=== PATIENT | male | born 1945 | race Caucasian/White ===

== ENCOUNTER → 2020-07-17 10:01 | Outpatient (BNVA) | payer SELFPAY | PROVIDERS: PCP Internal Medicine; Referring Provider Internal Medicine; Visit Provider Family Medicine Adult Medicine | DX: M47.816 Spondylosis without myelopathy or radiculopathy, lumbar region (principal); Z98.1 Arthrodesis status | CPT/HCPCS: 99212 ==

== ENCOUNTER → 2020-10-16 09:59 | Outpatient (BNVA) | payer OTHER, SELFPAY | PROVIDERS: PCP Internal Medicine; Visit Provider Family Medicine Adult Medicine | DX: M47.816 Spondylosis without myelopathy or radiculopathy, lumbar region (principal); Z98.1 Arthrodesis status; Z79.899 Other long term (current) drug therapy | CPT/HCPCS: 99212 ==

== ENCOUNTER → 2020-12-11 09:59 | Outpatient (BNVA) | payer OTHER, SELFPAY | PROVIDERS: PCP Internal Medicine; Visit Provider Family Medicine Adult Medicine | DX: M47.816 Spondylosis without myelopathy or radiculopathy, lumbar region (principal); Z98.1 Arthrodesis status | CPT/HCPCS: 99212 ==

== ENCOUNTER → 2021-02-05 08:55 | Outpatient (BNVA) | payer OTHER, SELFPAY | PROVIDERS: PCP Internal Medicine; Visit Provider Family Medicine Adult Medicine | DX: M47.816 Spondylosis without myelopathy or radiculopathy, lumbar region (principal); Z98.1 Arthrodesis status | CPT/HCPCS: 99212 ==

== ENCOUNTER → 2021-04-02 09:55 | Outpatient (BNVA) | payer OTHER, SELFPAY | PROVIDERS: PCP Internal Medicine; Visit Provider Family Medicine Adult Medicine | DX: M47.816 Spondylosis without myelopathy or radiculopathy, lumbar region (principal); Z98.1 Arthrodesis status | CPT/HCPCS: 99212 ==

== ENCOUNTER → 2021-05-28 09:54 | Outpatient (BNVA) | payer OTHER, SELFPAY | PROVIDERS: PCP Internal Medicine; Visit Provider Family Medicine Adult Medicine | DX: Z98.1 Arthrodesis status (principal); M47.816 Spondylosis without myelopathy or radiculopathy, lumbar region; Z79.899 Other long term (current) drug therapy | CPT/HCPCS: 99212 ==

== ENCOUNTER → 2021-07-16 09:54 | Outpatient (BNVA) | payer OTHER, SELFPAY | PROVIDERS: PCP Internal Medicine; Visit Provider Nurse Practitioner Family | DX: Z51.81 Encounter for therapeutic drug level monitoring (principal); F11.20 Opioid dependence, uncomplicated | CPT/HCPCS: 99211 ==

== ENCOUNTER → 2021-09-17 09:56 | Outpatient (BNVA) | payer OTHER, SELFPAY | PROVIDERS: PCP Internal Medicine; Visit Provider Nurse Practitioner Family | DX: Z51.81 Encounter for therapeutic drug level monitoring (principal); F11.20 Opioid dependence, uncomplicated; M96.1 Postlaminectomy syndrome, not elsewhere classified; M54.16 Radiculopathy, lumbar region | CPT/HCPCS: 99212 ==

== ENCOUNTER → 2021-11-12 09:54 | Outpatient (BNVA) | payer OTHER, SELFPAY | PROVIDERS: PCP Internal Medicine; Visit Provider Nurse Practitioner Family | DX: G89.29 Other chronic pain (principal); M96.1 Postlaminectomy syndrome, not elsewhere classified; M54.16 Radiculopathy, lumbar region; Z79.891 Long term (current) use of opiate analgesic; Z96.89 Presence of other specified functional implants; Z98.1 Arthrodesis status | CPT/HCPCS: 99212 ==

== ENCOUNTER → 2022-01-07 09:54 | Outpatient (BNVA) | payer OTHER, SELFPAY | PROVIDERS: PCP Internal Medicine; Visit Provider Nurse Practitioner Family | DX: Z51.81 Encounter for therapeutic drug level monitoring (principal); F11.20 Opioid dependence, uncomplicated; M96.1 Postlaminectomy syndrome, not elsewhere classified; M54.16 Radiculopathy, lumbar region; G89.29 Other chronic pain; Z98.1 Arthrodesis status; Z96.89 Presence of other specified functional implants | CPT/HCPCS: 99212 ==

== ENCOUNTER → 2022-03-11 08:25 | Outpatient (BNVA) | payer OTHER, SELFPAY | PROVIDERS: PCP Internal Medicine; Visit Provider Nurse Practitioner Family | DX: M96.1 Postlaminectomy syndrome, not elsewhere classified (principal); M54.16 Radiculopathy, lumbar region; M47.816 Spondylosis without myelopathy or radiculopathy, lumbar region; G89.29 Other chronic pain; F11.90 Opioid use, unspecified, uncomplicated; Z98.1 Arthrodesis status; Z96.89 Presence of other specified functional implants | CPT/HCPCS: 99212 ==

== ENCOUNTER → 2022-05-06 09:59 | Outpatient (BNVA) | payer OTHER, SELFPAY | PROVIDERS: PCP Internal Medicine; Visit Provider Nurse Practitioner Family | DX: Z51.81 Encounter for therapeutic drug level monitoring (principal); F11.20 Opioid dependence, uncomplicated; M79.2 Neuralgia and neuritis, unspecified; M96.1 Postlaminectomy syndrome, not elsewhere classified; M54.16 Radiculopathy, lumbar region; G89.29 Other chronic pain; M47.816 Spondylosis without myelopathy or radiculopathy, lumbar region; Z96.89 Presence of other specified functional implants; Z98.1 Arthrodesis status | CPT/HCPCS: 99212 ==

== ENCOUNTER 2022-07-07 10:35 | Outpatient (REF) | payer OTHER, SELFPAY ==
--- NOTE | ~2022-07-07 | XR_ITS ---
EXAMINATION: XR LUMBOSACRAL SPINE WITH OBLIQUES CLINICAL INFORMATION: Postlaminectomy syndrome. COMPARISON: None TECHNIQUE: AP, both oblique, and lateral views of the lumbar spine. Lateral view of the lumbosacral junction. FINDINGS: AP, lateral, oblique, and flexion-extension views performed of the lumbosacral spine. Hardware in place and appears intact with pedicle screw and vitaliy fixation L4 through S1. Disc spaces intravertebral cages are seen at the L4-L5 and L5-S1 disc space levels. At the L3-L4 disc space level, there is suggestion of approximately 3 mm of motion between flexion and extension views. Due to overlying hardware, is difficult to tell if there is any instability at the L4-L5 and L5-S1 disc space levels. There is severe disc space narrowing noted at the L2-L3 and L3-L4 disc space levels. There is a mild grade 1 spondylolisthesis L3-L4. Spine stimulator wires seen traversing to the thoracic spine. There is some mild sclerosis and spurring seen about both sacroiliac joints. No acute fracture is appreciated. There is facet arthropathy seen L2 through L4. XR/XR lumbar spine 6V w bending IMPRESSION: No evidence of acute lumbar spine fracture. Status post pedicle screw and posterior vitaliy fixation L4 through S1 with hardware appearing intact. Severe degenerative disc disease with some facet arthropathy L2 through L4. Suggestion of mild change of spondylolisthesis at the L3-L4 level. Some of this may be related to rotation of the lateral image.
== END 2022-07-07 10:36 | disposition home or self-care (01) ==
LOC: HO.XRAY 10:35
PROVIDERS: PCP Internal Medicine; Visit Provider Nurse Practitioner Family
DX: M51.36 Other intervertebral disc degeneration, lumbar region (principal); M96.1 Postlaminectomy syndrome, not elsewhere classified; M47.26 Other spondylosis with radiculopathy, lumbar region; F11.90 Opioid use, unspecified, uncomplicated; Z98.1 Arthrodesis status
CPT/HCPCS: 72114; 99212

== ENCOUNTER → 2022-09-01 09:53 | Outpatient (BNVA) | payer OTHER, SELFPAY | PROVIDERS: PCP Internal Medicine; Visit Provider Nurse Practitioner Family | DX: Z79.899 Other long term (current) drug therapy (principal) ==

== ENCOUNTER → 2022-10-28 10:01 | Outpatient (BNVA) | payer OTHER, SELFPAY | PROVIDERS: PCP Internal Medicine; Visit Provider Nurse Practitioner Family | DX: Z51.81 Encounter for therapeutic drug level monitoring (principal); F11.20 Opioid dependence, uncomplicated; M96.1 Postlaminectomy syndrome, not elsewhere classified; M51.36 Other intervertebral disc degeneration, lumbar region; M54.16 Radiculopathy, lumbar region; M47.816 Spondylosis without myelopathy or radiculopathy, lumbar region; R63.4 Abnormal weight loss; Z98.890 Other specified postprocedural states; Z87.19 Personal history of other diseases of the digestive system | CPT/HCPCS: 99212 ==

== ENCOUNTER → 2022-12-23 10:57 | Outpatient (BNVA) | payer OTHER, SELFPAY | PROVIDERS: PCP Internal Medicine; Visit Provider Nurse Practitioner Family | DX: M47.816 Spondylosis without myelopathy or radiculopathy, lumbar region (principal); M51.36 Other intervertebral disc degeneration, lumbar region; M54.16 Radiculopathy, lumbar region; M96.1 Postlaminectomy syndrome, not elsewhere classified; Z79.891 Long term (current) use of opiate analgesic | CPT/HCPCS: 99212 ==

== ENCOUNTER 2023-02-10 10:52 | Outpatient (AMB) | payer OTHER, SELFPAY ==
--- NOTE | 2023-02-10 10:51 | A.OFFVIS_ITS ---
Intake Vital Signs 02/10/23 10:59 Height 5 ft 9 in Weight 151 lb 6 oz BMI 22.4 BP 123/73 Blood Pressure Location Rt brachial Position Sitting Pulse 66 Pulse Source Pulse Oximeter Pulse Oximetry (%) 97 Oxygen Delivery Method Room Air Intake Visit Reasons: PILL COUNT Intake Note: Jay comes in today for a film count to [facility], [place], patient should have 38 films and presents with 40 films which he last took today 02/10/23 at 9:30am. Pain today 01/10. Patient also resigned opioid contract in office. Physician Assistant Surgery Required: No Accompanied by: Self / Same As Patient Allergies No Known Allergies Allergy (Verified 02/10/23 11:00) HPI HPI Comments History of Present Illness Details Patient is a pleasant 77 year old male who presents today for a film count. Patient is supposed to have #38 Belbuca films and presents with #40 films. This demonstrates a responsible attitude towards his medication regimen. Patient reports adequate analgesia for his overall pain with this regimen which allows him to be more functional and less symptomatic. He reports increase in lower back pain. Patient has spinal cord stimulator with battery replacement over 2 years ago and has been using it daily as this has been providing him significant pain relief. Denies any recent cough, cold, infection, constipation, difficulty urinating, nausea fever or other significant changes in medical history since last office visit. Patient reports small weight gaining with Ensure protein shakes which are easier for him to swallow. Reports upcoming neck surgery to straighten out his neck in [place]. 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 [facility] Medical History Lumbar spondylosis Surgical History History of lumbar spinal fusion Review of Systems Const All systems reviewed & are unremarkable except as noted in HPI and below Physical Exam Vital Signs: Last Vital Signs Pulse 66 02/10/23 10:59 BP 123/73 02/10/23 10:59 Pulse Ox 97 02/10/23 10:59 Oxygen Delivery Method Room Air 02/10/23 10:59 BMI result Body Mass Index 22.4 General: Appears afebrile. Alert and oriented. Mood and affect appropriate. Follows and participates in conversation appropriately. Respiratory effort is unlabored. No cough. Able to transition from sit to stand unassisted. Ambulates with bilaterally normal heel strike and toe off. Neck Neck: Yes normal visual inspection, Yes no lymphadenopathy, Yes supple and No anterior neck swelling Back/Spine/Pelvis Thoracic/Lumbar Spine: Thoracic/lumbar spine scar(s), pain with thoraco-lumbar ROM, paraspinal muscle tenderness, thoraco-lumbar ROM limited, No thoracic spinal tenderness and No lumbar spinal tenderness Psych Appearance: grossly normal and well kempt Speech and movement: Normal speech and movement present Affect: normal affect Attitude: cooperative Thought process: Normal thought process present Thought content: Normal thought content present, suicidality (none), no hallucinations and No Depressive thoughts present Insight: Good insight present (Psych) Judgement: Good judgement present (Psych) Results Reviewed Results Reviewed: XR LUMBOSACRAL SPINE WITH OBLIQUES 07/07/22 CLINICAL INFORMATION: Postlaminectomy syndrome. FINDINGS: AP, lateral, oblique, and flexion-extension views performed of the lumbosacral spine. Hardware in place and appears intact with pedicle screw and vitaliy fixation L4 through S1. Disc spaces intravertebral cages are seen at the L4-L5 and L5-S1 disc space levels. At the L3-L4 disc space level, there is suggestion of approximately 3 mm of motion between flexion and extension views. Due to overlying hardware, is difficult to tell if there is any instability at the L4-L5 and L5-S1 disc space levels. There is severe disc space narrowing noted at the L2-L3 and L3-L4 disc space levels. There is a mild grade 1 spondylolisthesis L3-L4. Spine stimulator wires seen traversing to the thoracic spine. There is some mild sclerosis and spurring seen about both sacroiliac joints. No acute fracture is appreciated. There is facet arthropathy seen L2 through L4. IMPRESSION: No evidence of acute lumbar spine fracture. Status post pedicle screw and posterior vitaliy fixation L4 through S1 with hardware appearing intact. Severe degenerative disc disease with some facet arthropathy L2 through L4. Suggestion of mild change of spondylolisthesis at the L3-L4 level. Some of this may be related to rotation of the lateral image. Assessment & Plan Assessment & Plan (1) Failed back syndrome: Code(s): M96.1 - Postlaminectomy syndrome, not elsewhere classified (2) Lumbar degenerative disc disease: Code(s): M51.36 - Other intervertebral disc degeneration, lumbar region (3) Chronic, continuous use of opioids: Code(s): F11.90 - Opioid use, unspecified, uncomplicated (4) Lumbar spondylosis: Code(s): M47.816 - Spondylosis without myelopathy or radiculopathy, lumbar region (5) S/P dilatation of esophageal stricture: Code(s): Z98.890 - Other specified postprocedural states; Z87.19 - Personal history of other diseases of the digestive system Plan Jay has shown accountability for his medication regimen and the film count was accurate. The patient reported no noted side effects with adequate analgesia. There is no evidence of misuse, abuse or diversion at this time. [employer] Will send in prescription for Belbuca with an advanced date of 02/28/23 and one refill. Patient advised to have regular dental check ups while taking Belbuca and take extra steps to help lessen the risk of serious dental problems. All questions were answered and patient is in agreement of plan. Follow up in 2 months for film count and sooner if needed. Medications: Refilled buprenorphine HCl (Belbuca) 450 mcg buccal Q12H 60 ea 1RF pain 30 days F11.90 - Opioid use, unspecified, uncomplicated, M47.816 - Spondylosis without myelopathy or radiculopathy, lumbar region, M51.36 - Other intervertebral disc degeneration, lumbar region, Z98.1 - Arthrodesis status Coding Level of Care Code Est Pt Level 4 (65524) Diagnoses Failed back syndrome M96.1 Lumbar degenerative disc disease M51.36 Chronic, continuous use of opioids F1. Lumbar spondylosis M47.816 S/P dilatation of esophageal stricture Z98.890; Z87.19
[2023-02-10 10:59] VITALS: BP 123/73; PULSE 66; O2SAT 97; BMI 22.4
== END 2023-02-10 11:09 | disposition home or self-care (01) ==
PROVIDERS: PCP Internal Medicine; Visit Provider Nurse Practitioner Family
DX: M96.1 Postlaminectomy syndrome, not elsewhere classified (principal); M51.36 Other intervertebral disc degeneration, lumbar region; M47.816 Spondylosis without myelopathy or radiculopathy, lumbar region; Z79.891 Long term (current) use of opiate analgesic; Z98.890 Other specified postprocedural states; Z87.19 Personal history of other diseases of the digestive system
CPT/HCPCS: 99214

== ENCOUNTER → 2023-02-10 10:52 | Outpatient (BNVA) | payer OTHER, SELFPAY | PROVIDERS: Visit Provider Nurse Practitioner Family | DX: M96.1 Postlaminectomy syndrome, not elsewhere classified (principal); M51.36 Other intervertebral disc degeneration, lumbar region; M47.816 Spondylosis without myelopathy or radiculopathy, lumbar region; Z79.891 Long term (current) use of opiate analgesic | CPT/HCPCS: 99212 ==

== ENCOUNTER 2023-04-07 10:33 | Outpatient (AMB) | payer OTHER, SELFPAY ==
--- NOTE | 2023-04-07 10:35 | MHC.OFFVIS ---
Intake Vital Signs 04/07/23 10:42 Height 5 ft 9 in Weight 153 lb 2 oz BMI 22.6 BP 135/82 Blood Pressure Location Rt brachial Position Sitting Pulse 75 Pulse Source Pulse Oximeter Pulse Oximetry (%) 97 Oxygen Delivery Method Room Air Intake Visit Reasons: Med count Intake Note: Jay comes in today for a film count to [facility], patient should have 48 films and presents with 50 films which he last took today 04/07/23 at 8:30am. Pain today 01/10. Parking Analyst Required: No Accompanied by: Self / Same As Patient Allergies No Known Allergies Allergy (Verified 04/07/23 10:42) HPI HPI Comments History of Present Illness Details Patient presents today for a film count. Patient is supposed to have #48 Belca films and presents with #50 films. This demonstrates a responsible attitude towards his medication regimen. Patient reports adequate analgesia for his overall pain with this regimen which allows him to be more functional and less symptomatic. He reports increase in lower back pain after working in his back yard. Patient utilizes spinal cord stimulator daily which provides him partial pain relief. Denies any recent cough, cold, infection, constipation, difficulty urinating, nausea fever or other significant changes in medical history since last office visit. Patient reports he has upcoming endoscopic procedure to repair his diverticulum and straighten out his neck. He has been off blood thinners for preoperative preparations. [facility] Medical History Lumbar spondylosis Surgical History History of lumbar spinal fusion Review of Systems Const All systems reviewed & are unremarkable except as noted in HPI and below Physical Exam Vital Signs: Last Vital Signs Pulse 75 04/07/23 10:42 BP 135/82 04/07/23 10:42 Pulse Ox 97 04/07/23 10:42 Oxygen Delivery Method Room Air 04/07/23 10:42 BMI result Body Mass Index 22.6 General: Appears afebrile. Alert and oriented. Mood and affect appropriate. Follows and participates in conversation appropriately. Respiratory effort is unlabored. No cough. Able to transition from sit to stand unassisted. Ambulates with bilaterally normal heel strike and toe off. Neck Neck: Yes normal visual inspection, Yes no lymphadenopathy, Yes supple and No anterior neck swelling Back/Spine/Pelvis Cervical Spine: cervical muscular tenderness and No Cervical spine tenderness Thoracic/Lumbar Spine: pain with thoraco-lumbar ROM, paraspinal muscle tenderness, thoraco-lumbar ROM limited, No thoracic spinal tenderness and No lumbar spinal tenderness Psych Appearance: grossly normal and well kempt Speech and movement: Normal speech and movement present Affect: normal affect Attitude: cooperative Thought process: Normal thought process present Thought content: Normal thought content present, suicidality (none), no hallucinations and No Depressive thoughts present Insight: Good insight present (Psych) Judgement: Good judgement present (Psych) Assessment & Plan Assessment & Plan (1) Failed back syndrome: Code(s): M96.1 - Postlaminectomy syndrome, not elsewhere classified (2) Lumbar degenerative disc disease: Code(s): M51.36 - Other intervertebral disc degeneration, lumbar region (3) Chronic, continuous use of opioids: Code(s): F11.90 - Opioid use, unspecified, uncomplicated (4) Lumbar spondylosis: Code(s): M47.816 - Spondylosis without myelopathy or radiculopathy, lumbar region (5) S/P dilatation of esophageal stricture: Code(s): Z98.890 - Other specified postprocedural states; Z87.19 - Personal history of other diseases of the digestive system Plan Patient has shown accountability for his medication regimen and the film count was accurate. The patient reported no noted side effects with adequate analgesia. There is no evidence of misuse, abuse or diversion at this time. [employer] reviewed. Will send in prescription for Belbuca with an advanced date of 05/01/23 and one refill. Continue Tylenol prn for breakthrough pain. Patient advised to have regular dental check ups while taking Belbuca and take extra steps to help lessen the risk of serious dental problems. Patient has upcoming endoscopic procedure with diverticulum repair, post op pain management per surgeon. All questions were answered and patient is in agreement of plan. Follow up in 2 months for film count and sooner if needed. Medications: Refilled buprenorphine HCl (Belbuca) 450 mcg buccal Q12H 60 ea 1RF pain 30 days F11.90 - Opioid use, unspecified, uncomplicated, M47.816 - Spondylosis without myelopathy or radiculopathy, lumbar region, M51.36 - Other intervertebral disc degeneration, lumbar region, Z98.1 - Arthrodesis status Coding Level of Care Code Est Pt Level 4 (11769) Diagnoses Failed back syndrome M96.1 Lumbar degenerative disc disease M51.36 Chronic, continuous use of opioids F11.90 Lumbar spondylosis M47.816 S/P dilatation of esophageal stricture Z98.890; Z87.19
[2023-04-07 10:42] VITALS: BP 135/82; PULSE 75; O2SAT 97; BMI 22.6
== END 2023-04-07 10:49 | disposition home or self-care (01) ==
PROVIDERS: PCP Internal Medicine; Visit Provider Nurse Practitioner Family
DX: M96.1 Postlaminectomy syndrome, not elsewhere classified (principal); M51.36 Other intervertebral disc degeneration, lumbar region; M47.816 Spondylosis without myelopathy or radiculopathy, lumbar region; Z79.891 Long term (current) use of opiate analgesic
CPT/HCPCS: 99214

== ENCOUNTER → 2023-04-07 10:33 | Outpatient (BNVA) | payer OTHER, SELFPAY | PROVIDERS: PCP Internal Medicine; Visit Provider Nurse Practitioner Family | DX: M96.1 Postlaminectomy syndrome, not elsewhere classified (principal); M51.36 Other intervertebral disc degeneration, lumbar region; M47.816 Spondylosis without myelopathy or radiculopathy, lumbar region; Z79.891 Long term (current) use of opiate analgesic; Z87.19 Personal history of other diseases of the digestive system | CPT/HCPCS: 99212 ==

== ENCOUNTER 2023-06-09 10:31 | Outpatient (AMB) | payer OTHER, SELFPAY ==
--- NOTE | 2023-06-09 10:31 | MHC.OFFVIS ---
Intake Vital Signs 06/09/23 10:41 Height 5 ft 9 in Weight 149 lb 6 oz BMI 22.1 BP 150/67 H Blood Pressure Location Rt brachial Position Sitting Pulse 75 Pulse Source Pulse Oximeter Pulse Oximetry (%) 98 Oxygen Delivery Method Room Air Intake Visit Reasons: Medication Count/Random UDS Intake Note: Jay comes in today for a film count to [facility], patient should have 40 films and presents with 44 films which he last took today 06/09/23 at 8:30am. Pain today 01/10. Patient will also go for a random UDS, aware that he needs to go to the lab on the first floor of this building today 06/09/23 before 12pm. Refrigeration Manager Required: No Accompanied by: Self / Same As Patient Allergies No Known Allergies Allergy (Verified 06/09/23 10:43) HPI HPI Comments History of Present Illness Details Patient presents today for a film count. Patient is supposed to have #40 Belbuca films and presents with #44 films. This demonstrates a responsible attitude towards his medication regimen. Patient reports adequate analgesia without any side effects. Current regimen allows him to be more functional and less symptomatic. Patient also utilizes spinal cord stimulator daily which provides him partial pain relief. Denies any recent cough, cold, infection, constipation, difficulty urinating, nausea fever or other significant changes in medical history since last office visit. Patient reports he recently underwent endoscopic procedure to repair his diverticulum and straighten out his neck. Patient reports he is finally returning to his normal way of eating and actually enjoying food. Prior to repair, it would take him up to one hour to eat and swallow. He continues to be careful while eating. [facility] Medical History (Updated 06/09/23 @ 10:52 by ERWIN Fairbanks) Lumbar degenerative disc disease Neuralgia Chronic, continuous use of opioids Bilateral lumbar radiculopathy Failed back syndrome Lumbar spondylosis Surgical History (Updated 06/09/23 @ 10:52 by ERWIN Fairbanks) S/P dilatation of esophageal stricture S/P insertion of spinal cord stimulator History of lumbar spinal fusion Review of Systems Const All systems reviewed & are unremarkable except as noted in HPI and below ENT Denies dental pain, Denies dysphagia, Denies dizziness, Denies dry mouth, Denies mouth lesions, Denies neck pain and Denies sore throat GI Denies dysphagia Musc Denies neck pain Neuro Denies dizziness Physical Exam General: Appears afebrile. Alert and oriented. Mood and affect appropriate. Follows and participates in conversation appropriately. Respiratory effort is unlabored. No cough. Able to transition from sit to stand unassisted. Ambulates with bilaterally normal heel strike and toe off. Neck Neck: Yes normal visual inspection, Yes no lymphadenopathy, Yes supple, No anterior neck swelling and Yes no JVD Back/Spine/Pelvis Cervical Spine: cervical muscular tenderness and No Cervical spine tenderness Thoracic/Lumbar Spine: pain with thoraco-lumbar ROM, paraspinal muscle tenderness, thoraco-lumbar ROM limited, No thoracic spinal tenderness and No lumbar spinal tenderness Psych Appearance: grossly normal and well kempt Speech and movement: Normal speech and movement present Affect: normal affect Attitude: cooperative Thought process: Normal thought process present Thought content: Normal thought content present, suicidality (none), no hallucinations and No Depressive thoughts present Insight: Good insight present (Psych) Judgement: Good judgement present (Psych) Assessment & Plan Assessment & Plan (1) Failed back syndrome: Code(s): M96.1 - Postlaminectomy syndrome, not elsewhere classified (2) Lumbar degenerative disc disease: Code(s): M51.36 - Other intervertebral disc degeneration, lumbar region (3) Chronic, continuous use of opioids: Code(s): F11.90 - Opioid use, unspecified, uncomplicated (4) Lumbar spondylosis: Code(s): M47.816 - Spondylosis without myelopathy or radiculopathy, lumbar region (5) Chronic pain: Code(s): G89.29 - Other chronic pain Plan Patient has shown accountability for his medication regimen and the film count was accurate. The patient reported no noted side effects with adequate analgesia. There is no evidence of misuse, abuse or diversion at this time. [employer] reviewed. Will send in prescription for Belbuca with an advanced date of 06/29/23 and one refill. Patient advised to have regular dental check ups while taking Belbuca and take extra steps to help lessen the risk of serious dental problems. All questions were answered and patient is in agreement of plan. Follow up in 2 months for film count/UDS review and sooner if needed. Medications: Refilled buprenorphine HCl (Belbuca) 450 mcg buccal Q12H 30 days 60 ea 1RF pain F11.90 - Opioid use, unspecified, uncomplicated, M47.816 - Spondylosis without myelopathy or radiculopathy, lumbar region, M51.36 - Other intervertebral disc degeneration, lumbar region, Z98.1 - Arthrodesis status Coding Level of Care Code Est Pt Level 4 (38784) Diagnoses Failed back syndrome M96.1 Lumbar degenerative disc disease M51.36 Chronic, continuous use of opioids F11. Lumbar spondylosis M47.816 Chronic pain G89.29
[2023-06-09 10:41] VITALS: BP 150/67; PULSE 75; O2SAT 98; BMI 22.1
== END 2023-06-09 10:48 | disposition home or self-care (01) ==
PROVIDERS: PCP Internal Medicine; Visit Provider Nurse Practitioner Family
DX: M96.1 Postlaminectomy syndrome, not elsewhere classified (principal); M51.36 Other intervertebral disc degeneration, lumbar region; M47.816 Spondylosis without myelopathy or radiculopathy, lumbar region; Z79.891 Long term (current) use of opiate analgesic
CPT/HCPCS: 99214

== ENCOUNTER → 2023-06-09 10:31 | Outpatient (BNVA) | payer OTHER, SELFPAY | PROVIDERS: PCP Internal Medicine; Visit Provider Nurse Practitioner Family | DX: M47.26 Other spondylosis with radiculopathy, lumbar region (principal); M51.36 Other intervertebral disc degeneration, lumbar region; M79.2 Neuralgia and neuritis, unspecified; M96.1 Postlaminectomy syndrome, not elsewhere classified; Z96.82 Presence of neurostimulator; Z79.891 Long term (current) use of opiate analgesic | CPT/HCPCS: 99212 ==

== ENCOUNTER 2023-08-10 10:30 | Outpatient (AMB) | payer OTHER, SELFPAY ==
--- NOTE | 2023-08-10 10:39 | MHC.OFFVIS ---
Intake Vital Signs 08/10/23 10:46 Height 5 ft 9 in Weight 148 lb 2 oz BMI 21.9 BP 125/67 Blood Pressure Location Lt brachial Position Sitting Pulse 78 Pulse Source Pulse Oximeter Pulse Oximetry (%) 99 Oxygen Delivery Method Room Air Intake Visit Reasons: Medication Count/lvm Intake Note: Jay comes in today for a film count to [place] [facility], patient should have 38 films and presents with 42 films which she states he last took today 08/10/23 a few hours ago . Pain today 03/12. Patient also signed updated opioid contract in office, copy of signed contract was provided. 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 Patient is supposed to have #38 Belbuca films and presents with #42 films. This demonstrates a responsible attitude towards his medication regimen. Patient reports mild to moderate analgesia without any side effects. Current regimen allows him to be more functional and less symptomatic. Patient also utilizes spinal cord stimulator daily which provides him partial pain relief. Denies any recent cough, cold, infection, constipation, difficulty urinating, nausea fever or other significant changes in medical history since last office visit. Patient reports worsening low back pain due to post laminectomy syndrome. Denies recent SCS program adjustments but notes that this was attempted previously and was told that his leads might need to be replacement for more recent SCS optimal reprogramming which he is not interested to do. Patient reports most recent CT scan of lumbar spine in [address] Kent. He avoids MRIs due to extensive hardware in his spine. Patient is considering caudal CORAL with catheter for low back pain with intermittent radiation into his lower extremities, worse on right side in L4-L5 distribution. Pain is worse with prolonged sitting, standing, or walking and range of motions. He reports increased pain in his hips with walking with cold weather and changing positions. He takes Tylenol for breakthrough pain with partial relief. Denies any fever, abdominal or groin pain, weakness, bladder or bowel dysfunction or saddle anesthesia. [facility] Medical History Lumbar degenerative disc disease Neuralgia Chronic, continuous use of opioids Bilateral lumbar radiculopathy Failed back syndrome Lumbar spondylosis Surgical History (Reviewed 08/10/23 @ 10:49 by CLAUDY Fairbanks S/P dilatation of esophageal stricture S/P insertion of spinal cord stimulator History of lumbar spinal fusion Review of Systems Const All systems reviewed & are unremarkable except as noted in HPI and below Physical Exam Vital Signs: Last Vital Signs Pulse 78 08/10/23 10:46 BP 125/67 08/10/23 10:46 Pulse Ox 99 08/10/23 10:46 Oxygen Delivery Method Room Air 08/10/23 10:46 BMI result Body Mass Index 21.9 General: Appears afebrile. Alert and oriented. Mood and affect appropriate. Follows and participates in conversation appropriately. Respiratory effort is unlabored. No cough. Able to transition from sit to stand unassisted. Ambulates with bilaterally normal heel strike and toe off, reports unsteadiness on right side. Neck Neck: Yes normal visual inspection, Yes no lymphadenopathy, Yes supple, No anterior neck swelling and Yes no JVD Back/Spine/Pelvis Other: Limited lumbar ROM due to pain. Painful facet loading bilaterally. Increased pain with lumbar flexion and extension. No groin pain with I/E hip rotation bilaterally. Cervical Spine: cervical muscular tenderness and No Cervical spine tenderness Thoracic/Lumbar Spine: thoracic and lumbar spine normal to inspection, Thoracic/lumbar spine scar(s), Lasegue's sign positive (localized on right, diffuse on the left), pain with thoraco-lumbar ROM, paraspinal muscle tenderness, thoraco-lumbar ROM limited, No thoracic spinal tenderness, No lumbar spinal tenderness and straight leg raise positive right at 40 degrees Pelvis: no buttock tenderness Sacroiliac joints: bilaterally tender to palpation Extrem General: Yes capillary refill normal, Yes no clubbing, cyanosis or edema and Yes no calf tenderness Psych Appearance: grossly normal and well kempt Speech and movement: Normal speech and movement present Affect: normal affect Attitude: cooperative Thought process: Normal thought process present Thought content: Normal thought content present, suicidality (none), no hallucinations and No Depressive thoughts present Insight: Good insight present (Psych) Judgement: Good judgement present (Psych) Results Reviewed Results Reviewed: XR LUMBOSACRAL SPINE WITH OBLIQUES 07/07/22 CLINICAL INFORMATION: Postlaminectomy syndrome. FINDINGS: AP, lateral, oblique, and flexion-extension views performed of the lumbosacral spine. Hardware in place and appears intact with pedicle screw and vitaliy fixation L4 through S1. Disc spaces intravertebral cages are seen at the L4-L5 and L5-S1 disc space levels. At the L3-L4 disc space level, there is suggestion of approximately 3 mm of motion between flexion and extension views. Due to overlying hardware, is difficult to tell if there is any instability at the L4-L5 and L5-S1 disc space levels. There is severe disc space narrowing noted at the L2-L3 and L3-L4 disc space levels. There is a mild grade 1 spondylolisthesis L3-L4. Spine stimulator wires seen traversing to the thoracic spine. There is some mild sclerosis and spurring seen about both sacroiliac joints. No acute fracture is appreciated. There is facet arthropathy seen L2 through L4. IMPRESSION: No evidence of acute lumbar spine fracture. Status post pedicle screw and posterior vitaliy fixation L4 through S1 with hardware appearing intact. Severe degenerative disc disease with some facet arthropathy L2 through L4. Suggestion of mild change of spondylolisthesis at the L3-L4 level. Some of this may be related to rotation of the lateral image. Assessment & Plan Assessment & Plan (1) Failed back syndrome: Code(s): M96.1 - Postlaminectomy syndrome, not elsewhere classified (2) Lumbar degenerative disc disease: Code(s): M51.36 - Other intervertebral disc degeneration, lumbar region (3) Chronic, continuous use of opioids: Code(s): F11.90 - Opioid use, unspecified, uncomplicated (4) Lumbar spondylosis: Code(s): M47.816 - Spondylosis without myelopathy or radiculopathy, lumbar region (5) Chronic pain: Code(s): G89.29 - Other chronic pain Plan Patient has shown accountability for his medication regimen and the film count was accurate. Recent random UDS came back concordant. The patient reported no noted side effects with mild-moderate analgesia. There is no evidence of misuse, abuse or diversion at this time. [place] reviewed. Will send in prescription for Belbuca with an advanced date of 08/28/23 and one refill. Patient advised to have regular dental check ups while taking Belbuca and take extra steps to help lessen the risk of serious dental problems. For post laminectomy pain syndrome, discussed reaching out to [email or web address] ([employer]) [facility] for potential SCS program adjustment in our clinic. Medical release request sent to [facility] for most recent lumbar spine imaging and Dr. Kent's evaluation. Will consider Caudal CORAL wtih catheter with sedation and fluoroscopy. All questions were answered and patient is in agreement of plan. Follow up in 2 months for film count and sooner if needed. Medications: Refilled buprenorphine HCl (Belbuca) 450 mcg buccal Q12H 60 ea 1RF pain 30 days F1.90 - Opioid use, unspecified, uncomplicated, M47.816 - Spondylosis without myelopathy or radiculopathy, lumbar region, M51.36 - Other intervertebral disc degeneration, lumbar region, Z98.1 - Arthrodesis status Coding Level of Care Code Est Pt Level 4 (13530) Diagnoses Failed back syndrome M96.1 Lumbar degenerative disc disease M51.36 Chronic, continuous use of opioids Lumbar spondylosis M47.816 Chronic pain G89.29
[2023-08-10 10:46] VITALS: BP 125/67; PULSE 78; O2SAT 99; BMI 21.9
== END 2023-08-10 11:04 | disposition home or self-care (01) ==
PROVIDERS: PCP Internal Medicine; Visit Provider Nurse Practitioner Family
DX: G89.29 Other chronic pain (principal); M96.1 Postlaminectomy syndrome, not elsewhere classified; M51.36 Other intervertebral disc degeneration, lumbar region; Z79.891 Long term (current) use of opiate analgesic; M47.816 Spondylosis without myelopathy or radiculopathy, lumbar region
CPT/HCPCS: 99214

== ENCOUNTER → 2023-08-10 10:30 | Outpatient (BNVA) | payer OTHER, SELFPAY | PROVIDERS: PCP Internal Medicine; Visit Provider Nurse Practitioner Family | DX: M96.1 Postlaminectomy syndrome, not elsewhere classified (principal); M51.36 Other intervertebral disc degeneration, lumbar region; M47.816 Spondylosis without myelopathy or radiculopathy, lumbar region; G89.29 Other chronic pain; F11.20 Opioid dependence, uncomplicated | CPT/HCPCS: 99212 ==

== ENCOUNTER 2023-08-14 13:28 | Outpatient (REF) | payer OTHER, SELFPAY ==
--- NOTE | ~2023-08-14 | XR_ITS ---
EXAMINATION: XR THORACIC SPINE CLINICAL INFORMATION: Presence of other specified functional implants. COMPARISON: None available. TECHNIQUE: Frontal, lateral and swimmer's views of the thoracic spine were obtained. FINDINGS: There is bony demineralization. There are mild T8 and T9 anterior wedge compression fractures. Vertebral body heights are otherwise normal. There is moderately severe disc space narrowing at T6-T7 through T9-T10 and at T11-T12. The remaining disc spaces are relatively well-maintained. No acute fracture or spondylolisthesis is seen. There is multi-level thoracic spondylosis. The posterior elements are intact. There is a spinal stimulator device, with tip situated at the T7-T8 level. The paravertebral soft tissues are unremarkable. XR/XR lumbar spine 4V min IMPRESSION: 1. There is multi-level thoracic degenerative disc disease, spondylosis and facet arthropathy. 2. There are age-indeterminate mild T8 and T9 anterior wedge compression fractures. 3. A spinal stimulator device is seen, with tip situated at the T7-T8 level. EXAMINATION: XR LUMBOSACRAL SPINE CLINICAL INFORMATION: Lumbar degenerative disc disease. COMPARISON: Radiographs dated 07/07/2022. TECHNIQUE: AP and lateral views of the lumbar spine and lateral view of the lumbosacral junction. FINDINGS: There is bony demineralization. There is a mild lumbar levoscoliosis. At L1-L2 and L2-L3, there is moderate disc space narrowing. At L3-L4, there is marked disc space narrowing, with vacuum disc phenomenon and accompanying marked anterior spondylosis. There has been a prior posterior fusion at L4-S1, with intact posterior fixator rods, pedicular screws and intervertebral cages. No hardware failure or loosening is seen. There is no acute fracture or spondylolisthesis. There is multi-level lumbar spondylosis. Spinal stimulator leads and an impulse generator are noted. There are aortoiliac atherosclerotic calcifications. IMPRESSION: 1. There is well-maintained alignment status-post L4-S1 posterior fusions and discectomies. No hardware failure or loosening is seen. 2. There is moderate degenerative disc disease at L1-L2 and L2-L3, and marked degenerative disc disease is seen at L3-L4.
== END 2023-08-14 13:29 | disposition home or self-care (01) ==
LOC: HO.XRAY 13:28
PROVIDERS: PCP Internal Medicine; Visit Provider Nurse Practitioner Family
DX: M51.36 Other intervertebral disc degeneration, lumbar region (principal); M96.1 Postlaminectomy syndrome, not elsewhere classified; Z98.1 Arthrodesis status; Z96.89 Presence of other specified functional implants
CPT/HCPCS: 72072; 72110

== ENCOUNTER 2023-08-27 12:57 | Outpatient (AMB) | payer OTHER, SELFPAY ==
--- NOTE | 2023-08-27 13:03 | MHC.OFFVIS ---
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 Denies any recent cough, cold, infection, fever, any significant changes in her medical history, medications or recent hospitalizations. PRIOR: Patient presents today for a film count. Patient is supposed to have #38 Belbuca films and presents with #42 films. This demonstrates a responsible attitude towards his medication regimen. Patient reports mild to moderate analgesia without any side effects. Current regimen allows him to be more functional and less symptomatic. Patient also utilizes spinal cord stimulator daily which provides him partial pain relief. Denies any recent cough, cold, infection, constipation, difficulty urinating, nausea fever or other significant changes in medical history since last office visit. Patient reports worsening low back pain due to post laminectomy syndrome. Denies recent SCS program adjustments but notes that this was attempted previously and was told that his leads might need to be replacement for more recent SCS optimal reprogramming which he is not interested to do. Patient reports most recent CT scan of lumbar spine in [address] Kent. He avoids MRIs due to extensive hardware in his spine. Patient is considering caudal CORAL with catheter for low back pain with intermittent radiation into his lower extremities, worse on right side in L4-L5 distribution. Pain is worse with prolonged sitting, standing, or walking and range of motions. He reports increased pain in his hips with walking with cold weather and changing positions. He takes Tylenol for breakthrough pain with partial relief. Denies any fever, abdominal or groin pain, weakness, bladder or bowel dysfunction or saddle anesthesia. [facility] Medical History Lumbar degenerative disc disease Neuralgia Chronic, continuous use of opioids Bilateral lumbar radiculopathy Failed back syndrome Lumbar spondylosis Surgical History S/P dilatation of esophageal stricture S/P insertion of spinal cord stimulator History of lumbar spinal fusion Review of Systems Const All systems reviewed & are unremarkable except as noted in HPI and below Physical Exam Vital Signs: Last Vital Signs Pulse 76 08/27/23 13:07 BP 135/89 08/27/23 13:07 Pulse Ox 99 08/27/23 13:07 Oxygen Delivery Method Room Air 08/27/23 13:07 BMI result Body Mass Index 21.9 General: Appears afebrile. Alert and oriented. Mood and affect appropriate. Follows and participates in conversation appropriately. Respiratory effort is unlabored. No cough. Able to transition from sit to stand unassisted. Ambulates with bilaterally normal heel strike and toe off, reports unsteadiness on right side. Neck Neck: Yes normal visual inspection, Yes no lymphadenopathy, Yes supple, No anterior neck swelling and Yes no JVD Back/Spine/Pelvis Other: Limited lumbar ROM due to pain. Painful facet loading bilaterally. Increased pain with lumbar flexion and extension. No groin pain with I/E hip rotation bilaterally. Cervical Spine: cervical muscular tenderness and No Cervical spine tenderness Thoracic/Lumbar Spine: thoracic and lumbar spine normal to inspection, Thoracic/lumbar spine scar(s), Lasegue's sign positive (localized on right, diffuse on the left), pain with thoraco-lumbar ROM, paraspinal muscle tenderness, thoraco-lumbar ROM limited, No thoracic spinal tenderness, No lumbar spinal tenderness and straight leg raise positive right at 40 degrees Pelvis: no buttock tenderness Sacroiliac joints: bilaterally tender to palpation Extrem General: Yes capillary refill normal, Yes no clubbing, cyanosis or edema and Yes no calf tenderness Psych Insight: Good insight present (Psych) Judgement: Good judgement present (Psych) Results Reviewed Results Reviewed: XR THORACIC SPINE 08/14/23 CLINICAL INFORMATION: Presence of other specified functional implants. FINDINGS: There is bony demineralization. There are mild T8 and T9 anterior wedge compression fractures. Vertebral body heights are otherwise normal. There is moderately severe disc space narrowing at T6-T7 through T9-T10 and at T11-T12. The remaining disc spaces are relatively well-maintained. No acute fracture or spondylolisthesis is seen. There is multi-level thoracic spondylosis. The posterior elements are intact. There is a spinal stimulator device, with tip situated at the T7-T8 level. The paravertebral soft tissues are unremarkable. IMPRESSION: 1. There is multi-level thoracic degenerative disc disease, spondylosis and facet arthropathy. 2. There are age-indeterminate mild T8 and T9 anterior wedge compression fractures. 3. A spinal stimulator device is seen, with tip situated at the T7-T8 level. XR LUMBOSACRAL SPINE 08/14/23 CLINICAL INFORMATION: Lumbar degenerative disc disease. COMPARISON: Radiographs dated 07/07/2022. TECHNIQUE: AP and lateral views of the lumbar spine and lateral view of the lumbosacral junction. FINDINGS: There is bony demineralization. There is a mild lumbar levoscoliosis. At L1-L2 and L2-L3, there is moderate disc space narrowing. At L3-L4, there is marked disc space narrowing, with vacuum disc phenomenon and accompanying marked anterior spondylosis. There has been a prior posterior fusion at L4-S1, with intact posterior fixator rods, pedicular screws and intervertebral cages. No hardware failure or loosening is seen. There is no acute fracture or spondylolisthesis. There is multi-level lumbar spondylosis. Spinal stimulator leads and an impulse generator are noted. There are aortoiliac atherosclerotic calcifications. IMPRESSION: 1. There is well-maintained alignment status-post L4-S1 posterior fusions and discectomies. No hardware failure or loosening is seen. 2. There is moderate degenerative disc disease at L1-L2 and L2-L3, and marked degenerative disc disease is seen at L3-L4. Assessment & Plan Assessment & Plan (1) Failed back syndrome: Code(s): M96.1 - Postlaminectomy syndrome, not elsewhere classified (2) Bilateral lumbar radiculopathy: Code(s): M54.16 - Radiculopathy, lumbar region (3) Lumbar degenerative disc disease: Code(s): M51.36 - Other intervertebral disc degeneration, lumbar region (4) Spinal cord stimulator status: Code(s): Z96.89 - Presence of other specified functional implants (5) Lumbar spondylosis: Code(s): M47.816 - Spondylosis without myelopathy or radiculopathy, lumbar region Plan SCS program adjusted today by Rg Pederson. Patient reports he is content with some improvement in his symptoms which he thought prior to this visit was impossible to do. Patient will have another SCS program re-adjustment in October. For bilateral lumbar radicular pain with bending and walking, we will proceed with CT scan to assess for neural integrity and compression. Will plan for Caudal CORAL with catheter with sedation and fluoroscopy. Expectations, risks and benefits were reviewed. All questions were answered and patient is in agreement of plan. Follow up for CT scan results and sooner if needed. Orders: Orders CT lumbar spine wo IV con Today M51.36 - Other intervertebral disc degeneration, lumbar region, M54.16 - Radiculopathy, lumbar region, M96.1 - Postlaminectomy syndrome, not elsewhere classified, Z96.89 - Presence of other specified functional implants Coding Level of Care Code Est Pt Level 4 (74801) Diagnoses Failed back syndrome M96.1 Bilateral lumbar radiculopathy M54.16 Lumbar degenerative disc disease M51.36 Spinal cord stimulator status Z96.89 Lumbar spondylosis M47.816
[2023-08-27 13:07] VITALS: BP 135/89; PULSE 76; O2SAT 99; BMI 21.9
== END 2023-08-27 13:45 | disposition home or self-care (01) ==
PROVIDERS: PCP Internal Medicine; Visit Provider Nurse Practitioner Family
DX: M96.1 Postlaminectomy syndrome, not elsewhere classified (principal); M54.16 Radiculopathy, lumbar region; M51.36 Other intervertebral disc degeneration, lumbar region; Z96.89 Presence of other specified functional implants; M47.816 Spondylosis without myelopathy or radiculopathy, lumbar region
CPT/HCPCS: 99214

== ENCOUNTER → 2023-08-27 12:57 | Outpatient (BNVA) | payer OTHER, SELFPAY | PROVIDERS: PCP Internal Medicine; Visit Provider Nurse Practitioner Family | DX: M96.1 Postlaminectomy syndrome, not elsewhere classified (principal); M47.26 Other spondylosis with radiculopathy, lumbar region; M51.36 Other intervertebral disc degeneration, lumbar region; Z96.89 Presence of other specified functional implants | CPT/HCPCS: 99212 ==

== ENCOUNTER 2023-10-01 07:42 | Outpatient (REF) | payer OTHER, SELFPAY ==
--- NOTE | ~2023-10-01 | CT_ITS ---
EXAMINATION: CT LUMBAR SPINE WITHOUT CONTRAST CLINICAL INFORMATION: Post laminectomy syndrome. COMPARISON: Lumbar spine radiographs 08/14/2023. TECHNIQUE: Management Trainee Marketing images were obtained. CT imaging of the lumbar spine was performed without contrast. Data was reformatted into multiplanar images at the acquisition workstation. This CT examination was performed using dose optimization techniques as appropriate, variously including the following: *Automated exposure control *Adjustment of mA and/or kV according to patient size (this includes techniques or standardized protocols for targeted exams where dose is matched to indication/reason for exam; i.e. extremities or head) *Use of iterative reconstruction technique DLP; 643 mGy-cm FINDINGS: There are chronic postoperative changes of a posterior spinal fusion with transpedicular hardware extending from L4 to S1. Bridging bone completely fuses the L4-S1 vertebra. There is grade 1 anterolisthesis of L3 on L4 that appears to be related to advanced facet degenerative changes at this level. Slight grade 1 retrolisthesis of L1 on L2 and L2 on L3. There is loss of intervertebral disc height with associated sclerotic degenerative endplate changes, hypertrophic disc osteophyte spurring, and intervertebral vacuum disc phenomenon at L1-L2, L2-L3, and L3-L4. There is also abutment with associated sclerotic changes of the adjoining spinous processes at L1-L2, L2-L3, and L3-L4 indicating likelihood of underlying [place] disease. Canal patency is not well assessed on this examination due to inherent limitations of CT without intrathecal contrast and due to the extent of streak artifact related to the fusion hardware. There is at least moderate canal stenosis at the level of L2-L3 and L3-L4. Limited visualization of the retroperitoneal anatomy reveals layering calculi within the gallbladder neck and scattered atheromatous calcification involving the abdominal aorta and iliac vessels. CT/CT lumbar spine wo IV con IMPRESSION: There are chronic postoperative changes of a posterior spinal fusion with transpedicular hardware extending from L4 to S1. No evidence of hardware loosening or failure. Bridging bone completely fuses the L4-S1 vertebra. There is junctional spondylosis above and below the fusion with grade 1 anterolisthesis of L3 on L4. Canal patency is not well assessed on this examination due to inherent limitations of CT without intrathecal contrast and due to the extent of streak artifact related to the fusion hardware. There is at least moderate canal stenosis at the level of L2-L3 and L3-L4. If there are clinical symptoms of compressive myelopathy then a dedicated lumbar spine MRI can be obtained for better anatomic characterization of canal patency.
== END 2023-10-01 07:43 | disposition home or self-care (01) ==
LOC: HO.CT 07:42
PROVIDERS: PCP Internal Medicine; Visit Provider Nurse Practitioner Family
DX: M96.1 Postlaminectomy syndrome, not elsewhere classified (principal); M54.16 Radiculopathy, lumbar region; M51.36 Other intervertebral disc degeneration, lumbar region; Z96.89 Presence of other specified functional implants
CPT/HCPCS: 72132

== ENCOUNTER 2023-10-08 10:56 | Outpatient (AMB) | payer OTHER, SELFPAY ==
--- NOTE | 2023-10-08 11:04 | A.OFFVIS_ITS ---
Intake Vital Signs 10/08/23 11:18 Height 5 ft 9 in Weight 157 lb 8 oz BMI 23.3 Pulse 80 Pulse Source Pulse Oximeter Pulse Oximetry (%) 97 Oxygen Delivery Method Room Air Intake Visit Reasons: PILL COUNT/SCS Device check per Kalli Intake Note: Jay comes in today for film count to belbuca, patient should have 42 films and presents with 44 films which he last took today 10/08/23 at 8am. Pain today 01/10. Commercial Assistant Required: No Accompanied by: Self / Same As Patient Allergies No Known Allergies Allergy (Verified 06/09/23 10:43) HPI HPI Comments History of Present Illness Details Patient presents today for a film count and lumbar CT scan results review. Patient is supposed to have #42 Belbuca films and presents with #44 films. This demonstrates a responsible attitude towards his medication regimen. Patient reports mild to moderate analgesia without any side effects. Current regimen allows him to be more functional and less symptomatic. Per [facility] Review, it was noted patient picked up 3 tabs of Vicodin. He reports recent right trigger finger release surgery on 09/14/23 and reports he notified our office before filling short script for post-operative pain. Denies any recent cough, cold, infection, constipation, difficulty urinating, nausea fever or other significant changes in medical history since last office visit. Patient also utilizes spinal cord stimulator daily which provides him partial pain relief. Dacia paz is present today to review patient's SCS programming. Patient reports he turns off his device during the night and per Dacia, will try to continue SCS therapy during night as well. In meantime, we will proceed with Interlaminar L3-L4 CORAL injection under sedation given recent CT scan findings. Patient avoids MRI due to extensive hardware in his lower back with prior L4-S1 fusion. He takes Tylenol for breakthrough pain with partial relief. Denies any fever, abdominal or groin pain, weakness, bladder or bowel dysfunction or saddle anesthesia. Pain is worse with prolonged sitting, standing, or walking and range of motions. He reports increased pain in his hips with walking with cold weather and changing positions. [facility] Medical History Lumbar degenerative disc disease Neuralgia Chronic, continuous use of opioids Bilateral lumbar radiculopathy Failed back syndrome Lumbar spondylosis Surgical History S/P dilatation of esophageal stricture S/P insertion of spinal cord stimulator History of lumbar spinal fusion Review of Systems Const All systems reviewed & are unremarkable except as noted in HPI and below Physical Exam Vital Signs: Last Vital Signs Pulse 80 10/08/23 11:18 Pulse Ox 97 10/08/23 11:18 Oxygen Delivery Method Room Air 10/08/23 11:18 BMI result Body Mass Index 23.3 General: Appears afebrile. Alert and oriented. Mood and affect appropriate. Follows and participates in conversation appropriately. Respiratory effort is unlabored. No cough. Able to transition from sit to stand unassisted. Ambulates with bilaterally normal heel strike and toe off, reports unsteadiness on right side. Neck Neck: Yes normal visual inspection, Yes no lymphadenopathy, Yes supple, No anterior neck swelling and Yes no JVD Back/Spine/Pelvis Other: Limited lumbar ROM due to pain. Painful facet loading bilaterally. Increased pain with lumbar flexion and extension. No groin pain with I/E hip rotation bilaterally. Valsalva maneuver is negative. Cervical Spine: cervical muscular tenderness and No Cervical spine tenderness Thoracic/Lumbar Spine: thoracic and lumbar spine normal to inspection, Thoracic/lumbar spine scar(s), Lasegue's sign positive (localized on right, diffuse on the left), pain with thoraco-lumbar ROM, paraspinal muscle tenderness, thoraco-lumbar ROM limited, No thoracic spinal tenderness, No lumbar spinal tenderness and straight leg raise positive right at 40 degrees Pelvis: no buttock tenderness Sacroiliac joints: bilaterally tender to palpation Extrem General: Yes capillary refill normal, Yes no clubbing, cyanosis or edema and Yes no calf tenderness Psych Insight: Good insight present (Psych) Judgement: Good judgement present (Psych) Results Reviewed Results Reviewed: XR THORACIC SPINE 08/14/23 CLINICAL INFORMATION: Presence of other specified functional implants. FINDINGS: There is bony demineralization. There are mild T8 and T9 anterior wedge compression fractures. Vertebral body heights are otherwise normal. There is moderately severe disc space narrowing at T6-T7 through T9-T10 and at T11-T12. The remaining disc spaces are relatively well-maintained. No acute fracture or spondylolisthesis is seen. There is multi-level thoracic spondylosis. The posterior elements are intact. There is a spinal stimulator device, with tip situated at the T7-T8 level. The paravertebral soft tissues are unremarkable. IMPRESSION: 1. There is multi-level thoracic degenerative disc disease, spondylosis and facet arthropathy. 2. There are age-indeterminate mild T8 and T9 anterior wedge compression fractures. 3. A spinal stimulator device is seen, with tip situated at the T7-T8 level. XR LUMBOSACRAL SPINE 08/14/23 CLINICAL INFORMATION: Lumbar degenerative disc disease. COMPARISON: Radiographs dated 07/07/2022. TECHNIQUE: AP and lateral views of the lumbar spine and lateral view of the lumbosacral junction. FINDINGS: There is bony demineralization. There is a mild lumbar levoscoliosis. At L1-L2 and L2-L3, there is moderate disc space narrowing. At L3-L4, there is marked disc space narrowing, with vacuum disc phenomenon and accompanying marked anterior spondylosis. There has been a prior posterior fusion at L4-S1, with intact posterior fixator rods, pedicular screws and intervertebral cages. No hardware failure or loosening is seen. There is no acute fracture or spondylolisthesis. There is multi-level lumbar spondylosis. Spinal stimulator leads and an impulse generator are noted. There are aortoiliac atherosclerotic calcifications. IMPRESSION: 1. There is well-maintained alignment status-post L4-S1 posterior fusions and discectomies. No hardware failure or loosening is seen. 2. There is moderate degenerative disc disease at L1-L2 and L2-L3, and marked degenerative disc disease is seen at L3-L4. CT LUMBAR SPINE WITHOUT CONTRAST 10/01/23 CLINICAL INFORMATION: Post laminectomy syndrome. COMPARISON: Lumbar spine radiographs 08/14/2023. FINDINGS: There are chronic postoperative changes of a posterior spinal fusion with transpedicular hardware extending from L4 to S1. Bridging bone completely fuses the L4-S1 vertebra. There is grade 1 anterolisthesis of L3 on L4 that appears to be related to advanced facet degenerative changes at this level. Slight grade 1 retrolisthesis of L1 on L2 and L2 on L3. There is loss of intervertebral disc height with associated sclerotic degenerative endplate changes, hypertrophic disc osteophyte spurring, and intervertebral vacuum disc phenomenon at L1-L2, L2-L3, and L3-L4. There is also abutment with associated sclerotic changes of the adjoining spinous processes at L1-L2, L2-L3, and L3-L4 indicating likelihood of underlying [place] disease. Canal patency is not well assessed on this examination due to inherent limitations of CT without intrathecal contrast and due to the extent of streak artifact related to the fusion hardware. There is at least moderate canal stenosis at the level of L2-L3 and L3-L4. Limited visualization of the retroperitoneal anatomy reveals layering calculi within the gallbladder neck and scattered atheromatous calcification involving the abdominal aorta and iliac vessels. IMPRESSION: There are chronic postoperative changes of a posterior spinal fusion with transpedicular hardware extending from L4 to S1. No evidence of hardware loosening or failure. Bridging bone completely fuses the L4-S1 vertebra. There is junctional spondylosis above and below the fusion with grade 1 anterolisthesis of L3 on L4. Canal patency is not well assessed on this examination due to inherent limitations of CT without intrathecal contrast and due to the extent of streak artifact related to the fusion hardware. There is at least moderate canal stenosis at the level of L2-L3 and L3-L4. If there are clinical symptoms of compressive myelopathy then a dedicated lumbar spine MRI can be obtained for better anatomic characterization of canal patency. Assessment & Plan Assessment & Plan (1) Failed back syndrome: Code(s): M96.1 - Postlaminectomy syndrome, not elsewhere classified (2) Bilateral lumbar radiculopathy: Code(s): M54.16 - Radiculopathy, lumbar region (3) Lumbar degenerative disc disease: Code(s): M51.36 - Other intervertebral disc degeneration, lumbar region (4) Spinal cord stimulator status: Code(s): Z96.89 - Presence of other specified functional implants (5) Lumbar spondylosis: Code(s): M47.816 - Spondylosis without myelopathy or radiculopathy, lumbar region Plan SCS program reviewed today by Rg Pederson. Patient will continue SCS therapy during the night as well and monitor his symptoms. In meantime, we will proceed with Interlaminar L3-L4 CORAL (half dose) injection under sedation and fluoroscopy given recent CT scan findings. Expectations, risks and benefits were reviewed. Patient has shown accountability for his medication regimen and the film count was accurate. The patient reported no noted side effects with mild-moderate analgesia. There is no evidence of misuse, abuse or diversion at this time. [employer]. Will send in prescription for Rapleaf with an advanced date of 10/26/23 and one refill. Patient advised to have regular dental check ups while taking Belbuca and take extra steps to help lessen the risk of serious dental problems. All questions were answered and patient is in agreement of plan. Follow up for CT scan results and sooner if needed. Medications: Refilled buprenorphine HCl (Belbuca) 450 mcg buccal Q12H 30 days 60 ea 1RF pain F11.90 - Opioid use, unspecified, uncomplicated, M47.816 - Spondylosis without myelopathy or radiculopathy, lumbar region, M51.36 - Other intervertebral disc degeneration, lumbar region, Z98.1 - Arthrodesis status Coding Level of Care Code Est Pt Level 4 (43198) Diagnoses Failed back syndrome M96.1 Bilateral lumbar radiculopathy M54.16 Lumbar degenerative disc disease M51.36 Spinal cord stimulator status Z96.89 Lumbar spondylosis M47.816
[2023-10-08 11:18] VITALS: PULSE 80; O2SAT 97; BMI 23.3
== END 2023-10-08 11:47 | disposition home or self-care (01) ==
PROVIDERS: PCP Internal Medicine; Visit Provider Nurse Practitioner Family
DX: M96.1 Postlaminectomy syndrome, not elsewhere classified (principal); M54.16 Radiculopathy, lumbar region; M51.36 Other intervertebral disc degeneration, lumbar region; Z96.89 Presence of other specified functional implants; M47.816 Spondylosis without myelopathy or radiculopathy, lumbar region; M48.062 Spinal stenosis, lumbar region with neurogenic claudication
CPT/HCPCS: 99214

== ENCOUNTER → 2023-10-08 11:02 | Outpatient (BNVA) | payer OTHER, SELFPAY | PROVIDERS: PCP Internal Medicine; Visit Provider Nurse Practitioner Family | DX: M96.1 Postlaminectomy syndrome, not elsewhere classified (principal); M51.36 Other intervertebral disc degeneration, lumbar region; M47.26 Other spondylosis with radiculopathy, lumbar region; M48.061 Spinal stenosis, lumbar region without neurogenic claudication | CPT/HCPCS: 99212 ==

== ENCOUNTER → 2023-10-12 10:44 | Outpatient (BNVA) | payer OTHER, SELFPAY | PROVIDERS: PCP Internal Medicine; Visit Provider Nurse Practitioner Family ==

== ENCOUNTER 2023-11-20 08:36 | Day surgery (SDC) | payer OTHER, SELFPAY ==
[2023-11-19 06:29] VITALS: BMI 23.2
--- NOTE | ~2023-11-20 | FL_ITS ---
EXAMINATION: XR FLUOROSCOPY WITH IMAGES CLINICAL INFORMATION: Interlaminar L3-L4 epidural steroid injection COMPARISON: CT lumbar spine 10/01/2023 TECHNIQUE: Fluoroscopy Supervised By: Dr. Esteves. Fluoroscopy Time: 19.5 seconds. Cumulative Dose: 5.2256 mGy. DAP: 2.2731 Gycm2. Images: 2. FINDINGS: With the patient in a prone position, fusion hardware is seen in the lower lumbar spine. The exam was unable to be completed, per performing surgeon. For details, see Dr. Esteves's report. FL/FL guidance in OR IMPRESSION: Fluoroscopic guidance was provided for Dr. Esteves for L3-L4 steroid injection.
--- OUTSIDE RECORDS SUMMARY | 2023-11-20 08:39 | XMS_ITS | Continuity of Care Document ---
Author Organization [facility] Address [address] [place] [address] [address], [address] [place] [address]- Care Team Providers Care Table Worker Name Role Phone Lilia WILLIAM, Jennifer Maynard Primary Care Physician Encounter [facility] Date(s): 04/10/22 - 05/10/22 [facility] [address] [place] [address], [address] [place], [place] [address] Allergies, Adverse Reactions, Alerts Substance Reaction Severity Status oxycodone nausea Active Motrin nausea Active Percocet nausea Active OxyContin nausea Active Immunizations Given and Recorded Vaccine Date Status Refusal Reason SARS-CoV-2 (COVID-19) mRNA-1273 vaccine 07/18/21 R ecorded SARS-CoV-2 (COVID-19) mRNA-1273 vaccine 09/28/20 R ecorded SARS-CoV-2 (COVID-19) mRNA-1273 vaccine 08/31/20 R ecorded pneumococcal 23-valent vaccine 08/03/12 Given tetanus/diphtheria/pertussis, acel(Tdap) 08/02/12 Given Pneumococcal Vaccine (oldterm) 1 10/17/06 Given 1Result Comment: lot [email or web address] exp: sep 17 2008 Medications apixaban 5 mg oral tablet 1 tablet = 5 mg, By Mouth, 2 times a day, # 60 tablet, 0 Refills, Maintenance, 04/04/22 10:49:00 EDT, Tablet, [facility], Partial fill upon patient request if the prescription is for a schedule II opioid drug., 175, cm, 03/27/22 15:03:00... Start Date: 04/04/22 Status: Ordered atorvastatin 80 mg oral tablet 1 tablet = 80 mg, By Mouth, Daily, # 30 tablet, 11 Refills, Maintenance, 08/05/20 21:30:00 EST, Tablet, [facility]/pharmacy #[id number] Start Date: 08/05/20 Stop Date: 07/31/21 Status: Ordered Belbuca 450 mcg buccal film 1 each = 450 mcg, Sublingual, Every 12 hours, 0 Refills, Maintenance, 09/03/21 8:33:00 EST, Partialfill upon patient request if the prescription is for a schedule II opioid drug. Start Date: 09/03/21 Status: Ordered Eliquis Starter Pack 5 mg oral tablet 2 tablet = 10 mg, By Mouth, 2 times a day, 2 tablets twice daily for 7 days, then 1 tabletr twice daily thereafter, # 74 tablet, 0 Refills, Maintenance, 04/04/22 14:10:00 EDT, [facility], Partial fill upon patient request if the prescrip... Start Date: 04/04/22 Stop Date: 04/11/22 Status: Ordered Famotidine = 40 mg, By Mouth, Daily at bedtime, 0 Refills, Maintenance, 07/02/20 15:13:00 EST, Partial fill upon patient request Start Date: 07/02/20 Status: Ordered ferrous sulfate 324 mg (65 mg elemental iron) oral delayed release tablet 1 tablet = 324 mg, By Mouth, Daily, 0 Refills, Maintenance, 09/03/21 8:39:00 EST, Partial fill uponpatient request if the prescription is for a schedule II opioid drug. Start Date: 09/03/21 Status: Ordered gabapentin 250 mg/5 mL oral solution 2.5 mL = 125 mg, By Mouth, 3 times a day, # 157.5 mL, 0 Refills, Maintenance, 04/04/22 11:32:00 EDT, Solution, [facility], Partial fill upon patient request if the prescription is for aschedule II opioid drug., 175, cm, 03/27/22 15:03:0... Start Date: 04/04/22 Stop Date: 04/25/22 Status: Ordered Glucosamine & Chondroitin with MSM 1 tablet, By Mouth, 2 times a day, 0 Refills, Maintenance, 01/30/15 14:05:26 EDT Start Date: 01/30/15 Status: Ordered lisinopril 5 mg oral tablet 1 tablet = 5 mg, By Mouth, Daily, this is a dose reduction, # 90 tablet, 3 Refills, Maintenance, 07/30/15 11:24:27, Tablet, 1 tablet By Mouth Daily,x90 days,Instr:this is a dose reduction Start Date: 07/30/15 Stop Date: 07/24/16 Status: Ordered metroNIDAZOLE 0.75% topical gel Topically, 2 times a day, 0 Refills, Maintenance, 11/21/19 14:14:00 EDT Start Date: 11/21/19 Status: Ordered Protonix 20 mg oral delayed release tablet 1 tablet = 20 mg, By Mouth, 2 times a day, # 60 tablet, 0 Refills, Maintenance, 09/09/21 16:10:00 EST, 175, cm, 09/06/21 2:43:00 EST, Height, 70.5, kg, 09/03/21 8:45:00 EST, Dry Weight Start Date: 09/09/21 Status: Ordered Soolantra 1% topical cream Topically, Daily at bedtime, 0 Refills, Maintenance, 11/21/19 14:14:00 EDT Start Date: 11/21/19 Status: Ordered sucralfate 1 gm oral tablet 1 Gm, 1, tablet, By Mouth, 4 times a day, # 120 tablet, Refills 0, Maintenance, 09/11/20 10:30:00 EST, Partial fill upon patient request if the prescription is for a schedule II opioid drug. Start Date: 09/11/20 Status: Ordered ticagrelor 90 mg oral tablet 1 tablet = 90 mg, By Mouth, 2 times a day, # 180 tablet, 1 Refills, Maintenance, 09/06/21 9:04:00 EST, Tablet, [facility], Partial fill upon patient request if the prescription is for aschedule II opioid drug., 175, cm, 09/06/21 2:43:00... Start Date: 09/06/21 Status: Ordered Toprol XL 100 mg oral tablet, extended release 50 mg, 0.5, tablet, By Mouth, 2 times a day, Refills 0, Maintenance, 09/03/21 8:35:00 EST, Partial fill upon patient request if the prescription is for a schedule II opioid drug. Start Date: 09/03/21 Status: Ordered Viagra 100 mg oral tablet 0.5 tablet = 50 mg, By Mouth, Daily, PRN As Needed, 1 hour before sexual activity, 0 Refills, Maintenance, 09/03/21 8:41:00 EST, Partial fill upon patient request if the prescription is for a schedule II opioid drug. Start Date: 09/03/21 Status: Ordered Vitamin C 500 mg oral tablet, chewable 2 tablet = 1,000 mg, Chew, Daily at supper, # 30 tablet, 0 Refills, Maintenance, 09/11/20 10:36:00 EST, Chew Tablet, Partial fill upon patient request if the prescription is for a schedule II opioid drug. Start Date: 09/11/20 Status: Ordered vitamin E 180 mg oral capsule 1 capsule = 180 mg, By Mouth, Daily before dinner, # 100 capsule, 0 Refills, Maintenance, 09/11/20 10:37:00 EST, Capsule, Partial fill upon patient request if the prescription is for a schedule II opioid drug. Start Date: 09/11/20 Status: Ordered Problem List Condition Confirmation Course Effective Dates Status Health St atus Informant Chest pain Confirmed Active CAD (coronary artery disease) Confirmed Active GERD (gastroesophageal reflux disease) Confirmed Active Right shoulder pain Confirmed Active Social History Social History Type Response Smoking Status Never (less than 100 in lifetime) entered on: 09/09/21 Sex Patient Care team information Personnel Name: Lilia WILLIAM, Jennifer Maynard Address: Address: [address] [place] [address]
--- OUTSIDE RECORDS SUMMARY | 2023-11-20 08:39 | XMS_ITS | Continuity of Care Document ---
Author Organization [facility] Address [address] [place] [address]- Care Team Providers Care Water Quality Specialist Name Role Phone Lilia WILLIAM, Jennifer Maynard Primary Care Physician Encounter [facility] Date(s): 03/18/22 - 04/17/22 [facility] [address] [place] [address]- [place] Allergies, Adverse Reactions, Alerts Substance Reaction Severity [...] lot [email or web address] exp: sep 17 2008 Medications amoxicillin-clavulanate 600 mg-42.9 mg/5 ml oral powder for reconstitution 7.3, By Mouth, Every 12 hours, for 28 days, # 500 mL, 0 Refills, Acute 05/02/22 12:16:00 EDT, 04/04/22 12:16:00 EDT, REC Powder, [facility], Partial fill upon patient request if the prescription is for a schedule II opioid drug., 175, cm... Start Date: 04/04/22 Stop Date: 05/02/22 Status: Ordered apixaban 5 mg oral tablet 1 tablet = 5 mg, By Mouth, 2 times a day, # 60 tablet, 0 Refills, Maintenance, 04/04/22 10:49:00 EDT, Tablet, [facility], Partial fill upon patient request if the prescription is for a schedule II opioid drug., 175, cm, 03/27/22 15:03:00... Start Date: 04/04/22 Status: Ordered atorvastatin 80 mg oral tablet 1 tablet = 80 mg, By Mouth, Daily, # 30 tablet, 11 Refills, Maintenance, 08/05/20 21:30:00 EST, Tablet, [facility]/pharmacy #[id number] Start Date: 08/05/20 Stop Date: 07/31/21 [...] tablet, 0 Refills, Maintenance, 04/04/22 14:10:00 EDT, [facility], Partial fill upon patient [...] opioid drug. Start Date: 09/03/21 Status: Ordered fluconazole 40 mg/mL oral liquid 10 mL = 400 mg, By Mouth, Daily, for 28 days, # 280 mL, 0 Refills, Acute 05/02/22 14:04:00 EDT, 04/04/22 14:04:00 EDT, [facility], Partial fill upon patient request if the prescription is for a schedule II opioid drug., 175, cm, 03/27/22... Start Date: 04/04/22 Stop Date: 05/02/22 Status: Ordered gabapentin 250 mg/5 mL oral solution 2.5 mL = 125 mg, By Mouth, 3 times a day, # 157.5 mL, 0 Refills, Maintenance, 04/04/22 11:32:00 EDT, Solution, [facility], Partial fill upon patient [...] 14:14:00 EDT Start Date: 11/21/19 Status: Ordered nystatin 258723 u/ml oral suspension 4 mL = 400,000 units, Swish and Swallow, Daily, for 30 days, # 120 mL, 0 Refills, Acute 05/04/22 11:19:00 EDT, 04/04/22 11:19:00 EDT, Suspension, [facility], Partial fill upon patient request if the prescription is for a schedule II opio... Start Date: 04/04/22 Stop Date: 05/04/22 Status: Ordered Protonix 20 mg oral delayed release tablet 1 tablet = 20 mg, By Mouth, 2 times a day, # 60 tablet, 0 Refills, Maintenance, 09/09/21 16:10:00 EST, 175, cm, 09/06/21 2:43:00 EST, Height, 70.5, kg, 02/01/22 8:45:00 EST, Dry Weight Start Date: 09/09/21 [...] 1 Refills, Maintenance, 09/06/21 9:04:00 EST, Tablet, [facility], Partial fill upon patient request [...] Date: 09/11/20 Status: Ordered Problem List Condition Effective Dates Status Health Status Inform ant Chest pain(Confirmed) Active CAD (coronary artery disease)(Confirmed) Active GERD (gastroesophageal reflu x disease)(Confirmed) Active Right shoulder pain(Confirmed) Active Social History Social History Type Response Smoking Status Never (less than 100 in lifetime) entered on: 09/09/21 Sex Care Team Personnel Name: Lilia WILLIAM, Jennifer Maynard Address: [address] [place] [address]
--- OUTSIDE RECORDS SUMMARY | 2023-11-20 08:39 | XMS_ITS | Continuity of Care Document ---
Author Organization [facility] Address [address] [place] [address]- Care Team Providers Care Grain Packer Name Role Phone Lilia WILLIAM, Jennifer Maynard Primary Care Physician [phone] Encounter [facility] [place] Date(s): 06/18/23 - 07/18/23 [facility] [address] [place] [address]- Attending Physician: AdmMohit corado Admitting Physician: Admtr, Mohit Referring Physician: Admtr, Ar8 Allergies, Adverse Reactions, Alerts Substance Reaction Severity [...] lot [email or web address] exp: sep 17 2008 Medications aspirin 81 mg oral delayed release tablet 81 mg, 1, tablet, By Mouth, Daily, # 30 tablet, Refills 0, Maintenance, 10/09/22 9:04:00 EST, Partial fill upon patient request if the prescription is for a schedule II opioid drug. Start Date: 10/09/22 Status: Ordered atorvastatin 80 mg oral tablet See Instructions, TAKE 1 TABLET BY MOUTH DAILY, # 30 tablet, 11 Refills, Maintenance, 12/11/22 7:08:00 EDT, [id number], 175.3, cm, 12/05/22 15:02:00 EDT, Height, 63.5, kg, 10/22/22 11:00:00 EDT,Dry Weight Start Date: 12/11/22 Status: Ordered Belbuca 450 mcg buccal film 1 each = 450 mcg, Sublingual, Every 12 hours, 0 Refills, Maintenance, 09/03/21 8:33:00 EST, Partialfill upon patient request if the prescription is for a schedule II opioid drug. Start Date: 09/03/21 Status: Ordered ferrous sulfate 324 mg (65 mg elemental iron) oral delayed release tablet 1 tablet = 324 mg, By Mouth, Daily, 0 Refills, Maintenance, 09/03/21 8:39:00 EST, Partial fill uponpatient request if the prescription is for a schedule II opioid drug. Start Date: 09/03/21 Status: Ordered lisinopril 5 mg oral tablet 1 tablet = 5 mg, By Mouth, Daily, this is a dose reduction, # 90 tablet, 3 Refills, Maintenance, 07/30/15 11:24:27, Tablet, 1 tablet By Mouth Daily,x90 days,Instr:this is a dose reduction Start Date: 07/30/15 Stop Date: 07/24/16 Status: Ordered Protonix 20 mg oral delayed [...] opioid drug. Start Date: 09/11/20 Status: Ordered Toprol XL 100 mg oral [...] Active GERD (gastroesophageal reflux disease) Confirmed Active History of DVT of lower extremity Confirmed Active HLD (hyperlipidemia) Confirmed Active HTN (hypertension) Confirmed Active Right shoulder pain Confirmed Active Social History Social History Type Response Smoking Status Former smoker; Tobac co user in household: No; Other: pt states he quit smoking 45 yearsago; entered on: 01/30/15 Sex Patient Care team information Care Team Personnel Name: Fanta Downey RN Position: [facility] AMB Nurse Member Role: Primary Care Nurse Name: Lilia WILLIAM, Jennifer Maynard Position: Reference Physician Member Role: PCP Address: Address: [address] [place] [address], [address] [place], [place], [address] Name: Lisa Cummings RN Position: [facility] RN Member Role: Primary Care Nurse Name: Marie Murillo RN Position: [facility] RN Member Role: Primary Care Nurse Name: Nicky Jauregui RN Position: [facility] AMB Nurse Member Role: Primary Care Nurse Name: Chelo Santacruz RN Position: [facility] RN Member Role: Primary Care Nurse Name: Pavel Rogers RN Position: [facility] RN Member Role: Primary Care Nurse Name: Coreen Gordon Position: [facility] RN Member Role: Primary Care Nurse Name: Miki Sheppard RN Position: [facility] RN Member Role: Primary Care Nurse Name: Teetee Marrufo RN Position: [facility] RN Member Role: Primary Care Nurse Name: Lexie Desouza RN Position: [facility] Hospital Milled Rice Broker Member Role: Primary Care Nurse Name: Ada Hansen MD Position: [facility] Cardiology MD Member Role: Lifetime Consulting Physician Address: Address: [address] [place] [id number] Name: Kristie Omer RN Position: [facility] RN Member Role: Primary Care Nurse Care Team Related Persons Name: BONNY VALADEZ Name: MADELEINE FREED Address: [address] [place] [address]
--- OUTSIDE RECORDS SUMMARY | 2023-11-20 08:39 | XMS_ITS | Continuity of Care Document ---
Author Organization [facility] Address [address] [place] [address]- Care Team Providers Care Leather Worker Name Role Phone Lilia WILLIAM, Jennifer Maynard Primary Care Physician [phone] [place] [facility] [place](s): 10/09/21 - 11/08/21 [facility] [address] [place] [address]- Attending Physician: Mohit Turk Admitting Physician: Mohit Turk Referring Physician: AdmtrMohit Allergies, Adverse Reactions, Alerts Substance Reaction Severity Status oxycodone nausea Active Motrin nausea Active Percocet nausea Active OxyContin nausea Active Immunizations Given and Recorded Vaccine Date Status Refusal Reason pneumococcal 23-valent vaccine 08/03/12 Given tetanus/diphtheria/pertussis, acel(Tdap) 08/02/12 Given Pneumococcal Vaccine (oldterm) 1 10/17/06 Given 1Result Comment: lot [email or web address] exp: sep 17 2008 Medications aspirin 81 mg oral tablet 1 tablet = 81 mg, By Mouth, Daily, 0 Refills, Maintenance Start Date: 02/02/13 Status: Ordered atorvastatin 80 mg oral tablet 1 tablet = 80 mg, By Mouth, Daily, # 30 tablet, 11 Refills, Maintenance, 08/05/20 21:30:00 EST, Tablet, [id number] Start Date: 08/05/20 Stop Date: 07/31/21 Status: Ordered Belbuca 450 mcg buccal film 1 each = 450 mcg, Sublingual, Every 12 hours, 0 Refills, Maintenance, 09/03/21 8:33:00 EST, Partialfill upon patient request if the prescription is for a schedule II opioid drug. Start Date: 09/03/21 Status: Ordered Famotidine = 40 mg, By [...] opioid drug. Start Date: 09/03/21 Status: Ordered Glucosamine & Chondroitin with MSM [...] 14:14:00 EDT Start Date: 11/21/19 Status: Ordered Minocycline = 100 mg, By Mouth, 2 times a day, 0 Refills, Maintenance, 11/21/19 14:18:00 EDT Start Date: 11/21/19 Status: Ordered Protonix [...] 1 Refills, Maintenance, 09/06/21 9:04:00 EST, Tablet, [facility], Partial fill upon patient request [...] drug. Start Date: 09/03/21 Status: Ordered Vitamin B Complex oral tablet, extended release 1 tablet, By Mouth, Daily before dinner, 0 Refills, Maintenance, 09/11/20 10:35:00 EST, Partial fill upon patient request if the prescription is for a schedule II opioid drug. Start Date: 09/11/20 Status: Ordered Vitamin C 500 mg oral [...]
--- OUTSIDE RECORDS SUMMARY | 2023-11-20 08:39 | XMS_ITS | Continuity of Care Document ---
Author Organization [facility] ter Address [address] [place] [address]- Care Team Providers Care Staff Nurse Icu Resource Team Name Role Phone Lilia WILLIAM, Jennifer D Primary Care Physician Encounter [facility] [place] Date(s): 03/21/22 - 03/21/[address] [address] Discharge Disposition: A-D/C Home Attending Physician: Paul Warren MD Admitting Physician: Paul Warren MD Referring Physician: Paul Warren MD Allergies, Adverse Reactions, Alerts Substance Reaction Severity [...] Refills, Maintenance, 08/05/20 21:30:00 EST, Tablet, [id number] Start Date: 08/05/20 Stop Date: 07/31/21 Status: [...] 1 Refills, Maintenance, 09/06/21 9:04:00 EST, Tablet, [facility], Partial fill upon patient request if [...] x disease)(Confirmed) Active Right shoulder pain(Confirmed) Active Procedures Procedure Date Related Diagnosis Body Site Status Esophagoscopy, rigid, transo ral with diverticulectomy of hypopharynx or cervical esophagus (eg, Zenker's diverticulum), with cricopharyngeal myotomy, includes use of telescope or operating microscope and repair, when performed Completed Vital Signs Most recent to oldest [Reference Range]: 1 2 3 Height 176 cm (03/21/22 7:13 AM) Oxygen Saturation [94-100 %] 96 % (03/21/22 9:35 AM) 100 % (03/21/22:22 AM) 100 % (03/21/22:13 AM) Pulse Rate [55-90 bpm] 62 bpm (03/21/22 7:13 AM) Blood Pressure [90-138/55-84 mm Hg] 132/74mm Hg (03/21/22:35 AM) 122/71mm Hg (03/21/22:22 AM) 128/80mm Hg (03/21/22 7:13 AM) Respiratory Rate [16-30 br/min] 15 br/min *L* (03/21/22 9:35 AM) 8 br/min *L* (03/21/22:22 AM) 24 br/min (03/21/22 7:13 AM) Temperature [96.8-100.4 DegF] 97.9 DegF (03/21/22:13 AM) Liters per Minute 6 L/min (03/21/22:22 AM) Mode of Delivery (Oxygen) Room air (03/21/22 9:35 AM) Shovel mask (03/21/22:22 AM) Room air (03/21/22 7:13 AM) Blood pressure sites Arm, left (03/21/22 9:35 AM) Arm, left (03/21/22:22 AM) Arm, left (03/21/22 7:13 AM) Temperature Route Temporal (03/21/22 7:13 AM) Dry Weight 68.1 kg (03/21/22 7:13 AM) Dry Weight Obtained Via Patient/family s tated (03/21/22 7:13 AM) Social History Social History Type Response Smoking Status Never (less than 100 in lifetime) entered on: 09/09/21 Sex
--- OUTSIDE RECORDS SUMMARY | 2023-11-20 08:39 | XMS_ITS | Continuity of Care Document ---
Author Organization [facility] Address [address] [place] [address]- Care Team Providers Care Syrup Mixer Name Role Phone Lilia WILLIAM, Jennifer Maynard Primary Care Physician [phone] Encounter [facility] [place] Date(s): 09/05/21 - 09/06/[address] [address]- Encounter Diagnosis Chest pain(Final) - 09/03/21 Discharge Disposition: A-D/C Home Attending Physician: Reese Scott MD Admitting Physician: Lashonda WILLIAM, Maurisio P Referring Physician: Not on Staff, Referring MD Allergies, Adverse Reactions, Alerts Substance Reaction Severity Status oxycodone nausea Active Motrin nausea Active Percocet nausea Active OxyContin nausea Active Immunizations Given and Recorded Vaccine Date Status Refusal Reason pneumococcal 23-valent vaccine 08/03/12 Given tetanus/diphtheria/pertussis, acel(Tdap) 08/02/12 Given Pneumococcal Vaccine (oldterm) 1 10/17/06 Given 1Result Comment: lot oo7ou exp: sep 17 2008 Medications acetaminophen-HYDROcodone 325 mg-5 mg oral tablet 1 tablet, Tablet, By Mouth, Every 6 hours, PRN for Pain , Moderate, Routine, 09/04/21 9:01:00 EST Start Date: 09/04/21 Stop Date: 09/06/21 Status: Discontinued aspirin 81 mg oral tablet 1 tablet [...] Date: 07/30/15 Stop Date: 07/24/16 Status: Ordered lisinopril 5 mg oral tablet 5 mg, Tablet, By Mouth, 09/06/21 9:00:00 EST Start Date: 09/06/21 Stop Date: 09/06/21 Status: Completed metoprolol 50 mg oral tablet 50 mg, Tablet, By Mouth, 09/06/21 9:00:00 EST Start Date: 09/06/21 Stop Date: 09/06/21 Status: Completed metoprolol 50 mg oral tablet 50 mg, Tablet, By Mouth, 09/05/21 21:00:00 EST Start Date: 09/05/21 Stop Date: 09/05/21 Status: Completed metroNIDAZOLE 0.75% topical gel Topically, 2 times a day, 0 Refills, Maintenance, 11/21/19 14:14:00 EDT Start Date: 11/21/19 Status: Ordered Minocycline = 100 mg, By Mouth, 2 times a day, 0 Refills, Maintenance, 11/21/19 14:18:00 EDT Start Date: 11/21/19 Status: Ordered Omeprazole = 40 mg, By Mouth, Daily in AM, 0 Refills, Maintenance, 11/21/19 14:13:00 EDT Start Date: 11/21/19 Status: Ordered Soolantra 1% topical cream Topically, [...] 1 Refills, Maintenance, 09/06/21 9:04:00 EST, Tablet, [facility] 3, Partial fill upon patient request [...] Effective Dates Status Health Status Inform ant Right shoulder pain(Confirmed) Active Vital Signs Most recent to oldest [Reference Range]: 1 2 3 Height 175 cm (09/06/21 2:43 AM) 175 cm (09/05/21 8:15 PM) 175 cm (09/05/21 3:54 PM) Weight 70.0 kg (09/06/21 2:43 AM) 70.5 kg (09/03/21 8:45 AM) 69 kg (09/03/21 6:04 AM) Oxygen Saturation [94-100 %] 95 % (09/06/21 2:43 AM) 94 % (09/05/21 8:15 PM) 99 % (09/05/21 3:54 PM) Pulse Rate [55-90 bpm] 71 bpm (09/06/21 9:10 AM) 58 bpm (09/06/21 2:43 AM) 66 bpm (09/05/21 10:31 PM) Body Mass Index [18.5-24.99] 22.86 (09/06/21 2:43 AM) 23.02 (09/03/21 8:45 AM) 22.53 (09/03/21 6:04 AM) Blood Pressure [90-138/55-84 mm Hg] 109/74mm Hg (09/06/21 9:10 AM) 109/74mm Hg (09/06/21 9:10 AM) 98/63mm Hg (09/06/21 2:43 AM) Respiratory Rate [16-30 br/min] 18 br/min (09/06/21 7:50 AM) 18 br/min (09/06/21 7:00 AM) 18 br/min (09/06/21 2:43 AM) Temperature [96.8-100.4 DegF] 98.2 DegF (09/06/21 2:43 AM) 97.8 DegF (09/05/21 8:15 PM) 98.2 DegF (09/05/21 3:54 PM) Mode of Delivery (Oxygen) Room air (09/06/21 2:43 AM) Room air (09/05/21 8:15 PM) Room air (09/05/21 3:54 PM) Blood pressure sites Arm, right (09/06/21 2:43 AM) Arm, left (09/05/21 8:15 PM) Arm, left (09/05/21 3:54 PM) Temperature Route Oral (09/06/21 2:43 AM) Oral (09/05/21 8:15 PM) Oral (09/05/21 3:54 PM) Dry Weight 70.5 kg (09/03/21 8:45 AM) 69 kg (09/03/21 6:04 AM) 69 kg (09/03/21 3:20 AM) Weight Obtained Via Bed scale (09/06/21 2:43 AM) Social History Social History Type Response Smoking Status Former smoker; Tobac co user in household: No entered on: 01/10/16 Sex
--- OUTSIDE RECORDS SUMMARY | 2023-11-20 08:39 | XMS_ITS | Continuity of Care Document ---
Author Organization [facility] Address [address] [place] [address], [address] [place] [address]- Care Team Providers Care Screen Printing Loader Unloader Name Role Phone Lilia WILLIAM, Jennifer Maynard Primary Care Physician [phone] [place] [facility] [place](s): 11/06/22 - 11/13/22 [facility] [address] [place] [address], [address] [place], [place] [address] Attending Physician: Mor Nelson DO Allergies, Adverse Reactions, Alerts Substance Reaction Severity [...] Refills, Maintenance, 08/05/20 21:30:00 EST, Tablet, [id number] Start Date: 08/05/20 Stop Date: 07/31/21 Status: [...] on: 09/09/21 Sex Patient Care team information Care Team Personnel Name: Fanta Downey RN Position: [facility] Nurse Member Role: Primary Care Nurse Name: Jennifer Rodrigues MD Position: [facility] Physician (General Medicine) Member Role: PCP Address: Address: [address] [place] [address] [place], [place] [address] Name: Lisa Cummings RN Position: [facility] RN Member Role: Primary Care Nurse Name: Marie Murillo RN Position: [facility] RN Member Role: Primary Care Nurse Name: Nicky Jauregui RN Position: [facility] RN Member Role: Primary Care Nurse Name: Chelo Santacruz RN Position: [facility] RN Member Role: Primary Care Nurse Name: Pavel Rogers RN Position: [facility] RN Member Role: Primary Care Nurse Name: Coreen Gordon Position: [facility] RN Member Role: Primary Care Nurse Name: Miki Sheppard RN Position: [facility] RN Member Role: Primary Care Nurse Name: Teetee Marrufo RN Position: [facility] RN Member Role: Primary Care Nurse Name: Lexie Desouza RN Position: [facility] Hospital Microfiche Camera Operator Member Role: Primary Care Nurse Name: Ada Hansen MD Position: [facility] Cardiology MD Member Role: Lifetime Consulting Physician Address: Address: [address] [place] [address] Name: Negra FINN, Kristie Position: [facility] RN Member Role: Primary Care Nurse Care Team Related Persons Name: BONNY VALADEZ Name: MADELEINE FREED Address: [address] [place] [address]
--- OUTSIDE RECORDS SUMMARY | 2023-11-20 08:39 | XMS_ITS | Continuity of Care Document ---
Author Organization [facility] Address [address] [place] [address], [address] [place] [address]- Care Team Providers Care Electrician Locomotive Name Role Phone Lilia WILLIAM, Jennifer Maynard Primary Care Physician Encounter [facility] Date(s): 10/28/22 - 11/27/22 [facility] [address] [place] [address], [address] [place], [place] [address] Allergies, Adverse Reactions, Alerts Substance Reaction Severity [...] Date: 08/05/20 Stop Date: 07/31/21 Status: Ordered atorvastatin 80 mg oral tablet 1 tablet = 80 mg, By Mouth, Daily, # 30 tablet, 0 Refills, Maintenance, 11/19/22 9:13:00 EDT, [facility], Partial fill upon patient request if the prescription is for a schedule II opioid drug., 175.3, cm, 10/22/22 11:00:00 EDT, Height,... Start Date: 11/19/22 Status: Ordered Belbuca 450 mcg buccal film [...] Team Personnel Name: Fanta Downey RN Position: [facility] AMB Nurse Member Role: Primary Care Nurse Name: Lilia WILLIAM, Jennifer Maynard Position: [facility] Physician (General Medicine) Member Role: PCP Address: Address: [address] [place] [address] Name: Lisa Cummings RN Position: [facility] SN RN Member Role: Primary Care Nurse Name: Marie Murillo RN Position: [facility] RN Member Role: Primary Care Nurse Name: Nicky Jauregui RN Position: [facility] RN Member Role: Primary Care Nurse Name: Chelo Santacruz RN Position: [facility] RN Member Role: Primary Care Nurse Name: Pavel Rogers RN Position: [facility] RN Member Role: Primary Care Nurse Name: Coreen Gordon Position: [facility] RN Member Role: Primary Care Nurse Name: Miki Sheppard RN Position: [facility] RN Member Role: Primary Care Nurse Name: Teetee Marrufo RN Position: [facility] RN Member Role: Primary Care Nurse Name: Lexie Desouza RN Position: [facility] Air Pollution Engineer Member Role: Primary Care Nurse Name: Ada Hnasen MD Position: [facility] Cardiology MD Member Role: Lifetime Consulting Physician Address: Address: [address] [place] [id number] Name: Kristie Omer RN Position: [facility] RN Member Role: Primary Care Nurse Care Team Related Persons Name: BONNY VALADEZ Name: MADELEINE FREED Address: [address] [place] [address]
--- OUTSIDE RECORDS SUMMARY | 2023-11-20 08:39 | XMS_ITS | Continuity of Care Document ---
Author Organization [facility] Address [address] [place] [address]- Care Team Providers Care Garment Alteration Examiner Name Role Phone Lilia WILLIAM, Jennifer Maynard Primary Care Physician [phone] Encounter [facility] [place] Date(s): 12/11/22 - 01/10/23 [facility] [address] [place] [address]- [place] Allergies, Adverse Reactions, Alerts Substance Reaction [...] tablet, 11 Refills, Maintenance, 12/11/22 7:08:00 EDT, [id number], 175.3, cm, 12/05/22 15:02:00 EDT, Height, 63.5, [...] Team Personnel Name: Fanta Downey RN Position: [facility] AMB Nurse Member Role: Primary Care Nurse Name: Jennifer Rodrigues MD Position: [facility] Physician - Primary Care Member Role: PCP Address: Address: [address] [place] [address] [address] Name: Lisa Cummings RN Position: [facility] RN Member Role: Primary Care Nurse Name: Marie Murillo RN Position: [facility] RN Member Role: Primary Care Nurse Name: Nicky Jauregui RN Position: [facility] AMB Nurse Member Role: Primary Care Nurse Name: Chelo Santacruz RN Position: [facility] RN Member Role: Primary Care Nurse Name: Pavel Rogers RN Position: [facility] RN Member Role: Primary Care Nurse Name: Coreen Gordon Position: [facility] RN Member Role: Primary Care Nurse Name: Miki Sheppard RN Position: [facility] RN Member Role: Primary Care Nurse Name: Teetee Marrufo RN Position: [facility] RN Member Role: Primary Care Nurse Name: Lexie Desouza RN Position: [facility] Hospital Manager Lean Member Role: Primary Care Nurse Name: Ada Hansen MD Position: [facility] Cardiology MD Member Role: Lifetime Consulting Physician Address: Address: [address] [place] [id number] Name: Kristie Omer RN Position: [facility] RN Member Role: Primary Care Nurse Care Team Related Persons Name: BONNY VALADEZ Name: MADELEINE FREED Address: [address] [place] [address]
--- OUTSIDE RECORDS SUMMARY | 2023-11-20 08:40 | XMS_ITS | Continuity of Care Document ---
Author Organization [facility] Address [address] [place] [id number]- Care Team Providers Care Staff Nurse Name Role Phone Lilia WILLIAM, Jennifer Maynard Primary Care Physician [place] [facility] [place]20 [facility] [address] [place] [id number] Attending Physician: Mohit Turk Admitting Physician: AdmMohit corado Referring Physician: AdmtrMohit Allergies, Adverse Reactions, Alerts [...] mg, By Mouth, Daily, # 30 tablet, 1 Refills, Maintenance, 06/06/20 16:54:00 EST, Tablet, [id number] Start Date: 06/06/20 Stop Date: 08/05/20 Status: Ordered belbula belbula, 300 mcg, By Mouth, 2 times a day, Refills 0, Maintenance, 11/21/19 14:15:00 EDT, Supply Start Date: 11/21/19 Status: Ordered Famotidine 0 Refills, Maintenance, 07/02/20 15:13:00 EST, Partial fill upon patient request Start Date: 07/02/20 Status: Ordered Glucosamine & Chondroitin with MSM 1 tablet, By Mouth, 3 times a day, 0 Refills, Maintenance, 01/30/15 14:05:26 Start Date: 01/30/15 Status: Ordered Hydrocodone = 750 mg, By Mouth, Every 6 hours, PRN Pain, 0 Refills, Maintenance Start Date: 01/08/11 Status: Ordered iron iron, 65 mg, By Mouth, Daily, Refills 0, Maintenance, 11/21/19 14:16:00 EDT, Supply Start Date: 11/21/19 Status: Ordered lisinopril 5 mg oral tablet 1 tablet = 5 mg, By Mouth, Daily, this is a dose reduction, # 90 tablet, 3 Refills, Maintenance, 07/30/15 11:24:27, Tablet, 1 tablet By Mouth Daily,x90 days,Instr:this is a dose reduction Start Date: 07/30/15 Stop Date: 07/24/16 Status: Ordered metoprolol 50 mg oral tablet 1 tablet = 50 mg, By Mouth, 2 times a day, # 60 tablet, 0 Refills, Maintenance, 01/08/11 15:32:24, Tablet Start Date: 01/08/11 Status: Ordered metroNIDAZOLE 0.75% topical gel Topically, Daily, 0 Refills, Maintenance, 11/21/19 14:14:00 EDT Start Date: 11/21/19 Status: Ordered Minocycline = 100 mg, By Mouth, 2 times a day, 0 Refills, Maintenance, 11/21/19 14:18:00 EDT Start Date: 11/21/19 Status: Ordered Omeprazole = 40 mg, By Mouth, Daily, 0 Refills, Maintenance, 11/21/19 14:13:00 EDT Start Date: 11/21/19 Status: Ordered Protonix 40 mg oral enteric coated tablet 1, tablet, By Mouth, 2 times a day, 0 Refills, Maintenance Start Date: 12/06/08 Stop Date: 01/05/09 Status: Ordered ranitidine 300 mg oral tablet 1 tablet = 300 mg, By Mouth, Daily at bedtime, 0 Refills, Maintenance, 01/20/17 15:05:54 Start Date: 01/20/17 Status: Ordered Soolantra 1% topical cream Topically, Daily, 0 Refills, Maintenance, 11/21/19 14:14:00 EDT Start Date: 11/21/19 Status: Ordered Viagra By Mouth, Daily, 0 Refills, Maintenance, 01/30/15 14:05:33 Start Date: 01/30/15 Status: Ordered vitamin b 12 vitamin b 12, 500 mcg, By Mouth, Daily, Refills 0, Maintenance, 11/21/19 14:17:00 EDT, Supply Start Date: 11/21/19 Status: Ordered Vitamin C 1000 mg oral tablet 1 tablet = 1,000 mg, By Mouth, Daily, # 30 tablet, 0 Refills, Maintenance, Tablet Start Date: 03/16/12 Status: Ordered Vitamin D3 1000 intl units oral tablet 1 tablet = 1,000 International_Units, By Mouth, Daily, 0 Refills, Maintenance Start Date: 02/02/13 Status: Ordered vitamin E vitamin E, 180 mg, Daily, Refills 0, Maintenance, 11/21/19 14:16:00 EDT, Supply Start Date: 11/21/19 Status: Ordered Social History Social History Type Response Smoking Status Former smoker; Tobac co user in household: No entered on: 01/10/16 Sex
--- OUTSIDE RECORDS SUMMARY | 2023-11-20 08:40 | XMS_ITS | Continuity of Care Document ---
Author Organization [facility] ter Address [address] [place] [id number]- Care Team Providers Care Prime Minister Name Role Phone Lilia WILLIAM, Jennifer Maynard Primary Care Physician [place] [facility] [place] 09/19/[place] - 09/20/[address] [phone]- Discharge Disposition: A-D/C Home Attending Physician: Sachin Rodriguez MD Admitting Physician: Sachin Rodriguez MD Referring Physician: Sachin Rodriguez MD Allergies, Adverse Reactions, Alerts Substance Reaction Severity Status oxycodone nausea Active Motrin nausea Active Percocet nausea Active OxyContin nausea Active Immunizations Given and Recorded Vaccine Date Status Refusal Reason pneumococcal 23-valent vaccine 08/03/12 Given tetanus/diphtheria/pertussis, acel(Tdap) 08/02/12 Given Pneumococcal Vaccine (oldterm) 1 10/17/06 Given 1Result Comment: lot [id number] exp: sep 17 2008 Medications acetaminophen-HYDROcodone 325 mg-5 mg oral tablet 2 tablet, Tablet, By Mouth, Every 4 hours, PRN for Pain , Severe, Routine, 09/19/20 23:08:00 EST Start Date: 09/19/20 Stop Date: 09/20/20 Status: Discontinued acetaminophen-HYDROcodone 325 mg-5 mg oral tablet 1 tablet, By Mouth, Every 4 hours, PRN Pain , Moderate, 0 Refills, Maintenance, 09/20/20 8:53:00 EST, Tablet, Partial fill upon patient request if the prescription is for a schedule II opioid drug. Start Date: 09/20/20 Status: Ordered acetaminophen-HYDROcodone 325 mg-5 mg oral tablet 2 tablet, By Mouth, Every 4 hours, PRN Pain , Severe, 0 Refills, Maintenance, 09/20/20 8:53:00 EST,Tablet, Partial fill upon patient request if the prescription is for a schedule II opioid drug. Start Date: 09/20/20 Status: Ordered aspirin 81 mg oral tablet 1 tablet = 81 mg, By Mouth, Daily, 0 Refills, Maintenance Start Date: 02/02/13 Status: Ordered atorvastatin 80 mg oral tablet 1 tablet = 80 mg, By Mouth, Daily, # 30 tablet, 11 Refills, Maintenance, 08/05/20 21:30:00 EST, Tablet, [facility] #[id number] Start Date: 08/05/20 Stop Date: 07/31/21 Status: Ordered Belbuca 300 mcg buccal film 1 each = 300 mcg, Sublingual, Every 12 hours, 0 Refills, Maintenance, 09/11/20 10:31:00 EST, Partial fill upon patient request if the prescription is for a schedule II opioid drug. Start Date: 09/11/20 Status: Ordered Famotidine = 40 mg, By Mouth, Daily at bedtime, 0 Refills, Maintenance, 07/02/20 15:13:00 EST, Partial fill upon patient request Start Date: 07/02/20 Status: Ordered Glucosamine & Chondroitin with MSM 1 tablet, By Mouth, 2 times a day, 0 Refills, Maintenance, 01/30/15 14:05:26 EDT Start Date: 01/30/15 Status: Ordered iron iron, 65 mg, By Mouth, Daily at supper, Refills 0, Maintenance, 11/21/19 14:16:00 EDT, Supply [...] oral tablet 5 mg, Tablet, By Mouth, 09/20/20 9:00:00 EST Start Date: 09/20/20 Stop Date: 09/20/20 Status: Completed Magnesium Gluconate = 250 mg, By Mouth, Daily at bedtime, takes chewables, 0 Refills, Maintenance, 09/11/20 10:41:00 EST, Partial fill upon patient request if the prescription is for a schedule II opioid drug. Start Date: 09/11/20 Status: Ordered metoprolol 50 mg oral tablet 50 mg, Tablet, By Mouth, 09/20/20 9:00:00 EST Start Date: 09/20/20 Stop Date: 09/20/20 Status: Completed metoprolol 50 mg oral tablet 1 tablet [...] 14:13:00 EDT Start Date: 11/21/19 Status: Ordered Probichew oral tablet, chewable 1 tablet, Chew, Daily at bedtime, # 30 tablet, 0 Refills, Maintenance, 09/11/20 10:43:00 EST, Chew Tablet, Partial fill upon patient request if the prescription is for a schedule II opioid drug. Start Date: 09/11/20 Status: Ordered Soolantra 1% topical cream Topically, [...] opioid drug. Start Date: 09/11/20 Status: Ordered Viagra See Instructions, 100 mg By Mouth as needed, 0 Refills, Maintenance, 01/30/15 14:05:33 EDT Start Date: 01/30/15 Status: Ordered Vitamin A Capsule See Instructions, 2400 mcg daily in PM, Refills 0, Maintenance, 09/11/20 10:38:00 EST, InstructionsReplace Required Details, Partial fill upon patient request if the prescription is for a schedule II opioid drug. Start Date: 09/11/20 Status: Ordered Vitamin B Complex oral tablet, extended release 1 tablet, By Mouth, Daily before dinner, 0 Refills, Maintenance, 09/11/20 10:35:00 EST, Partial fill upon patient request if the prescription is for a schedule II opioid drug. Start Date: 09/11/20 Status: Ordered Vitamin C 500 mg oral tablet, chewable 2 tablet = 1,000 mg, Chew, 3 times a day, # 30 tablet, 0 Refills, Maintenance, 09/11/20 [...] Range]: 1 2 3 Height 175 cm (09/20/20 7:59 AM) 175 cm (09/19/20 10:57 PM) 175 cm (09/19/20 8:05 PM) Weight 72.5 kg (09/19/20 6:28 AM) 72.7 kg (09/11/20 11:29 AM) Oxygen Saturation [94-100 %] 95 % (09/20/20 7:59 AM) 91 % *L* (09/20/20 4:00 AM) 95 % (09/19/20 10:57 PM) Pulse Rate [55-90 bpm] 65 bpm (09/20/20 8:49 AM) 65 bpm (09/20/20 7:59 AM) 75 bpm (09/20/20 4:00 AM) Body Mass Index [18.5-24.99] 23.67 (09/19/20 6:28 AM) 23.74 (09/11/20 11:29 AM) Blood Pressure [90-138/55-84 mm Hg] 111/64mm Hg (09/20/20 8:49 AM) 111/64mm Hg (09/20/20 8:49 AM) 111/64mm Hg (09/20/20 7:59 AM) Respiratory Rate [16-30 br/min] 18 br/min (09/20/20 9:49 AM) 18 br/min (09/20/20 8:49 AM) 18 br/min (09/20/20 7:59 AM) Temperature [96.8-100.4 DegF] 98.9 DegF (09/20/20 7:59 AM) 98.2 DegF (09/20/20 4:00 AM) 98.6 DegF (09/19/20 10:57 PM) Liters per Minute 2 L/min (09/19/20 11:15 AM) 5 L/min (09/19/20 11:00 AM) 5 L/min (09/19/20 10:45 AM) Mode of Delivery (Oxygen) Room air (09/20/20 7:59 AM) Room air (09/20/20 4:00 AM) Room air (09/19/20 10:57 PM) Blood pressure sites Arm, left (09/20/20 7:59 AM) Arm, left (09/20/20 4:00 AM) Arm, left (09/19/20 10:57 PM) Temperature Route Oral (09/20/20 7:59 AM) Oral (09/20/20 4:00 AM) Oral (09/19/20 10:57 PM) Dry Weight 72.5 kg (09/19/20 6:28 AM) 72.7 kg (09/11/20 11:29 AM) Weight Obtained Via Standing scale (09/19/20 6:28 AM) Patient/family stated (09/11/20 11:29 AM) Dry Weight Obtained Via Pediatric scale (09/19/20 6:28 AM) Patient/family stated (09/11/20 11:29 AM) Social History Social History Type Response Smoking Status Former smoker; Tobac co user in household: No entered on: 01/10/16 Sex
--- OUTSIDE RECORDS SUMMARY | 2023-11-20 08:40 | XMS_ITS | Continuity of Care Document ---
Author Organization [facility] Address [address] [place], [place] [id number]- Care Team Providers Care Admin Assistant Name Role Phone Lilia WILLIAM, Jennifer Maynard Primary Care Physician Encounter [facility] [place] Date(s): 02/26/22 - 03/28/22 [facility] [address] [place] [address]- [place] Allergies, Adverse Reactions, Alerts Substance Reaction [...] 1 Refills, Maintenance, 09/06/21 9:04:00 EST, Tablet, [facility], Partial fill upon patient [...] Personnel Name: Lilia WILLIAM, Jennifer Maynard Address: [address] [place] [id number]
--- OUTSIDE RECORDS SUMMARY | 2023-11-20 08:40 | XMS_ITS | Continuity of Care Document ---
Author Organization [facility] ter Address [address] [place] [id number]- Care Team Providers Care Store Sales Consultant Name Role Phone Lilia WILLIAM, Jennifer Maynard Primary Care Physician [phone] Encounter [facility] Date(s): 05/16/22 - 05/17/[address] [address] Discharge Disposition: A-D/C Home Attending Physician: Jey Espinoza MD Admitting Physician: David Aldana MD Referring Physician: Not on Staff, Referring MD [...] By Mouth, 2 times a day, # 120 tablet, 0 Refills, Maintenance, 05/17/22 13:15:00 EDT, Tablet, [facility], Partial fill upon patient request if the prescription is for aschedule II opioid drug., 175, cm, 05/17/22 11:49:0... Start Date: 05/17/22 Stop Date: 07/16/22 Status: Ordered atorvastatin 80 mg oral tablet 1 tablet = 80 mg, By Mouth, Daily, # 30 tablet, 11 Refills, Maintenance, 08/05/20 21:30:00 EST, Tablet, [facility]/pharm[facility] #[id number] Start Date: 08/05/20 Stop Date: 07/31/21 [...] oral tablet 5 mg, Tablet, By Mouth, Hold for: SBP less than 100, 05/17/22 9:00:00 EDT Start Date: 05/17/22 Stop Date: 05/17/22 Status: Completed Protonix 20 mg oral delayed release tablet [...] 1 Refills, Maintenance, 09/06/21 9:04:00 EST, Tablet, [facility], Partial fill upon patient request if [...] opioid drug. Start Date: 09/03/21 Status: Ordered Toprol XL 50 mg oral tablet, extended release 50 mg, XL Tablet, By Mouth, Hold for: SBP LESS THAN 90, HR LESS THAN 60, 05/17/22 9:00:00 EDT Start Date: 05/17/22 Stop Date: 05/17/22 Status: Completed Viagra 100 mg oral tablet 0.5 tablet [...] Confirmed Active Right shoulder pain Confirmed Active Results Radiology Reports * Exam Date Time Procedure Performing Provider Status 05/16/22 5:54 PM Chest 2 [facility] Fr[facility] Lat [facility]; Auth (Verified) Notes: (Chest 2 Views Frontal and Lat) Reason For Exam: Chest Pain;Other: RESULT: Chest 2 Views Frontal and Lat Chest 2 Views Frontal and Lat Hx of Present Illness: Pt reports intermittent lower sternal chest discomfort over the last 2 weeks; getting progressively more fatigued, pain described as sometimes achey, sometimes sharp, sometimes burning , presently NO pain, +diaphoesisi w pain; no n v; Reason: Other:; Chest Pain; Clinical Question(s): Other: COMPARISON: 04/04/2022 FINDINGS: LINES AND TUBES: None. LUNGS AND PLEURA: Clear lungs. Normal pulmonary vascularity. No pleural effusion. No pneumothorax. HEART, MEDIASTINUM AND YARED: Heart is normal in size. Normal mediastinal and hilar contour. BONES AND SOFT TISSUES: Right shoulder arthroplasty. No evidence of complication. IMPRESSION: No acute abnormality. WSN: [id number] Ordering Physician: Celina Escobar Dictated By: Jeronimo Ortega MD Dictated Date/Time: 05/16/22 5:57 pm Reviewed By: Jeronimo Ortega MD Signed By: Jeronimo Ortega MD Signed Date/Time: 05/16/22 5:57 pm Transcribed By: MARU Transcribed Date/Time: 05/16/22 5:56 pm Vital Signs Most recent to oldest [Reference Range]: 1 2 3 Height 175 cm (05/17/22 11:30 AM) 175 cm (05/17/22 7:15 AM) 175 cm (05/17/22 5:01 AM) Weight 66 kg (05/17/22 12:11 AM) 66.5 kg (05/16/22 11:07 PM) 66.5 kg (05/16/22 5:03 PM) Oxygen Saturation [94-100 %] 96 % (05/17/22 11:30 AM) 100 % (05/17/22 7:15 AM) 100 % (05/17/22 5:01 AM) Pulse Rate [55-90 bpm] 62 bpm (05/17/22 11:30 AM) 80 bpm (05/17/22 8:41 AM) 80 bpm (05/17/22 7:15 AM) Body Mass Index [18.5-24.99 kg/m2] 21.55 kg/m2 (05/17/22 12:11 AM) Blood Pressure [90-138/55-84 mm Hg] 133/76mm Hg (05/17/22 11:30 AM) 117/68mm Hg (05/17/22 8:41 AM) 117/68mm Hg (05/17/22 8:41 AM) Respiratory Rate [16-30 br/min] 16 br/min (05/17/22 11:30 AM) 18 br/min (05/17/22 11:27 AM) 14 br/min *L* (05/17/22 7:15 AM) Temperature [96.8-100.4 DegF] 97.5 DegF (05/17/22 11:30 AM) 97.4 DegF (05/17/22 7:15 AM) 97.2 DegF (05/17/22 5:01 AM) Mode of Delivery (Oxygen) Room air (05/17/22 11:30 AM) Room air (05/17/22 7:15 AM) Room air (05/17/22 5:01 AM) Blood pressure sites Arm, right (05/17/22 11:30 AM) Arm, right (05/17/22 7:15 AM) Arm, right (05/17/22 5:01 AM) Temperature Route Oral (05/17/22 11:30 AM) Oral (05/17/22 7:15 AM) Oral (05/17/22 5:01 AM) Dry Weight 66 kg (05/17/22 12:11 AM) Social History Social History Type Response Smoking Status Never (less than 100 in lifetime) entered on: 09/09/21 Sex Note * [facility] , CIS S: TRANSCRIBE Jeronimo Ortega MD S: VERIFY Event Display: Result: Authored Date: [id number] Chest 2 Views Frontal and Lat Hx of Present Illness: Pt reports intermittent lower sternal chest discomfort over the last 2 weeks; getting progressively more fatigued, pain described as sometimes achey, sometimes sharp, sometimes burning , presently NO pain, +diaphoesisi w pain; no n v; Reason: Other:; Chest Pain; Clinical Question(s): Other: COMPARISON: 04/04/2022 FINDINGS: LINES AND TUBES: None. LUNGS AND PLEURA: Clear lungs. Normal pulmonary vascularity. No pleural effusion. No pneumothorax. HEART, MEDIASTINUM AND YARED: Heart is normal in size. Normal mediastinal and hilar contour. BONES AND SOFT TISSUES: Right shoulder arthroplasty. No evidence of complication. IMPRESSION: No acute abnormality. WSN: [id number] Ordering Physician: Celina Escobra Dictated By: Jeronimo Ortega MD Dictated Date/Time: 05/16/22 5:57 pm Reviewed By: Jeronimo Ortega MD Signed By: Jeronimo Ortega MD Signed Date/Time: 05/16/22 5:57 pm Transcribed By: MARU Transcribed Date/Time: 05/16/22 5:56 pm Patient Care team information Personnel Name: Lilia WILLIAM, Jennifer D Address: Address: [address] [place] [address]
--- OUTSIDE RECORDS SUMMARY | 2023-11-20 08:40 | XMS_ITS | Continuity of Care Document ---
Author Organization [facility] Address [address] [place] [id number]- Care Team Providers Care Linen Grader Name Role Phone Lilia WILLIAM, Jennifer Maynard Primary Care Physician Encounter [facility] Date(s): 04/15/22 - 05/15/22 [facility] [address] [place] [id number] Attending Physician: Admtr, Mohit Admitting Physician: Admtr, [id number] Referring Physician: Admtr, [id number] Allergies, Adverse Reactions, [...] 0 Refills, Maintenance, 04/04/22 10:49:00 EDT, Tablet, [facility], Partial fill upon patient request if the prescription is for a schedule II opioid drug., 175, cm, 03/27/22 15:03:00... Start Date: 04/04/22 Status: Ordered atorvastatin 80 mg oral tablet 1 tablet = 80 mg, By Mouth, Daily, # 30 tablet, 11 Refills, Maintenance, 08/05/20 21:30:00 EST, Tablet, [facility]/pharmacy #[id number] Start Date: 08/05/20 Stop Date: [...] tablet, 0 Refills, Maintenance, 04/04/22 14:10:00 EDT, [facility], Partial fill upon patient [...] 0 Refills, Maintenance, 04/04/22 11:32:00 EDT, Solution, [facility], Partial fill upon patient [...] 1 Refills, Maintenance, 09/06/21 9:04:00 EST, Tablet, [facility] 3, Partial fill upon patient request if [...] Name: Lilia WILLIAM, Jennifer Maynard Address: Address: [address] [place] [address]
--- OUTSIDE RECORDS SUMMARY | 2023-11-20 08:40 | XMS_ITS | Continuity of Care Document ---
Author Organization [facility] ter Address [address] [place] [id number]- Care Team Providers Care Acidizer Water Well Name Role Phone Lilia WILLIAM, Jennifer Maynard Primary Care Physician [place] [facility] [place]): [place]/21/22 - 04/04/[address] [id number] Encounter Diagnosis Chest pain(Final) - 03/21/22 Discharge Disposition: A-D/C Home Attending Physician: Mor Nelson DO Admitting Physician: Mor Nelson DO Referring Physician: Not on Staff, Referring MD [...] lot [id number] exp: sep 17 2008 Medications acetaminophen 650 mg/20.3 mL oral liquid 20.3 mL = 650 mg, By Mouth, Every 8 hours, PRN as needed for pain, for 7 days, # 430 mL, 0 Refills,Acute 04/11/22 11:29:00 EDT, 04/04/22 11:29:00 EDT, Liquid, [facility], Partial fill upon patient request if the prescription is for a sc... Start Date: 04/04/22 Stop Date: 04/11/22 Status: Ordered amoxicillin-clavulanate 600 mg-42.9 mg/5 ml oral powder for reconstitution 7.3, By Mouth, Every 12 hours, for 28 days, # 500 mL, 0 Refills, Acute 05/02/22 12:16:00 EDT, 04/04/22 12:16:00 EDT, REC Powder, [facility], Partial fill upon patient request if the prescription is for a schedule II opioid drug., 175, cm... Start Date: 04/04/22 Stop Date: 05/02/22 Status: Ordered apixaban 5 mg oral tablet 1 tablet = 5 mg, By Mouth, 2 times a day, # 60 tablet, 0 Refills, Maintenance, 04/04/22 10:49:00 EDT, Tablet, [facility], Partial fill upon patient request if the prescription is for a schedule II opioid drug., 175, cm, 03/27/22 15:03:00... Start Date: 04/04/22 Status: Ordered atorvastatin 80 mg oral tablet 1 tablet = 80 mg, By Mouth, Daily, # 30 tablet, 11 Refills, Maintenance, 08/05/20 21:30:00 EST, Tablet, [id number] Start Date: 08/05/20 Stop Date: 07/31/21 Status: Ordered Belbuca 450 mcg buccal film 1 each = 450 mcg, Sublingual, Every 12 hours, 0 Refills, Maintenance, 09/03/21 8:33:00 EST, Partialfill upon patient request if the prescription is for a schedule II opioid drug. Start Date: 09/03/21 Status: Ordered Dilaudid Inj 0.2 mg, Injection, IV Push Slowly, Every 4 hours, PRN for Pain , Severe, Routine, 03/28/22 9:05:00 EDT Start Date: 03/28/22 Stop Date: 04/05/22 Status: Discontinued Eliquis Starter Pack 5 mg oral tablet 2 tablet = 10 mg, By Mouth, 2 times a day, 2 tablets twice daily for 7 days, then 1 tabletr twice daily thereafter, # 74 tablet, 0 Refills, Maintenance, 04/04/22 14:10:00 EDT, [facility], Partial fill upon patient [...] Acute 05/02/22 14:04:00 EDT, 04/04/22 14:04:00 EDT, [facility], Partial fill upon patient request if the prescription is for a schedule II opioid drug., 175, cm, 03/27/22... Start Date: 04/04/22 Stop Date: 05/02/22 Status: Ordered gabapentin 250 mg/5 mL oral solution 2.5 mL = 125 mg, By Mouth, 3 times a day, # 157.5 mL, 0 Refills, Maintenance, 04/04/22 11:32:00 EDT, Solution, [facility], Partial fill upon patient request [...] Date: 07/30/15 Stop Date: 07/24/16 Status: Ordered Metoprolol Inj 15 mg, Injection, IV Push Slowly, Hold for: SBP < 110, HR < 60, 04/04/22 12:01:00 EDT Start Date: 04/04/22 Stop Date: 04/04/22 Status: Completed metroNIDAZOLE 0.75% topical gel Topically, 2 times a day, 0 Refills, Maintenance, 11/21/19 14:14:00 EDT Start Date: 11/21/19 Status: Ordered nystatin 881305 u/ml oral suspension 4 mL = 400,000 units, Swish and Swallow, Daily, for 30 days, # 120 mL, 0 Refills, Acute 05/04/22 11:19:00 EDT, 04/04/22 11:19:00 EDT, Suspension, [facility], Partial fill upon patient [...] 1 Refills, Maintenance, 09/06/21 9:04:00 EST, Tablet, [facility], Partial fill upon patient [...] x disease)(Confirmed) Active Right shoulder pain(Confirmed) Active Results Orders for Microbiology Reports Name Date Anaerobic Culture (ANAEROBIC CULTURE) Sterile Body Fluid Culture W/ Gram Smear (STERILE FLUID CULT.) 03/21/22 Microbiology Reports TEST:Anaerobic Culture STATUS:Auth (Verified) BODY SITE: SOURCE:FLUID COLLECTED DATE/TIME:03/21/22 9:57 PM Anaerobic Culture SPECIMEN DESCRIPTION : FLUID MEDIALSTINAL SPECIAL REQUESTS : NONE CULTURE : NO ANAEROBES ISOLATED REPORT STATUS : FINAL 03/23/2022 TEST:Sterile Fluid Culture STATUS:Auth (Verified) BODY SITE: SOURCE:FLUID COLLECTED DATE/TIME:03/21/22 9:57 PM Sterile Fluid Culture SPECIMEN DESCRIPTION : FLUID MEDIALSTINAL SPECIAL REQUESTS : CRITICAL VALUE CALLED AND VERIFIED BY READBACK FOR: GRAM STAIN TO [id number], [id number], 03/22/22 AT 0508 BY TECH [id number] GRAM STAIN : 4+ WHITE BLOOD CELLS 2+ GRAM POSITIVE COCCI CULTURE : 3+ STAPHYLOCOCCUS AUREUS. This isolate was identified using Maldi-TOF system 3+ STREPTOCOCUS MITIS/STREPTOCOCCUS ORALIS Formerly reported as part of the Viridans Streptococcus group. This isolate was identified using Maldi-TOF system SUSCEPTIBILITY TESTING NOT ROUTINELY PERFORMED ON THIS ISOLATE. Please consult the laboratory [phone]) within 7 days if more definitive studies are clinically indicated. REPORT STATUS : FINAL 03/24/2022 ORGANISM 3+ STAPHYLOCOCCUS AUREUS. This isolate was identified using Maldi-TOF system METHOD MIN. INHIB. CONC. (MCG/ML) CIPROFLOXACIN SUSCEPTIBLE CLINDAMYCIN SUSCEPTIBLE ERYTHROMYCIN SUSCEPTIBLE LEVOFLOXACIN SUSCEPTIBLE OXACILLIN SUSCEPTIBLE PENICILLIN SUSCEPTIBLE RIFAMPIN SUSCEPTIBLE RIFAMPIN RIFAMPIN SHOULD NOT BE USED ALONE FOR ANTIMICROBIAL RIFAMPIN THERAPY. TETRACYCLINE SUSCEPTIBLE TRIMETH/SULFAMETHOX SUSCEPTIBLE VANCOMYCIN SUSCEPTIBLE Radiology Reports (Most Recent Ten) * Exam Date Time Procedure Performing Provider Status 04/04/22 5:48 AM Chest 2 Views Frontal and Lat Rosa Koo; Auth (Verified) Notes: (Chest 2 Views Frontal and Lat) Reason For Exam: Tube Placement RESULT: Chest 2 Views Frontal and Lat Chest 2 Views Frontal and Lat Reason: Tube Placement; COMPARISON: 04/03/2022. FINDINGS: LINES AND TUBES: Left upper extremity PICC line unchanged with its tip overlying the lower SVC. LUNGS AND PLEURA: Minor right basilar atelectasis and/or scarring slightly greater. No pleural effusion. No pneumothorax. HEART, MEDIASTINUM AND SLY: Heart is normal in size. Normal upper mediastinal and hilar contour. BONES AND SOFT TISSUES: No acute abnormality. Reverse right shoulder arthroplasty. IMPRESSION: Largely unchanged. WSN: [id number] Ordering Physician: Ria Mares Dictated By: Christian Zendejas MD Dictated Date/Time: 04/04/22 10:05 a Reviewed By: Christian Zendejas MD Signed By: Christian Zendejas MD Signed Date/Time: 04/04/22 10:05 am Transcribed By: MARU Transcribed Date/Time: 04/04/22 10:04 am * Exam Date Time Procedure Performing Provider Status 04/03/22 10:40 AM Chest 2 Views Frontal and Lat Lashanda Solorio; Auth (Verified) Notes: (Chest 2 Views Frontal and Lat) Reason For Exam: Tube removal;Postop RESULT: Chest 2 Views Frontal and Lat Chest 2 Views Frontal and Lat REASON: Postop; Tube removal; Clinical Question(s): Pneumothorax / Pneumothorax COMPARISON: Earlier today. FINDINGS: LINES AND TUBES: Status post removal of the mediastinal drains. Unchanged position of the left upper extremity PICC and the spinal stimulator. LUNGS AND PLEURA: Mild hazy opacity at the lung bases, likely atelectasis, unchanged. Unchanged mild blunting of the costophrenic angles. No pneumothorax. HEART, MEDIASTINUM AND SLY: Unchanged. BONES AND SOFT TISSUES: No acute abnormality. Status post right shoulder reverse arthroplasty. IMPRESSION: No evidence of pneumothorax status post tube pull. WSN: [id number] Ordering Physician: Ria Mares Dictated By: Mike Ruiz MD Dictated Date/Time: 04/03/22 10:44 a Reviewed By: Mike Ruiz MD Signed By: Mike Ruiz MD Signed Date/Time: 04/03/22 10:44 am Transcribed By: MARU Transcribed Date/Time: 04/03/22 10:43 am * Exam Date Time Procedure Performing Provider Status 04/03/22 5:56 AM Chest 2 Views Frontal and Lat Fanta Rodriguez; Auth (Verified) Notes: (Chest 2 Views Frontal and Lat) Reason For Exam: Tube Placement RESULT: Chest 2 Views Frontal and Lat Chest 2 Views Frontal and Lat REASON: Tube Placement; Clinical Question(s): Tube Placement / Tube Placement COMPARISON: 04/02/2022 FINDINGS: LINES AND TUBES: The right posterior chest tube has been removed. Mediastinal drains and left upper extremity PICC remain in place. Partially visualized posterior Appearance LUNGS AND PLEURA: Unchanged mild bibasilar airspace opacity. Unchanged mild blunting of the costophrenic sulci. No pneumothorax. HEART, MEDIASTINUM AND SLY: Unchanged. BONES AND SOFT TISSUES: No acute abnormality. Status post reverse right shoulder arthroplasty. IMPRESSION: Status post removal of right chest tube, otherwise no significant change. WSN: [id number] Ordering Physician: Ria Mares Dictated By: Mike Ruiz MD Dictated Date/Time: 04/03/22 9:09 am Reviewed By: Mike Ruiz MD Signed By: Mike Ruiz MD Signed Date/Time: 04/03/22 9:09 am Transcribed By: MRAU Transcribed Date/Time: 04/03/22 9:06 am * Exam Date Time Procedure Performing Provider Status 04/02/22 6:21 AM Chest 2 Views Frontal and Lat Hayes , Rosa; Auth (Verified) Notes: (Chest 2 Views Frontal and Lat) Reason For Exam: Tube Placement RESULT: Chest 2 Views Frontal and Lat Chest 2 Views Frontal and Lat Reason: Tube Placement; Clinical Question(s): Tube Placement COMPARISON: Multiple prior examinations the most recent dated 04/01/2022 at 5:42 AM. FINDINGS: LINES AND TUBES: Right apical chest tube, endoscopic/surgical clips projecting over the upper thoracic esophagus, posterior mediastinal drain, spinal stimulator overlying the mid thoracic spine and left-sided PICC line remain in place unchanged. LUNGS AND PLEURA: Ill-defined density projecting over the left lower chest on the frontal view probably external to the patient appearing. Minimal pleural-parenchymal disease in the right lung base unchanged. Probable small bilateral pleural effusions right larger than left. No pneumothorax. HEART, MEDIASTINUM AND SLY: Heart is normal in size. Normal upper mediastinal and hilar contour. BONES AND SOFT TISSUES: No acute abnormality. Reverse right total shoulder arthroplasty. Few dilated bowel loops in the left upper quadrant of the abdomen. IMPRESSION: No significant interval change. WSN: [id number] Ordering Physician: Sixto Whalen Dictated By: Moose Rangel MD, V Dictated Date/Time: 04/02/22 12:12 p Reviewed By: Moose Rangel MD, V Signed By: Moose Rangel MD, V Signed Date/Time: 04/02/22 12:12 pm Transcribed By: MARU Transcribed Date/Time: 04/02/22 12:08 pm * Exam Date Time Procedure Performing Provider Status 04/01/22 5:36 AM Chest 2 Views Frontal and Lat Hayes , Rosa; Auth (Verified) Notes: (Chest 2 Views Frontal and Lat) Reason For Exam: Tube Placement RESULT: Chest 2 Views Frontal and Lat Chest 2 Views Frontal and Lat Reason: Tube Placement; Clinical Question(s): Pleural Effusion COMPARISON: 03/31/2022 CT neck and chest from 03/26/2022 FINDINGS: LINES AND TUBES: Right apical chest tube. Endoscopic/surgical clips projecting over the upper thoracic esophagus. Posterior mediastinal drain. Spinal stimulator lead. Left PICC in the lower SVC. LUNGS AND PLEURA: Curvilinear atelectasis in lung bases. Unchanged blunting the costophrenic angles. No pneumothorax. HEART, MEDIASTINUM AND SLY: Heart is normal in size. Normal upper mediastinal and hilar contour. BONES AND SOFT TISSUES: No acute abnormality. Reverse right total shoulder arthroplasty. Some enteric contrast is appreciated in the abdominal bowel loops. IMPRESSION: No significant change from prior exam with postsurgical changes of the esophagus. WSN: [id number] Ordering Physician: Ria Mares Dictated By: Mike Ryan MD Dictated Date/Time: 04/01/22 8:55 am Reviewed By: Mike Ryan MD Signed By: Mike Ryan MD Signed Date/Time: 04/01/22 8:55 am Transcribed By: MARU Transcribed Date/Time: 04/01/22 8:51 am * Exam Date Time Procedure Performing Provider Status 03/31/22 11:31 AM Esophagus Barium Swallow Keisha Kirkpatrick; Abdirahman (Verified) Notes: (Esophagus Barium Swallow) Reason For Exam: esophageal leak s/p diverticulectomy;Other: RESULT: Esophagus Barium Swallow PROCEDURE: Esophagus Barium Swallow CLINICAL INDICATION: esophageal leak s p diverticulectomy; Clinical Question(s): ?leak; Special Instructions: Use H2O soluble first followed by thin Barium. COMPARISONS: Similar study from 03/26/2022. CT chest from 03/26/2022. FLUOROSCOPY TIME: 2 minutes 10 seconds EXPOSURE: 941.3 uGym2 TECHNIQUE: Single contrast esophagram, performed first with 200 mL Omnipaque 350 water-soluble contrast, followed by sips of thin barium. Exam was performed with the patient in the semirecumbent position, with both frontal and oblique views obtained. FINDINGS: [employer]: 2 drains and multiple surgical clips are present in the upper mediastinum. Medial right apically directed chest tube and left upper extremity PICC are partially seen. Patient was able to sip water-soluble contrast through a straw. No extravasation of contrast was seen from the upper esophagus at the site of previous extravasation, therefore patient was given sips of thin barium through a straw, and still no extravasation of contrast was seen. Moderate to severe esophageal dysmotility with multiple tertiary contractions but contrast does empty into the stomach. IMPRESSION: No residual esophageal leak is identified. WSN: [id number] Ordering Physician: Vanesa Aparicio Dictated By: Mike Ruiz MD Dictated Date/Time: 03/31/22 11:38 a Reviewed By: Mike Ruiz MD Signed By: Mike Ruiz MD Signed Date/Time: 03/31/22 11:38 am Transcribed By: MARU Transcribed Date/Time: 03/31/22 11:32 am * Exam Date Time Procedure Performing Provider Status 03/31/22 5:48 AM Chest 2 Views Frontal and Lat HayesRosa argueta; Auth (Verified) Notes: (Chest 2 Views Frontal and Lat) Reason For Exam: Tube Placement RESULT: Chest 2 Views Frontal and Lat Chest 2 Views Frontal and Lat REASON: Tube Placement; Clinical Question(s): Pleural Effusion / Pleural Effusion COMPARISON: 03/30/2022 FINDINGS: LINES AND TUBES: Right chest tubes, left upper extremity PICC, mediastinal drain, and spinal stimulator remain in place. LUNGS AND PLEURA: Unchanged blunting of the bilateral costophrenic angles. No large pleural effusion. No pneumothorax. HEART, MEDIASTINUM AND SLY: Unchanged. BONES AND SOFT TISSUES: Skin katherine project over the upper chest. Status post right reverse shoulder arthroplasty. IMPRESSION: No significant change. WSN: [id number] Ordering Physician: Koffi Lew Dictated By: Mike Ruiz MD Dictated Date/Time: 03/31/22 8:32 am Reviewed By: Mike Ruiz MD Signed By: Mike Ruiz MD Signed Date/Time: 03/31/22 8:32 am Transcribed By: MARU Transcribed Date/Time: 03/31/22 8:30 am * Exam Date Time Procedure Performing Provider Status 03/30/22 7:30 AM Chest 2 Views Frontal and Lat Vanesa Dunlap; Auth (Verified) Notes: (Chest 2 Views Frontal and Lat) Reason For Exam: Follow-Up Pleural Effusion RESULT: Chest 2 Views Frontal and Lat Chest 2 Views Frontal and Lat Reason: Follow-Up Pleural Effusion; Clinical Question(s): Pleural Effusion / Pleural Effusion COMPARISON: 03/29/2022 FINDINGS: LINES AND TUBES: 2 right chest tubes, left upper extremity PICC, mediastinal drain, and spinal stimulator remain in place. LUNGS AND PLEURA: Unchanged blunting of bilateral costophrenic angles. No large pleural effusion. No pneumothorax. HEART, MEDIASTINUM AND SLY: Unchanged. BONES AND SOFT TISSUES: Skin katherine project over the left upper chest. Status post reverse right shoulder arthroplasty. IMPRESSION: No significant change. WSN: [id number] Ordering Physician: Yanely Vang Dictated By: Mike Ruiz MD Dictated Date/Time: 03/30/22 9:42 am Reviewed By: Mike Ruiz MD Signed By: Mike Ruiz MD Signed Date/Time: 03/30/22 9:42 am Transcribed By: MARU Transcribed Date/Time: 03/30/22 9:40 am * Exam Date Time Procedure Performing Provider Status 03/29/22 6:39 AM Chest 2 Views Frontal and Lat Mariella Dulnap (Verified) Notes: (Chest 2 Views Frontal and Lat) Reason For Exam: Follow-Up Pleural Effusion RESULT: Chest 2 Views Frontal and Lat Chest 2 Views Frontal and Lat Reason: Follow-Up Pleural Effusion; Clinical Question(s): Pleural Effusion / Pleural Effusion COMPARISON: 03/28/2022 FINDINGS: LINES AND TUBES: 2 right chest tubes in place. Left upper extremity PICC, spinal stimulator, and mediastinal drain in place. Multiple wires project over the patient. LUNGS AND PLEURA: Mild blunting of both costophrenic angles, similar to prior. No large pleural effusion. No pneumothorax. HEART, MEDIASTINUM AND SLY: Unchanged. BONES AND SOFT TISSUES: Skin katherine project over the left upper chest. Status post reverse right shoulder arthroplasty. IMPRESSION: No significant change. WSN: [id number] Ordering Physician: Tara Mckeon Dictated By: Mike Ruiz MD Dictated Date/Time: 03/29/22 9:23 am Reviewed By: Mike Ruiz MD Signed By: Mike Ruiz MD Signed Date/Time: 03/29/22 9:23 am Transcribed By: MARU Transcribed Date/Time: 03/29/22 9:22 am * Exam Date Time Procedure Performing Provider Status 03/28/22 6:07 AM Chest 2 Views Frontal and Lat Eli Calixto; Auth (Verified) Notes: (Chest 2 Views Frontal and Lat) Reason For Exam: Follow-Up Pleural Effusion RESULT: Chest 2 Views Frontal and Lat Chest 2 Views Frontal and Lat REASON: Follow-Up Pleural Effusion; Clinical Question(s): Pleural Effusion / Pleural Effusion COMPARISON: 03/27/2022 FINDINGS: LINES AND TUBES: Right chest tubes, mediastinal drain, left upper extremity PICC, and spinal stimulator remain in place. Multiple wires project over the patient. LUNGS AND PLEURA: Mild blunting of both costophrenic angles, similar to prior. No large pleural effusion. No pneumothorax. HEART, MEDIASTINUM AND SLY: Unchanged. BONES AND SOFT TISSUES: Skin katherine project over the left upper chest. Partially visualized right shoulder arthroplasty. IMPRESSION: No significant change. WSN: [id number] Ordering Physician: Tara Mckeon Dictated By: Mike Ruiz MD Dictated Date/Time: 03/28/22 9:08 am Reviewed By: Mike Ruiz MD Signed By: Mike Ruiz MD Signed Date/Time: 03/28/22 9:08 am Transcribed By: MARU Transcribed Date/Time: 03/28/22 9:07 am Vital Signs Most recent to oldest [Reference Range]: 1 2 3 Height 175 cm (03/27/22 3:03 PM) 175 cm (03/22/22 3:54 AM) 175 cm (03/21/22 7:42 PM) Weight 68.3 kg (04/03/22 1:08 PM) 67 kg (03/22/22 3:54 AM) 68 kg (03/21/22 7:42 PM) Oxygen Saturation [94-100 %] 97 % (04/04/22 10:00 AM) 99 % (04/04/22 6:00 AM) 23 % *L* (04/04/22 2:00 AM) Pulse Rate [55-90 bpm] 94 bpm *H* (04/04/22 11:34 AM) 80 bpm (04/04/22 10:00 AM) 74 bpm (04/04/22 6:00 AM) Body Mass Index [18.5-24.99] 21.88 (03/22/22 3:54 AM) 22.2 (03/21/22 7:42 PM) Blood Pressure [90-138/55-84 mm Hg] 142/76mm Hg *H* (04/04/22 11:34 AM) 142/76mm Hg *H* (04/04/22 10:00 AM) 153/84mm Hg *H* (04/04/22 6:00 AM) Respiratory Rate [16-30 br/min] 18 br/min (04/04/22 10:46 AM) 18 br/min (04/04/22 10:16 AM) 28 br/min (04/04/22 6:00 AM) Temperature [96.8-100.4 DegF] 98.4 DegF (04/04/22 10:00 AM) 98.1 DegF (04/04/22 6:00 AM) 98.1 DegF (04/04/22 2:00 AM) Liters per Minute 3 L/min (03/23/22 10:00 PM) 3 L/min (03/23/22 6:00 PM) 3 L/min (03/23/22 2:00 PM) Mode of Delivery (Oxygen) Room air (04/04/22 10:00 AM) Room air (04/04/22 6:00 AM) Room air (04/04/22 2:00 AM) Blood pressure sites Arm, right (04/04/22 10:00 AM) Arm, right (04/04/22 6:00 AM) Arm, right (04/04/22 2:00 AM) Temperature Route Oral (04/04/22 10:00 AM) Oral (04/04/22 6:00 AM) Oral (04/04/22 2:00 AM) Dry Weight 68.3 kg (04/03/22 1:09 PM) 67 kg (03/22/22 3:54 AM) 68 kg (03/21/22 3:46 PM) Weight Obtained Via Patient/family stated (03/22/22 3:54 AM) Patient/family stated (03/21/22 3:46 PM) Dry Weight Obtained Via Patient/family stated (03/22/22 3:54 AM) Patient/family stated (03/21/22 3:46 PM) Social History Social History Type Response Smoking Status Never (less than 100 in lifetime) entered on: 09/09/21 Sex Note * [facility] , CIS S: TRANSCRIBE Christian Zendejas MD: VERIFY Event Display: Result: Authored Date: [id number] Chest 2 Views Frontal and Lat Reason: Tube Placement; COMPARISON: 04/03/2022. FINDINGS: LINES AND TUBES: Left upper extremity PICC line unchanged with its tip overlying the lower SVC. LUNGS AND PLEURA: Minor right basilar atelectasis and/or scarring slightly greater. No pleural effusion. No pneumothorax. HEART, MEDIASTINUM AND SLY: Heart is normal in size. Normal upper mediastinal and hilar contour. BONES AND SOFT TISSUES: No acute abnormality. Reverse right shoulder arthroplasty. IMPRESSION: Largely unchanged. WSN: [id number] Ordering Physician: Ria Mares Dictated By: Christian Zendejas MD Dictated Date/Time: 04/04/22 10:05 a Reviewed By: Christian Zendejas MD Signed By: Christian Zendejas MD Signed Date/Time: 04/04/22 10:05 am Transcribed By: MARU Transcribed Date/Time: 04/04/22 10:04 am * [facility] , CIS S: TRANSCRIBE Mike Ruiz MD S: VERIFY Event Display: Result: Authored Date: [id number] Chest 2 Views Frontal and Lat REASON: Tube Placement; Clinical Question(s): Tube Placement / Tube Placement COMPARISON: 04/02/2022 FINDINGS: LINES AND TUBES: The right posterior chest tube has been removed. Mediastinal drains and left upper extremity PICC remain in place. Partially visualized posterior Appearance LUNGS AND PLEURA: Unchanged mild bibasilar airspace opacity. Unchanged mild blunting of the costophrenic sulci. No pneumothorax. HEART, MEDIASTINUM AND SLY: Unchanged. BONES AND SOFT TISSUES: No acute abnormality. Status post reverse right shoulder arthroplasty. IMPRESSION: Status post removal of right chest tube, otherwise no significant change. WSN: [id number] Ordering Physician: Ria Mares Dictated By: Mike Ruiz MD Dictated Date/Time: 04/03/22 9:09 am Reviewed By: Mike Ruiz MD Signed By: Mike Ruiz MD Signed Date/Time: 04/03/22 9:09 am Transcribed By: MARU Transcribed Date/Time: 04/03/22 9:06 am * DENISE Mendoza S: TRANSCRIBE Mike Ruiz MD: VERIFY Event Display: Result: Authored Date: [id number] Chest 2 Views Frontal and Lat REASON: Postop; Tube removal; Clinical Question(s): Pneumothorax / Pneumothorax COMPARISON: Earlier today. FINDINGS: LINES AND TUBES: Status post removal of the mediastinal drains. Unchanged position of the left upper extremity PICC and the spinal stimulator. LUNGS AND PLEURA: Mild hazy opacity at the lung bases, likely atelectasis, unchanged. Unchanged mild blunting of the costophrenic angles. No pneumothorax. HEART, MEDIASTINUM AND LSY: Unchanged. BONES AND SOFT TISSUES: No acute abnormality. Status post right shoulder reverse arthroplasty. IMPRESSION: No evidence of pneumothorax status post tube pull. WSN: [id number] Ordering Physician: Ria Mares Dictated By: Mike Ruiz MD Dictated Date/Time: 04/03/22 10:44 a Reviewed By: Mike Ruiz MD Signed By: Mike Ruiz MD Signed Date/Time: 04/03/22 10:44 am Transcribed By: MARU Transcribed Date/Time: 04/03/22 10:43 am * DENISE Mendoza S: TRANSCRIBE Moose Rangel MD, V: VERIFY Event Display: Result: Authored Date: [id number] Chest 2 Views Frontal and Lat Reason: Tube Placement; Clinical Question(s): Tube Placement COMPARISON: Multiple prior examinations the most recent dated 04/01/2022 at 5:42 AM. FINDINGS: LINES AND TUBES: Right apical chest tube, endoscopic/surgical clips projecting over the upper thoracic esophagus, posterior mediastinal drain, spinal stimulator overlying the mid thoracic spine and left-sided PICC line remain in place unchanged. LUNGS AND PLEURA: Ill-defined density projecting over the left lower chest on the frontal view probably external to the patient appearing. Minimal pleural-parenchymal disease in the right lung base unchanged. Probable small bilateral pleural effusions right larger than left. No pneumothorax. HEART, MEDIASTINUM AND SLY: Heart is normal in size. Normal upper mediastinal and hilar contour. BONES AND SOFT TISSUES: No acute abnormality. Reverse right total shoulder arthroplasty. Few dilated bowel loops in the left upper quadrant of the abdomen. IMPRESSION: No significant interval change. WSN: [id number] Ordering Physician: Sixto Whalen Dictated By: Moose Ranegl MD, V Dictated Date/Time: 04/02/22 12:12 p Reviewed By: Moose Rangel MD, V Signed By: Moose Rangel MD, V Signed Date/Time: 04/02/22 12:12 pm Transcribed By: MARU Transcribed Date/Time: 04/02/22 12:08 pm * [facility] , CIS S: TRANSCRIBE Mike Ryan MD: VERIFY Event Display: Result: Authored Date: [id number] Chest 2 Views Frontal and Lat Reason: Tube Placement; Clinical Question(s): Pleural Effusion COMPARISON: 03/31/2022 CT neck and chest from 03/26/2022 FINDINGS: LINES AND TUBES: Right apical chest tube. Endoscopic/surgical clips projecting over the upper thoracic esophagus. Posterior mediastinal drain. Spinal stimulator lead. Left PICC in the lower SVC. LUNGS AND PLEURA: Curvilinear atelectasis in lung bases. Unchanged blunting the costophrenic angles. No pneumothorax. HEART, MEDIASTINUM AND SLY: Heart is normal in size. Normal upper mediastinal and hilar contour. BONES AND SOFT TISSUES: No acute abnormality. Reverse right total shoulder arthroplasty. Some enteric contrast is appreciated in the abdominal bowel loops. IMPRESSION: No significant change from prior exam with postsurgical changes of the esophagus. WSN: [id number] Ordering Physician: Ria Mares Dictated By: Mike Ryan MD Dictated Date/Time: 04/01/22 8:55 am Reviewed By: Miek Ryan MD Signed By: Mike Ryan MD Signed Date/Time: 04/01/22 8:55 am Transcribed By: MARU Transcribed Date/Time: 04/01/22 8:51 am * [facility] , CIS S: TRANSCRIBE Mike Ruiz MD: VERIFY Event Display: Result: Authored Date: [id number] Chest 2 Views Frontal and Lat REASON: Tube Placement; Clinical Question(s): Pleural Effusion / Pleural Effusion COMPARISON: 03/30/2022 FINDINGS: LINES AND TUBES: Right chest tubes, left upper extremity PICC, mediastinal drain, and spinal stimulator remain in place. LUNGS AND PLEURA: Unchanged blunting of the bilateral costophrenic angles. No large pleural effusion. No pneumothorax. HEART, MEDIASTINUM AND SLY: Unchanged. BONES AND SOFT TISSUES: Skin katherine project over the upper chest. Status post right reverse shoulder arthroplasty. IMPRESSION: No significant change. WSN: [id number] Ordering Physician: Koffi Lew Dictated By: Mike Ruiz MD Dictated Date/Time: 03/31/22 8:32 am Reviewed By: Mike Ruiz MD Signed By: Mike Ruiz MD Signed Date/Time: 03/31/22 8:32 am Transcribed By: MARU Transcribed Date/Time: 03/31/22 8:30 am * Reji , CIS S: TRANSCRIBE Mike Ruiz MD: VERIFY Event Display: Result: Authored Date: [id number] Chest 2 Views Frontal and Lat Reason: Follow-Up Pleural Effusion; Clinical Question(s): Pleural Effusion / Pleural Effusion COMPARISON: 03/29/2022 FINDINGS: LINES AND TUBES: 2 right chest tubes, left upper extremity PICC, mediastinal drain, and spinal stimulator remain in place. LUNGS AND PLEURA: Unchanged blunting of bilateral costophrenic angles. No large pleural effusion. No pneumothorax. HEART, MEDIASTINUM AND SLY: Unchanged. BONES AND SOFT TISSUES: Skin katherine project over the left upper chest. Status post reverse right shoulder arthroplasty. IMPRESSION: No significant change. WSN: [id number] Ordering Physician: Yanely Vang Dictated By: Mike Ruiz MD Dictated Date/Time: 03/30/22 9:42 am Reviewed By: Mike Ruiz MD Signed By: Mike Ruiz MD Signed Date/Time: 03/30/22 9:42 am Transcribed By: MARU Transcribed Date/Time: 03/30/22 9:40 am * DENISE Mendoza S: TRANSCRIBE Mike Ruiz MD: VERIFY Event Display: Result: Authored Date: [id number] Chest 2 Views Frontal and Lat Reason: Follow-Up Pleural Effusion; Clinical Question(s): Pleural Effusion / Pleural Effusion COMPARISON: 03/28/2022 FINDINGS: LINES AND TUBES: 2 right chest tubes in place. Left upper extremity PICC, spinal stimulator, and mediastinal drain in place. Multiple wires project over the patient. LUNGS AND PLEURA: Mild blunting of both costophrenic angles, similar to prior. No large pleural effusion. No pneumothorax. HEART, MEDIASTINUM AND SLY: Unchanged. BONES AND SOFT TISSUES: Skin katherine project over the left upper chest. Status post reverse right shoulder arthroplasty. IMPRESSION: No significant change. WSN: [id number] Ordering Physician: Tara Mckeon Dictated By: Mike Ruiz MD Dictated Date/Time: 03/29/22 9:23 am Reviewed By: Mike Ruiz MD Signed By: Mike Ruiz MD Signed Date/Time: 03/29/22 9:23 am Transcribed By: MARU Transcribed Date/Time: 03/29/22 9:22 am * DENISE Mendoza S: TRANSCRIMike Domingo MD: VERIFY Event Display: Result: Authored Date: [id number] Chest 2 Views Frontal and Lat REASON: Follow-Up Pleural Effusion; Clinical Question(s): Pleural Effusion / Pleural Effusion COMPARISON: 03/27/2022 FINDINGS: LINES AND TUBES: Right chest tubes, mediastinal drain, left upper extremity PICC, and spinal stimulator remain in place. Multiple wires project over the patient. LUNGS AND PLEURA: Mild blunting of both costophrenic angles, similar to prior. No large pleural effusion. No pneumothorax. HEART, MEDIASTINUM AND SLY: Unchanged. BONES AND SOFT TISSUES: Skin katherine project over the left upper chest. Partially visualized right shoulder arthroplasty. IMPRESSION: No significant change. WSN: [id number] Ordering Physician: Tara Mckeon Dictated By: Mike Ruiz MD Dictated Date/Time: 03/28/22 9:08 am Reviewed By: Mike Ruiz MD Signed By: Mike Ruiz MD Signed Date/Time: 03/28/22 9:08 am Transcribed By: MARU Transcribed Date/Time: 03/28/22 9:07 am * DENISE Mendoza S: Mike Hamilton MD: VERIFY Event Display: Result: Authored Date: [id number] Chest 2 Views Frontal and Lat REASON: Follow-Up Pleural Effusion; Clinical Question(s): Pleural Effusion / Pleural Effusion COMPARISON: 03/26/2022 FINDINGS: LINES AND TUBES: Right-sided chest tubes. Enteric tube courses below the diaphragm, tip not included in the [id number]. Left upper extremity PICC with the catheter tip at the superior cavoatrial junction. Spinal stimulator. Left superior mediastinal drain. LUNGS AND PLEURA: Mild blunting of both costophrenic angles, similar to prior. No large pleural effusion. No pneumothorax. HEART, MEDIASTINUM AND SLY: Unchanged. BONES AND SOFT TISSUES: Skin katherine in the left upper chest. Partially visualized right shoulder arthroplasty. IMPRESSION: No significant change. Mild blunting of the costophrenic angles may be due to trace pleural effusions and/or mild atelectasis. WSN: [id number] Ordering Physician: Sixto Whalen Dictated By: Mike Ruiz MD Dictated Date/Time: 03/27/22 10:28 a Reviewed By: Mike Ruiz MD Signed By: Mike Ruiz MD Signed Date/Time: 03/27/22 10:28 am Transcribed By: MARU Transcribed Date/Time: 03/27/22 10:25 am * DENISE Mendoza S: Ria Webster MD: VERIFY Event Display: Result: Authored Date: [id number] Chest 2 Views Frontal and Lat Reason: Follow-Up Pleural Effusion; Clinical Question(s): Pleural Effusion COMPARISON: Multiple prior chest x-rays, the most recent of which is dated . FINDINGS: LINES AND TUBES: Mediastinal drains are seen is a drainage tube overlying the upper mediastinum. Spinal stimulator leads thoracic level. There is an apically directed right chest tube. There is a left subclavian central venous catheter with tip in the SVC right atrial junction. LUNGS AND PLEURA: Mild left basilar atelectasis, improved from prior examination. Slight blunting of both costophrenic angles suggest trace effusions. No pneumothorax. HEART, MEDIASTINUM AND SLY: Heart is normal in size. Normal upper mediastinal and hilar contour. BONES AND SOFT TISSUES: Surgical skin katherine are seen over the left anterolateral aspect of the neck/upper chest. IMPRESSION: 1. Tubes and lines as above. 2. Trace bilateral pleural effusions. Improving aeration of the left lung base. WSN: [id number] Ordering Physician: Sixto Whalen Dictated By: Ria Ramirez MD Dictated Date/Time: 03/26/22 10:27 a Reviewed By: Ria Ramirez MD Signed By: Ria Ramirez MD Signed Date/Time: 03/26/22 10:27 am Transcribed By: MARU Transcribed Date/Time: 03/26/22 10:25 am * [facility] , CIS S: TRANSCRIBE Jason Navarro MD H: VERIFY Event Display: Result: Authored Date: [id number] Chest 2 Views Frontal and Lat Reason: Follow-Up Pleural Effusion; Clinical Question(s): Pleural Effusion COMPARISON: Multiple priors most recently 03/24/2022 FINDINGS: LINES AND TUBES: No interval change in position of the 2 right-sided pleural drainage catheters or in the enteric tube. Spinal stimulator projects over the midthoracic spine. LUNGS AND PLEURA: Continued increased density at the left base obscuring the hemidiaphragm, there also being some faint air bronchogram here, likely representing a combination of lower lobe atelectasis/infiltrate along with small pleural effusion. Stable small amount of pleural reaction is present at the right lung base along with minor foci of platelike atelectasis. No pneumothorax. HEART, MEDIASTINUM AND SLY: Heart is normal in size. Normal upper mediastinal and hilar contour. BONES AND SOFT TISSUES: No acute abnormality. Status post reverse right shoulder arthroplasty. Stable line overlies the left upper paramediastinal region with adjacent drain. IMPRESSION: No interval change with continued pleural/parenchymal disease at the left base and stable mild right pleural reaction with 2 chest tubes in stable position. WSN: [id number] Ordering Physician: Sixto Whalen Dictated By: Jason Navarro MD Dictated Date/Time: 03/25/22 8:44 am Reviewed By: Jason Navarro MD Signed By: Jason Navarro MD Signed Date/Time: 03/25/22 8:44 am Transcribed By: MARU Transcribed Date/Time: 03/25/22 8:38 am * DENISE Mendoza S: Rubina Martinez MD: VERIFY Diogenes Kim DO: SIGN Event Display: Result: Authored Date: [id number] Chest 2 Views Frontal and Lat REASON: Follow-Up Pleural Effusion; Clinical Question(s): Pleural Effusion COMPARISON: Multiple priors, most recent 03/23/2022. FINDINGS: LINES AND TUBES: 2 right-sided apically directed chest tubes are unchanged. Enteric tube is unchanged. Spinal stimulator is unchanged. LUNGS AND PLEURA: Small left pleural effusion and adjacent airspace disease is unchanged. Mild right basilar atelectasis. No right pleural effusion. No pneumothorax. HEART, MEDIASTINUM AND SLY: Heart is normal in size. Normal upper mediastinal and hilar contour. BONES AND SOFT TISSUES: No acute abnormality. Reverse total shoulder arthroplasty. Surgical clips in the upper chest. IMPRESSION: No significant interval change. Unchanged small left pleural effusion and adjacent atelectasis/infiltrate I have personally reviewed the images and I agree with this report. WSN: [id number] Ordering Physician: Prasanna Valladares Dictated By: Diogenes Kim DO Dictated Date/Time: 03/24/22 11:09 a Reviewed By: Rubina Uribe MD Signed By: Rubina Uribe MD Signed Date/Time: 03/24/22 11:14 am Transcribed By: MARU Transcribed Date/Time: 03/24/22 9:28 am * Reji , CIS S: Juan Antonio Estrada MD: VERIFY Event Display: Result: Authored Date: [id number] Chest 2 Views Frontal and Lat Reason: Follow-Up Pleural Effusion; Clinical Question(s): Pleural Effusion COMPARISON: 03/22/2022 FINDINGS: Lines and tubes: Unchanged spinal stimulator electrodes from an inferior approach, tip projecting over the midthoracic spine at the inferior endplate of T7. Two unchanged right-sided chest tubes one laterally and ending at the apex of the other a Ernesto tube medially also ending at the apex. Enterictube again seen which side port is in the proximal gastric body, tip in the mid gastric body not seen. Lungs and pleura: Low lung volumes. Obscured LEFT hemidiaphragm consistent with a small to moderateleft pleural effusion are likely atelectasis at the LEFT lung base unchanged. Unchanged mild to moderate linear atelectasis at the RIGHT lung base. No evidence of pneumothorax. Heart, mediastinum and sly: Unchanged. Bones and soft tissues: Several surgical clips project over the upper thorax in midline at the level of T1-T2 probably related to a Zenker's diverticulum repair. Incisional katherine again noted projecting over the anterior superior left chest wall. [place] drain faintly visualized over the superior mediastinum. Total right shoulder replacement prosthesis partially visualized. Moderate degenerativechanges in the thoracic spine and mild dextroscoliosis again seen. IMPRESSION: No significant interval change. WSN: [id number] Ordering Physician: Prasanna Valladares Dictated By: Juan Antonio Waters MD Dictated Date/Time: 03/23/22 5:02 pm Reviewed By: Juan Antonio Waters MD Signed By: Juan Antonio Waters MD Signed Date/Time: 03/23/22 5:02 pm Transcribed By: MARU Transcribed Date/Time: 03/23/22 4:59 pm * [facility] , CIS S: TRANSCRIBE Giles Torres MD: VERIFY Event Display: Result: Authored Date: PROCEDURE: Chest Portable CLINICAL INDICATION: 76 years old Male with esophageal perforation after Zenker's diverticulum repair. COMPARISON: Chest radiographs 2012 through yesterday, CT soft tissues neck and CTA chest of yesterday. FINDINGS: Portable AP erect view of the chest performed at 2:13 AM. Lines and tubes: Several EKG leads project over the chest. Unchanged spinal stimulator electrodes projecting over the midthoracic spine. Two new right-sided chest tubes one laterally and ending at the apex of the other a Ernesto tube medially also ending at the apex. New enteric tube which can be followed to the proximal gastric body, tip not seen. Lungs and pleura: Poor lung inflation. Haziness at the LEFT lung base with obscuration of the LEFT hemidiaphragm consistent with a small to moderate LEFT pleural effusion are likely atelectasis at the LEFT lung base. Unchanged mild to moderate atelectasis at the RIGHT lung base. No definite evidence of pneumothorax. Heart, mediastinum and sly: Mild unchanged tortuosity and calcification of the thoracic aorta noted. No cardiomegaly and no definite pulmonary venous hypertension. Bones and soft tissues: Several surgical clips project over the upper thorax in midline at the level of T1-T2 probably related to a Zenker's diverticulum repair. New incisional katherine noted projecting over the LEFT lung apex. [place] drain faintly visualized over the superior mediastinum. Total RIGHT shoulder replacement prosthesis partially visualized. IMPRESSION: 1. New small to moderate LEFT pleural effusion with mild to moderate atelectasis of the LEFT lung base. Unchanged mild to moderate linear atelectasis at the RIGHT lung base. 2. Two new right-sided chest tubes, enteric tube and presumed mediastinal [place] drain, positionedas detailed above. Thank you for allowing me to participate in the care of this patient. WSN: [id number] Ordering Physician: Chris Lira Dictated By: Giles Torres MD Dictated Date/Time: 03/22/22 3:21 pm Reviewed By: Giles Torres MD Signed By: Giles Torres MD Signed Date/Time: 03/22/22 3:21 pm Transcribed By: MARU Transcribed Date/Time: 03/22/22 3:16 pm * [facility] , CIS S: TRANSCRIBE Giles Torres MD: VERIFY Event Display: Result: Authored Date: PROCEDURE: Chest 2 Views Frontal and Lat INDICATION: 76 years old Male with Reason: Tube Placement; Clinical Question(s): Tube Placement. COMPARISON: Chest radiographs 2012 through earlier today. FINDINGS: AP and lateral upright views of the chest obtained. Lines and tubes: Several EKG leads project over the chest. Unchanged spinal stimulator electrodes from an inferior approach, tip projecting over the midthoracic spine at the inferior endplate of T7. Two unchanged right-sided chest tubes one laterally and ending at the apex of the other a Ernesto tube medially also ending at the apex. Enteric tube again seen which side port is in the proximal gastric body, tip in the mid gastric body not seen. Lungs and pleura: Poor lung inflation again noted. Obscured LEFT hemidiaphragm consistent with a small to moderate LEFT pleural effusion are likely atelectasis at the LEFT lung base unchanged. Unchanged mild to moderate linear atelectasis at the RIGHT lung base. No evidence of pneumothorax. Heart, mediastinum and sly: Mild unchanged tortuosity and calcification of the thoracic aorta noted. No cardiomegaly and no definite pulmonary venous hypertension. Bones and soft tissues: Several surgical clips project over the upper thorax in midline at the level of T1-T2 probably related to a Zenker's diverticulum repair. Incisional katherine again noted projecting over the anterior superior LEFT chest wall. [place] drain faintly visualized over the superior mediastinum. Total RIGHT shoulder replacement prosthesis partially visualized. Moderate degenerativechanges in the thoracic spine and mild dextroscoliosis again seen. IMPRESSION: 1. Unchanged small to moderate LEFT pleural effusion with mild to moderate atelectasis of the LEFT lung base. Unchanged mild to moderate linear atelectasis at the RIGHT lung base. 2. Two unchanged right-sided chest tubes. No evidence of pneumothorax. 3. Enteric tube ending in the mid gastric body. 4. Mediastinal [place] drain. Thank you for allowing me to participate in the care of this patient. WSN: [id number] Ordering Physician: Chris Lira Dictated By: Giles Torres MD Dictated Date/Time: 03/22/22 3:26 pm Reviewed By: Giles Torres MD Signed By: Giles Torres MD Signed Date/Time: 03/22/22 3:26 pm Transcribed By: MARU Transcribed Date/Time: 03/22/22 3:22 pm * [facility] , CIS S: Mike Aquino MD: VERIFY Event Display: Result: Authored Date: [id number] Chest Portable, AP upright Reason: Angina; post endoscopy sever pain, ?perforation; Clinical Question(s): Other: COMPARISON: 09/08/2021 FINDINGS: LINES AND TUBES: None. LUNGS AND PLEURA: The lungs are hypoinflated and there is mild bibasilar atelectasis. No pleural effusion. No pneumothorax. HEART, MEDIASTINUM AND SLY: Heart is normal in size. Mild aortic tortuosity. Normal upper mediastinal and hilar contour. No evidence of pneumoperitoneum. BONES AND SOFT TISSUES: An irregular metallic density/foreign body projects over the thoracic inlet at midline measuring 1.2 x 1.4 cm, and appears to be made out of four linear/tubular components each 2.3 mm in diameter, roughly forming the configuration of the letter R. Spinal stimulator, tip at level of T7. Reverse right shoulder arthroplasty again noted. IMPRESSION: Unusual metallic foreign body projects over the thoracic inlet at midline, potentially on the patient but cannot exclude internal location such as in the trachea or esophagus, and this must be correlated clinically. No evidence of pneumoperitoneum. A critical result message ([place]) has been communicated via the [employer] system on 03/21/2022 4:38 PM, Message ID [id number]. WSN: [id number] Ordering Physician: Sonja Friend Dictated By: Mike Yancey MD Dictated Date/Time: 03/21/22 4:38 pm Reviewed By: Mike Yancey MD Signed By: Mike Yancey MD Signed Date/Time: 03/21/22 4:38 pm Transcribed By: MARU Transcribed Date/Time: 03/21/22 4:38 pm RF Esophagus Views W barium contrast PO * [facility] , CIS S: TRANSCRIBE Mike Ruiz MD S: VERIFY Event Display: Result: Authored Date: [id number] PROCEDURE: Esophagus Barium Swallow CLINICAL INDICATION: esophageal leak s p diverticulectomy; Clinical Question(s): ?leak; Special Instructions: Use H2O soluble first followed by thin Barium. COMPARISONS: Similar study from 03/26/2022. CT chest from 03/26/2022. FLUOROSCOPY TIME: 2 minutes 10 seconds EXPOSURE: 941.3 uGym2 TECHNIQUE: Single contrast esophagram, performed first with 200 mL Omnipaque 350 water-soluble contrast, followed by sips of thin barium. Exam was performed with the patient in the semirecumbent position, with both frontal and oblique views obtained. FINDINGS: [employer]: 2 drains and multiple surgical clips are present in the upper mediastinum. Medial right apically directed chest tube and left upper extremity PICC are partially seen. Patient was able to sip water-soluble contrast through a straw. No extravasation of contrast was seen from the upper esophagus at the site of previous extravasation, therefore patient was given sips of thin barium through a straw, and still no extravasation of contrast was seen. Moderate to severe esophageal dysmotility with multiple tertiary contractions but contrast does empty into the stomach. IMPRESSION: No residual esophageal leak is identified. WSN: [id number] Ordering Physician: Vanesa Aparicio Dictated By: Mike Ruiz MD Dictated Date/Time: 03/31/22 11:38 a Reviewed By: Mike Ruiz MD Signed By: Mike Ruiz MD Signed Date/Time: 03/31/22 11:38 am Transcribed By: MARU Transcribed Date/Time: 03/31/22 11:32 am * Reji , DENISE S: TRANSCRIBE Ria Ramirez MD M: Balaji Barnett: SIGN Event Display: Result: Authored Date: [id number] PROCEDURE: Esophagus Barium Swallow CLINICAL INDICATION: esophageal leak s p diverticulectomy; Clinical Question(s): Other:; leak; Special Instructions: Use H2O soluble first followed by thin Barium; Ok for patient to drink around the NGT COMPARISONS: Barium swallow 03/21/2022 FLUOROSCOPY TIME: 1.1 minutes EXPOSURE: 1363.5 uGy*m^2 TECHNIQUE: Water-soluble contrast esophagram was performed by Jorje Benitez. The patient drank approximately 80 cc of Omnipaque 350. FINDINGS: [employer]: Right-sided thoracostomy and mediastinal drainage tubes are visualized. Spinal stimulator isagain seen. Surgical clips are noted projecting over the mid cervical soft tissues. 2 left-sided JPdrains are appreciated projecting over the upper mediastinum with left-sided staple closure also seen. Swallow: Normal oral and pharyngeal phases with no laryngeal penetration or subglottic aspiration. Esophagus: Beginning with image 11 extraluminal contrast is appreciated which seemingly originates from the right aspect of the most inferior surgical clip to opacify retroesophageal soft tissues. The area of extraluminal collection appears decreased in size as compared to the previous examination,with contrast noted to be entering the more superior of the 2 left-sided drains beginning with image 51. Remainder of the esophagus is grossly normal in contour and mucosal appearance with tertiary contractions and proximal escape of barium bolus noted. IMPRESSION: 1. Persistent leak at the site of diverticulectomy probably originating from the area of the most inferior surgical clip with decreased size of the retroesophageal soft tissue collection and contrastnoted entering the upper left-sided drain. 2. Moderate esophageal dysmotility. By undersigning and finalizing the report, the attending radiologist confirms he/she has personallyreviewed and interpreted the images and agrees with the description of the findings. I have personally reviewed the images and I agree with this report. WSN: [id number] Ordering Physician: Sixto Whalen Dictated By: Balaji Skinner Dictated Date/Time: 03/26/22 10:10 a Reviewed By: Ria Ramirez MD Signed By: Ria Ramirez MD Signed Date/Time: 03/26/22 10:15 am Transcribed By: MARU Transcribed Date/Time: 03/26/22 9:35 am * [facility] , CIS S: TRANSCRIBE Jeronimo Ortega MD S: VERIFY Terrell Flynn MD: SIGN Event Display: Result: Authored Date: PROCEDURE: Esophagus Barium Swallow CLINICAL INDICATION: Hx of Present Illness: Squeezing chest pain 9 10 after endoscopy to remove diverticuli. Pain is raditing to back and stomach.; Reason: Other:; back and neck pain s p Zenker's diverticulectomy; Clinical Question(s): Perforation; Special Instructions: water soluble contrast. COMPARISONS: Correlated with CTA chest and abdomen from earlier today FLUOROSCOPY TIME: 54 seconds EXPOSURE: 1349.2 uGym2 TECHNIQUE: Water-soluble contrast esophagram FINDINGS: Esophagus: Oral contrast is seen posterior to the esophagus at the site of recent Zenker's diverticulum resection, with site of perforation most likely along the inferior margin of the visualized clips compatible with perforation. Stomach and duodenum: Grossly normal. IMPRESSION: Esophageal perforation likely slightly inferior to the surgical clips with contrast posterior to the esophagus with inferior tracking into the chest. I have personally reviewed the images and I agree with this report. WSN: [id number] Ordering Physician: Yvonne Perkins Dictated By: Terrell Flynn MD Dictated Date/Time: 03/21/22 7:49 pm Reviewed By: Jeronimo Ortega MD Signed By: Jeronimo Ortega MD Signed Date/Time: 03/21/22 7:54 pm Transcribed By: MARU Transcribed Date/Time: 03/21/22 6:53 pm Care Team Personnel Name: Lilia WILLIAM, Jennifer Maynard Address: [address] [place] [id number]
--- OUTSIDE RECORDS SUMMARY | 2023-11-20 08:40 | XMS_ITS | Continuity of Care Document ---
Author Organization [facility] Address [address] [place] [address]- Care Team Providers Care School Program Director Name Role Phone Lilia WILLIAM, Jennifer Maynard Primary Care Physician Encounter [facility] Date(s): 07/03/20 - 07/10/20 [facility] [address] [place] [id number] Attending Physician: Pino Allison MD Referring Physician: Jennifer Rodrigues MD Allergies, Adverse Reactions, Alerts Substance Reaction [...]
--- OUTSIDE RECORDS SUMMARY | 2023-11-20 08:40 | XMS_ITS | Continuity of Care Document ---
Author Organization [facility] Address [address] [place] [address]- Care Team Providers Care Airbrush Painter Name Role Phone Lilia WILLIAM, Jennifer Maynard Primary Care Physician Encounter [facility] [place] Date(s): 01/01/23 - 01/31/23 [facility] [address] [place] [address]- [place] Allergies, Adverse Reactions, Alerts Substance Reaction [...] tablet, 11 Refills, Maintenance, 12/11/22 7:08:00 EDT, [facility] STORE 95276, 175.3, cm, 12/05/22 15:02:00 EDT, Height, 63.5, [...] Team Personnel Name: Fanta Downey RN Position: [facility] AMB Nurse Member Role: Primary Care Nurse Name: Jennifer Rodrigues MD Position: [facility] Physician - Primary Care Member Role: PCP Address: Address: [address] [place] [id number] Name: Lisa Cummings RN Position: [facility] RN Member Role: Primary Care Nurse Name: Marie Murillo RN Position: [facility] RN Member Role: Primary Care Nurse Name: Nicky Jauregui RN Position: [facility] AMB Nurse Member Role: Primary Care Nurse Name: Chelo Santacruz RN Position: [facility] RN Member Role: Primary Care Nurse Name: Pavel Rogers RN Position: [facility] RN Member Role: Primary Care Nurse Name: Coreen Gordon Position: [facility] RN Member Role: Primary Care Nurse Name: Miki Sheppard RN Position: [facility] RN Member Role: Primary Care Nurse Name: Teetee Marrufo RN Position: [facility] RN Member Role: Primary Care Nurse Name: Lexie Desouza RN Position: [facility] Hospital Account Services Associate Member Role: Primary Care Nurse Name: Ada Hansen MD Position: [facility] Cardiology MD Member Role: Lifetime Consulting Physician Address: Address: [address] [place] [id number] Name: Kristie Omer RN Position: [facility] RN Member Role: Primary Care Nurse Care Team Related Persons Name: BONNY VALADEZ Name: MADELEINE FREED Address: [address] [place] [address]
--- OUTSIDE RECORDS SUMMARY | 2023-11-20 08:40 | XMS_ITS | Continuity of Care Document ---
Author Organization [facility] ter Address [address] [place] [address]- Care Team Providers Care Dispatch Associate Name Role Phone Lilia WILLIAM, Jennifer Maynard Primary Care Physician [phone] Encounter [facility] Date(s): 10/08/21 - 11/14/[address] [address]- Encounter Diagnosis Atherosclerotic heart disease of [place] coronary artery without angina pectoris (Final) - Discharge Disposition: A-D/C Home Attending Physician: Jacky Barrett MD Admitting Physician: Jacky Barrett MD Referring Physician: Jacky Barrett MD Allergies, Adverse Reactions, Alerts Substance Reaction [...] 1 Refills, Maintenance, 09/06/21 9:04:00 EST, Tablet, [facility] 3, Partial fill upon patient request if [...]
--- OUTSIDE RECORDS SUMMARY | 2023-11-20 08:40 | XMS_ITS | Continuity of Care Document ---
Author Organization [facility] Address [address] [place] [address], [address] [place] [address]- Care Team Providers Care Microbiology Soil Scientist Name Role Phone Lilia WILLIAM, Jennifer Maynard Primary Care Physician [place] [facility] [place]s): 09/30/22 - 11/26/22 [facility] Thoracic Surgery [address] [place] [address], [address] [place], [place] [address] Attending Physician: Mor Nelson DO Allergies, Adverse [...] Refills, Maintenance, 08/05/20 21:30:00 EST, Tablet, [id number] Start Date: 08/05/20 Stop Date: 07/31/21 Status: Ordered atorvastatin 80 mg oral tablet 1 tablet = 80 mg, By Mouth, Daily, # 30 tablet, 0 Refills, Maintenance, 11/19/22 9:13:00 EDT, [facility], Partial fill upon patient request [...] Team Personnel Name: Fanta Downey RN Position: [facility] AMB Nurse Member Role: Primary Care Nurse Name: Jennifer Rodrigues MD Position: [facility] Physician (General Medicine) Member Role: PCP Address: Address: [address] [place] [address] [place] [address]- Name: Lisa Cummings RN Position: [facility] SN RN Member Role: Primary Care Nurse Name: Marie Murillo RN Position: [facility] RN Member Role: Primary Care Nurse Name: Nicky Jauregui RN Position: [facility] RN Member Role: Primary Care Nurse Name: Chelo Santacruz RN Position: [facility] RN Member Role: Primary Care Nurse Name: Pavel Rogers RN Position: [facility] RN Member Role: Primary Care Nurse Name: Coreen Gordon Position: [facility] RN Member Role: Primary Care Nurse Name: Miki Sheppard RN Position: [facility] RN Member Role: Primary Care Nurse Name: Teetee Marrufo RN Position: [facility] RN Member Role: Primary Care Nurse Name: Lexie Desouza RN Position: [facility] Hospital Cardiac Technologist Member Role: Primary Care Nurse Name: Ada Hansen MD Position: [facility] Cardiology MD Member Role: Lifetime Consulting Physician Address: Address: [address] [place] [address]- Name: Kristie Omer RN Position: [facility] RN Member Role: Primary Care Nurse Care Team Related Persons Name: BONNY VALADEZ Name: MADELEINE FREED Address: [address] [place] [address]
--- OUTSIDE RECORDS SUMMARY | 2023-11-20 08:40 | XMS_ITS | Continuity of Care Document ---
Author Organization [facility] Address [address] [place] [address]- Care Team Providers Care Human Service Specialist Name Role Phone Lilia WILLIAM, Jennifer Maynard Primary Care Physician [phone] En[place] [facility] Date(s): 03/23/23 - 04/22/23 [facility] [address] [place] [address]- [place] Allergies, Adverse Reactions, Alerts Substance Reaction [...] tablet, 11 Refills, Maintenance, 12/11/22 7:08:00 EDT, [facility] STORE 21684, 175.3, cm, 12/05/22 15:02:00 EDT, Height, 63.5, [...] Team Personnel Name: Fanta Downey RN Position: [facility] AMB Nurse Member Role: Primary Care Nurse Name: Jennifer Rodrigues MD Position: [facility] Physician - Primary Care Member Role: PCP Address: Address: [address] [place] [address], [address] [place], [place], [address] Name: Lisa Cummings RN Position: [facility] RN Member Role: Primary Care Nurse Name: Marie Murillo RN Position: [facility] RN Member Role: Primary Care Nurse Name: Nicky Jauregui RN Position: [facility] AMB Nurse Member Role: Primary Care Nurse Name: Chelo Santacruz RN Position: [facility] RN Member Role: Primary Care Nurse Name: Pavel Rogers RN Position: [facility] RN Member Role: Primary Care Nurse Name: Coreen Gordon Position: [facility] RN Member Role: Primary Care Nurse Name: Miki Sheppard RN Position: [facility] RN Member Role: Primary Care Nurse Name: Teetee Marrufo RN Position: [facility] RN Member Role: Primary Care Nurse Name: Lexie Desouza RN Position: [facility] Hospital Vp Site Member Role: Primary Care Nurse Name: Ada Hansen MD Position: [facility] Cardiology MD Member Role: Lifetime Consulting Physician Address: Address: [address] [place] [address]- Name: Kristie Omer RN Position: [facility] ED RN W/OE and Tasks Member Role: Primary Care Nurse Care Team Related Persons Name: BONNY VALADEZ Name: MADELEINE FREED Address: [address] [place] [address]
--- OUTSIDE RECORDS SUMMARY | 2023-11-20 08:40 | XMS_ITS | Continuity of Care Document ---
Author Organization [facility] ter Address [address] [place] [address]- Care Team Providers Care Industrial Security Analyst Name Role Phone Lilia WILLIAM, Jennifer Maynard Primary Care Physician Encounter [facility] Date(s): 09/08/21 - 09/09/[address] [address]- Encounter Diagnosis Chest pain in adult(Final) - 09/09/21 Discharge Disposition: A-D/C Home Attending Physician: Reese Scott MD Admitting Physician: Panchito Yoder MD Referring Physician: Not on Staff, Referring MD Allergies, Adverse Reactions, Alerts Substance Reaction Severity Status oxycodone nausea Active Motrin nausea Active OxyContin nausea Active Percocet nausea Active Immunizations Given and Recorded Vaccine [...] oral tablet 5 mg, Tablet, By Mouth, 09/09/21 9:00:00 EST Start Date: 09/09/21 Stop Date: 09/09/21 Status: Completed metroNIDAZOLE 0.75% topical gel Topically, [...] 1 Refills, Maintenance, 09/06/21 9:04:00 EST, Tablet, [facility], Partial fill upon patient request if [...] release 50 mg, XL Tablet, By Mouth, 09/09/21 9:00:00 EST Start Date: 09/09/21 Stop Date: 09/09/21 Status: Completed Viagra 100 mg oral tablet [...] disease)(Confirmed) Active Right shoulder pain(Confirmed) Active Results Radiology Reports * Exam Date Time Procedure Performing Provider Status 09/08/21 10:28 PM Chest 2 Views Frontal and Lat Nasrin Clark; Auth (Verified) Notes: (Chest 2 Views Frontal and Lat) Reason For Exam: Chest Pain;Other: RESULT: Chest 2 Views Frontal and Lat Chest 2 Views Frontal and Lat Hx of Present Illness: chest tightness; Reason: Other:; Chest Pain; Clinical Question(s): Other: COMPARISON: 12/09/2013 FINDINGS: LINES AND TUBES: None. LUNGS AND PLEURA: Clear lungs. Normal pulmonary vascularity. No pleural effusion. No pneumothorax. HEART, MEDIASTINUM AND YARED: Heart is normal in size. Normal upper mediastinal and hilar contour. BONES AND SOFT TISSUES: No acute abnormality. Limited thoracic spinal stimulator leads unchanged. Patient has undergone a reverse right shoulder arthroplasty since the prior study. IMPRESSION: No acute abnormality. WSN: [id number] Ordering Physician: Lui Nye Dictated By: Mike Christie MD Dictated Date/Time: 09/08/21 10:34 p Reviewed By: Mike Christie MD Signed By: Mike Christie MD Signed Date/Time: 09/08/21 10:34 pm Transcribed By: MARU Transcribed Date/Time: 09/08/21 10:33 pm Vital Signs Most recent to oldest [Reference Range]: 1 2 3 Oxygen Saturation [94-100 %] 97 % (09/09/21 3:39 PM) 98 % (09/09/21 11:49 AM) 100 % (09/09/21 8:25 AM) Pulse Rate [55-90 bpm] 85 bpm (09/09/21 3:39 PM) 60 bpm (09/09/21 11:49 AM) 62 bpm (09/09/21 9:41 AM) Blood Pressure [90-138/55-84 mm Hg] 109/77mm Hg (09/09/21 3:39 PM) 110/65mm Hg (09/09/21 11:49 AM) 107/65mm Hg (09/09/21 9:43 AM) Respiratory Rate [16-30 br/min] 20 br/min (09/09/21 3:39 PM) 20 br/min (09/09/21 11:49 AM) 18 br/min (09/09/21 9:00 AM) Temperature [96.8-100.4 DegF] 98.3 DegF (09/09/21 3:39 PM) 97.7 DegF (09/09/21 11:49 AM) 97.8 DegF (09/09/21 8:25 AM) Mode of Delivery (Oxygen) Room air (09/09/21 3:39 PM) Room air (09/09/21 11:49 AM) Room air (09/09/21 8:25 AM) Blood pressure sites Arm, left (09/09/21 3:39 PM) Arm, left (09/09/21 11:49 AM) Arm, left (09/09/21 8:25 AM) Temperature Route Oral (09/09/21 3:39 PM) Oral (09/09/21 11:49 AM) Oral (09/09/21 8:25 AM) Social History Social History Type Response Smoking Status Never (less than 100 in lifetime) entered on: 09/09/21 Sex
--- OUTSIDE RECORDS SUMMARY | 2023-11-20 08:40 | XMS_ITS | Continuity of Care Document ---
Author Organization [facility] Address [address] [place] [address], [address] [place] [address]- Care Team Providers Care Vp Legal Affairs Name Role Phone Lilia WILLIAM, Jennifer Maynard Primary Care Physician [phone] Encounter [facility] Date(s): 10/20/22 - 11/19/22 [facility] Thor[facility] Surgery [address] [place] [address], [address] [place], [place] [address] Allergies, Adverse Reactions, Alerts [...] tablet, 0 Refills, Maintenance, 11/19/22 9:13:00 EDT, [facility] 3, Partial fill upon patient request if [...] Team Personnel Name: Fanta Downey RN Position: [facility] AMB Nurse Member Role: Primary Care Nurse Name: Lilia WILLIAM, Jennifer Maynard Position: [facility] Physician (General Medicine) Member Role: PCP Address: Address: [address] [place] [address] Name: Lisa Cummings RN Position: [facility] SN RN Member Role: Primary Care Nurse Name: Marie Murillo RN Position: [facility] RN Member Role: Primary Care Nurse Name: Nicky Jauregui RN Position: [facility] RN Member Role: Primary Care Nurse Name: Chelo Santacruz RN Position: [facility] RN Member Role: Primary Care Nurse Name: Pavel Rogers RN Position: [facility] RN Member Role: Primary Care Nurse Name: Coreen Gordon Position: [facility] RN Member Role: Primary Care Nurse Name: Miki Sheppard RN Position: [facility] RN Member Role: Primary Care Nurse Name: Teetee Marrufo RN Position: [facility] RN Member Role: Primary Care Nurse Name: Lexie Desouza RN Position: [facility] Student Support Counselor Member Role: Primary Care Nurse Name: Ada Hansen MD Position: [facility] Cardiology MD Member Role: Lifetime Consulting Physician Address: Address: [address] [place] [address] Name: Kristie Omer RN Position: [facility] RN Member Role: Primary Care Nurse Care Team Related Persons Name: BONNY VALADEZ Name: MADELEINE FREED Address: [address] [place] [address]
--- OUTSIDE RECORDS SUMMARY | 2023-11-20 08:40 | XMS_ITS | Continuity of Care Document ---
Author Organization [facility] Address [address] [place] [address], [address] [place] [address]- Care Team Providers Care Winery Cellar Hand Name Role Phone Lilia WILLIAM, Jennifer Maynard Primary Care Physician Encounter [facility] Date(s): 09/29/22 - 10/06/22 [facility] Thoracic Surgery [address] [place] [address], [address] [place], [place] [address] Attending Physician: Mor Nelson DO Allergies, Adverse [...] 0 Refills, Maintenance, 05/17/22 13:15:00 EDT, Tablet, [facility], Partial fill upon patient request if the prescription is for aschedule II opioid drug., 175, cm, 05/17/22 11:49:0... Start Date: 05/17/22 Stop Date: 07/16/22 Status: Ordered atorvastatin 80 mg oral tablet 1 tablet = 80 mg, By Mouth, Daily, # 30 tablet, 11 Refills, Maintenance, 08/05/20 21:30:00 EST, Tablet, [facility] #0769 Start Date: 08/05/20 Stop Date: 07/31/21 [...] 1 Refills, Maintenance, 09/06/21 9:04:00 EST, Tablet, [facility] 3, Partial fill upon patient request if [...] Team Personnel Name: Fanta Downey RN Position: [facility] AMB Nurse Member Role: Primary Care Nurse Name: Jennifer Rodrigues MD Position: [facility] Physician (General Medicine) Member Role: PCP Address: Address: [address] [facility] [place] [address]- Name: Lisa Cummings RN Position: [facility] RN Member Role: Primary Care Nurse Name: Marie Murillo RN Position: [facility] RN Member Role: Primary Care Nurse Name: Nicky Jauregui RN Position: [facility] RN Member Role: Primary Care Nurse Name: Chelo Santacruz RN Position: [facility] RN Member Role: Primary Care Nurse Name: Pavel Rogers RN Position: [facility] RN Member Role: Primary Care Nurse Name: Coreen Gordon Position: [facility] RN Member Role: Primary Care Nurse Name: Miki Sheppard RN Position: [facility] RN Member Role: Primary Care Nurse Name: Teetee Marrufo RN Position: [facility] RN Member Role: Primary Care Nurse Name: Lexie Desouza RN Position: [facility] Parts Driver Member Role: Primary Care Nurse Name: Ada Hansen MD Position: [facility] Cardiology MD Member Role: Lifetime Consulting Physician Address: Address: [address] [facility] [address] [place] [address]- [place] Name: Kristie Omer RN Position: [facility] RN Member Role: Primary Care Nurse Care Team Related Persons Name: MADELEINE FREED Address: home [address] [place] [address]
--- OUTSIDE RECORDS SUMMARY | 2023-11-20 08:40 | XMS_ITS | Continuity of Care Document ---
Author Organization [facility] Address [address] [place] [address], [address] [place] [address]- Care Team Providers Care Claims Adjuster Supervisor Name Role Phone Lilia WILLIAM, Jennifer Maynard Primary Care Physician [place] [facility] [place]): [place] - 12/06/22 [facility] Thoracic Surgery [address] [place] [address], [address] [place], [place] [address] Attending Physician: Admtr, Mohit Admitting Physician: Admtr, Ar8 Referring Physician: Admtr, Ar8 Allergies, Adverse Reactions, [...] 11 Refills, Maintenance, 08/05/20 21:30:00 EST, Tablet, [facility]/pharmacy #[id number] Start Date: 08/05/20 Stop Date: 07/31/21 Status: Ordered atorvastatin 80 mg oral tablet 1 tablet = 80 mg, By Mouth, Daily, # 30 tablet, 0 Refills, Maintenance, 11/19/22 9:13:00 EDT, [facility] 3, Partial fill upon patient request [...] Team Personnel Name: Fanta Downey RN Position: [facility] AMB Nurse Member Role: Primary Care Nurse Name: Lilia WILLIAM, Jennifer Maynard Position: [facility] Physician (General Medicine) Member Role: PCP Address: Address: [address] [facility] [address] [facility] [place] [address]- Name: Lisa Cummings RN Position: [facility] SN RN Member Role: Primary Care Nurse Name: Marie Murillo RN Position: [facility] RN Member Role: Primary Care Nurse Name: Nicky Jauregui RN Position: [facility] RN Member Role: Primary Care Nurse Name: Chelo Santacruz RN Position: [facility] RN Member Role: Primary Care Nurse Name: Pavel Rogers RN Position: [facility] RN Member Role: Primary Care Nurse Name: Coreen Gordon Position: [facility] RN Member Role: Primary Care Nurse Name: Miki Sheppard RN Position: [facility] RN Member Role: Primary Care Nurse Name: Teetee Marrufo RN Position: [facility] RN Member Role: Primary Care Nurse Name: Lexie Desouza RN Position: [facility] Hospital Graphic Design Intern Member Role: Primary Care Nurse Name: Ada Hansen MD Position: [facility] Cardiology MD Member Role: Lifetime Consulting Physician Address: Address: [address] [facility] [address] [place] [address]- Name: Kristie Omer RN Position: [facility] RN Member Role: Primary Care Nurse Care Team Related Persons Name: BONNY VALADEZ Name: MADELEINE FREED Address: home [address] [place] [address]
--- OUTSIDE RECORDS SUMMARY | 2023-11-20 08:40 | XMS_ITS | Continuity of Care Document ---
Author Organization [facility]iology Address [address] [place] [address]- Care Team Providers Care Coatings Inspector Name Role Phone Lilia WILLIAM, Jennifer Maynard Primary Care Physician [phone] [place] [facility](s): 11/18/22 - 12/18/22 [facility] [address] [place] [address]- [place] Allergies, Adverse Reactions, Alerts Substance Reaction [...] tablet, 11 Refills, Maintenance, 12/11/22 7:08:00 EDT, [facility] STORE 13984, 175.3, cm, 12/05/22 15:02:00 EDT, Height, 63.5, [...] Team Personnel Name: Fanta Downey RN Position: [facility] Nurse Member Role: Primary Care Nurse Name: Jennifer Rodrigues MD Position: [facility] Physician (General Medicine) Member Role: PCP Address: Address: [address] [place] [id number] Name: Lisa Cummings RN Position: [facility] RN Member Role: Primary Care Nurse Name: Marie Murillo RN Position: [facility] RN Member Role: Primary Care Nurse Name: Nicky Jauregui RN Position: [facility] AMB Nurse Member Role: Primary Care Nurse Name: Chelo Santacruz RN Position: [facility] RN Member Role: Primary Care Nurse Name: Pavel Rogers RN Position: [facility] RN Member Role: Primary Care Nurse Name: Coreen Gordon Position: [facility] RN Member Role: Primary Care Nurse Name: Miki Sheppard RN Position: [facility] RN Member Role: Primary Care Nurse Name: Teetee Marrufo RN Position: [facility] RN Member Role: Primary Care Nurse Name: Lexie Desouza RN Position: [facility] Hospital Major Gifts Manager Member Role: Primary Care Nurse Name: Ada Hansen MD Position: [facility] Cardiology MD Member Role: Lifetime Consulting Physician Address: Address: [address] [place] [id number] Name: Kristie Omer RN Position: [facility] RN Member Role: Primary Care Nurse Care Team Related Persons Name: BONNY VALADEZ Name: MADELEINE FREED Address: [place] [address] [place] [address]
--- OUTSIDE RECORDS SUMMARY | 2023-11-20 08:40 | XMS_ITS | Continuity of Care Document ---
Author Organization [facility] Address [address] [place] [address] bret, [address] [place] [address]- Care Team Providers Care Field Crop Harvest Worker Name Role Phone Lilia WILLIAM, Jennifer Maynard Primary Care Physician Encounter [facility] [place] Date(s): 11/21/22 - 12/21/22 [facility] [address] [place] [address], [address] [place], [place] [address] Allergies, Adverse Reactions, Alerts Substance Reaction [...] tablet, 11 Refills, Maintenance, 12/11/22 7:08:00 EDT, [id number], 175.3, cm, 12/05/22 15:02:00 EDT, Height, 63.5, [...] Team Personnel Name: Fanta Downey RN Position: [facility] [place] Nurse Member Role: Primary Care Nurse Name: Jennifer Rodrigues MD Position: [facility] Physician (General Medicine) Member Role: PCP Address: Address: [address] [place] [address] Name: Lisa Cummings RN Position: [facility] SN RN Member Role: Primary Care Nurse Name: Marie Murillo RN Position: [facility] RN Member Role: Primary Care Nurse Name: Nicky Jauregui RN Position: [facility] AMB Nurse Member Role: Primary Care Nurse Name: Chelo Santacruz RN Position: [facility] RN Member Role: Primary Care Nurse Name: Pavel Rogers RN Position: [facility] RN Member Role: Primary Care Nurse Name: Coreen Gordon Position: [facility] RN Member Role: Primary Care Nurse Name: Miki Sheppard RN Position: [facility] RN Member Role: Primary Care Nurse Name: Teetee Marrufo RN Position: [facility] RN Member Role: Primary Care Nurse Name: Lexie Desouza RN Position: [facility] Residential Counselor Member Role: Primary Care Nurse Name: Ada Hansen MD Position: [facility] Cardiology MD Member Role: Lifetime Consulting Physician Address: Address: [address] [place] [id number] Name: Kristie Omer RN Position: [facility] RN Member Role: Primary Care Nurse Care Team Related Persons Name: BONNY VALADEZ Name: MADELEINE FREED Address: [address] [place] [address]
--- OUTSIDE RECORDS SUMMARY | 2023-11-20 08:40 | XMS_ITS | Continuity of Care Document ---
Author Organization [facility] Address [address] [place] [address]- Care Team Providers Care Top Cager Name Role Phone Lilia WILLIAM, Jennifer Maynard Primary Care Physician [phone] Encounter [facility] [place] Date(s): 11/01/21 - 12/01/21 [facility] [address] [place] [address]- [place] Allergies, Adverse Reactions, Alerts Substance Reaction [...] 1 Refills, Maintenance, 09/06/21 9:04:00 EST, Tablet, [facility], Partial fill upon patient request if [...]
--- OUTSIDE RECORDS SUMMARY | 2023-11-20 08:40 | XMS_ITS | Continuity of Care Document ---
Author Organization [facility] Address [address] [place] [address]- Care Team Providers Care Violin Repairer Name Role Phone Lilia WILLIAM, Jennifer Maynard Primary Care Physician Encounter [facility] [place] Date(s): 10/22/22 - 10/22/[address] [address] Discharge Disposition: A-D/C Home Attending Physician: Mor Nelson DO Admitting Physician: Mor Nelson DO Referring Physician: Mor Nelson DO Allergies, Adverse Reactions, [...] 11 Refills, Maintenance, 08/05/20 21:30:00 EST, Tablet, [facility] #[id number] Start Date: 08/05/20 Stop Date: 07/31/21 [...] Confirmed Active Right shoulder pain Confirmed Active Vital Signs Most recent to oldest [Reference Range]: 1 2 3 Height 175.3 cm (10/22/22 10:56 AM) Oxygen Saturation [94-100 %] 100 % (10/22/22 2:25 PM) 100 % (10/22/22 2:15 PM) 100 % (10/22/22 2:10 PM) Pulse Rate [55-90 bpm] 70 bpm (10/22/22 10:56 AM) Blood Pressure [90-138/55-84 mm Hg] 133/92mm Hg (10/22/22 2:25 PM) 137/80mm Hg (10/22/22 2:15 PM) 128/80mm Hg (10/22/22 2:10 PM) Respiratory Rate [16-30 br/min] 21 br/min (10/22/22 2:25 PM) 15 br/min *L* (10/22/22 2:15 PM) 18 br/min (10/22/22 2:10 PM) Temperature [96.8-100.4 DegF] 97.6 DegF (10/22/22 2:00 PM) 98.3 DegF (10/22/22 10:56 AM) Liters per Minute 4 L/min (10/22/22 2:00 PM) Mode of Delivery (Oxygen) Room air (10/22/22 2:25 PM) Room air (10/22/22 2:15 PM) Room air (10/22/22 2:10 PM) Blood pressure sites Arm, left (10/22/22 2:25 PM) Arm, left (10/22/22 2:15 PM) Arm, left (10/22/22 2:10 PM) Temperature Route Temporal (10/22/22 2:00 PM) Temporal (10/22/22 10:56 AM) Dry Weight 63.5 kg (10/22/22 10:56 AM) Dry Weight Obtained Via Patient/family s tated (10/22/22 10:56 AM) Social History Social History Type Response Smoking Status Never (less than 100 in lifetime) entered on: 09/09/21 Sex Endoscopy study * Event Display: GG EGD Please click on pdf link to open report Note * Coreen Kevin RN: PERFORM Event Display: Discharge/Transfer Note Hospital Authored Date: [id number] Nursing Discharge Note Entered On: 10/22/2022 14:13 EDT Performed On: 10/22/2022 14:13 EDT by Coreen Kevin RN Nursing Discharge Note 2 Discharge Time : 10/22/2022 14:45 EDT Discharge Level of Care at Discharge : Home/[facility]/Foster Care Coreen Kevin RN - 10/22/2022 14:55 EDT Patient Left Unit Via : Wheelchair Patient Accompanied Off Unit with : Significant other DC Instructions Provided & Signed by Pt : Yes Patient Understands D/C Instructions : Yes Patient Instructions Discharge Signed : Yes Did Pt have Specialty Bed or Wound Vac : No Coreen Kevin RN - 10/22/2022 14:13 EDT * Coreen Kevin RN: PERFORM Event Display: Patient Education/Instruction Authored Date: [id number] Inpatient Adult Discharge Instructions [address] [address] Name: LUANNE DUNN : 1945 Visit: 10/22/2022 10:29:00 Current Date: 10/22/2022 14:13 Account: [id number] Inpatient Adult Discharge Instructions We would like to thank you for allowing us to assist you with your healthcare needs. The following includes patient education materials and information regarding your injury/illness. Our entire staffstrives to provide an excellent experience for our patients and their families. PLEASE ENSURE YOU FOLLOW-UP PER THE INSTRUCTIONS BELOW! ?? YOUR OPINION IS IMPORTANT TO US! Please complete the survey you may receive by mail or email. Your feedback will be used to make improvements to the healthcare experiences of our patients and their families. Surveys are administered by [employer] ?? If further treatment with your primary care physician or another doctor is recommended, it is important for you to keep the appointment. Call your primary care physician or return to the Emergency Department immediately if your condition worsens, fails to improve, or new symptoms develop. If you need to find a doctor, you can call [facility] for a referral at [phone] or toll free at [phone]) or log in to [email or web address].. ?? You can view and manage your care through the patient portal or by using a health care kassi of your choosing. [employer] is a website that allows you to securely view your medical information including your hospital discharge summary, office visit summaries, medications and follow-up visits. You can also request appointments, renew medications, and request access to your medical information using a health care kassi of your choosing, or just ask a question. You can enroll at [email or web address] or register during your next office visit. You have been discharged from [facility], Patient Care Unit: ENDO. If you have any questions regarding these instructions after you leave, please call us and we will be happy to assist you. [facility] Your Care Team Attending Physician Mor Nelson DO Discharging Providers Sirisha Jefferson MD Reason for Admission ESOPHAGEAL DYSPHASIA R13.10 [facility] ENDO Tests Performed Below is a partial list of the tests performed during your hospitalization. You may have had other tests and procedures not included in this list. Please discuss all test results with your provider. Primary Care Provider Lilia WILLIAM, Jennifer Maynard Advance Directive Health Care Proxy on File Yes - Health Care Proxy Discharge Vitals Temperature: 97.6 DegF Height: 175.3 cm Pulse Rate: 70 bpm ?? Respiratory Rate: 18 br/min ?? Systolic Blood Pressure: 128 mm Hg ?? Diastolic Blood Pressure: 80 mm Hg ?? Oxygen Saturation: 100 % ?? Studies Pending All tests and labs ordered during this hospital stay have been completed unless listed below. Please discuss all pending results with your provider listed above in these instructions. ?? C-Arm < 1 Hour What to do next Instructions From Your Doctor Discharge Orders Scheduled Follow-Up Appointments Thursday 8:30 AM EDT ?? With: Mor Nelson DO Where: [facility] [address] [place] [address] Drive [address] [place] [address]- Thursday 1:30 PM EDT ?? With: Mor Nelson DO Where: [facility] [address] [place] [address] Drive [address] [place] [address]- Thursday 11:05 AM EDT ?? With: Jacky Barrett MD Where: [facility] [address] [place] [address]- You Need to Schedule the Following Appointments Follow Up with??As Needed When?? Discharge Medications LUANNE DUNN :1945 Visit Date:10/22/2022 Medications: Please continue your medications until treatment is completed or stopped by your provider. Medications not listed below should be discontinued. Discuss any questions related to medications with your provider. What How Much When Instructions Next Dose Unchanged Ascorbic Acid (Vitamin C 500 mg oral tablet, chewable) 2 tab(s) Chew Daily at supper Unchanged Aspirin (aspirin 81 mg oral delayed release tablet) 1 tab(s) Oral Daily Unchanged Atorvastatin (atorvastatin 80 mg oral tablet) 1 tab(s) Oral Daily Duration: 30 Days Unchanged Buprenorphine (Belbuca 450 mcg buccal film) 1 Each Sublingual Every 12 hours Unchanged Ferrous Sulfate (ferrous sulfate 324 mg (65 mg elemental iron) oral delayed release tablet) 1 tab(s) Oral Daily Unchanged ivermectin topical (Soolantra 1% topical cream) Topically Daily at Bedtime Unchanged Lisinopril (lisinopril 5 mg oral tablet) 1 tab(s) Oral Daily Duration: 90 Days this is a dose reduction ?? Unchanged Metoprolol (Toprol XL 100 mg oral tablet, extended release) 0.5 tab(s) Oral Twice a day Unchanged Pantoprazole (Protonix 20 mg oral delayed release tablet) 1 tab(s) Oral Twice a day Unchanged Sildenafil (Viagra 100 mg oral tablet) 0.5 tab(s) Oral Daily as needed for As Needed 1 hour before sexual activity ?? Unchanged Sucralfate (sucralfate 1 gm oral tablet) 1 tab(s) Oral 4 times a day Unchanged Vitamin E (vitamin E 180 mg oral capsule) 1 capsule Oral Daily before dinner Test Results Below is a partial list of the most recent Laboratory test results done prior to this discharge. You may have had other tests and procedures not included in this list. Please discuss all test resultswith your provider. Allergies (NKA means No Known Allergies) Motrin??(nausea) OxyContin??(nausea) Percocet??(nausea) oxycodone??(nausea) Problems Active Problems??(7) CAD (coronary artery disease)?? Chest pain?? GERD (gastroesophageal reflux disease)?? History of DVT of lower extremity?? HLD (hyperlipidemia)?? HTN (hypertension)?? Right shoulder pain?? Education Materials Below is the list of Educational Leaflet Providered with your Discharge Instructions. Esophageal Dilation?? Surgery Medical Daystay Surgical Overnight Discharge Instructions?? Valuables and Belongings I fully understand and agree that [facility] accepts no responsibility for all my personal property including clothing, toilet articles, radios, jewelry, dentures, hearing aids, rings, money, or any other property that is in my possession or is brought to me after admission. I understand certain valuables may be placed in a hospital safe for a short period of time. I understand that the hospital is not liable for loss or damage due to accident, fire, or other natural occurrence while said property is in the safe. I accept full responsibility for any personal property that I keep with me, and will not hold the hospital responsible in case of loss or disappearance. I acknowledge that i have been encouraged to send valuables and belongings home. ?? Date for Pt to Sign Valuables/Belongings: 10/22/22 10:56:00 ?? Other Discharge Information ? Pulmonary Rehab Status?? Pulmonary Rehab Discharge Status?? Respiratory Rate: 18 br/min ? Common Emergency Awareness Tips IS IT A STROKE? Act FAST and Check for these signs: FACE Does the face look uneven? ARM Does one arm drift down? SPEECH Does their speech sound strange? TIME Call at any sign of stroke ?? Heart Attack Signs Chest discomfort: Most heart attacks involve discomfort in the center of the chest and lasts more than a few minutes, or goes away and comes back. It can feel like uncomfortable pressure, squeezing, fullness or pain. Discomfort in upper body: Symptoms can include pain or discomfort in one or both arms, back, neck, jaw or stomach. Shortness of breath: With or without discomfort. Other signs: Breaking out in a cold sweat, nausea, or lightheaded. Remember, MINUTES DO MATTER. If you experience any of these heart attack warning signs, call to get immediate medical attention! ?? Smoking can increase your chances of developing chronic health problems and can cause harmful effects to other family members in your house. If you smoke, you are strongly encouraged to quit. Please call [facility] Link at [phone] or 0-089-265KoolSpan ([phone]) or log in to [email or web address] for referrals to smoking cessation programs. ?? The National Suicide Prevention Hotline is available 23/02 if you or someone you know needs to find a reason to keep living. By calling 2-535-805-Finderly (5928) you'll be connected to a skilled, trained counselor at a crisis center in your area. INPATIENT DISCHARGE INSTRUCTIONS SIGNATURE PAGE LUANNE DUNN Location:[facility] Registration Date and Time:10/22/2022 10:29 EDT Primary Care Physician: Lilia WILLIAM, Jennifer D, I ARIELLEBELLALUANNE, have received the above patient education materials/instructions and have verbalized understanding. If ambulance or transport services are being used I further acknowledge beinggiven a choice of service. ?? If you need to contact me, please call me at this number: . Patient/Deputy Chief Magistrate Name: Patient/Deputy Chief Magistrate Signature: Relationship to Patient: Witness Name/Signature: Date: * Coreen Kevin RN: PERFORM Event Display: Patient Education Leaflets Authored Date: [id number] Esophageal Dilation ?? 678 Esophageal Dilation ?? You must carefully read the Consumer Information Use and Disclaimer below in order to understand and correctly use this information ?? Why is this procedure done? Esophageal dilation is a procedure used to dilate or stretch a narrow place in the esophagus. The esophagus is a tube that food moves through to get from your mouth to your stomach. When the esophagus narrows, this condition is called esophageal stricture. ?? What will the results be? The narrowed portion of the esophagus will be stretched. This will make swallowing food and liquidseasier. ?? What happens before the procedure? Your doctor will take your history and do an exam. Talk to your doctor about: ? All the drugs you are taking. Be sure to include all prescription?? and over the counter (OTC) drugs, and herbal supplements. Tell the doctor about any drug allergy. Bring a list of drugs you take with you. ??? Any bleeding problems. Be sure to tell your doctor if you are?? taking any drugs that may cause bleeding. Some of these are warfarin, rivaroxaban, apixaban, ticagrelor, clopidogrel, ket orolac, ibuprofen, naproxen, or aspirin. Certain vitamins and herbs, such as garlic and fish oil, may also add to the risk for bleeding. You may need to stop these drugs as well. Talk to your doctor about them. ??? If you need to stop eating or drinking before your procedure. ??? You will not be allowed to drive right away after the procedure. Ask a?? family member or a friend to drive you home.? What happens during the procedure? You will lie on the exam table. Your blood pressure and heart rate will?? be closely checked during the procedure. ??? Your doctor may put an IV in your arm to give you fluids and drugs. ??? You may be asleep or awake during the procedure. ??? The doctor will spray a numbing drug into your throat. This will help?? you stay pain free and comfortable during the procedure. ??? A flexible tube with a tiny camera inside may be put in through your?? mouth and down into your esophagus. You may feel some pressure on your throat as it passes. ??? A special balloon or soft dilators are used to stretch the narrowed part?? of your esophagus. ??? X-rays will be done after the stretching to see if the esophagus is wide?? enough. ??? The procedure takes about 30 minutes. ?? What happens after the procedure? You will go to the Recovery Room for 1 to 3 hours. Your doctor will tell?? you when you can go home. ??? Your throat will be sore. Your doctor will give you drugs for this. ?? What care is needed at home? Ask your doctor what you need to do when you go home. Make sure?? you ask questions if you do not understand what the doctor says. This way you will know what you need to do. ??? It will be painful to swallow for a few days. Your throat will also be?? sore. Suck on ice chips to help ease throatpain.? Soft foods like soups and pureed fruits and vegetables will be easier?? to eat at first. Cold or warm liquids may help soothe your sore throat. ??? Do not start eating solid foods untilyour doctor tells you it is safe to. ??? Your doctor may tell you to use a saline mouth rinse. Use this after?? meals or when needed. Mix??1/2??teaspoon (2.5 grams) of salt in 1 cup (240 mL) of water. ??? Rest for the rest of the day. Ask your doctor when you are able to go?? back to your normal activities. ?? What follow-up care is needed? Your doctor may ask you to make visits to the office to check on your?? progress. Be sure to keep these visits. ??? Your doctor may send you to a dietitian to help with your diet. ?? What lifestyle changes are needed? Stay away from foods that may bother your throat, such as spicy or?? sour foods. ??? Prevent heartburn by eating small meals more often. Avoid eating too?? much in one meal. ?? What problems could happen? Scarring of the esophagus ??? Esophagus may have a hole or tear in it ??? Narrowing may return ?? When do I need to call the doctor? Signs of infection. These include a fever of 100.4??F (38??C) or higher, chills. ??? Throat pain not relieved by drugs ??? Throwing up with or without blood ??? Problems keeping any food or liquids down ??? You are not feeling better in 2 to 3 days or you are feeling worse ??? Trouble breathing??? Chest pain ??? Bright red stools or black tarry stools ?? Last Reviewed Date 2020-12-06 Consumer Information Use and Disclaimer: This generalized information is a limited summary of diagnosis, treatment, and/or medication information. It is not meant to be comprehensive and should be used as a tool to help the user understand and/or assess potential diagnostic and treatment options. It does NOT include all information about conditions, treatments, medications, side effects, or risks that may apply to a specific patient. Itis not intended to be medical advice or a substitute for the medical advice, diagnosis, or treatment of a health care provider based on the health care provider's examination and assessment of a patient???s specific and unique circumstances. Patients must speak with a health care provider for complete information about their health, medical questions, and treatment options, including any risks orbenefits regarding use of medications. This information does not endorse any treatments or medications as safe, effective, or approved for treating a specific patient. [employer] and its affiliates disclaim any warranty or liability relating to this information or the use thereof. The use of this information is governed by the Terms of Use, available at?? https://www.[employer]/en/know/muzwzros-oiysfmsnvgacx-zaeet Last Updated 09/25/21 ? * Coreen Kevin RN: PERFORM Event Display: Patient Education Leaflets Authored Date: [id number] Surgery Medical Daystay Surgical Overnight Discharge Instructions ?? 295 Medical Daystay/Surgical Overnight Discharge Instructions ? Since your coordination and judgment may be altered by medication and/or anesthesia, a responsible adult must drive you home from the hospital. ? If you have received medication for pain or sedation while under our care, you should not drive, operate machinery, drink alcohol, or sign any legal documents for 24 hours.?? You should have someone with you at home tonight. ? Remain at home the day of discharge.?? You may be up and about unless otherwise instructed by your physician. ? You may resume your daily prescription medication schedule.?? Any depressant medication should be avoided for 24 hours unless otherwise instructed by your surgeon or anesthesiologist. ? Call your physician for a follow-up appointment.? If you experience unusual or severe pain not relied by your pain medication, excessive bleedingor drainage, persistent nausea and vomiting, excessive swelling or redness, foul odor from incisionsite or fever over 100.6F, you need to call your physician. ? A follow-up phone call by a nurse will be made the day after your procedure.?? If you have stayed with us over night, you will not be receiving a follow-up phone call. ? Nausea and vomiting are a common side effect of prescription pain medication.?? We recommend that pills are not taken on an empty stomach.?? While taking any prescription pain medication you should not drive or drink alcohol. ? Patient Care team information Care Team Personnel Name: Fanta Downey RN Position: [facility] AMB Nurse Member Role: Primary Care Nurse Name: Jennifer Rodrigues MD Position: [facility] Physician (General Medicine) Member Role: PCP Address: Address: [address] [place] [address]- Name: Lisa Cummings RN Position: [facility] RN Member Role: Primary Care Nurse Name: Marie Murillo RN Position: [facility] RN Member Role: Primary Care Nurse Name: Nicky Jauregui RN Position: [facility] RN Member Role: Primary Care Nurse Name: Chelo Santacruz RN Position: [facility] RN Member Role: Primary Care Nurse Name: Pavel Rogers RN Position: [facility] RN Member Role: Primary Care Nurse Name: Coreen Gordon Position: [facility] RN Member Role: Primary Care Nurse Name: Miki Sheppard RN Position: [facility] RN Member Role: Primary Care Nurse Name: Teetee Marrufo RN Position: [facility] RN Member Role: Primary Care Nurse Name: Lexie Desouza RN Position: [facility] Hospital Trainer Member Role: Primary Care Nurse Name: Ada Hansen MD Position: [facility] Cardiology MD Member Role: Lifetime Consulting Physician Address: Address: [address] [place] [address] Name: Kristie Omer RN Position: [facility] RN Member Role: Primary Care Nurse Care Team Related Persons Name: BONNY VALADEZ Name: LOURDES MADELEINE Address: [address] [place] [address]
--- OUTSIDE RECORDS SUMMARY | 2023-11-20 08:40 | XMS_ITS | Continuity of Care Document ---
Author Organization [facility] Address [address] [place] [address]- Care Team Providers Care Trainman Name Role Phone Lilia WILLIAM, Jennifer Maynard Primary Care Physician [place] [facility] [place] 09[place]20/20 [facility] [address] [place] [address] Attending Physician: Mohit Turk Admitting Physician: AdmtrMohit Referring Physician: [id number] Allergies, Adverse Reactions, Alerts Substance Reaction Severity [...] 11 Refills, Maintenance, 08/05/20 21:30:00 EST, Tablet, [facility]/pharmacy #[id number] Start Date: 08/05/20 Stop Date: [...] Date: 07/30/15 Stop Date: 07/24/16 Status: Ordered Magnesium Gluconate = 250 mg, By Mouth, [...] Status Inform ant Right shoulder pain(Confirmed) Active Social History Social History Type Response Smoking Status Former smoker; Tobac co user in household: No entered on: 01/10/16 Sex
--- OUTSIDE RECORDS SUMMARY | 2023-11-20 08:40 | XMS_ITS | Continuity of Care Document ---
Author Organization [facility] Address [address] [place] [address]- Care Team Providers Care Corporate Recycling Manager Name Role Phone Lilia WILLIAM, Jennifer Maynard Primary Care Physician [phone] Encounter [facility] [place] Date(s): 12/05/22 - 01/04/23 [facility] [address] [place] [address]- Attending Physician: Mohit Turk Admitting Physician: Mohit Turk Referring Physician: [id number] Allergies, Adverse Reactions, Alerts [...] 11 Refills, Maintenance, 12/11/22 7:08:00 EDT, [facility] [id number], 175.3, cm, 12/05/22 15:02:00 EDT, Height, 63.5, [...] List Condition Confirmation Course Effective Dates Status [facility] atus Informant Chest pain Confirmed Active CAD (coronary artery disease) Confirmed Active GERD (gastroesophageal reflux disease) Confirmed Active History of DVT of lower extremity Confirmed Active HLD (hyperlipidemia) Confirmed Active HTN (hypertension) Confirmed Active Right shoulder pain Confirmed Active Vital Signs Most recent to oldest [Reference Range]: 1 Height 175.20 cm (12/26/10 1:45 PM) Weight 75.900 kg (12/26/10 1:45 PM) Pulse Rate [55-90 bpm] 84 bpm (12/26/10 1:45 PM) Body Mass Index [18.50-24.99] 24.73 (12/26/10 1:45 PM) Blood Pressure [90-138/55-84 mm Hg] 106/ 66mm Hg (12/26/10 1:45 PM) Blood pressure sites Arm, left (12/26/10 1:45 PM) Social History Social History Type Response Smoking Status Never (less than 100 in lifetime) entered on: 09/09/21 Sex Cardiology * Event Display: EKG Non BH Authored Date: Laboratory * Event Display: Non Lab Results Authored Date: * Pino Allison MD: REVIEW Event Display: Laboratory Result Scanned Authored Date: * Pino Allison MD: REVIEW Event Display: Laboratory Result Scanned Authored Date: Hospital Progress note * Nba Littlejohn MD: PERFORM, SIGN, VERIFY Event Display: Progress Note Hospital Authored Date: Patient: LUANNE DUNN Age: 68 years Sex: Male : 1945 Associated Diagnoses: None Author: Nba Littlejohn MD Patient seen and examined. Atypical CP started last nite and intensity increased this am at 6:30. No ischemic EKG changes, Neg Ifeanyi and pain free now. Will get another Ifeanyi at 1 PM and proceed with stress MIBI images if neagtive, Could have rest MIBI images now. Cardiology Outpatient Note * Charmaine Castillo: PERFORM Event Display: Cardiology Note Office Authored Date: [id number] Radiology * Event Display: CT Scan Spine, Non- BH Authored Date: * Event Display: Ultrasound Lower Extremity, Non- Authored Date: * Event Display: IR Special Procedures, Non- Authored Date: Patient Care team information Care Team Personnel Name: Fanta Downey RN Position: [facility] AMB Nurse Member Role: Primary Care Nurse Name: Jennifer Rodrigues MD Position: [facility] Physician - Primary Care Member Role: PCP Address: Address: [address] [place] [address] Name: Lisa Cummings RN Position: [facility] SN RN Member Role: Primary Care Nurse Name: Marie Murillo RN Position: [facility] RN Member Role: Primary Care Nurse Name: Nicky Jauregui RN Position: [facility] AMB Nurse Member Role: Primary Care Nurse Name: Chelo Santacruz RN Position: [facility] RN Member Role: Primary Care Nurse Name: Pavel Rogers RN Position: [facility] RN Member Role: Primary Care Nurse Name: Coreen Gordon Position: [facility] RN Member Role: Primary Care Nurse Name: Miki Sheppard RN Position: [facility] RN Member Role: Primary Care Nurse Name: Teetee Marrufo RN Position: [facility] RN Member Role: Primary Care Nurse Name: Lexie Desouza RN Position: [facility] Furnace Stock Inspector Member Role: Primary Care Nurse Name: Ada Hansen MD Position: [facility] Cardiology MD Member Role: Lifetime Consulting Physician Address: Address: [address] [place] [address] Name: Kristie Omer RN Position: [facility] RN Member Role: Primary Care Nurse Care Team Related Persons Name: CHIDI VALADEZMY Name: MADELEINE FREED Address: home [address] [place] [address]
--- OUTSIDE RECORDS SUMMARY | 2023-11-20 08:40 | XMS_ITS | Continuity of Care Document ---
Author Organization [facility] ter Address [address] [place] [address]- Care Team Providers Care Route Delivery Service Driver Name Role Phone Lilia WILLIAM, Jennifer Maynard Primary Care Physician Encounter [facility] Date(s): 10/09/22 - 10/09/[address] [address] Discharge Disposition: A-D/C Home Attending Physician: Mor [...] 11 Refills, Maintenance, 08/05/20 21:30:00 EST, Tablet, [facility]/pharmacy #[id number] Start Date: 08/05/20 Stop Date: 07/31/21 [...] Refills, Maintenance, 09/06/21 9:04:00 EST, Tablet, [facility], Partial fill upon patient [...] Range]: 1 2 3 Height 175.3 cm (10/09/22 8:43 AM) Oxygen Saturation [94-100 %] 100 % (10/09/22 11:32 AM) 100 % (10/09/22 11:22 AM) 100 % (10/09/22 11:12 AM) Pulse Rate [55-90 bpm] 59 bpm (10/09/22 8:43 AM) Blood Pressure [90-138/55-84 mm Hg] 130/65mm Hg (10/09/22 11:32 AM) 127/69mm Hg (10/09/22 11:22 AM) 137/81mm Hg (10/09/22 11:12 AM) Respiratory Rate [16-30 br/min] 14 br/min *L* (10/09/22 11:32 AM) 17 br/min (10/09/22 11:22 AM) 15 br/min *L* (10/09/22 11:12 AM) Temperature [96.8-100.4 DegF] 97.4 DegF (10/09/22 10:57 AM) 98.0 DegF (10/09/22 8:43 AM) Liters per Minute 5 L/min (10/09/22 11:07 AM) 5 L/min (10/09/22 11:02 AM) 5 L/min (10/09/22 10:57 AM) Mode of Delivery (Oxygen) Room air (10/09/22 11:32 AM) Room air (10/09/22 11:22 AM) Room air (10/09/22 11:12 AM) Blood pressure sites Arm, left (10/09/22 11:32 AM) Arm, left (10/09/22 11:22 AM) Arm, left (10/09/22 11:12 AM) Temperature Route Temporal (10/09/22 10:57 AM) Temporal (10/09/22 8:43 AM) Dry Weight 65.3 kg (10/09/22 8:43 AM) Dry Weight Obtained Via Patient/family s tated (10/09/22 8:43 AM) Social History Social History Type Response Smoking Status Never (less than 100 in lifetime) entered on: 09/09/21 Sex Endoscopy study * Event Display: GG EGD Please click on pdf link to open report Note * Herberth FINN, Coreen: PERFORM Event Display: Discharge/Transfer Note Hospital Authored Date: [id number] Nursing Discharge Note Entered On: 10/09/2022 11:34 EST Performed On: 10/09/2022 11:33 EST by Coreen Kevin RN Nursing Discharge Note 2 Discharge Time : 10/09/2022 12:15 EST Discharge Level of Care at Discharge : Home/Senior Care/Foster Care Kim Cox RN - 10/09/2022 12:18 EST Patient Left Unit Via : Wheelchair Patient Accompanied Off Unit with : Significant other, Responsible adult DC Instructions Provided & Signed by Pt : Yes Patient Understands D/C Instructions : Yes Patient Instructions Discharge Signed : Yes Did Pt have Specialty Bed or Wound Vac : No Coreen Kevin RN - 10/09/2022 11:33 EST * Coreen Kevin RN: PERFORM Event Display: Patient Education/Instruction Authored Date: [id number] Inpatient Adult Discharge Instructions [address] [address] Name: LUANNE DUNN : 1945 Visit: 10/09/2022 07:57:00 Current Date: 10/09/2022 11:34 Account: [id number] Inpatient Adult Discharge Instructions We would like [...] and their families. Surveys are administered by [employer] ?? If further treatment with your primary care physician or another doctor is recommended, it is important for you to keep the appointment. Call your primary care physician or return to the Emergency Department immediately if your condition worsens, fails to improve, or new symptoms develop. If you need to find a doctor, you can call [facility] [employer] for a referral at [phone] or toll free at [phone]) or log in to [email or web address].. ?? You can view and manage your care through the patient portal or by using a health care kassi of your choosing. [employer] is a website that allows you to securely view your medical information including your hospital discharge summary, office visit summaries, medications and follow-up visits. You can also request appointments, renew medications, and request access to your medical information using a health care kassi of your choosing, or just ask a question. You can enroll at [email or web address] or register during your next office visit. You have been discharged from [facility], Patient Care Unit: ENDO. If you have any questions regarding these instructions after you leave, please call us and we will be happy to assist you. [facility] Your Care Team Attending Physician Mor Nelson DO Consulting Providers Pippa Zaldivar MD Reason for Admission [facility] Tests Performed Below is a partial list of the tests performed during your hospitalization. You may have had other tests and procedures not included in this list. Please discuss all test results with your provider. Primary Care Provider Lilia WILLIAM, Jennifer D Advance Directive Health Care Proxy on File Yes - Health Care Proxy Discharge Vitals Temperature: 97.4 DegF Height: 175.3 cm Pulse Rate: 59 bpm ?? Respiratory Rate: 17 br/min ?? Systolic Blood Pressure: 127 mm Hg ?? Diastolic Blood Pressure: 69 mm Hg ?? Oxygen Saturation: 100 % [...] ?? With: Mor Nelson DO Where: [facility] Thor[facility] Surgery [address] [place] [address]- Thursday 11:05 AM EDT ?? With: Jacky Barrett MD Where: [facility] Cardiology [address] [place] [address]- You Need to Schedule the Following Appointments Follow Up with??As Needed When?? Discharge Medications RADHALUANNE MC :1945 Visit Date:10/09/2022 Medications: Please continue your medications until treatment [...] tab(s) Oral 4 times a day Unchanged Ticagrelor (ticagrelor 90 mg oral tablet) 1 tab(s) Oral Twice a day Unchanged Vitamin E (vitamin E [...] Educational Leaflet Providered with your Discharge Instructions. Surgery Medical Daystay Surgical Overnight Discharge Instructions?? Esophageal Dilation?? Valuables and Belongings I fully understand and agree that [facility] accepts no responsibility for all my personal [...] ?? Date for Pt to Sign Valuables/Belongings: 10/09/22 08:43:00 ?? Valuables & Belongings ?? Clothes Electronic devices Jewelry Monetary Items Personal devices Miscellaneous Medications (Valuables) Valuables at Bedside Jacket, Pants, Shirt, Shoes ? Glasses, Hearing aid, left, Hearing aid, right ? Valuables Sent Home ? Valuables Sent to Security ? Other Discharge Information ? Pulmonary Rehab Status?? Pulmonary Rehab Discharge Status?? Respiratory Rate: 17 br/min ? Common Emergency Awareness Tips IS [...] of these heart attack warning signs, call 9-1-1 to get immediate medical attention! ?? Smoking can increase your chances of developing chronic health problems and can cause harmful effects to other family members in your house. If you smoke, you are strongly encouraged to quit. Please call [facility] [employer] Link at [phone] or [phone] ([phone]) or log in to [email or web address] for referrals to smoking cessation programs. ?? The National Suicide Prevention Hotline is available 23/02 if you or someone you know needs to find a reason to keep living. By calling 0-060-489-[employer] (1987) you'll be connected to a skilled, trained counselor at a crisis center in your area. INPATIENT DISCHARGE INSTRUCTIONS SIGNATURE PAGE LUANNE DUNN Location:[facility] Registration Date and Time:10/09/2022 07:57 EST Primary Care Physician: Lilia WILLIAM, Jennifer Maynard, I MONALUANNE, have received the above patient education materials/instructions and have verbalized understanding. If ambulance or transport services are being used I further acknowledge beinggiven a choice of service. ?? If you need to contact me, please call me at this number: . Patient/Tank Truck Milk Receiver Name: Patient/Tank Truck Milk Receiver Signature: Relationship to Patient: Witness Name/Signature: Date: * Coreen Kevin RN: PERFORM Event Display: Patient Education Leaflets Authored Date: [id number] Surgery Medical Daystay Surgical Overnight Discharge Instructions [...] should not drive or drink alcohol. ? * Coreen Kevin RN: PERFORM Event Display: Patient Education Leaflets Authored Date: [id number] Esophageal Dilation ?? Esophageal Dilation ?? You must carefully read [...] or approved for treating a specific patient. [employer] and its affiliates disclaim any warranty or liability relating to this information or the use thereof. The use of this information is governed by the Terms of Use, available at?? [email or web address] Last Updated 09/25/21 ? Patient Care team information Care Team Personnel Name: Fanta Downey RN Position: [facility] AMB Nurse Member Role: Primary Care Nurse Name: Jennifer Rodrigues MD Position: [facility] Physician (General Medicine) Member Role: PCP Address: Address: [address] [facility] [address] [place] [address]- Name: Lisa Cummings RN [facility] RN Position: [facility] Hospital Seismometer Operator Member Role: Primary Care Nurse Name: Ada Hansen MD Position: [facility] Cardiology MD Member Role: Lifetime Consulting Physician Address: Address: [address] [place] [id number] [place] [address]- Name: Kristie Omer RN Position: [facility] RN Member Role: Primary Care Nurse Care Team Related Persons Name: MADELEINE FREED Address: home [address] [place] [address]
--- OUTSIDE RECORDS SUMMARY | 2023-11-20 08:40 | XMS_ITS | Continuity of Care Document ---
Author Organization [facility] Address [address] [place] [address]- Care Team Providers Care Floating Labor Gang Supervisor Name Role Phone Lilia WILLIAM, Jennifer Maynard Primary Care Physician [phone] [place] [facility] [place] 02/21/22 - 03/23/22 [facility] [address] [place] [address]- [place] Allergies, Adverse Reactions, Alerts Substance Reaction [...] Refills, Maintenance, 09/06/21 9:04:00 EST, Tablet, [facility], Partial fill upon patient [...]
--- OUTSIDE RECORDS SUMMARY | 2023-11-20 08:41 | XMS_ITS | Continuity of Care Document ---
Author Organization [facility] Address [address] [place] [address], [address] [place] [address]- Care Team Providers Care Burglar Alarm Superintendent Name Role Phone Lilia WILLIAM, Jennifer D Primary Care Physician Encounter [facility] [place] Date(s): 04/17/22 - 04/24/22 [facility] [address] [place] [address], [address] [place], [place] [address] Attending Physician: Mor Nelson DO [...] EDT, 04/04/22 12:16:00 EDT, REC Powder, [facility], Partial fill upon patient request if the prescription is for a schedule II opioid drug., 175, cm... Start Date: 04/04/22 Stop Date: 05/02/22 Status: Ordered apixaban 5 mg oral tablet 1 tablet = 5 mg, By Mouth, 2 times a day, # 60 tablet, 0 Refills, Maintenance, 04/04/22 10:49:00 EDT, Tablet, [facility], Partial fill upon patient request if the prescription is for a schedule II opioid drug., 175, cm, 03/27/22 15:03:00... Start Date: 04/04/22 Status: Ordered atorvastatin 80 mg oral tablet 1 tablet = 80 mg, By Mouth, Daily, # 30 tablet, 11 Refills, Maintenance, 08/05/20 21:30:00 EST, Tablet, [facility]/pharmacy #[id number] Start Date: 08/05/20 Stop Date: [...] 0 Refills, Maintenance, 04/04/22 14:10:00 EDT, [facility], Partial fill upon patient request [...] 05/02/22 14:04:00 EDT, 04/04/22 14:04:00 EDT, [facility], Partial fill upon patient request if the prescription is for a schedule II opioid drug., 175, cm, 03/27/22... Start Date: 04/04/22 Stop Date: 05/02/22 Status: Ordered gabapentin 250 mg/5 mL oral solution 2.5 mL = 125 mg, By Mouth, 3 times a day, # 157.5 mL, 0 Refills, Maintenance, 04/04/22 11:32:00 EDT, Solution, [facility], Partial fill upon patient request [...] EDT Start Date: 11/21/19 Status: Ordered nystatin 941330 u/ml oral suspension 4 mL = 400,000 units, Swish and Swallow, Daily, for 30 days, # 120 mL, 0 Refills, Acute 05/04/22 11:19:00 EDT, 04/04/22 11:19:00 EDT, Suspension, [facility], Partial fill upon patient request [...] Maintenance, 09/06/21 9:04:00 EST, Tablet, [facility] 3, Partial fill upon patient [...] x disease)(Confirmed) Active Right shoulder pain(Confirmed) Active Vital Signs Most recent to oldest [Reference Range]: 1 Height 175 cm (04/17/22 11:41 AM) Weight 67.6 kg (04/17/22 11:41 AM) Oxygen Saturation [94-100 %] 98 % (04/17/22 11:41 AM) Pulse Rate [55-90 bpm] 77 bpm (04/17/22 11:41 AM) Body Mass Index [18.5-24.99] 22.07 (04/17/22 11:41 AM) Blood Pressure [90-138/55-84 mm Hg] 122/ 66mm Hg (04/17/22 11:41 AM) Respiratory Rate [16-30 br/min] 16 br/mi n (04/17/22 11:41 AM) Temperature [96.8-100.4 DegF] 98.4 DegF (04/17/22 11:41 AM) Mode of Delivery (Oxygen) Room air (04/17/22 11:41 AM) Blood pressure sites Arm, left (04/17/22 11:41 AM) Temperature Route Temporal (04/17/22 11:41 AM) Weight Obtained Via Standing scale (04/17/22 11:41 AM) Social History Social History Type Response Smoking Status Never (less than 100 in lifetime) entered on: 09/09/21 Sex Care Team Personnel Name: Lilia WILLIAM, Jennifer Maynard Address: [address] [place] [address]
--- OUTSIDE RECORDS SUMMARY | 2023-11-20 08:41 | XMS_ITS | Continuity of Care Document ---
Author Organization [facility] Address [address] [place] [address] [address], [address] [place] [address]- Care Team Providers Care Breaker Up Name Role Phone Lilia WILLIAM, Jennifer Maynard Primary Care Physician [place] [facility] [place] - 10/22/22 [facility] [address] [place] [address], [address] [place], [place] [address] Allergies, Adverse Reactions, Alerts [...] Name: Fanta Downey RN Position: [facility] AMB Nurse Member Role: Primary Care Nurse Name: Jennifer Rodrigues MD Position: [facility] Physician (General Medicine) Member Role: PCP Address: Address: [address] [place] [address] Name: Lisa Cummings RN Position: [facility] RN Member Role: Primary Care Nurse Name: Marie Murillo RN Position: [facility] RN Member Role: Primary Care Nurse Name: Nicky Jauregui RN Position: [facility] RN Member Role: Primary Care Nurse Name: Chelo Santacruz RN Position: [facility] RN Member Role: Primary Care Nurse Name: Pavel Rogers RN Position: [facility] RN Member Role: Primary Care Nurse Name: Coreen Gordon Position: [facility] RN Member Role: Primary Care Nurse Name: Miki Sheppard RN Position: [facility] RN Member Role: Primary Care Nurse Name: Teetee Marrufo RN Position: [facility] RN Member Role: Primary Care Nurse Name: Lexie Desouza RN Position: [facility] Hospital Pharmacognosist Member Role: Primary Care Nurse Name: Ada Hansen MD Position: [facility] Cardiology MD Member Role: Lifetime Consulting Physician Address: Address: [address] [place] [address] Name: Kristie Omer RN Position: [facility] RN Member Role: Primary Care Nurse Care Team Related Persons Name: BONNY VALADEZ Name: MADELEINE FREED Address: [place] [address] [place] [address]
--- OUTSIDE RECORDS SUMMARY | 2023-11-20 08:41 | XMS_ITS | Continuity of Care Document ---
Author Organization [facility] Address [address] [place] [address] [address], [address] [place] [address]- Care Team Providers Care Agriscience Technology Instructor Name Role Phone Lilia WILLIAM, Jennifer Maynard Primary Care Physician Encounter [facility] Date(s): 04/17/22 - 05/17/22 [facility] Thor[facility] Surgery [address] [place] [address], [address] [place] [address]- Allergies, Adverse Reactions, Alerts Substance Reaction Severity [...] 0 Refills, Maintenance, 05/17/22 13:15:00 EDT, Tablet, [facility], Partial fill upon patient request if the prescription is for aschedule II opioid drug., 175, cm, 05/17/22 11:49:0... Start Date: 05/17/22 Stop Date: 07/16/22 Status: Ordered atorvastatin 80 mg oral tablet 1 tablet = 80 mg, By Mouth, Daily, # 30 tablet, 11 Refills, Maintenance, 08/05/20 21:30:00 EST, Tablet, [facility]/pharmacy #[id number] Start Date: 08/05/20 Stop [...] 1 Refills, Maintenance, 09/06/21 9:04:00 EST, Tablet, [facility], Partial fill upon patient [...] Name: Lilia WILLIAM, Jennifer Maynard Address: Address: [address] [place] [address] [place] [address]- [place]
--- OUTSIDE RECORDS SUMMARY | 2023-11-20 08:41 | XMS_ITS | Continuity of Care Document ---
Author Organization [facility] Address [address] [place] [address]- Care Team Providers Care Continuous Drier Operator Name Role Phone Lilia WILLIAM, Jennifer Maynard Primary Care Physician Encounter [facility] [place] Date(s): 10/09/21 - 10/16/21 [facility] [address] [place] [address]- Attending Physician: Victoria WEBB, Brianne Licona Allergies, Adverse Reactions, Alerts Substance Reaction Severity [...] Refills, Maintenance, 09/06/21 9:04:00 EST, Tablet, [facility] 3, Partial fill upon patient [...] oldest [Reference Range]: 1 Height 175 cm (10/09/21 9:19 AM) Weight 67.6 kg (10/09/21 9:19 AM) Oxygen Saturation [94-100 %] 97 % (10/09/21 9:19 AM) Pulse Rate [55-90 bpm] 78 bpm (10/09/21 9:19 AM) Body Mass Index [18.5-24.99] 22.07 (10/09/21 9:19 AM) Blood Pressure [90-138/55-84 mm Hg] 111/ 74mm Hg (10/09/21 9:19 AM) Blood pressure sites Arm, left (10/09/21 9:19 AM) Social History Social History Type Response Smoking Status Never (less than 100 in lifetime) entered on: 09/09/21 Sex
--- OUTSIDE RECORDS SUMMARY | 2023-11-20 08:41 | XMS_ITS | Continuity of Care Document ---
Author Organization [facility] Address [address] [place] [address]- Care Team Providers Care Java Engineer Name Role Phone Lilia WILLIAM, Jennifer D Primary Care Physician [facility] [id number] Date(s): 11/09/23 - 11/16/23 [facility] [address] [place] [id number] Attending Physician: Nancy Cee Referring Physician: Richard Esteves MD Allergies, Adverse Reactions, Alerts Substance Reaction [...] tablet, 11 Refills, Maintenance, 12/11/22 7:08:00 EDT, [facility] [id number], 175.3, cm, 12/05/22 15:02:00 EDT, Height, 63.5, [...] Confirmed Active Right shoulder pain Confirmed Active Procedures Procedure Date Related Diagnosis Body Site Status Multiple spine surgeries, has hardware Completed Vital Signs Most recent to oldest [Reference Range]: 1 Height 175.3 cm (11/09/23 3:16 PM) Weight 68.5 kg (11/09/23 3:16 PM) Oxygen Saturation [94-100 %] 95 % (11/09/23 3:16 PM) Pulse Rate [55-90 bpm] 70 bpm (11/09/23 3:16 PM) Body Mass Index [18.5-24.99 kg/m2] 22.29 kg/m2 (11/09/23 3:16 PM) Blood Pressure [90-138/55-84 mm Hg] 125/ 85mm Hg (11/09/23 3:16 PM) Respiratory Rate [16-30 br/min] 16 br/mi n (11/09/23 3:16 PM) Mode of Delivery (Oxygen) Room air (11/09/23 3:16 PM) Blood pressure sites Arm, left (11/09/23 3:16 PM) Dry Weight 68.5 kg (11/09/23 3:16 PM) Weight Obtained Via Standing scale (11/09/23 3:16 PM) Dry Weight Obtained Via Standing scale (11/09/23 3:16 PM) Social History Social History Type Response Smoking Status Former smoker, quit more than 30 days ago entered on: 11/09/23 Sex Note * Nancy Cee: PERFORM, SIGN, VERIFY Event Display: Patient Education/Instruction Authored Date: [id number] [facility] *[facility]MA Preop Clinical Summary Name LUANNE DUNN Age 78 Years 1945 PCP Lilia WILLIAM, Jennifer Maynard PCP [facility]# [id number] Visit Date 11/09/2023 15:08:00 Patient Instructions Today, you were seen by DENILSON Cox. If you have any questions, you can reach??her at [phone] between 8.00am to 4.00pm. Thank you for??coming to your visit today with the preoperative??medical evaluation clinic.?? We wish you a fast recovery??from your surgery.? Your medication instructions are summarized below.?? If??you??are prescribed any new??medications, develop any any new medical problems, or??are hospitalized for any reason prior to your surgery; please??contact your us or your surgeon's office immediately.? Please stop all vica-xnk-zvhnezp medications including ibuprofen (Advil, Motrin), naproxen (Aleve),??fish oil, multivitamins, turmeric and any herbal drugs 10 days prior to your procedure as these could increase your risk of bleeding complications.? If you require something for pain or a headache, it is safe to use acetaminophen or any opiates prescribed to you. ??Examples of opiates include oxycodone, hydrocodone, and tramadol. Call your pain management team and ask them if you are required to hold your Aspirin prior to procedure. Hold your aspirin 5 days prior to procedure if necessary. The morning of surgery, take the following medications with a sip of water: Buprenorphine Metoprolol Pantoprazole?? Sucralfate Thank you, Nancy Bills, PAC Additional Instructions: Scheduled Appointments?? Future Appointments ?No Future Appointments Scheduled Follow-Up Instructions ?? Allergy Info:?? OxyContin; Percocet; Motrin; oxycodone Medications Given This Visit Vital Signs Height 175.3 cm Weight 68.5 kg BMI 22.29 kg/m2 Blood Pressure 125 mm Hg/85 mm Hg Temperature Pulse Rate 70 bpm Respiratory Rate 16 br/min 02 Sat Mode of Delivery 95 %/Room air You can now view a summary of your hospital visit from the comfort of your home through a free online portal called [employer]. [employer] is a website that allows you to securely view your medical information including discharge summary, medications and follow-up visits. ??You can alsosend a secure electronic message to your doctor???s office to request appointments, renew medications or just ask a question. You can enroll at [email or web address] or register during your next office visit. Disclaimer:?? The information provided is of a general nature and is intended to be used in conjunction with the recommendations and advice of your health care practitioner. ??Every effort has been made to ensure that the information provided is accurate and complete at the time it is provided to you however, as your needs change, or, as new ??information becomes available, different or additional instructions may be required. If you have questions, please consult with your primary care provider or pharmacist, as appropriate. ??This information is not intended to serve as substitution for assessment and evaluation by a qualified health care provider. If you do not have a primary care provider, you may find a [facility] provider by calling [facility] [employer] at [phone]. [facility], in keeping with [facility] guidance, no longer requires face masks for staff, patientsor visitors in most situations. Similar to time spent indoors at other locations, there is the chance that you were exposed to respiratory viruses during your time with us (such as flu or COVID-19).? If you develop symptoms concerning for a viral respiratory infection, please seek testing (and treatment if indicated) from your medical provider or home test kit. For information about the plan of care including goals and instructions for your diagnosis, please see the patient education orders section of this document. Patient Education Materials?? The content of this educational material or handout may have been modified, supplemented, or adapted from its original content and format to support your individualized medical care. Patient Care team information Care Team Personnel Name: Fanta Downey RN Position: [facility] Nurse Member Role: Primary Care Nurse Name: Jennifer Rodrigues MD Position: Reference Physician Member Role: PCP Address: Address: [address] [place] [address], [facility] [address] [place], [place] [address] Name: Lisa Cummings RN Position: [facility] RN Member Role: Primary Care Nurse Name: Marie Murillo RN Position: [facility] RN Member Role: Primary Care Nurse Name: Nicky Jauregui RN Position: [facility] AMB Nurse Member Role: Primary Care Nurse Name: Chelo Santacruz RN Position: [facility] RN Member Role: Primary Care Nurse Name: Pavel Rogers RN Position: [facility] RN Member Role: Primary Care Nurse Name: Coreen Gordon Position: [facility] RN Member Role: Primary Care Nurse Name: Miki Sheppard RN Position: [facility] RN Member Role: Primary Care Nurse Name: Teetee Marrufo RN Position: [facility] RN Member Role: Primary Care Nurse Name: Lexie Desouza RN Position: [facility] Hospital Inclusion Teacher Member Role: Primary Care Nurse Name: Ada Hansen MD Position: [facility] Cardiology MD Member Role: Lifetime Consulting Physician Address: Address: [address] [place] [address]- Name: Kristie Omer RN Position: [facility] RN Member Role: Primary Care Nurse Care Team Related Persons Name: BONNY VALADEZ Name: LOURDES, MADELEINE Address: home [address] [place] [address]
--- OUTSIDE RECORDS SUMMARY | 2023-11-20 08:41 | XMS_ITS | Continuity of Care Document ---
Author Organization [facility] Address [address] [place] [address], [address] [place] [address]- Care Team Providers Care Fiscal Technician Name Role Phone Lilia WILLIAM, Jennifer Maynard Primary Care Physician Encounter [facility] Date(s): 09/21/23 - 10/21/23 [facility] [address] [place] [address], [address] [place], [place] [address] Allergies, Adverse Reactions, Alerts Substance Reaction [...] tablet, 11 Refills, Maintenance, 12/11/22 7:08:00 EDT, [facility] ST[facility] 59770, 175.3, cm, 12/05/22 15:02:00 EDT, Height, 63.5, [...] Team Personnel Name: Fanta Downey RN Position: [facility] AMB Nurse Member Role: Primary Care Nurse Name: Lilia WILLIAM, Jennifer Maynard Position: Reference Physician Member Role: PCP Address: Address: [address] [place] [address], [address] [place], [place], [address] Name: Lisa Cummings RN Position: [facility] RN Member Role: Primary Care Nurse Name: Marie Murillo RN Position: [facility] RN Member Role: Primary Care Nurse Name: Nicky Jauregui RN Position: [facility] AMB Nurse Member Role: Primary Care Nurse Name: Chelo Santacruz RN Position: [facility] RN Member Role: Primary Care Nurse Name: Pavel Rogers RN Position: [facility] RN Member Role: Primary Care Nurse Name: Coreen Gordon Position: [facility] RN Member Role: Primary Care Nurse Name: Miki Sheppard RN Position: [facility] RN Member Role: Primary Care Nurse Name: Teetee Marrufo RN Position: [facility] RN Member Role: Primary Care Nurse Name: Lexie Desouza RN Position: [facility] Hospital Doctor Assistant Member Role: Primary Care Nurse Name: Ada Hansen MD Position: [facility] Cardiology MD Member Role: Lifetime Consulting Physician Address: Address: [address] [place] [id number] Name: Kristie Omer RN Position: [facility] RN Member Role: Primary Care Nurse Care Team Related Persons Name: BONNY VALADEZ Name: MADELEINE FREED Address: [address] [place] [address]
--- OUTSIDE RECORDS SUMMARY | 2023-11-20 08:41 | XMS_ITS | Continuity of Care Document ---
Author Organization [facility] Address [address] [place] [address]- Care Team Providers Care Client Program Manager Name Role Phone Lilia WILLIAM, Jennifer D Primary Care Physician Encounter [facility] Date(s): 05/27/22 - 09/24/22 [facility] [address] [place] [address]- Attending Physician: Keegan WILLIAM, Pino Miller Admitting Physician: Pino Allison MD Allergies, Adverse Reactions, Alerts Substance Reaction [...] 0 Refills, Maintenance, 05/17/22 13:15:00 EDT, Tablet, [facility], Partial fill upon patient request if the prescription is for aschedule II opioid drug., 175, cm, 05/17/22 11:49:0... Start Date: 05/17/22 Stop Date: 07/16/22 Status: Ordered atorvastatin 80 mg oral tablet 1 tablet = 80 mg, By Mouth, Daily, # 30 tablet, 11 Refills, Maintenance, 08/05/20 21:30:00 EST, Tablet, [facility]/pharmacy #[id number] Start Date: 08/05/20 Stop Date: [...] 1 Refills, Maintenance, 09/06/21 9:04:00 EST, Tablet, [facility], Partial fill upon patient request [...] Team Personnel Name: Fanta Downey RN Position: [facility] AMB Nurse Member Role: Primary Care Nurse Name: Lilia WILLIAM, Jennifer D Position: [facility] Physician (General Medicine) Member Role: PCP Address: Address: [address] [facility] [address] [facility] [address]- [place] Name: Lisa Cummings RN Position: [facility] RN Member Role: Primary Care Nurse Name: Marie Murillo RN Position: [facility] RN Member Role: Primary Care Nurse Name: Nicky Jauregui RN Position: [facility] RN Member Role: Primary Care Nurse Name: Chelo Santacruz RN Position: [facility] RN Member Role: Primary Care Nurse Name: Pavel Rogers RN Position: [facility] RN Member Role: Primary Care Nurse Name: Coreen Gordon Position: [facility] RN Member Role: Primary Care Nurse Name: Miki Sheppard RN Position: [facility] RN Member Role: Primary Care Nurse Name: Teetee Marrufo RN Position: [facility] RN Member Role: Primary Care Nurse Name: Lexie Desouza RN Position: [facility] Hospital Attractions Associate Member Role: Primary Care Nurse Name: Ada Hansen MD Position: [facility] Cardiology MD Member Role: Lifetime Consulting Physician Address: Address: [address] [facility] [address] [place] [address]- Name: Kristie Omer RN Position: [facility] RN Member Role: Primary Care Nurse Care Team Related Persons Name: MADELEINE FREED Address: home [address] [place] [address]
--- OUTSIDE RECORDS SUMMARY | 2023-11-20 08:41 | XMS_ITS | Continuity of Care Document ---
Author Organization [facility] Address [address] [place] [address]- Care Team Providers Care Rasper Machine Operator Name Role Phone Lilia WILLIAM, Jennifer Maynard Primary Care Physician En[place] [facility] Date(s): 06/18/23 - 06/25/23 [facility] [address] [place] [address]- Attending Physician: Brianne Kessler NP Referring Physician: Jennifer Rodrigues MD Allergies, Adverse Reactions, Alerts Substance Reaction Severity Status oxycodone nausea Active OxyContin nausea Active Motrin nausea Active Percocet nausea Active Immunizations Given [...] tablet, 11 Refills, Maintenance, 12/11/22 7:08:00 EDT, [id number], 175.3, cm, 12/05/22 15:02:00 EDT, Height, 63.5, [...] oldest [Reference Range]: 1 Height 175.3 cm (06/18/23 9:24 AM) Weight 70.3 kg (06/18/23 9:24 AM) Oxygen Saturation [94-100 %] 99 % (06/18/23 9:24 AM) Pulse Rate [55-90 bpm] 64 bpm (06/18/23 9:24 AM) Body Mass Index [18.5-24.99 kg/m2] 22.88 kg/m2 (06/18/23 9:24 AM) Blood Pressure [90-138/55-84 mm Hg] 139/ 77mm Hg *H* (06/18/23 9:24 AM) Blood pressure sites Arm, right (06/18/23 9:24 AM) Social History Social History Type Response Smoking Status Former smoker; Tobac co user in household: No; Other: pt states he quit smoking 45 yearsago; entered on: 01/30/15 Sex Cardiology Outpatient Note * [place] SCREEN TACKER, Brianne Licona: PERFORM, MODIFY Event Display: Cardiology Note Office Authored Date: [id number] Patient: ??LUANNE DUNN ? Age:??78 Years?Sex:??Male?:??1945?? Patient Hx Cardiology Shared Clinical Summary Problem list: 1.?? CAD status post??rotational arthrectomy??and CASA to the ostial circumflex with residual moderate to severe LAD disease??in 2021 2.?? Hypertension 3. ??Hyperlipidemia 4.?? GERD with Zenker's diverticulum 5. ??Erectile dysfunction Indication for Consult F/U HX CAD SP STENTING. History of Present Illness/Interval History Emigdio is seen back today in outpatient cardiology office in follow-up with Dr. Barrett for reevaluation of his cardiac issues.?? Since his last visit??with Dr. Barrett in December he did undergo??another procedurein April for his Zenker's diverticulum which has been successful.?? He had gotten down to 139 po unds??unfortunately because of difficulty eating.?? He has since gone up to 155 pounds today. ??Hisgoal is between 1 655 to 160 pounds. ??He is back to being able to eat a regular diet??which pleases him.? He denies any chest pain dyspnea syncope near syncope falls palpitations PND orthopnea edema bleeding. ??Balance is not as good??BS to be careful.?? He and his walk twice a day for total of an hour??faithfully. ??He has a treadmill for the wintertime.?? He does not sleep well because of hisback issues. ??He has a nerve stimulator??and he is intolerant to many of the medications. Review of Systems as above in hpi Physical Exam Vitals & Measurements HR:??64??(Peripheral)?? BP:??139/77?? SpO2:??99%?? HT:??175.3??cm?? WT:??70.3??kg?? BMI:??22.88?? Weight lb/oz: 154 lb 16 oz General: Well-developed well-nourished man in no acute distress HEENT: No scleral icterus or xanthelasmas.?? Carotids with normal upstrokes no bruits. Respiratory: Lungs clear to auscultation bilaterally with normal respiratory effort Cardiac: Heart sounds regular rate rhythm S1-S2 no murmur rub or gallop noted. ??No JVD or HJR.?? GI: Abdomen soft nontender nondistended Extremities: No lower extremity edema noted. ??Radial and pedal pulses palpable and symmetric Neuro:??Alert oriented x3 no gross neurological deficits noted. Assessment/Plan Impression: 1. ??CAD??stable??on??aspirin atorvastatin??metoprolol XL and lisinopril 2. ??Hypertension controlled 3. ??Hyperlipidemia??on atorvastatin??at goal most recent LDL in??May was 44 4.?? GERD with Zenker's diverticulum improving he has gained back??some of the weight he lost.?? Wediscussed being careful with his diet??not gaining back too much weight ?? Recommend: 1. ??Continue cardiac medications at current doses 2.?? Continue his efforts at exercise attention to his diet blood pressure??cholesterol 3.?? He knows to call if he has any concerns 4. ??Follow-up with Dr. Barrett??in 6 months time as previously discussed. Problem List/Past Medical History Ongoing CAD (coronary artery disease) Chest pain GERD (gastroesophageal reflux disease) History of DVT of lower extremity HLD (hyperlipidemia) HTN (hypertension) Right shoulder pain Procedure/Surgical History Esophagoscopy, rigid, transoral with diverticulectomy of hypopharynx or cervical esophagus (eg, Zenker's diverticulum), with cricopharyngeal myotomy, includes use of telescope or operating microscopeand repair, when performed Revision or removal of implanted spinal neurostimulator pulse generator or director dance Home Medications aspirin 81 mg oral delayed release tablet, 81 mg= 1 tablet, By Mouth, Daily atorvastatin 80 mg oral tablet, See Instructions Belbuca 450 mcg buccal film, 450 mcg= 1 each, Sublingual, Every 12 hours ferrous sulfate 324 mg (65 mg elemental iron) oral delayed release tablet, 324 mg= 1 tablet, By Mouth, Daily lisinopril 5 mg oral tablet, 5 mg= 1 tablet, By Mouth, Daily, 3 refills Protonix 20 mg oral delayed release tablet, 20 mg= 1 tablet, By Mouth, 2 times a day Soolantra 1% topical cream, Topically, Daily at bedtime sucralfate 1 gm oral tablet, 1 Gm= 1 tablet, By Mouth, 4 times a day Toprol XL 100 mg oral tablet, extended release, 50 mg= 0.5 tablet, By Mouth, 2 times a day Viagra 100 mg oral tablet, 50 mg= 0.5 tablet, By Mouth, Daily, PRN Vitamin C 500 mg oral tablet, chewable, 1000 mg= 2 tablet, Chew, Daily at supper vitamin E 180 mg oral capsule, 180 mg= 1 capsule, By Mouth, Daily before dinner Lab Results Cardiology Labs WBC:??3.6 k/mm3??Low (04/09/23) RBC:??4.09 m/mm3??Low (04/09/23) Hgb:??12.3 Gm/dL??Low (04/09/23) Hct:??38 %??Low (04/09/23) MCV: 92.9 femtoliters (04/09/23) MCH: 30.1 pg (04/09/23) MCHC:??32.4 g/dL??Low (04/09/23) Platelet Count: 206 k/mm3 (04/09/23) RDW-SD:??50.9 femtoliters??High (04/09/23) Nucleated RBC (Automated): 0 #/100 WBC'S (04/09/23) Sodium: 141 mmol/L (04/09/23) Potassium: 5.2 mmol/L (04/09/23) Chloride: 105 mmol/L (04/09/23) Bicarbonate Level:??30 mmol/L??High (04/09/23) Glucose Level: 98 mg/dL (04/09/23) BUN: 20 mg/dL (04/09/23) Creatinine-Blood: 1.1 mg/dL (04/09/23) Calcium: 9.9 mg/dL (04/09/23) ALT (SGPT): 24 units/L (12/05/22) Cholesterol: 113 mg/dL (12/05/22) Triglycerides: 100 mg/dL (12/05/22) HDL Cholesterol: 44 mg/dL (12/05/22) LDL Cholesterol: 49 mg/dL (12/05/22) Non HDL Cholesterol: 69 mg/dL (12/05/22) Diagnostic Impression ECG ECG 12-Lead ?? 09:46:41 Please click on pdf link to open report ?? Signed By: Alex Tolbert MD ?? ECG 12-Lead ?? 09:46:41 Ventricular Rate: 60 BPM Atrial Rate: 60 BPM P-R Interval: 202 ms QRS Duration: 94 ms Q-T Interval: 408 ms QTC Calculation(Bazett): 408 ms P [place]: 46 degrees R [place]: -12 degrees T [place]: 65 degrees Normal sinus rhythm Normal ECG When compared with ECG of 16-MAY-2022 17:12, No significant change Confirmed by ALEX TOLBERT ([id number]) on 04/09/2023 10:22:28 AM ?? [place]: ALEX TOLBERT ?? Signed By: Alex Tolbert MD Stress Test NM Myocard Perf SPECT Multi ?? 09:05:08 Summary 1. Myocardial perfusion imaging is abnormal with a large mid to distal anterior wall fixed perfusion defect not involving the apex after exercise stress test. These findings are consistent with scar. No ischemia is identified. 2. LV function is normal with an E.F. of 66% at rest and 72% with stress with absent anterior wall thickening and mild hypokinesis. 3. EKG portion of the stress test is reported separately. ?? Signatures _ _ ?? Signed By: Nehemiah Allen MD Patient Care team information Care Team Personnel Name: Fanta Downey RN Position: [facility] AMB Nurse Member Role: Primary Care Nurse Name: Lilai WILLIAM, Jennifer Maynard Position: Reference Physician Member Role: PCP Address: Address: [address] [place] [address], [address] [place], [place] [address] Name: Lisa Cummings RN Position: [facility] SN RN Member Role: Primary Care Nurse Name: Marie Murillo RN Position: [facility] RN Member Role: Primary Care Nurse Name: Nicky Jauregui RN Position: [facility] AMB Nurse [...] Desouza RN Position: [facility] Hospital Emu Farmer Member Role: Primary Care Nurse Name: Ada Hansen MD Position: [facility] Cardiology MD Member Role: Lifetime Consulting Physician Address: Address: [address] [address]- Name: Kristie Omer RN Position: [facility] RN Member Role: Primary Care Nurse Care Team Related Persons Name: BONNY VALADEZ Name: MADELEINE FREED Address: home [address] [place] [address]
--- OUTSIDE RECORDS SUMMARY | 2023-11-20 08:41 | XMS_ITS | Continuity of Care Document ---
Author Organization [facility] Address [address] [place] [address]- Care Team Providers Care Epic Professional Name Role Phone Lilia WILLIAM, Jennifer Maynard Primary Care Physician [phone] Encounter [facility] [place] [place] Date(s): 09/10/21 - 10/10/21 [facility] [address] [place] [address]- [place] Allergies, Adverse Reactions, Alerts Substance Reaction [...] Refills, Maintenance, 08/05/20 21:30:00 EST, Tablet, [facility]/pharmacy #[id number] Start Date: 08/05/20 Stop Date: [...] 1 Refills, Maintenance, 09/06/21 9:04:00 EST, Tablet, [facility], Partial fill upon [...]
--- OUTSIDE RECORDS SUMMARY | 2023-11-20 08:41 | XMS_ITS | Continuity of Care Document ---
Author Organization [facility] Address [address] [place] [address], [address] [place] [address]- Care Team Providers Care Avionic Technician Name Role Phone Lilia WILLIAM, Jennifer Maynrad Primary Care Physician Encounter [facility] Date(s): 10/20/22 - 11/19/22 [facility] [address] [place] [address], [address] [place], [place] [id number] Allergies, Adverse Reactions, Alerts [...] tablet, 0 Refills, Maintenance, 11/19/22 9:13:00 EDT, [facility], [...] Team Personnel Name: Fanta Downey RN Position: [facility] AMB Nurse Member Role: Primary Care Nurse Name: Lilia WILLIAM, Jennifer Maynard Position: [facility] Physician (General Medicine) Member Role: PCP Address: Address: [address] [place] [address] Name: Lisa Cummings RN Position: [facility] SN RN Member Role: Primary Care Nurse Name: Marie Murillo RN Position: [facility] RN Member Role: Primary Care Nurse Name: Nicky Jauregui RN Position: [facility] RN Member Role: Primary Care Nurse Name: Chelo Santacruz RN Position: [facility] RN Member Role: Primary Care Nurse Name: Pavel Rogers RN Position: [facility] RN Member Role: Primary Care Nurse Name: Coreen Gordon Position: [facility] RN Member Role: Primary Care Nurse Name: Miki Sheppard RN Position: [facility] RN Member Role: Primary Care Nurse Name: Teetee Marrufo RN Position: [facility] RN Member Role: Primary Care Nurse Name: Lexie Desouza RN Position: [facility] [employer] Custodian Member Role: Primary Care Nurse Name: Ada Hansen MD Position: [facility] Cardiology MD Member Role: [employer] Consulting Physician Address: Address: [address] [place] [id number] Name: Kristie Omer RN Position: [facility] RN Member Role: Primary Care Nurse Care Team Related Persons Name: BONNY VALADEZ Name: MADELEINE FREED Address: [address] [place] [address]
[2023-11-20 09:19] VITALS: BP 128/71; PULSE 61; RESP 16; TEMP 36.8; O2SAT 96; BMI 22.1
[2023-11-20] MEDS: Lactated Ringers 1,000 ML 80 ML IVCONT (10:31)
--- NOTE | 2023-11-20 10:36 | HO.ANESPROP2 ---
[facility] Active Problems Active Problems: All Active Problems (Updated 11/20/23 @ 09:35 by Didi Maldonado) Spinal cord stimulator status (Acute) Weight loss (Acute) Chronic pain (Acute) Failed back syndrome (Acute) Bilateral lumbar radiculopathy (Acute) Chronic, continuous use of opioids (Acute) Neuralgia (Acute) Lumbar degenerative disc disease (Acute) S/P dilatation of esophageal stricture (Acute) History of lumbar spinal fusion (Acute) Lumbar spondylosis (Acute) Past Medical History Medical History (Updated 11/20/23 @ 09:35 by Didi Maldonado) Zenker diverticulum DVT (deep venous thrombosis) Hyperlipemia HTN (hypertension) GERD (gastroesophageal reflux disease) Myocardial infarction CAD (coronary artery disease) Lumbar degenerative disc disease Neuralgia Chronic, continuous use of opioids Bilateral lumbar radiculopathy Failed back syndrome Lumbar spondylosis Family History Family history of problems with anesthesia: No Surgical History Surgical History (Updated 11/20/23 @ 09:35 by Didi Maldonado) H/O excision of Zenker's diverticulum Hx of shoulder surgery History of esophagogastroduodenoscopy (EGD) History of coronary artery stent placement S/P dilatation of esophageal stricture S/P insertion of spinal cord stimulator History of lumbar spinal fusion History of Problems with Anesthesia: No Social History Social History Patient Tobacco Use Status: Former Tobacco user Quit Date: 1974 Smoked: 6 Smoked in Last 30 Days: No Use of substances other than those prescribed or required for medical reasons: No Are you DNR?: No Advance Directives: No Advance Directives Information Provided: Yes Meds Allergies Allergy/AdvReac Type Severity Reaction Status Date / Time acetaminophen [From Percocet] Allergy Nausea Verified 11/20/23 09:17 ibuprofen [From Motrin] Allergy Nausea Verified 11/20/23 09:17 oxycodone Allergy Nausea Verified 11/20/23 09:17 Active Medications: Current Medications Lactated Ringer's (Lr) 1,000 mls @ 80 mls/hr IVCONT .[id number] DIONNA Last Admin: 11/20/23 10:31 Dose: 80 mls/hr Home Medications ?Medication ?Instructions ?Recorded ?Confirmed ?Last Taken ?Type atorvastatin 80 mg tablet 80 mg PO DAILY 04/02/21 11/20/23 Unknown History lisinopril 5 mg tablet 5 mg PO DAILY 04/02/21 11/20/23 11/20/23 History sildenafil 100 mg tablet 100 mg PO DAILY PRN Sexual Activity 04/02/21 11/20/23 Unknown History sucralfate 1 gram tablet 1 g PO QID 04/02/21 11/20/23 Unknown History pantoprazole 40 mg tablet,delayed 20 mg PO BID 06/09/23 11/20/23 Unknown History release metoprolol succinate 50 mg 50 mg PO BID 08/10/23 11/20/23 11/20/23 History tablet,extended release 24 hr ascorbic acid (vitamin C) 500 mg 1,000 mg PO DAILY@1700 11/18/23 11/20/23 11/16/23 History chewable tablet (Vitamin C) aspirin 81 mg tablet,delayed 81 mg PO DAILY 11/18/23 11/20/23 11/14/23 History release ferrous sulfate 324 mg (65 mg 324 mg PO DAILY 11/18/23 11/20/23 11/15/23 History iron) tablet,delayed release ivermectin 1 % topical cream 1 appl topical DAILY 11/18/23 11/20/23 Unknown History (Soolantra) vitamin E (dl, acetate) 180 mg 180 mg PO DAILY@1700 11/18/23 11/20/23 11/16/23 History (400 unit) capsule Exam Height,Weight and Vital Signs: Height 5 ft 9 in Weight 68.039 kg Last Vital Signs Temp 98.2 F 11/20/23 09:19 Pulse 61 11/20/23 09:19 Resp 16 11/20/23 09:19 BP 128/71 11/20/23 09:19 Pulse Ox 96 11/20/23 09:19 O2 Del Method Room Air 11/20/23 09:19 Airway Mallampati Class: II TM Dist: >3cm Neck ROM: Limited Loose/Missing/Broken Teeth: No Heart: rrr Lungs: cta Assessment and Plan Assessment Anesthesia Assessment: Anesthesia Plan Discussed and Chart Reviewed Final Anesthetic Review Family History of Problems with Anesthesia: No History of Problems with Anesthesia: No NPO: Yes ASA Class: II Final Preanesthetic Review: No Changes in Pt Med Stat, Meds/Allgs Chart Reviewed, Consent Obtained/Reviewed and Anes Risks/Benef Reviewed Patient Risk: Intermediate Procedure Risk: Intermediate Anesthetic Plan Anesthetic Plan: MAC: Disposition: Standard PACU
--- NOTE | 2023-11-20 10:40 | MHC.SHP ---
Pre-Procedural Eval Section A - 24 Hr Update-Section A only Date of Service: 11/20/23 The patient is an INPATIENT: No Changes since office visit: Yes Patient answered all questions The patient has been examined within 24 hours of the surgical procedure. The History & Physical has been completed within 30 days and I have reviewed it.: No Section B - Complete if H&P > 30 days Chief Complaint: Postlaminectomy syndrome,radiculopathy Details of Present Illness: as above Relevant Family History (Specify if Yes): No Relevant Social History: None Present Medications: None Medical History: No relevant PMH History of Previous Operations: No relevant previous surgery Allergies: Allergies Allergy/AdvReac Type Severity Reaction Status Date / Time acetaminophen [From Percocet] Allergy Nausea Verified 11/20/23 09:17 ibuprofen [From Motrin] Allergy Nausea Verified 11/20/23 09:17 oxycodone Allergy Nausea Verified 11/20/23 09:17 Review of Systems Sugical H&P ROS: Negative: Constitution, Cardiovascular, Respiratory, Neurological, Psychiatric, Hem-Onc, Allergic/Immunologic, Gastrointestinal, Genitourinary, Integumentary, Endocrine and Eyes/Ears/Nose/Throat and Yes, Specify: Musculoskeletal (postlaminectomy syndrome) Exam Surgical H&P Exam: Normal: HEENT, Normal: Heart, Normal: Lungs, Normal: Extremities, Normal: Abdomen, Normal: Skin and Normal: Neurological Plan Diagnosis/Plan: Unchanged I have reviewed the history and physical and performed a pertinent physical examination on my patient. No changes have occurred unless specified. Time Spent With Patient Time: Total time managing care of this patient today ____ minutes.
[2023-11-20 11:32] VITALS: BP 143/78; PULSE 62; RESP 17; TEMP 36.9; O2SAT 96
--- NOTE | 2023-11-20 11:35 | P.BOP_ITS ---
Brief Operative Note Date of Service: 11/20/23 Pre-op diagnosis: Postlaminectomy syndrome Post-op diagnosis: same Procedure: Attempted performance of interlaminar L3-L4 epidural steroid injection. Surgeon: Richard Esteves MD Anesthesia: MAC Was an [employer] Manager Consultant used for this Procedure?: No Estimated blood loss (mL): 0 Condition: stable Disposition: PACU
--- NOTE | 2023-11-20 11:35 | W.PM.OPN ---
Operative Note Operative Note Date of Service: 11/20/23 Narrative: Attempted interlaminar L3-L4 epidural steroid injection. The patient came to the operating room and he was positioned prone on the operating table. [place] [employer]hes[employer] monitors were applied and patient was minimally sedated. Time-out was performed delineating name and date of of the patient as well as nature inside of the procedure. C-arm was brought over the operating field and picture of L3 and L4 vertebra anterior posterior and lateral views were demonstrated on the screen. Extensive hardware were as noted ending at for vertebra. Attempt was made to advance the Touhy needle into presumable interlaminar space below the spinous process of L3. On the lateral view the hardware was obscuring view of the needle. On the AP view the needle advanced until the bony formations were sensed under the tip of the needle. No further advancement was attempted. The interlaminar space most likely calcified. The procedure was abandoned. The patient was taken outside of the operating room to recovery room where he recovered uneventfully. He went home without immediate complications.
[2023-11-20 11:47] VITALS: BP 142/66; PULSE 59; RESP 16; O2SAT 97
[2023-11-20 12:02] VITALS: BP 139/68; PULSE 57; RESP 16; O2SAT 98
[2023-11-20 12:16] VITALS: BP 165/88; PULSE 58; RESP 16; TEMP 36.6; O2SAT 98
== END 2023-11-20 12:55 | disposition home or self-care (01) ==
PROVIDERS: PCP Internal Medicine; Visit Provider Anesthesiology
PROC: 3E0R33Z Introduction of Anti-inflammatory into Spinal Canal, Percutaneous Approach (ICD-10-PCS; CPT 62323; principal; 2023-11-20 10:10)
DX: M96.1 Postlaminectomy syndrome, not elsewhere classified (principal); M54.16 Radiculopathy, lumbar region; M51.36 Other intervertebral disc degeneration, lumbar region; M47.816 Spondylosis without myelopathy or radiculopathy, lumbar region; Z96.89 Presence of other specified functional implants; Z96.82 Presence of neurostimulator; Z98.1 Arthrodesis status; F11.90 Opioid use, unspecified, uncomplicated; Z88.6 Allergy status to analgesic agent; Z88.5 Allergy status to narcotic agent
CPT/HCPCS: 62323; J2250; J2704; J3010; J3301; Q9967

== ENCOUNTER → 2023-11-20 08:36 | Outpatient (BNV) | payer OTHER, SELFPAY | PROVIDERS: PCP Internal Medicine; Visit Provider Anesthesiology | DX: M96.1 Postlaminectomy syndrome, not elsewhere classified (principal) | CPT/HCPCS: 62323 ==

== ENCOUNTER 2023-12-08 10:55 | Outpatient (AMB) | payer OTHER, SELFPAY ==
--- NOTE | 2023-12-08 11:01 | A.OFFVIS_ITS ---
Vital Signs 12/08/23 11:06 Height 5 ft 9 in Weight 154 lb 8 oz BMI 22.8 BP 144/74 H Blood Pressure Location Lt brachial Position Sitting Respiration 16 Pulse 62 Pulse Source Pulse Oximeter Pulse Oximetry (%) 94 Oxygen Delivery Method Room Air Intake Visit Reasons: Pill Count Allergies acetaminophen [From Percocet] Allergy (Verified 12/08/23 11:06) Nausea ibuprofen [From Motrin] Allergy (Verified 12/08/23 11:06) Nausea oxycodone Allergy (Verified 12/08/23 11:06) Nausea HPI Comments Details: Patient presents today for a film count and lumbar CT scan results review. Patient is supposed to have #42 Belbuca films and presents with #42 films. This demonstrates a responsible attitude towards his medication regimen. Patient reports inadequate analgesia without any side effects due to progressively worsening back pain with spinal-stenosis related features. Patient was recently sent for interlaminar L3-L4 CORAL injection but procedure was aborted due to calcified interlaminar space. He was [place] [facility] and will be seeing Dr. Anguiano. Denies any recent cough, cold, infection, constipation, difficulty urinating, nausea fever or other significant changes in medical history since last office visit. Patient reports recent adjustments for spinal cord stimulator have not improved his daily or more acute on chronic pain. He takes Tylenol for breakthrough pain with partial relief. Denies any fever, abdominal or groin pain, weakness, bladder or bowel dysfunction or saddle anesthesia. Pain is worse with prolonged sitting, standing, or walking and range of motions. [facility] Medical History Zenker diverticulum DVT (deep venous thrombosis) Hyperlipemia HTN (hypertension) GERD (gastroesophageal reflux disease) Myocardial infarction CAD (coronary artery disease) Lumbar degenerative disc disease Neuralgia Chronic, continuous use of opioids Bilateral lumbar radiculopathy Failed back syndrome Lumbar spondylosis Surgical History H/O excision of Zenker's diverticulum Hx of shoulder surgery History of esophagogastroduodenoscopy (EGD) History of coronary artery stent placement S/P dilatation of esophageal stricture S/P insertion of spinal cord stimulator History of lumbar spinal fusion Social History Patient Tobacco Use Status: Former Tobacco user Quit Date: 1974 Years Smoked: 6 Review of Systems Const All systems reviewed & are unremarkable except as noted in HPI and below Physical Exam Vital Signs: Last Vital Signs Pulse 62 12/08/23 11:06 Resp 16 12/08/23 11:06 BP 144/74 H 12/08/23 11:06 Pulse Ox 94 12/08/23 11:06 Oxygen Delivery Method Room Air 12/08/23 11:06 BMI result Body Mass Index 22.8 General: Appears afebrile. Alert and oriented. Mood and affect appropriate. Follows and participates in conversation appropriately. Respiratory effort is unlabored. No cough. Able to transition from sit to stand unassisted. Ambulates with bilaterally normal heel strike and toe off, reports unsteadiness on right side. Neck Neck: Yes normal visual inspection, Yes no lymphadenopathy, Yes supple, No anterior neck swelling and Yes no JVD Back/Spine/Pelvis Other: Limited lumbar ROM due to pain. Painful facet loading bilaterally. Increased pain with lumbar flexion and extension. No groin pain with I/E hip rotation bilaterally. Valsalva maneuver is positive. Cervical Spine: cervical muscular tenderness, Cervical spine scars present and No Cervical spine tenderness Thoracic/Lumbar Spine: thoracic and lumbar spine normal to inspection, Thoracic/lumbar spine scar(s), Lasegue's sign positive (localized on right, diffuse on the left), pain with thoraco-lumbar ROM, paraspinal muscle tend erness, thoraco-lumbar ROM limited, No thoracic spinal tenderness, No lumbar spinal tenderness and straight leg raise positive right at 40 degrees Pelvis: no buttock tenderness and no sciatic notch tenderness Sacroiliac joints: bilaterally tender to palpation Extrem General: Yes capillary refill normal, Yes no clubbing, cyanosis or edema and Yes no calf tenderness Psych Appearance: grossly normal and well kempt Mental Status: mental status grossly normal Speech and movement: Normal speech and movement present Affect: normal affect and Sad affect present Attitude: cooperative Thought process: Normal thought process present Thought content: Normal thought content present, suicidality (none), no hallucin ations and Depressive thoughts present Insight: Good insight present (Psych) Judgement: Good judgement present (Psych) Results Reviewed Results Reviewed: XR THORACIC SPINE 08/14/23 CLINICAL INFORMATION: Presence of other specified functional implants. FINDINGS: There is bony demineralization. There are mild T8 and T9 anterior wedge compression fractures. Vertebral body heights are otherwise normal. There is moderately severe disc space narrowing at T6-T7 through T9-T10 and at T11-T12. The remaining disc spaces are relatively well-maintained. No acute fracture or spondylolisthesis is seen. There is multi-level thoracic spondylosis. The posterior elements are intact. There is a spinal stimulator device, with tip situated at the T7-T8 level. The paravertebral soft tissues are unremarkable. IMPRESSION: 1. There is multi-level thoracic degenerative disc disease, spondylosis and facet arthropathy. 2. There are age-indeterminate mild T8 and T9 anterior wedge compression fractures. 3. A spinal stimulator device is seen, with tip situated at the T7-T8 level. XR LUMBOSACRAL SPINE 08/14/23 CLINICAL INFORMATION: Lumbar degenerative disc disease. COMPARISON: Radiographs dated 07/07/2022. TECHNIQUE: AP and lateral views of the lumbar spine and lateral view of the lumbosacral junction. FINDINGS: There is bony demineralization. There is a mild lumbar levoscoliosis. At L1-L2 and L2-L3, there is moderate disc space narrowing. At L3-L4, there is marked disc space narrowing, with vacuum disc phenomenon and accompanying marked anterior spondylosis. There has been a prior posterior fusion at L4-S1, with intact posterior fixator rods, pedicular screws and intervertebral cages. No hardware failure or loosening is seen. There is no acute fracture or spondylolisthesis. There is multi-level lumbar spondylosis. Spinal stimulator leads and an impulse generator are noted. There are aortoiliac atherosclerotic calcifications. IMPRESSION: 1. There is well-maintained alignment status-post L4-S1 posterior fusions and discectomies. No hardware failure or loosening is seen. 2. There is moderate degenerative disc disease at L1-L2 and L2-L3, and marked degenerative disc disease is seen at L3-L4. CT LUMBAR SPINE WITHOUT CONTRAST 10/01/23 CLINICAL INFORMATION: Post laminectomy syndrome. COMPARISON: Lumbar spine radiographs 08/14/2023. FINDINGS: There are chronic postoperative changes of a posterior spinal fusion with transpedicular hardware extending from L4 to S1. Bridging bone completely fuses the L4-S1 vertebra. There is grade 1 anterolisthesis of L3 on L4 that appears to be related to advanced facet degenerative changes at this level. Slight grade 1 retrolisthesis of L1 on L2 and L2 on L3. There is loss of intervertebral disc height with associated sclerotic degenerative endplate changes, hypertrophic disc osteophyte spurring, and intervertebral vacuum disc phenomenon at L1-L2, L2-L3, and L3-L4. There is also abutment with associated sclerotic changes of the adjoining spinous processes at L1-L2, L2-L3, and L3-L4 indicating likelihood of underlying [place] disease. Canal patency is not well assessed on this examination due to inherent limitations of CT without intrathecal contrast and due to the extent of streak artifact related to the fusion hardware. There is at least moderate canal stenosis at the level of L2-L3 and L3-L4. Limited visualization of the retroperitoneal anatomy reveals layering calculi within the gallbladder neck and scattered atheromatous calcification involving the abdominal aorta and iliac vessels. IMPRESSION: There are chronic postoperative changes of a posterior spinal fusion with transpedicular hardware extending from L4 to S1. No evidence of hardware loosening or failure. Bridging bone completely fuses the L4-S1 vertebra. There is junctional spondylosis above and below the fusion with grade 1 anterolisthesis of L3 on L4. Canal patency is not well assessed on this examination due to inherent limitations of CT without intrathecal contrast and due to the extent of streak artifact related to the fusion hardware. There is at least moderate canal stenosis at the level of L2-L3 and L3-L4. If there are clinical symptoms of compressive myelopathy then a dedicated lumbar spine MRI can be obtained for better anatomic characterization of canal patency. Assessment & Plan Assessment & Plan (1) Failed back syndrome: Code(s): M96.1 - Postlaminectomy syndrome, not elsewhere classified Category: Medical (2) Chronic pain: Code(s): G89.29 - Other chronic pain Category: Medical (3) Lumbar degenerative disc disease: Code(s): M51.36 - Other intervertebral disc degeneration, lumbar region Category: Medical (4) Bilateral lumbar radiculopathy: Code(s): M54.16 - Radiculopathy, lumbar region Category: Medical (5) Lumbar spondylosis: Code(s): M47.816 - Spondylosis without myelopathy or radiculopathy, lumbar region Category: Medical (6) Chronic, continuous use of opioids: Code(s): F11.90 - Opioid use, unspecified, uncomplicated Category: Medical (7) Lumbar spinal stenosis: Code(s): M48.061 - Spinal stenosis, lumbar region without neurogenic claudication Category: Medical Plan Patient has shown accountability for his medication regimen and the film count was accurate. The patient reported no noted side effects with mild analgesia. There is no evidence of misuse, abuse or diversion at this time. [employer] Interpreting reviewed. Will send in prescription for Belbuca with an advanced date of 12/27/23 and one refill. Patient advised to have regular dental check ups while taking Belbuca and take extra steps to help lessen the risk of serious dental problems. Will obtain annual 12-lead EKG to assess risk for prolonged QT interval with chronic use of Belbuca. For acute on chronic and lumbar spinal stenosis related back pain, I will send script for Vicodin. Discussed side effects and precautions with patient. Patient reports good tolerance of Vicodin for surgical procedure early this year without any side effects. Patient has pending [place]gu[place] [facility] [place] All questions were answered and patient is in agreement of plan. Follow up for CT scan results and sooner if needed. Orders: Orders ECG 12 lead EKG Today Z91.89 - Other specified personal risk factors, not elsewhere classified Medications: New hydrocodone-acetaminophen 7.5-300 mg Partial Fill upon patient request. 1 tab PO DAILY 30 days PRN 30 tabs 0RF pain G89.29 - Other chronic pain, M51.36 - Other intervertebral disc d egeneration, lumbar region, M96.1 - Postlaminectomy syndrome, not elsewhere classified Refilled buprenorphine HCl (Belbuca) Partial Fill upon patient request. 450 mcg buccal Q12H 30 days 60 ea 1RF pain F11.90 - Opioid use, unspecified, uncomplicated, M47.816 - Spondylosis without myelopathy or radiculopathy, lumbar region, M51.36 - Other i ntervertebral disc degeneration, lumbar region, Z98.1 - Arthrodesis status Coding Level of Care Code Est Pt Level 4 (76081) Diagnoses Failed back syndrome M96.1 Chronic pain G89.29 Lumbar degenerative disc disease M51.36 Bilateral lumbar radiculopathy M54.16 Lumbar spondylosis M47.816 Chronic, continuous use of opioids F11.90 Lumbar spinal stenosis M48.061
[2023-12-08 11:06] VITALS: BP 144/74; PULSE 62; RESP 16; O2SAT 94; BMI 22.8
== END 2023-12-08 11:25 | disposition home or self-care (01) ==
PROVIDERS: PCP Internal Medicine; Visit Provider Nurse Practitioner Family
DX: G89.29 Other chronic pain (principal); M96.1 Postlaminectomy syndrome, not elsewhere classified; M51.36 Other intervertebral disc degeneration, lumbar region; Z79.891 Long term (current) use of opiate analgesic; M54.16 Radiculopathy, lumbar region; M47.816 Spondylosis without myelopathy or radiculopathy, lumbar region; M48.061 Spinal stenosis, lumbar region without neurogenic claudication
CPT/HCPCS: 99214

== ENCOUNTER → 2023-12-08 10:55 | Outpatient (REF) | payer OTHER, SELFPAY ==
--- NOTE | 2023-12-08 11:35 | ECG_ITS ---
Test Reason : 291.89 PER RISK FACTORS Blood Pressure : / mmHG Vent. Rate : 068 BPM Atrial Rate : 068 BPM P-R Int : 188 ms QRS Dur : 086 ms QT Int : 388 ms P-R-T Axes : 037 -18 071 degrees QTc Int : 412 ms Normal sinus rhythm Septal infarct , age undetermined Abnormal ECG No previous ECGs available Referred By: Kalli Farley Electronically Signed By:Sai Perez
== END ==
LOC: HO.CARD 10:55
PROVIDERS: PCP Internal Medicine; Visit Provider Nurse Practitioner Family
DX: Z91.89 Other specified personal risk factors, not elsewhere classified (principal); M96.1 Postlaminectomy syndrome, not elsewhere classified; Z79.899 Other long term (current) drug therapy
CPT/HCPCS: 93005; 99212

== ENCOUNTER → 2023-12-08 11:35 | Outpatient (BNV) | payer OTHER, SELFPAY | PROVIDERS: PCP Internal Medicine; Visit Provider Internal Medicine Cardiovascular Disease | DX: R94.31 Abnormal electrocardiogram [ECG] [EKG] (principal) | CPT/HCPCS: 93010 ==

== ENCOUNTER 2024-01-22 09:04 | Outpatient (AMB) | payer OTHER, SELFPAY ==
--- NOTE | 2024-01-22 09:06 | A.OFFVIS_ITS ---
Vital Signs 01/22/24 09:15 Height 5 ft 9 in Weight 150 lb BMI 22.1 BP 164/97 H Blood Pressure Location Rt brachial Position Sitting Pulse 75 Pulse Source Pulse Oximeter Pulse Oximetry (%) 98 Oxygen Delivery Method Nasal Cannula Intake Visit Reasons: pill count Intake Note: Jay comes in today for a pill count to hydrocodoen-acetaminophen and a film count to belbuca, patient should have 30 tablets of hydrocodone-acetaminophen and presents with 33 tablets which he last took last night 01/21/24 at 7pm, belbuca should have 12 films and presents with 12 films which he last took this morning 01/22/24 at 7:30 am. Pain today 05/12 Diversional Therapist'S Assistant Required: No Accompanied by: Self / Same As Patient Allergies acetaminophen [From Percocet] Allergy (Verified 01/22/24 09:16) Nausea ibuprofen [From Motrin] Allergy (Verified 01/22/24 09:16) Nausea oxycodone Allergy (Verified 01/22/24 09:16) Nausea HPI Comments Details: Patient presents today for a film count and pill count. Patient is supposed to have #12 Belbuca films and presents with #12 films. This demonstrates a responsible attitude towards his medication regimen. Patient reports inadequate analgesia without any side effects due to progressively worsening back pain with spinal-stenosis related features. Patient was sent for interlaminar L3-L4 CORAL injection in November but procedure was aborted due to calcified interlaminar space. He was referred to [facility] [place] [facility] and will be seeing Dr. Anguiano again next Thursday. Patient reports he underwent CT Myelogram at [facility] [place] which he states took more than one hour and was told he will need back surgery. Previous recent SCS device adjustment has not improved his daily functioning. We added Vicodin BID prn last month, and will increase it to TID prn. He has been taking Colace, Miralax, increasing fluids and taking prune juice for occasional constipation. Denies any bladder or bowel dysfunction or saddle anesthesia. Denies any recent cough, cold, infection, difficulty urinating, nausea fever or other significant changes in medical history since last office visit. [facility] Medical History Zenker diverticulum DVT (deep venous thrombosis) Hyperlipemia HTN (hypertension) GERD (gastroesophageal reflux disease) Myocardial infarction CAD (coronary artery disease) Lumbar degenerative disc disease Neuralgia Chronic, continuous use of opioids Bilateral lumbar radiculopathy Failed back syndrome Lumbar spondylosis Surgical History H/O excision of Zenker's diverticulum Hx of shoulder surgery History of esophagogastroduodenoscopy (EGD) History of coronary artery stent placement S/P dilatation of esophageal stricture S/P insertion of spinal cord stimulator History of lumbar spinal fusion Social History Patient Tobacco Use Status: Former Tobacco user Years Smoked: 6 Review of Systems Const All systems reviewed & are unremarkable except as noted in HPI and below Physical Exam Vital Signs: Last Vital Signs Pulse 75 01/22/24 09:15 BP 164/97 H 01/22/24 09:15 Pulse Ox 98 01/22/24 09:15 Oxygen Delivery Method Nasal Cannula 01/22/24 09:15 BMI result Body Mass Index 22.1 General: Appears afebrile. Moderate distress due to spinal stenosis pain. Alert and oriented. Mood and affect appropriate. Follows and participates in conversation appropriately. Respiratory effort is unlabored. No cough. Able to transition from sit to stand unassisted. Ambulates with bilaterally normal heel strike and toe off, reports unsteadiness on right side. Back/Spine/Pelvis Other: Unable to perform lumbar ROM due to pain. Cervical Spine: cervical muscular tenderness, pain with cervical ROM, Cervical spine scars present and No Cervical spine tenderness Thoracic/Lumbar Spine: thoracic and lumbar spine normal to inspection, Thoracic/lumbar spine scar(s), Lasegue's sign positive (localized on right, diffuse on the left), pain with thoraco-lumbar ROM, paraspinal muscle tenderness, thoraco-lumbar ROM limited, No thoracic spinal tenderness, No lumbar spinal tenderness and straight leg raise positive right at 40 degrees Pelvis: no buttock tenderness and no sciatic notch tenderness Sacroiliac joints: bilaterally tender to palpation Extrem General: Yes capillary refill normal, Yes no clubbing, cyanosis or edema and Yes no calf tenderness Psych Appearance: grossly normal and well kempt Mental Status: mental status grossly normal Speech and movement: Normal speech and movement present Affect: normal affect and Sad affect present Attitude: cooperative Thought process: Normal thought process present Thought content: Normal thought content present, suicidality (none), no hallucinations and Depressive thoughts present Insight: Good insight present (Psych) Judgement: Good judgement present (Psych) Results Reviewed Results Reviewed: XR THORACIC SPINE 08/14/23 CLINICAL INFORMATION: Presence of other specified functional implants. FINDINGS: There is bony demineralization. There are mild T8 and T9 anterior wedge compression fractures. Vertebral body heights are otherwise normal. There is moderately severe disc space narrowing at T6-T7 through T9-T10 and at T11-T12. The remaining disc spaces are relatively well-maintained. No acute fracture or spondylolisthesis is seen. There is multi-level thoracic spondylosis. The posterior elements are intact. There is a spinal stimulator device, with tip situated at the T7-T8 level. The paravertebral soft tissues are unremarkable. IMPRESSION: 1. There is multi-level thoracic degenerative disc disease, spondylosis and facet arthropathy. 2. There are age-indeterminate mild T8 and T9 anterior wedge compression fractures. 3. A spinal stimulator device is seen, with tip situated at the T7-T8 level. XR LUMBOSACRAL SPINE 08/14/23 CLINICAL INFORMATION: Lumbar degenerative disc disease. COMPARISON: Radiographs dated 07/07/2022. TECHNIQUE: AP and lateral views of the lumbar spine and lateral view of the lumbosacral junction. FINDINGS: There is bony demineralization. There is a mild lumbar levoscoliosis. At L1-L2 and L2-L3, there is moderate disc space narrowing. At L3-L4, there is marked disc space narrowing, with vacuum disc phenomenon and accompanying marked anterior spondylosis. There has been a prior posterior fusion at L4-S1, with intact posterior fixator rods, pedicular screws and intervertebral cages. No hardware failure or loosening is seen. There is no acute fracture or spondylolisthesis. There is multi-level lumbar spondylosis. Spinal stimulator leads and an impulse generator are noted. There are aortoiliac atherosclerotic calcifications. IMPRESSION: 1. There is well-maintained alignment status-post L4-S1 posterior fusions and discectomies. No hardware failure or loosening is seen. 2. There is moderate degenerative disc disease at L1-L2 and L2-L3, and marked degenerative disc disease is seen at L3-L4. CT LUMBAR SPINE WITHOUT CONTRAST 10/01/23 CLINICAL INFORMATION: Post laminectomy syndrome. COMPARISON: Lumbar spine radiographs 08/14/2023. FINDINGS: There are chronic postoperative changes of a posterior spinal fusion with transpedicular hardware extending from L4 to S1. Bridging bone completely fuses the L4-S1 vertebra. There is grade 1 anterolisthesis of L3 on L4 that appears to be related to advanced facet degenerative changes at this level. Slight grade 1 retrolisthesis of L1 on L2 and L2 on L3. There is loss of intervertebral disc height with associated sclerotic degenerative endplate changes, hypertrophic disc osteophyte spurring, and intervertebral vacuum disc phenomenon at L1-L2, L2-L3, and L3-L4. There is also abutment with associated sclerotic changes of the adjoining spinous processes at L1-L2, L2-L3, and L3-L4 indicating likelihood of underlying [place] disease. Canal patency is not well assessed on this examination due to inherent limitations of CT without intrathecal contrast and due to the extent of streak artifact related to the fusion hardware. There is at least moderate canal stenosis at the level of L2-L3 and L3-L4. Limited visualization of the retroperitoneal anatomy reveals layering calculi within the gallbladder neck and scattered atheromatous calcification involving the abdominal aorta and iliac vessels. IMPRESSION: There are chronic postoperative changes of a posterior spinal fusion with transpedicular hardware extending from L4 to S1. No evidence of hardware loosening or failure. Bridging bone completely fuses the L4-S1 vertebra. There is junctional spondylosis above and below the fusion with grade 1 anterolisthesis of L3 on L4. Canal patency is not well assessed on this examination due to inherent limitations of CT without intrathecal contrast and due to the extent of streak artifact related to the fusion hardware. There is at least moderate canal stenosis at the level of L2-L3 and L3-L4. If there are clinical symptoms of compressive myelopathy then a dedicated lumbar spine MRI can be obtained for better anatomic characterization of canal patency. Assessment & Plan Assessment & Plan (1) Failed back syndrome: Code(s): M96.1 - Postlaminectomy syndrome, not elsewhere classified Category: Medical (2) Bilateral lumbar radiculopathy: Code(s): M54.16 - Radiculopathy, lumbar region Category: Medical (3) Lumbar spinal stenosis: Code(s): M48.061 - Spinal stenosis, lumbar region without neurogenic claudication Category: Medical (4) Chronic pain: Code(s): G89.29 - Other chronic pain Category: Medical (5) Lumbar degenerative disc disease: Code(s): M51.36 - Other intervertebral disc degeneration, lumbar region Category: Medical (6) Lumbar spondylosis: Code(s): M47.816 - Spondylosis without myelopathy or radiculopathy, lumbar region Category: Medical (7) Chronic, continuous use of opioids: Code(s): F11.90 - Opioid use, unspecified, uncomplicated Category: Medical Plan Patient has shown accountability for his medication regimen and the film/pill count was accurate. The patient reported no noted side effects except occasional constipation. He has been taking Colace, Miralax, increasing fluids and taking prune juice for occasional constipation. There is no evidence of misuse, abuse or diversion at this time. Ocelus reviewed. Script sent for Belbuca with an advanced date of 01/28/24 and one refill. Patient advised to have regular dental check ups while taking Belbuca and take extra steps to help lessen the risk of serious dental problems. Will increase hydrocodone-acetaminophen 7.5-300 mg from BID to TID for acute on chronic low back pain with spinal-stenosis pain symptoms. Script provided for Medrol Kamaljit for radicular symptoms. Continue to monitor for any side effects. Follow up with Dr. Anguiano for surgical evaluation s/p recent CT Myelogram. Patient is aware to call if pain worsens or if he develops any red flag symptoms to seek emergency care. Patient denies any cauda equina syndrome symptoms at this time. All questions were answered and patient is in agreement of plan. Follow up for pill/film count and sooner if needed. Medications: New methylprednisolone (Medrol (Kamaljit)) PO PER PKG DIR 21 ea 0RF M48.061 - Spinal stenosis, lumbar region without neurogenic claudication, M54.16 - Radiculopathy, lumbar region, M96.1 - Postlaminectomy syndrome, not elsewhere classified Changed From hydrocodone-acetaminophen 7.5-300 mg Partial Fill upon patient request. 1 tab PO BID 30 days PRN 60 tabs 0RF pain M48.061 - Spinal stenosis, lumbar region without neurogenic claudication, M51.36 - Other intervertebral disc degeneration, lumbar region, M96.1 - Postlaminectomy syndrome, not elsewhere classified To hydrocodone-acetaminophen 7.5-300 mg Partial Fill upon patient request. 1 tab PO Q8H 30 days PRN 90 tabs 0RF pain M48.061 - Spinal stenosis, lumbar region without neurogenic claudication, M51.36 - Other intervertebral disc degeneration, lumbar region, M96.1 - Postlaminectomy syndrome, not elsewhere classified Refilled buprenorphine HCl (Belbuca) Partial Fill upon patient request. 450 mcg buccal Q12H 30 days 60 ea 1RF pain F11.90 - Opioid use, unspecified, uncomplicated, M47.816 - Spondylosis without myelopathy or radiculopathy, lumbar region, M51.36 - Other intervertebral disc degeneration, lumbar region, Z98.1 - Arthrodesis status Coding Level of Care Code Est Pt Level 4 (62491) Diagnoses Failed back syndrome M96.1 Bilateral lumbar radiculopathy M54.16 Lumbar spinal stenosis M48.061 Chronic pain G89.29 Lumbar degenerative disc disease M51.36 Lumbar spondylosis M47.816 Chronic, continuous use of opioids F11.90
[2024-01-22 09:15] VITALS: BP 164/97; PULSE 75; O2SAT 98; BMI 22.1
== END 2024-01-22 09:33 | disposition home or self-care (01) ==
PROVIDERS: PCP Internal Medicine; Visit Provider Nurse Practitioner Family
DX: G89.29 Other chronic pain (principal); M96.1 Postlaminectomy syndrome, not elsewhere classified; M54.16 Radiculopathy, lumbar region; Z79.891 Long term (current) use of opiate analgesic; M48.061 Spinal stenosis, lumbar region without neurogenic claudication; M51.36 Other intervertebral disc degeneration, lumbar region; M47.816 Spondylosis without myelopathy or radiculopathy, lumbar region
CPT/HCPCS: 99214

== ENCOUNTER → 2024-01-22 09:04 | Outpatient (BNVA) | payer OTHER, SELFPAY | PROVIDERS: PCP Internal Medicine; Visit Provider Nurse Practitioner Family | DX: M96.1 Postlaminectomy syndrome, not elsewhere classified (principal); M47.26 Other spondylosis with radiculopathy, lumbar region; M48.061 Spinal stenosis, lumbar region without neurogenic claudication; G89.29 Other chronic pain; M51.36 Other intervertebral disc degeneration, lumbar region; Z79.891 Long term (current) use of opiate analgesic | CPT/HCPCS: 99212 ==

== ENCOUNTER 2024-02-19 09:51 | Outpatient (AMB) | payer OTHER, SELFPAY ==
--- NOTE | 2024-02-19 09:55 | MHC.OFFVIS ---
Vital Signs 02/19/24 09:56 Height 5 ft 9 in Weight 150 lb BMI 22.1 BP 149/71 H Blood Pressure Location Lt brachial Position Sitting Respiration 14 Pulse 68 Pulse Source Pulse Oximeter Pulse Oximetry (%) 97 Oxygen Delivery Method Room Air Intake Visit Reasons: PILL COUNT Allergies acetaminophen [From Percocet] Allergy (Verified 02/19/24 09:57) Nausea ibuprofen [From Motrin] Allergy (Verified 02/19/24 09:57) Nausea oxycodone Allergy (Verified 02/19/24 09:57) Nausea Medication List - Last Reconciled 02/19/24 by Shanon Nava LPN ascorbic acid (vitamin C) (Vitamin C) 1,000 mg PO DAILY@1700 aspirin 81 mg PO DAILY atorvastatin 80 mg PO DAILY buprenorphine HCl (Belbuca) 450 mcg buccal Q12H 30 days ferrous sulfate 324 mg PO DAILY hydrocodone-acetaminophen 7.5-300 mg 1 tab PO Q8H PRN 30 days ivermectin 1% (Soolantra) 1 appl topical DAILY lisinopril 5 mg PO DAILY methylprednisolone (Medrol (Kamaljit)) PO PER PKG DIR metoprolol succinate ER 50 mg PO BID pantoprazole 20 mg PO BID sildenafil 100 mg PO DAILY PRN sucralfate 1 g PO QID vitamin E (dl, acetate) 180 mg PO DAILY@1700 HPI HPI PILL COUNT: Details: 78-year-old male who presents today to the office for a pill count. 16 films were expected, and?17 this films were presented. He requested a refill of buprenorphine HCL (450 mg) only. He would like to follow up every two months for the pill count. He underwent a CT myelogram at [facility] [place] [place], which he states took more than one hour, and was told he would need back surgery. He has had an SCS device placed in the past by Dr. Kent. He has not improved his daily functioning. He saw Dr. Anguiano at [facility] Neurosurgery, who recommended following up with Dr. Kent for a second opinion. He will follow up with Dr. Kent for a second opinion on lower back pain.? [facility] Medical History Zenker diverticulum DVT (deep venous thrombosis) Hyperlipemia HTN (hypertension) GERD (gastroesophageal reflux disease) Myocardial infarction CAD (coronary artery disease) Lumbar degenerative disc disease Neuralgia Chronic, continuous use of opioids Bilateral lumbar radiculopathy Failed back syndrome Lumbar spondylosis Surgical History H/O excision of Zenker's diverticulum Hx of shoulder surgery History of esophagogastroduodenoscopy (EGD) History of coronary artery stent placement S/P dilatation of esophageal stricture S/P insertion of spinal cord stimulator History of lumbar spinal fusion Social History Patient Tobacco Use Status: Former Tobacco user Years Smoked: 6 Review of Systems Const All systems reviewed & are unremarkable except as noted in HPI and below Physical Exam Vital Signs: Last Vital Signs Pulse 68 02/19/24 09:56 Resp 14 02/19/24 09:56 BP 149/71 H 02/19/24 09:56 Pulse Ox 97 02/19/24 09:56 Oxygen Delivery Method Room Air 02/19/24 09:56 BMI result Body Mass Index 22.1 General: Appears afebrile. Alert and oriented. Mood and affect appropriate. Follows and participates in conversation appropriately. Respiratory effort is unlabored. Able to transition from sit to stand unassisted. Ambulates with bilaterally normal heel strike and toe off. Results Reviewed Results Reviewed: No imaging is available for review. Assessment & Plan Assessment & Plan (1) Lumbar spinal stenosis: Code(s): M48.061 - Spinal stenosis, lumbar region without neurogenic claudication Category: Medical (2) Chronic pain: Code(s): G89.29 - Other chronic pain Category: Medical Plan 16 films were expected, and?17 films were presented. Refill Buprenorphine HCL 450 mcg with 1 RF. Film count is consistent. Patient will follow up in two months for film count and refill with Kalli Viverosed for Dr. Servin by William Freeman, medical professionals, on 02/19/2024. I, Dr. Servin, have personally reviewed and agree with the information entered by the scribe. Medications: Refilled buprenorphine HCl (Belbuca) Partial Fill upon patient request. 450 mcg buccal Q12H 30 days 60 ea 1RF pain F11.90 - Opioid use, unspecified, uncomplicated, M47.816 - Spondylosis without myelopathy or radiculopathy, lumbar region, M51.36 - Other intervertebral disc degeneration, lumbar region, Z98.1 - Arthrodesis status Coding Level of Care Code Est Pt Level 3 (92870) Diagnoses Lumbar spinal stenosis M48.061 Chronic pain G89.29
[2024-02-19 09:56] VITALS: BP 149/71; PULSE 68; RESP 14; O2SAT 97; BMI 22.1
== END 2024-02-19 10:13 | disposition home or self-care (01) ==
PROVIDERS: PCP Internal Medicine; Visit Provider Internal Medicine
DX: M48.061 Spinal stenosis, lumbar region without neurogenic claudication (principal); G89.29 Other chronic pain
CPT/HCPCS: 99213

== ENCOUNTER → 2024-02-19 09:51 | Outpatient (BNVA) | payer OTHER, SELFPAY | PROVIDERS: PCP Internal Medicine; Visit Provider Internal Medicine | DX: M48.061 Spinal stenosis, lumbar region without neurogenic claudication (principal); G89.29 Other chronic pain; Z79.891 Long term (current) use of opiate analgesic | CPT/HCPCS: 99212 ==

== ENCOUNTER 2024-04-21 09:14 | Outpatient (AMB) | payer OTHER, SELFPAY ==
--- NOTE | 2024-04-21 09:32 | MHC.OFFVIS ---
Vital Signs 04/21/24 09:34 Height 5 ft 9 in Weight 155 lb 4 oz BMI 22.9 BP 143/94 H Blood Pressure Location Rt brachial Position Sitting Pulse 67 Pulse Source Pulse Oximeter Pulse Oximetry (%) 98 Oxygen Delivery Method Room Air Intake Visit Reasons: PILL COUNT Intake Note: Emigdio comes in today for a film count to [facility], patient should have 12 filma and presents with 13 films which he last took today 04/21/24 at 7:30am. Pain today 03/12 Toys Inspector Required: No Accompanied by: Self / Same As Patient Allergies acetaminophen [From Percocet] Allergy (Verified 04/21/24 09:37) Nausea ibuprofen [From Motrin] Allergy (Verified 04/21/24 09:37) Nausea oxycodone Allergy (Verified 04/21/24 09:37) Nausea HPI Comments Details: Patient presents today for a film count and pill count. Patient is supposed to have #12 Belbuca films and presents with #13 films. This demonstrates a responsible attitude towards his medication regimen. Patient reports inadequate analgesia without any side effects due to progressively worsening back pain with spinal-stenosis related features. Patient was seen by Dr. Kent and Dr. Anguiano, [facility] and was told additional back surgery is too risky. He has upcoming follow up with Dr. Kent in June. Patient also report recent onset of right side of his head with pressure and ache that radiates into his right neck and top of his head. He has upcoming CT scan at [facility] on . He has been taking Colace, Miralax, increasing fluids and taking prune juice for occasional constipation. Denies any bladder or bowel dysfunction or saddle anesthesia. Denies any recent cough, cold, infection, difficulty urinating, nausea fever or other significant changes in medical history since last office visit. PRIOR Dr. Servin: 78-year-old male who presents today to the office for a pill count. 16 films were expected, and 17 this films were presented. He requested a refill of buprenorphine HCL (450 mg) only. He would like to follow up every two months for the pill count. He underwent a CT myelogram at [facility], which he states took more than one hour, and was told he would need back surgery. He has had an SCS device placed in the past by Dr. Kent. He has not improved his daily functioning. He saw Dr. Anguiano at [facility], who recommended following up with Dr. Kent for a second opinion. He will follow up with Dr. Kent for a second opinion on lower back pain. [facility] Medical History Zenker diverticulum DVT (deep venous thrombosis) Hyperlipemia HTN (hypertension) GERD (gastroesophageal reflux disease) Myocardial infarction CAD (coronary artery disease) Lumbar degenerative disc disease Neuralgia Chronic, continuous use of opioids Bilateral lumbar radiculopathy Failed back syndrome Lumbar spondylosis Surgical History H/O excision of Zenker's diverticulum Hx of shoulder surgery History of esophagogastroduodenoscopy (EGD) History of coronary artery stent placement S/P dilatation of esophageal stricture S/P insertion of spinal cord stimulator History of lumbar spinal fusion Social History Patient Tobacco Use Status: Former Tobacco user Years Smoked: 6 Review of Systems Const All systems reviewed & are unremarkable except as noted in HPI and below Physical Exam General: Appears afebrile. Moderate distress due to spinal stenosis pain. Alert and oriented. Mood and affect appropriate. Follows and participates in conversation appropriately. Respiratory effort is unlabored. No cough. Able to transition from sit to stand unassisted. Ambulates with bilaterally normal heel strike and toe off, reports unsteadiness on right side. Back/Spine/Pelvis Other: Unable to perform lumbar ROM due to pain. Cervical Spine: cervical muscular tenderness, pain with cervical ROM, Cervical spine scars present and No Cervical spine tenderness Thoracic/Lumbar Spine: thoracic and lumbar spine normal to inspection, Thoracic/lumbar spine scar(s), Lasegue's sign positive (localized on right, diffuse on the left), pain with thoraco-lumbar ROM, paraspinal muscle tenderness, thoraco-lumbar ROM limited, No thoracic spinal tenderness, No lumbar spinal tenderness and straight leg raise positive right at 40 degrees Pelvis: no buttock tenderness and no sciatic notch tenderness Sacroiliac joints: bilaterally tender to palpation Extrem General: Yes capillary refill normal, Yes no clubbing, cyanosis or edema and Yes no calf tenderness Psych Appearance: grossly normal and well kempt Mental Status: mental status grossly normal Speech and movement: Normal speech and movement present Affect: normal affect and Sad affect present Attitude: cooperative Thought process: Normal thought process present Thought content: Normal thought content present, suicidality (none), no hallucinations and Depressive thoughts present Insight: Good insight present (Psych) Judgement: Good judgement present (Psych) Results Reviewed Results Reviewed: XR THORACIC SPINE 08/14/23 CLINICAL INFORMATION: Presence of other specified functional implants. FINDINGS: There is bony demineralization. There are mild T8 and T9 anterior wedge compression fractures. Vertebral body heights are otherwise normal. There is moderately severe disc space narrowing at T6-T7 through T9-T10 and at T11-T12. The remaining disc spaces are relatively well-maintained. No acute fracture or spondylolisthesis is seen. There is multi-level thoracic spondylosis. The posterior elements are intact. There is a spinal stimulator device, with tip situated at the T7-T8 level. The paravertebral soft tissues are unremarkable. IMPRESSION: 1. There is multi-level thoracic degenerative disc disease, spondylosis and facet arthropathy. 2. There are age-indeterminate mild T8 and T9 anterior wedge compression fractures. 3. A spinal stimulator device is seen, with tip situated at the T7-T8 level. XR LUMBOSACRAL SPINE 08/14/23 CLINICAL INFORMATION: Lumbar degenerative disc disease. COMPARISON: Radiographs dated 07/07/2022. TECHNIQUE: AP and lateral views of the lumbar spine and lateral view of the lumbosacral junction. FINDINGS: There is bony demineralization. There is a mild lumbar levoscoliosis. At L1-L2 and L2-L3, there is moderate disc space narrowing. At L3-L4, there is marked disc space narrowing, with vacuum disc phenomenon and accompanying marked anterior spondylosis. There has been a prior posterior fusion at L4-S1, with intact posterior fixator rods, pedicular screws and intervertebral cages. No hardware failure or loosening is seen. There is no acute fracture or spondylolisthesis. There is multi-level lumbar spondylosis. Spinal stimulator leads and an impulse generator are noted. There are aortoiliac atherosclerotic calcifications. IMPRESSION: 1. There is well-maintained alignment status-post L4-S1 posterior fusions and discectomies. No hardware failure or loosening is seen. 2. There is moderate degenerative disc disease at L1-L2 and L2-L3, and marked degenerative disc disease is seen at L3-L4. CT LUMBAR SPINE WITHOUT CONTRAST 10/01/23 CLINICAL INFORMATION: Post laminectomy syndrome. COMPARISON: Lumbar spine radiographs 08/14/2023. FINDINGS: There are chronic postoperative changes of a posterior spinal fusion with transpedicular hardware extending from L4 to S1. Bridging bone completely fuses the L4-S1 vertebra. There is grade 1 anterolisthesis of L3 on L4 that appears to be related to advanced facet degenerative changes at this level. Slight grade 1 retrolisthesis of L1 on L2 and L2 on L3. There is loss of intervertebral disc height with associated sclerotic degenerative endplate changes, hypertrophic disc osteophyte spurring, and intervertebral vacuum disc phenomenon at L1-L2, L2-L3, and L3-L4. There is also abutment with associated sclerotic changes of the adjoining spinous processes at L1-L2, L2-L3, and L3-L4 indicating likelihood of underlying [place] disease. Canal patency is not well assessed on this examination due to inherent limitations of CT without intrathecal contrast and due to the extent of streak artifact related to the fusion hardware. There is at least moderate canal stenosis at the level of L2-L3 and L3-L4. Limited visualization of the retroperitoneal anatomy reveals layering calculi within the gallbladder neck and scattered atheromatous calcification involving the abdominal aorta and iliac vessels. IMPRESSION: There are chronic postoperative changes of a posterior spinal fusion with transpedicular hardware extending from L4 to S1. No evidence of hardware loosening or failure. Bridging bone completely fuses the L4-S1 vertebra. There is junctional spondylosis above and below the fusion with grade 1 anterolisthesis of L3 on L4. Canal patency is not well assessed on this examination due to inherent limitations of CT without intrathecal contrast and due to the extent of streak artifact related to the fusion hardware. There is at least moderate canal stenosis at the level of L2-L3 and L3-L4. If there are clinical symptoms of compressive myelopathy then a dedicated lumbar spine MRI can be obtained for better anatomic characterization of canal patency. Assessment & Plan Assessment & Plan (1) Failed back syndrome: Code(s): M96.1 - Postlaminectomy syndrome, not elsewhere classified Category: Medical (2) Bilateral lumbar radiculopathy: Code(s): M54.16 - Radiculopathy, lumbar region Category: Medical (3) Chronic pain: Code(s): G89.29 - Other chronic pain Category: Medical (4) Lumbar spinal stenosis: Code(s): M48.061 - Spinal stenosis, lumbar region without neurogenic claudication Category: Medical (5) Lumbar degenerative disc disease: Code(s): M51.36 - Other intervertebral disc degeneration, lumbar region Category: Medical (6) Lumbar spondylosis: Code(s): M47.816 - Spondylosis without myelopathy or radiculopathy, lumbar region Category: Medical (7) Chronic, continuous use of opioids: Code(s): F11.90 - Opioid use, unspecified, uncomplicated Category: Medical Plan Patient has shown accountability for his medication regimen and the film count was accurate. The patient reported no noted side effects except occasional constipation. He has been taking Colace, Miralax, increasing fluids and taking prune juice for occasional constipation. There is no evidence of misuse, abuse or diversion at this time. [employer] reviewed. Given significant spinal-stenosis related pain and upcoming re-evaluation by Dr. Kent, we will increase Belbuca to 600 mcg BID. Patient will trial this for 2 weeks, and if well tolerated, will send the remainder of script with one refill. Patient advised to have regular dental check ups while taking Belbuca and take extra steps to help lessen the risk of serious dental problems. Patient also has head/neck CT scan on to evaluate for right sided head pressure with radicular symptoms. Patient is aware to call if pain worsens or if he develops any red flag symptoms to seek emergency care. Patient denies any cauda equina syndrome symptoms at this time. All questions were answered and patient is in agreement of plan. Follow up for film count and sooner if needed. Medications: Changed From buprenorphine HCl (Belbuca) Partial Fill upon patient request. 450 mcg buccal Q12H 30 days 60 ea 1RF pain G89.29 - Other chronic pain, M48.061 - Spinal stenosis, lumbar region without neurogenic claudication, M54.16 - Radiculopathy, lumbar region, M96.1 - Postlaminectomy syndrome, not elsewhere classified To buprenorphine HCl 600 mcg buccal Q12H 15 days 30 ea 0RF pain G89.29 - Other chronic pain, M48.061 - Spinal stenosis, lumbar region without neurogenic claudication, M54.16 - Radiculopathy, lumbar region, M96.1 - Postlaminectomy syndrome, not elsewhere classified Discontinued hydrocodone-acetaminophen 7.5-300 mg Partial Fill upon patient request. Discontinued Reason: Patient Completed Course 1 tab PO Q8H 30 days PRN 90 tabs 0RF pain M48.061 - Spinal stenosis, lumbar region without neurogenic claudication, M51.36 - Other intervertebral disc degeneration, lumbar region, M96.1 - Postlaminectomy syndrome, not elsewhere classified Coding Level of Care Code Est Pt Level 4 (11999) Complex EM visit Add On G2211 Diagnoses Failed back syndrome M96.1 Bilateral lumbar radiculopathy M54.16 Chronic pain G89.29 Lumbar spinal stenosis M48.061 Lumbar degenerative disc disease M51.36 Lumbar spondylosis M47.816 Chronic, continuous use of opioids F11.90
[2024-04-21 09:34] VITALS: BP 143/94; PULSE 67; O2SAT 98; BMI 22.9
== END 2024-04-21 09:56 | disposition home or self-care (01) ==
PROVIDERS: PCP Internal Medicine; Visit Provider Nurse Practitioner Family
DX: G89.29 Other chronic pain (principal); M96.1 Postlaminectomy syndrome, not elsewhere classified; M54.16 Radiculopathy, lumbar region; Z79.891 Long term (current) use of opiate analgesic; M48.061 Spinal stenosis, lumbar region without neurogenic claudication; M51.36 Other intervertebral disc degeneration, lumbar region; M47.816 Spondylosis without myelopathy or radiculopathy, lumbar region
CPT/HCPCS: 99214; G2211

== ENCOUNTER → 2024-04-21 09:14 | Outpatient (BNVA) | payer OTHER, SELFPAY | PROVIDERS: PCP Internal Medicine; Visit Provider Nurse Practitioner Family | DX: M96.1 Postlaminectomy syndrome, not elsewhere classified (principal); M47.26 Other spondylosis with radiculopathy, lumbar region; G89.29 Other chronic pain; M48.061 Spinal stenosis, lumbar region without neurogenic claudication; M51.36 Other intervertebral disc degeneration, lumbar region; Z79.891 Long term (current) use of opiate analgesic | CPT/HCPCS: 99212 ==

== ENCOUNTER 2024-06-20 09:18 | Outpatient (AMB) | payer OTHER, SELFPAY ==
--- NOTE | 2024-06-20 09:23 | A.OFFVIS_ITS ---
Vital Signs 06/20/24 09:34 Height 5 ft 9 in Weight 158 lb 6 oz BMI 23.4 BP 146/70 H Blood Pressure Location Lt brachial Position Sitting Respiration 17 Pulse 70 Pulse Source Pulse Oximeter Pulse Oximetry (%) 97 Oxygen Delivery Method Room Air Intake Visit Reasons: PILL COUNT Intake Note: Patient comes in for pill count. He presented with 13 films and should have 12 films. Which he took last this morning at 7:30am . Patient reports pain level today of 7-8/10. Allergies acetaminophen [From Percocet] Allergy (Verified 06/20/24 09:36) Nausea ibuprofen [From Motrin] Allergy (Verified 06/20/24 09:36) Nausea oxycodone Allergy (Verified 06/20/24 09:36) Nausea HPI Comments Details: Patient presents today for a film count and pill count. Patient is supposed to have #12 Belbuca films and presents with #13 films. This demonstrates a responsible attitude towards his medication regimen. Patient reports inadequate analgesia without any side effects due to progressively worsening back pain with spinal-stenosis related features and neck pain due to significant arthritis and degenerative changes. Pain is rated at 7-8/10. Patient was increased to 600 mcg for Belbuca last month but was not been able to fill it at his pharmacy. Patient was seen by Dr. Kent and Dr. Anguiano, [facility] and was told additional back surgery is too risky. He saw Dr. Kent 2 weeks ago and will have have another follow up for his neck symptoms for severe cervical spondylosis and has cervical spine CT scan this Thursday. Reports headaches, radiating pain to both arms, and difficulty turning to the right side. He has been taking Colace, Miralax, increasing fluids and taking prune juice for occasional constipation. Denies any bladder or bowel dysfunction or saddle anesthesia. Denies any recent cough, cold, infection, difficulty urinating, nausea fever or other significant changes in medical history since last office visit. PRIOR Dr. Servin: 78-year-old male who presents today to the office for a pill count. 16 films were expected, and 17 this films were presented. He requested a refill of buprenorphine HCL (450 mg) only. He would like to follow up every two months for the pill count. He underwent a CT myelogram at [facility], which he states took more than one hour, and was told he would need back surgery. He has had an SCS device placed in the past by Dr. Kent. He has not improved his daily functioning. He saw Dr. Anguiano at [facility], who recommended following up with Dr. eKnt for a second opinion. He will follow up with Dr. Kent for a second opinion on lower back pain. [facility] Medical History Zenker diverticulum DVT (deep venous thrombosis) Hyperlipemia HTN (hypertension) GERD (gastroesophageal reflux disease) Myocardial infarction CAD (coronary artery disease) Lumbar degenerative disc disease Neuralgia Chronic, continuous use of opioids Bilateral lumbar radiculopathy Failed back syndrome Lumbar spondylosis Surgical History H/O excision of Zenker's diverticulum Hx of shoulder surgery History of esophagogastroduodenoscopy (EGD) History of coronary artery stent placement S/P dilatation of esophageal stricture S/P insertion of spinal cord stimulator History of lumbar spinal fusion Social History Patient Tobacco Use Status: Former Tobacco user Years Smoked: 6 Review of Systems Const All systems reviewed & are unremarkable except as noted in HPI and below Physical Exam General: Appears afebrile. Moderate distress due to spinal stenosis pain. Alert and oriented. Mood and affect appropriate. Follows and participates in conversation appropriately. Respiratory effort is unlabored. No cough. Able to transition from sit to stand unassisted. Ambulates with bilaterally normal heel strike and toe off, reports unsteadiness on right side. Neck Neck: Yes no lymphadenopathy, Yes supple, No anterior neck swelling, Yes no JVD, No prominent supraclavicular fat pad and No prominent dorsocervical fat pad General: Yes no CVA tenderness Back/Spine/Pelvis Other: Unable to perform lumbar ROM due to pain. Neck ROM limited, especially on the right, patient has to turn his body to the right or lean backwards for neck extension. Back: no CVA tenderness Cervical Spine: cervical muscular tenderness, pain with cervical ROM, Cervical spine scars present, cervical spasm (right>left), No Cervical spine tenderness and No step off deformity Thoracic/Lumbar Spine: thoracic and lumbar spine normal to inspection, Thoracic/lumbar spine scar(s), Lasegue's sign positive (localized on right, diffuse on the left), pain with thoraco-lumbar ROM, paraspinal muscle tenderness, thoraco-lumbar ROM limited, No thoracic spinal tenderness, No lumbar spinal tenderness and straight leg raise positive right at 40 degrees Pelvis: no buttock tenderness and no sciatic notch tenderness Sacroiliac joints: bilaterally tender to palpation Extrem General: Yes capillary refill normal, Yes no clubbing, cyanosis or edema and Yes no calf tenderness Psych Appearance: grossly normal and well kempt Mental Status: mental status grossly normal Speech and movement: Normal speech and movement present Affect: normal affect and Sad affect present Attitude: cooperative Thought process: Normal thought process present Thought content: Normal thought content present, suicidality (none), no hallucinations and Depressive thoughts present Insight: Good insight present (Psych) Judgement: Good judgement present (Psych) Results Reviewed Results Reviewed: XR THORACIC SPINE 08/14/23 CLINICAL INFORMATION: Presence of other specified functional implants. FINDINGS: There is bony demineralization. There are mild T8 and T9 anterior wedge compression fractures. Vertebral body heights are otherwise normal. There is moderately severe disc space narrowing at T6-T7 through T9-T10 and at T11-T12. The remaining disc spaces are relatively well-maintained. No acute fracture or spondylolisthesis is seen. There is multi-level thoracic spondylosis. The posterior elements are intact. There is a spinal stimulator device, with tip situated at the T7-T8 level. The paravertebral soft tissues are unremarkable. IMPRESSION: 1. There is multi-level thoracic degenerative disc disease, spondylosis and facet arthropathy. 2. There are age-indeterminate mild T8 and T9 anterior wedge compression fractures. 3. A spinal stimulator device is seen, with tip situated at the T7-T8 level. XR LUMBOSACRAL SPINE 08/14/23 CLINICAL INFORMATION: Lumbar degenerative disc disease. COMPARISON: Radiographs dated 07/07/2022. TECHNIQUE: AP and lateral views of the lumbar spine and lateral view of the lumbosacral junction. FINDINGS: There is bony demineralization. There is a mild lumbar levoscoliosis. At L1-L2 and L2-L3, there is moderate disc space narrowing. At L3-L4, there is marked disc space narrowing, with vacuum disc phenomenon and accompanying marked anterior spondylosis. There has been a prior posterior fusion at L4-S1, with intact posterior fixator rods, pedicular screws and intervertebral cages. No hardware failure or loosening is seen. There is no acute fracture or spondylolisthesis. There is multi-level lumbar spondylosis. Spinal stimulator leads and an impulse generator are noted. There are aortoiliac atherosclerotic calcifications. IMPRESSION: 1. There is well-maintained alignment status-post L4-S1 posterior fusions and discectomies. No hardware failure or loosening is seen. 2. There is moderate degenerative disc disease at L1-L2 and L2-L3, and marked degenerative disc disease is seen at L3-L4. CT LUMBAR SPINE WITHOUT CONTRAST 10/01/23 CLINICAL INFORMATION: Post laminectomy syndrome. COMPARISON: Lumbar spine radiographs 08/14/2023. FINDINGS: There are chronic postoperative changes of a posterior spinal fusion with transpedicular hardware extending from L4 to S1. Bridging bone completely fuses the L4-S1 vertebra. There is grade 1 anterolisthesis of L3 on L4 that appears to be related to advanced facet degenerative changes at this level. Slight grade 1 retrolisthesis of L1 on L2 and L2 on L3. There is loss of intervertebral disc height with associated sclerotic degenerative endplate changes, hypertrophic disc osteophyte spurring, and intervertebral vacuum disc phenomenon at L1-L2, L2-L3, and L3-L4. There is also abutment with associated sclerotic changes of the adjoining spinous processes at L1-L2, L2-L3, and L3-L4 indicating likelihood of underlying [place] disease. Canal patency is not well assessed on this examination due to inherent limitations of CT without intrathecal contrast and due to the extent of streak artifact related to the fusion hardware. There is at least moderate canal stenosis at the level of L2-L3 and L3-L4. Limited visualization of the retroperitoneal anatomy reveals layering calculi within the gallbladder neck and scattered atheromatous calcification involving the abdominal aorta and iliac vessels. IMPRESSION: There are chronic postoperative changes of a posterior spinal fusion with transpedicular hardware extending from L4 to S1. No evidence of hardware loosening or failure. Bridging bone completely fuses the L4-S1 vertebra. There is junctional spondylosis above and below the fusion with grade 1 anterolisthesis of L3 on L4. Canal patency is not well assessed on this examination due to inherent limitations of CT without intrathecal contrast and due to the extent of streak artifact related to the fusion hardware. There is at least moderate canal stenosis at the level of L2-L3 and L3-L4. If there are clinical symptoms of compressive myelopathy then a dedicated lumbar spine MRI can be obtained for better anatomic characterization of canal patency. Assessment & Plan Assessment & Plan (1) Failed back syndrome: Code(s): M96.1 - Postlaminectomy syndrome, not elsewhere classified Category: Medical (2) Chronic pain: Code(s): G89.29 - Other chronic pain Category: Medical (3) Lumbar spinal stenosis: Code(s): M48.061 - Spinal stenosis, lumbar region without neurogenic claudication Category: Medical (4) Lumbar degenerative disc disease: Code(s): M51.36 - Other intervertebral disc degeneration, lumbar region Category: Medical (5) Lumbar spondylosis: Code(s): M47.816 - Spondylosis without myelopathy or radiculopathy, lumbar region Category: Medical (6) Chronic, continuous use of opioids: Code(s): F11.90 - Opioid use, unspecified, uncomplicated Category: Medical (7) Cervical spondylosis: Code(s): M47.812 - Spondylosis without myelopathy or radiculopathy, cervical region Category: Medical Plan Patient has shown accountability for his medication regimen and the film count was accurate. The patient reported no noted side effects except occasional constipation. He has been taking Colace, Miralax, increasing fluids and taking prune juice for occasional constipation. There is no evidence of misuse, abuse or diversion at this time. [facility] reviewed. Refill sent for increased dose for Belbuca to 600 mcg BID. Side effects and prec autions were reviewed with patient. Patient advised to have regular dental check ups while taking Belbuca and take extra steps to help lessen the risk of serious dental problems. Patient also has head/neck CT scan on Thursday to evaluate for right sided neck pain with headache and radicular symptoms. Patient is aware to call if pain worsens or if he develops any red flag symptoms to seek emergency care. Patient denies any cauda equina syndrome symptoms at this time. All questions were answered and patient is in agreement of plan. Follow up for film count in 8 weeks and sooner if needed. Medications: Changed From buprenorphine HCl 600 mcg buccal Q12H 15 days 30 ea 0RF pain G89.29 - Other chronic pain, M48.061 - Spinal stenosis, lumbar region without neurogenic claudication, M54.16 - Radiculopathy, lumbar region, M96.1 - Postlaminectomy syndrome, not elsewhere classified To buprenorphine HCl Partial Fill upon patient request. 600 mcg buccal Q12H 30 days 60 ea 1RF pain G89.29 - Other chronic pain, M48.061 - Spinal stenosis, lumbar region without neurogenic claudication, M54.16 - Radiculopathy, lumbar region, M96.1 - Postlaminectomy syndrome, not elsewhere classified Coding Level of Care Code Est Pt Level 4 (24930) Complex EM visit Add On G2211 Diagnoses Failed back syndrome M96.1 Chronic pain G89.29 Lumbar spinal stenosis M48.061 Lumbar degenerative disc disease M51.36 Lumbar spondylosis M47.816 Chronic, continuous use of opioids F11.90 Cervical spondylosis M47.812
[2024-06-20 09:34] VITALS: BP 146/70; PULSE 70; RESP 17; O2SAT 97; BMI 23.4
== END 2024-06-20 09:41 | disposition home or self-care (01) ==
PROVIDERS: PCP Internal Medicine; Visit Provider Nurse Practitioner Family
DX: G89.29 Other chronic pain (principal); M96.1 Postlaminectomy syndrome, not elsewhere classified; M48.061 Spinal stenosis, lumbar region without neurogenic claudication; Z79.891 Long term (current) use of opiate analgesic; M51.369 Other intervertebral disc degeneration, lumbar region without mention of lumbar back pain or lower extremity pain; M47.816 Spondylosis without myelopathy or radiculopathy, lumbar region; M47.812 Spondylosis without myelopathy or radiculopathy, cervical region
CPT/HCPCS: 99214; G2211

== ENCOUNTER → 2024-06-20 09:18 | Outpatient (BNVA) | payer OTHER, SELFPAY | PROVIDERS: PCP Internal Medicine; Visit Provider Nurse Practitioner Family | DX: M96.1 Postlaminectomy syndrome, not elsewhere classified (principal); G89.29 Other chronic pain; M48.061 Spinal stenosis, lumbar region without neurogenic claudication; M51.360 Other intervertebral disc degeneration, lumbar region with discogenic back pain only; M47.816 Spondylosis without myelopathy or radiculopathy, lumbar region; M47.812 Spondylosis without myelopathy or radiculopathy, cervical region; Z79.891 Long term (current) use of opiate analgesic | CPT/HCPCS: 99212 ==

== ENCOUNTER 2024-08-19 09:46 | Outpatient (AMB) | payer OTHER, SELFPAY ==
--- NOTE | 2024-08-19 09:50 | A.OFFVIS_ITS ---
Vital Signs 08/19/24 09:57 Height 5 ft 9 in Weight 163 lb 4 oz BMI 24.1 BP 149/65 H Blood Pressure Location Lt brachial Position Sitting Pulse 72 Pulse Source Pulse Oximeter Pulse Oximetry (%) 98 Oxygen Delivery Method Room Air Intake Visit Reasons: PILL COUNT Intake Note: Jay comes in today for a film count to [facility], patient should have 16 films and presents with 16 films which he last took today 08/19/24 at 8am. Pain today 8/10. Patient resigned opioid contract in office today, patient was given copy of signed contract. Automat Watcher Required: No Accompanied by: Self / Same As Patient Allergies acetaminophen [From Percocet] Allergy (Verified 08/19/24 09:58) Nausea ibuprofen [From Motrin] Allergy (Verified 08/19/24 09:58) Nausea oxycodone Allergy (Verified 08/19/24 09:58) Nausea HPI Comments Details: Patient presents today for a film count and pill count. Patient is supposed to have #16 Belbuca films and presents with #16 films. This demonstrates a responsible attitude towards his medication regimen. Patient reports mild to moderate analgesia without any side effects due to progressively worsening back pain with spinal-stenosis related features and neck pain due to significant arthritis and degenerative changes. Pain is rated at 8/10. He has significant neck pain with bilateral radiculopathy. Patient is scheduled for neck surgery on 10/27/[address] Kent at [facility] for severe cervical spondylosis and radiculopathy. Reports tingling and numbness in both arm, worse on the right, shoulder pain and headaches, and difficulty turning to the right side. He expects to be hospitalized after neck surgery for few days and no driving for 2 weeks. He has been taking Colace, Miralax, increasing fluids and taking prune juice for occasional constipation. Denies any bladder or bowel dysfunction or saddle anesthesia. Denies any recent cough, cold, infection, difficulty urinating, nausea fever or other significant changes in medical history since last office visit. [facility]LY [facility] Medical History Zenker diverticulum DVT (deep venous thrombosis) Hyperlipemia HTN (hypertension) GERD (gastroesophageal reflux disease) Myocardial infarction CAD (coronary artery disease) Lumbar degenerative disc disease Neuralgia Chronic, continuous use of opioids Bilateral lumbar radiculopathy Failed back syndrome Lumbar spondylosis Surgical History H/O excision of Zenker's diverticulum Hx of shoulder surgery History of esophagogastroduodenoscopy (EGD) History of coronary artery stent placement S/P dilatation of esophageal stricture S/P insertion of spinal cord stimulator History of lumbar spinal fusion Social History Patient Tobacco Use Status: Former Tobacco user Years Smoked: 6 Review of Systems Const All systems reviewed & are unremarkable except as noted in HPI and below Physical Exam Vital Signs: Last Vital Signs Pulse 72 08/19/24 09:57 BP 149/65 H 08/19/24 09:57 Pulse Ox 98 08/19/24 09:57 Oxygen Delivery Method Room Air 08/19/24 09:57 BMI result Body Mass Index 24.1 General: Appears afebrile. Moderate distress due to significant neck pain. Alert and oriented. Mood and affect appropriate. Follows and participates in conversation appropriately. Hard of hearing. Respiratory effort is unlabored. No cough. Able to transition from sit to stand unassisted. Ambulates with bilaterally normal heel strike and toe off, reports unsteadiness on right side. Neck Neck: Yes no lymphadenopathy, Yes supple, No anterior neck swelling, Yes no JVD, No prominent supraclavicular fat pad and No prominent dorsocervical fat pad General: Yes no CVA tenderness Back/Spine/Pelvis Other: Unable to perform lumbar ROM and minimal cervical ROM due to pain. Neck ROM limited, especially on the right, patient has to turn his body to the right or lean backwards for neck extension. Back: no CVA tenderness Cervical Spine: Lhermitte's sign positive, loss of normal cervical lordosis, cervical muscular tenderness, pain with cervical ROM, Cervical spine scars present, cervical spasm (right>left), No Cervical spine tenderness and No step off deformity Thoracic/Lumbar Spine: thoracic and lumbar spine normal to inspection, Thoracic/lumbar spine scar(s), Lasegue's sign positive (localized on right, diffuse on the left), pain with thoraco-lumbar ROM, paraspinal muscle tende rness, thoraco-lumbar ROM limited, No thoracic spinal tenderness, No lumbar spinal tenderness and straight leg raise positive right at 40 degrees Pelvis: no buttock tenderness and no sciatic notch tenderness Sacroiliac joints: bilaterally tender to palpation Extrem General: Yes capillary refill normal, Yes no clubbing, cyanosis or edema and Yes no calf tenderness Psych Appearance: grossly normal and well kempt Mental Status: mental status grossly normal Speech and movement: Normal speech and movement present and Clear speech present Affect: normal affect Attitude: cooperative Thought process: Normal thought process present Thought content: Normal thought content present, suicidality (none), no halluci nations and No Depressive thoughts present Insight: Good insight present (Psych) Judgement: Good judgement present (Psych) Results Reviewed Results Reviewed: XR THORACIC SPINE 08/14/23 CLINICAL INFORMATION: Presence of other specified functional implants. FINDINGS: There is bony demineralization. There are mild T8 and T9 anterior wedge compression fractures. Vertebral body heights are otherwise normal. There is moderately severe disc space narrowing at T6-T7 through T9-T10 and at T11-T12. The remaining disc spaces are relatively well-maintained. No acute fracture or spondylolisthesis is seen. There is multi-level thoracic spondylosis. The posterior elements are intact. There is a spinal stimulator device, with tip situated at the T7-T8 level. The paravertebral soft tissues are unremarkable. IMPRESSION: 1. There is multi-level thoracic degenerative disc disease, spondylosis and facet arthropathy. 2. There are age-indeterminate mild T8 and T9 anterior wedge compression fractures. 3. A spinal stimulator device is seen, with tip situated at the T7-T8 level. XR LUMBOSACRAL SPINE 08/14/23 CLINICAL INFORMATION: Lumbar degenerative disc disease. COMPARISON: Radiographs dated 07/07/2022. TECHNIQUE: AP and lateral views of the lumbar spine and lateral view of the lumbosacral junction. FINDINGS: There is bony demineralization. There is a mild lumbar levoscoliosis. At L1-L2 and L2-L3, there is moderate disc space narrowing. At L3-L4, there is marked disc space narrowing, with vacuum disc phenomenon and accompanying marked anterior spondylosis. There has been a prior posterior fusion at L4-S1, with intact posterior fixator rods, pedicular screws and intervertebral cages. No hardware failure or loosening is seen. There is no acute fracture or spondylolisthesis. There is multi-level lumbar spondylosis. Spinal stimulator leads and an impulse generator are noted. There are aortoiliac atherosclerotic calcifications. IMPRESSION: 1. There is well-maintained alignment status-post L4-S1 posterior fusions and discectomies. No hardware failure or loosening is seen. 2. There is moderate degenerative disc disease at L1-L2 and L2-L3, and marked degenerative disc disease is seen at L3-L4. CT LUMBAR SPINE WITHOUT CONTRAST 10/01/23 CLINICAL INFORMATION: Post laminectomy syndrome. COMPARISON: Lumbar spine radiographs 08/14/2023. FINDINGS: There are chronic postoperative changes of a posterior spinal fusion with transpedicular hardware extending from L4 to S1. Bridging bone completely fuses the L4-S1 vertebra. There is grade 1 anterolisthesis of L3 on L4 that appears to be related to advanced facet degenerative changes at this level. Slight grade 1 retrolisthesis of L1 on L2 and L2 on L3. There is loss of intervertebral disc height with associated sclerotic degenerative endplate changes, hypertrophic disc osteophyte spurring, and intervertebral vacuum disc phenomenon at L1-L2, L2-L3, and L3-L4. There is also abutment with associated sclerotic changes of the adjoining spinous processes at L1-L2, L2-L3, and L3-L4 indicating likelihood of underlying [place] disease. Canal patency is not well assessed on this examination due to inherent limitations of CT without intrathecal contrast and due to the extent of streak artifact related to the fusion hardware. There is at least moderate canal stenosis at the level of L2-L3 and L3-L4. Limited visualization of the retroperitoneal anatomy reveals layering calculi within the gallbladder neck and scattered atheromatous calcification involving the abdominal aorta and iliac vessels. IMPRESSION: There are chronic postoperative changes of a posterior spinal fusion with transpedicular hardware extending from L4 to S1. No evidence of hardware loosening or failure. Bridging bone completely fuses the L4-S1 vertebra. There is junctional spondylosis above and below the fusion with grade 1 anterolisthesis of L3 on L4. Canal patency is not well assessed on this examination due to inherent limitations of CT without intrathecal contrast and due to the extent of streak artifact related to the fusion hardware. There is at least moderate canal stenosis at the level of L2-L3 and L3-L4. If there are clinical symptoms of compressive myelopathy then a dedicated lumbar spine MRI can be obtained for better anatomic characterization of canal patency. Assessment & Plan Assessment & Plan (1) Chronic, continuous use of opioids: Code(s): F11.90 - Opioid use, unspecified, uncomplicated Category: Medical (2) Failed back syndrome: Code(s): M96.1 - Postlaminectomy syndrome, not elsewhere classified Category: Medical (3) Chronic pain: Code(s): G89.29 - Other chronic pain Category: Medical (4) Lumbar spinal stenosis: Code(s): M48.061 - Spinal stenosis, lumbar region without neurogenic claudication Category: Medical (5) Lumbar degenerative disc disease: Code(s): M51.36 - Other intervertebral disc degeneration, lumbar region Category: Medical (6) Lumbar spondylosis: Code(s): M47.816 - Spondylosis without myelopathy or radiculopathy, lumbar region Category: Medical (7) Cervical spondylosis: Code(s): M47.812 - Spondylosis without myelopathy or radiculopathy, cervical region Category: Medical Plan Patient has shown accountability for his medication regimen and the film count was accurate. The patient reported no noted side effects except occasional constipation. He has been taking Colace, Miralax, increasing fluids and taking prune juice for occasional constipation. There is no evidence of misuse, abuse or diversion at this time. [employer] reviewed. Refill sent for for Belbuca to 600 mcg BID with advanced date of 08/25/24 to [facility] per patient's request as he is transferring all his medi cation there. One refill provided. Side effects and precautions were reviewed with patient. Narcan script sent today. Patient advised to have regular dental check ups while taking Belbuca and take extra steps to help lessen the risk of serious dental problems. Patient is scheduled for neck surgery for severe spondylosis with radiculopathy with Dr. Kent on 10/27/24 at [facility]. We will most likely add Vicodin for post-op pain management as this has been most effective in the past and with less side effects per patient. All questions were answered and patient is in agreement of plan. Follow up for film count in 8 weeks and sooner if needed. Medications: New naloxone 4 mg/actuation (Narcan) spray 1 dose into ONE nostril; alternate nostrils w each dose until help arrives 4 mg intranasal Q2M PRN 2 ea 0RF opioid overdose F11.90 - Opioid use, unspecified, uncomplicated Refilled buprenorphine HCl Partial Fill upon patient request. 600 mcg buccal Q12H 30 days 60 ea 1RF pain G89.29 - Other chronic pain, M48.061 - Spinal stenosis, lumbar region without neurogenic claudication, M54.16 - Radiculopathy, lumbar region, M96.1 - Postlaminectomy syndrome, not elsewhere classified Coding Level of Care Code Est Pt Level 4 (66035) Complex EM visit Add On G2211 Diagnoses Chronic, continuous use of opioids F11.90 Failed back syndrome M96.1 Chronic pain G89.29 Lumbar spinal stenosis M48.061 Lumbar degenerative disc disease M51.36 Lumbar spondylosis M47.816 Cervical spondylosis M47.812
[2024-08-19 09:57] VITALS: BP 149/65; PULSE 72; O2SAT 98; BMI 24.1
== END 2024-08-19 10:09 | disposition home or self-care (01) ==
PROVIDERS: PCP Internal Medicine; Visit Provider Nurse Practitioner Family
DX: G89.29 Other chronic pain (principal); Z79.891 Long term (current) use of opiate analgesic; M96.1 Postlaminectomy syndrome, not elsewhere classified; M48.061 Spinal stenosis, lumbar region without neurogenic claudication; M51.369 Other intervertebral disc degeneration, lumbar region without mention of lumbar back pain or lower extremity pain; M47.816 Spondylosis without myelopathy or radiculopathy, lumbar region; M47.812 Spondylosis without myelopathy or radiculopathy, cervical region
CPT/HCPCS: 99214; G2211

== ENCOUNTER → 2024-08-19 09:46 | Outpatient (BNVA) | payer OTHER, SELFPAY | PROVIDERS: PCP Internal Medicine; Visit Provider Nurse Practitioner Family | DX: M96.1 Postlaminectomy syndrome, not elsewhere classified (principal); G89.29 Other chronic pain; M48.061 Spinal stenosis, lumbar region without neurogenic claudication; M51.369 Other intervertebral disc degeneration, lumbar region without mention of lumbar back pain or lower extremity pain; M47.816 Spondylosis without myelopathy or radiculopathy, lumbar region; M47.812 Spondylosis without myelopathy or radiculopathy, cervical region; Z79.891 Long term (current) use of opiate analgesic | CPT/HCPCS: 99212 ==

== ENCOUNTER 2024-10-14 09:51 | Outpatient (AMB) | payer OTHER, SELFPAY ==
--- NOTE | 2024-10-14 09:57 | MHC.OFFVIS ---
Vital Signs 10/14/24 10:03 Height 5 ft 9 in Weight 161 lb 2 oz BMI 23.8 BP 127/91 H Blood Pressure Location Lt brachial Position Sitting Pulse 81 Pulse Source Pulse Oximeter Pulse Oximetry (%) 98 Oxygen Delivery Method Room Air Intake Visit Reasons: Pill Count Intake Note: Jay comes in today for a film count to [facility], patient should have 26 films and presents with 24 films which he last took today 10/14/24 at 7:45am. Pain today 7/10 Allergies acetaminophen [From Percocet] Allergy (Verified 10/14/24 10:04) Nausea ibuprofen [From Motrin] Allergy (Verified 10/14/24 10:04) Nausea oxycodone Allergy (Verified 10/14/24 10:04) Nausea HPI Comments Details: Patient presents today for a film count and pill count. Patient is supposed to have #26 Belbuca films and presents with #24 films. Patient reports reasonable analgesia without any side effects due but continues to endorse persistent and worsening back pain with spinal-stenosis related pain and neck pain due to significant arthritis and degenerative changes. Pain is rated at 7/10. Patient is scheduled for neck surgery on 10/27/[address] Kent [place] [facility] [place] severe cervical spondylosis and radiculopathy. Patient has been taking Colace, Miralax, increasing fluids and taking prune juice for occasional constipation. Denies any bladder or bowel dysfunction or saddle anesthesia. Denies any recent cough, cold, infection, difficulty urinating, nausea fever or other significant changes in medical history since last office visit. He reports intermittent episodes of dizziness and unsteadiness with increased neck pain and plans to follow up with Dr. Kent on Thursday but will call his office today. His vital signs are stable. He reports recent pre-op lab work was within normal limits per [facility] preadmission testing nurse. [facility] Medical History Zenker diverticulum DVT (deep venous thrombosis) Hyperlipemia HTN (hypertension) GERD (gastroesophageal reflux disease) Myocardial infarction CAD (coronary artery disease) Lumbar degenerative disc disease Neuralgia Chronic, continuous use of opioids Bilateral lumbar radiculopathy Failed back syndrome Lumbar spondylosis Surgical History H/O excision of Zenker's diverticulum Hx of shoulder surgery History of esophagogastroduodenoscopy (EGD) History of coronary artery stent placement S/P dilatation of esophageal stricture S/P insertion of spinal cord stimulator History of lumbar spinal fusion Social History Patient Tobacco Use Status: Former Tobacco user Years Smoked: 6 Review of Systems Const All systems reviewed & are unremarkable except as noted in HPI and below Physical Exam General: Appears afebrile. Moderate distress due to significant neck pain. Alert and oriented. Mood and affect appropriate. Follows and participates in conversation appropriately. Hard of hearing. Respiratory effort is unlabored. No cough. Able to transition from sit to stand unassisted. Ambulates with bilaterally normal heel strike and toe off, reports unsteadiness on right side. Neck Neck: Yes normal visual inspection, Yes no lymphadenopathy, Yes supple, No anterior neck swelling, Yes no JVD, No prominent supraclavicular fat pad and No prominent dorsocervical fat pad General: Yes no CVA tenderness Back/Spine/Pelvis Other: Unable to perform lumbar ROM and minimal cervical ROM due to pain. Neck ROM limited, especially on the right, patient has to turn his body to the right or lean backwards for neck extension. Back: no CVA tenderness Cervical Spine: Lhermitte's sign positive, loss of normal cervical lordosis, cervical muscular tenderness, pain with cervical ROM, Cervical spine scars present, cervical spasm (right>left) and No Cervical spine tenderness Thoracic/Lumbar Spine: thoracic and lumbar spine normal to inspection, Thoracic/lumbar spine scar(s), Lasegue's sign positive (localized on right, diffuse on the left), pain with thoraco-lumbar ROM, paraspinal muscle tenderness, thoraco-lumbar ROM limited, No thoracic spinal tenderness, No lumbar spinal tenderness and straight leg raise positive right at 40 degrees Pelvis: no buttock tenderness and no sciatic notch tenderness Sacroiliac joints: bilaterally tender to palpation Psych Appearance: grossly normal and well kempt Mental Status: mental status grossly normal Speech and movement: Normal speech and movement present and Clear speech present Affect: normal affect Attitude: cooperative Thought process: Normal thought process present Thought content: Normal thought content present, suicidality (none), no hallucinations and No Depressive thoughts present Insight: Good insight present (Psych) Judgement: Good judgement present (Psych) Results Reviewed Results Reviewed: XR THORACIC SPINE 08/14/23 CLINICAL INFORMATION: Presence of other specified functional implants. FINDINGS: There is bony demineralization. There are mild T8 and T9 anterior wedge compression fractures. Vertebral body heights are otherwise normal. There is moderately severe disc space narrowing at T6-T7 through T9-T10 and at T11-T12. The remaining disc spaces are relatively well-maintained. No acute fracture or spondylolisthesis is seen. There is multi-level thoracic spondylosis. The posterior elements are intact. There is a spinal stimulator device, with tip situated at the T7-T8 level. The paravertebral soft tissues are unremarkable. IMPRESSION: 1. There is multi-level thoracic degenerative disc disease, spondylosis and facet arthropathy. 2. There are age-indeterminate mild T8 and T9 anterior wedge compression fractures. 3. A spinal stimulator device is seen, with tip situated at the T7-T8 level. XR LUMBOSACRAL SPINE 08/14/23 CLINICAL INFORMATION: Lumbar degenerative disc disease. COMPARISON: Radiographs dated 07/07/2022. TECHNIQUE: AP and lateral views of the lumbar spine and lateral view of the lumbosacral junction. FINDINGS: There is bony demineralization. There is a mild lumbar levoscoliosis. At L1-L2 and L2-L3, there is moderate disc space narrowing. At L3-L4, there is marked disc space narrowing, with vacuum disc phenomenon and accompanying marked anterior spondylosis. There has been a prior posterior fusion at L4-S1, with intact posterior fixator rods, pedicular screws and intervertebral cages. No hardware failure or loosening is seen. There is no acute fracture or spondylolisthesis. There is multi-level lumbar spondylosis. Spinal stimulator leads and an impulse generator are noted. There are aortoiliac atherosclerotic calcifications. IMPRESSION: 1. There is well-maintained alignment status-post L4-S1 posterior fusions and discectomies. No hardware failure or loosening is seen. 2. There is moderate degenerative disc disease at L1-L2 and L2-L3, and marked degenerative disc disease is seen at L3-L4. CT LUMBAR SPINE WITHOUT CONTRAST 10/01/23 CLINICAL INFORMATION: Post laminectomy syndrome. COMPARISON: Lumbar spine radiographs 08/14/2023. FINDINGS: There are chronic postoperative changes of a posterior spinal fusion with transpedicular hardware extending from L4 to S1. Bridging bone completely fuses the L4-S1 vertebra. There is grade 1 anterolisthesis of L3 on L4 that appears to be related to advanced facet degenerative changes at this level. Slight grade 1 retrolisthesis of L1 on L2 and L2 on L3. There is loss of intervertebral disc height with associated sclerotic degenerative endplate changes, hypertrophic disc osteophyte spurring, and intervertebral vacuum disc phenomenon at L1-L2, L2-L3, and L3-L4. There is also abutment with associated sclerotic changes of the adjoining spinous processes at L1-L2, L2-L3, and L3-L4 indicating likelihood of underlying [place] disease. Canal patency is not well assessed on this examination due to inherent limitations of CT without intrathecal contrast and due to the extent of streak artifact related to the fusion hardware. There is at least moderate canal stenosis at the level of L2-L3 and L3-L4. Limited visualization of the retroperitoneal anatomy reveals layering calculi within the gallbladder neck and scattered atheromatous calcification involving the abdominal aorta and iliac vessels. IMPRESSION: There are chronic postoperative changes of a posterior spinal fusion with transpedicular hardware extending from L4 to S1. No evidence of hardware loosening or failure. Bridging bone completely fuses the L4-S1 vertebra. There is junctional spondylosis above and below the fusion with grade 1 anterolisthesis of L3 on L4. Canal patency is not well assessed on this examination due to inherent limitations of CT without intrathecal contrast and due to the extent of streak artifact related to the fusion hardware. There is at least moderate canal stenosis at the level of L2-L3 and L3-L4. If there are clinical symptoms of compressive myelopathy then a dedicated lumbar spine MRI can be obtained for better anatomic characterization of canal patency. Assessment & Plan Assessment & Plan (1) Chronic, continuous use of opioids: Code(s): F11.90 - Opioid use, unspecified, uncomplicated Category: Medical (2) Failed back syndrome: Code(s): M96.1 - Postlaminectomy syndrome, not elsewhere classified Category: Medical (3) Chronic pain: Code(s): G89.29 - Other chronic pain Category: Medical (4) Lumbar spinal stenosis: Code(s): M48.061 - Spinal stenosis, lumbar region without neurogenic claudication Category: Medical (5) Lumbar degenerative disc disease: Code(s): M51.36 - Other intervertebral disc degeneration, lumbar region Category: Medical (6) Lumbar spondylosis: Code(s): M47.816 - Spondylosis without myelopathy or radiculopathy, lumbar region Category: Medical (7) Cervical spondylosis: Code(s): M47.812 - Spondylosis without myelopathy or radiculopathy, cervical region Category: Medical (8) Stenosis of cervical spine with myelopathy: Code(s): M48.02 - Spinal stenosis, cervical region; G99.2 - Myelopathy in diseases classified elsewhere Category: Medical Plan Patient has shown accountability for his medication regimen and the film count was accurate. The patient reported no noted side effects except occasional constipation. He has been taking Colace, Miralax, increasing fluids and taking prune juice for occasional constipation. There is no evidence of misuse, abuse or diversion at this time. [employer] reviewed. Refill sent for for Belbuca to 600 mcg BID with advanced date of 10/23/24 with one refill provided. Side effects and precautions were reviewed with patient. Narcan script sent today. Patient advised to have regular dental check ups while taking Belbuca and take extra steps to help lessen the risk of serious dental problems. Patient is scheduled for neck surgery for severe spondylosis with radiculopathy with Dr. Kent on 10/27/24 at [facility] We discussed Vicodin for post-op pain management at Neurosurgeon's discretion or by our office as this has been most effective in the past and with less side effects per patient. Patient will reach out to Dr. Kent today to inform with worsening neck pain with increasing dizziness and unsteadiness. He was offered to have evaluation in ER, but declined it. All questions were answered and patient is in agreement of plan. Follow up for film count in 8 weeks and sooner if needed. Medications: Refilled buprenorphine HCl Partial Fill upon patient request. 600 mcg buccal Q12H 30 days 60 ea 1RF pain G99.2 - Myelopathy in diseases classified elsewhere, M47.812 - Spondylosis without myelopathy or radiculopathy, cervical region, M48.02 - Spinal stenosis, cervical region, M48.061 - Spinal stenosis, lumbar region without neurogenic claudication, M54.16 - Radiculopathy, lumbar region Coding Level of Care Code Est Pt Level 4 (33266) Complex EM visit Add On G2211 Diagnoses Chronic, continuous use of opioids F11.90 Failed back syndrome M96.1 Chronic pain G89.29 Lumbar spinal stenosis M48.061 Lumbar degenerative disc disease M51.36 Lumbar spondylosis M47.816 Cervical spondylosis M47.812 Stenosis of cervical spine with myelopathy M48.02; G99.2
[2024-10-14 10:03] VITALS: BP 127/91; PULSE 81; O2SAT 98; BMI 23.8
--- OUTSIDE RECORDS SUMMARY | 2024-10-14 11:03 | XMS_ITS | Clinical Summary ---
Author Organization [facility] [employer] [facility] Address [address] [place] [address] Phone Care Team Providers Care Honing Job Setter Name Role Phone Jennifer Rodrigues MD Primary Care Provider [phone] Allergies Active Allergy Reactions Criticality Noted Date Comments Oxycodone 05/30/2009 Oxycodone-Acetaminophen 07/22/2010 Medications polyethylene glycol (MIRALAX) 17 gram packet DISSOLVE 17 GRAMS INTO WATER AND DRINK BY MOUTH EVERY DAY 06/01/2023 Active sildenafiL (VIAGRA) 100 mg tablet TAKE 0.5 TABLETS BY MOUTH THREE TIMES A WEEK. 06/01/2023 Active buprenorphine HCL (Belbuca) 450 mcg film TKE 1 FLIM BY MOUTH EVERY 12 HOURS NEEDED FOR PAIN *DNF 11/30/2022 11/29/2022 Active ferrous sulfate 325 mg (65 mg elemental iron) tablet Take 1 Tablet by mouth daily. 09/05/2022 Active aspirin 81 mg EC tablet 81 mg. 07/22/2010 Active ascorbic acid (VITAMIN C) 500 mg tablet Take 1,000 mg by mouth daily. 07/22/2010 Active cholecalciferol (VITAMIN D-3) 25 mcg (1,000 unit) capsule Take 1,000 Units by mouth daily. 07/22/2010 Active atorvastatin (LIPITOR) 80 mg tablet Take 1 tablet (80 mg total) by mouth 1 (one) time each day. 90 each 5 09/13/2024 Active sucralfate (CARAFATE) 1 gram tablet Take 1 tablet (1 g total) by mouth every 6 (six) hours. 120 tablet 3 09/13/2024 Active metoprolol succinate (TOPROL-XL) 50 mg 24 hr tablet Take 1 tablet (50 mg total) by mouth 2 (two) times a day. 180 tablet 1 09/13/2024 Active lisinopriL (PRINIVIL,ZESTR IL) 5 mg tablet Take 1 tablet (5 mg total) by mouth 1 (one) time each day. 90 tablet 1 09/13/2024 Active pantoprazole (PROTONIX) 40 mg EC tabletIndicatio ns:GERD (gastroesophage al reflux disease) Take 1 tablet (40 mg total) by mouth 2 (two) times a day. 180 tablet 1 09/13/2024 Active Active Problems Problem Noted Date Diagnosed Date Esophageal perforation 05/01/2022 Hyperlipidemia 05/03/2018 Anxiety 05/03/2018 CAD (coronary artery disease) 11/23/2017 Hypertension 11/23/2017 Lower back pain 11/23/2017 Esophageal reflux 12/22/2016 Vitamin B12 deficiency 02/28/2016 ED (erectile dysfunction) 02/22/2015 Postlaminectomy syndrome, lumbar 10/21/2013 DDD (degenerative disc disease), lumbar 01/04/20 13 Lumbar spondylosis 11/12/2012 Lumbosacral neuritis 11/12/2012 Encounters Date Type Department Care Team Description 09/08/2024 4:11 PM EST - 09/08/2024 11:59 PM EST Hospital Encounter [facility] CT Scan [address] [place] [id number] LLQ abdominal pain Discharge Disposition: Home or Self Care 08/30/2024 1:00 PM EST Office Visit Internal Medicine - [place] [address] [address] Jennifer Rodrigues MD LLQ abdominal pain (Primary Dx); Left loin pain 08/30/2024 Telephone Internal Medicine [facility] [address] [address] Jennifer Rodrigues MD 07/25/2024 1:15 PM EST Office Visit Internal Medicine [facility] [address] [address] Jennifer Rodrigues MD Primary hypertension (Primary Dx); Mixed hyperlipidemia; Vitamin B12 deficiency; Postlaminectomy syndrome, lumbar; Anxiety from Last 3 Months Immunizations Name Administration Dates Next Due Influenza trivalent, 0.5mL (Fluad) 65yo and olde r 04/29/2023,05/19/2019 Influenza trivalent, with pr eservative (Fluzone; Afluria) 6mo and older 04/09/2017 Pneumococcal conjugate 13 va lent (Prevnar 13, PCV13) 2mo and older 07/31/2016 Pneumococcal polysaccharide 23 valent (Pneumovax 23) 2yo and older 06/21/2015 Td Tetanus diptheria (Tdvax) 7yo and older 09/19 Surgical History Surgery Date Site/Laterality Comments ROTATOR CUFF REPAIR PROCEDURE: HISTORICAL ROTATOR CUFF REPAIR BACK SURGERY PROCEDURE: HISTORICAL BACK SURGERY HERNIA REPAIR PROCEDURE: HISTORICAL HERNIA REPAIR/ING FOOT SURGERY PROCEDURE: HISTORICAL FOOT SURGERY CARPAL TUNNEL RELEASE PROCEDURE: HISTORICAL CARPAL TUNNEL REL Medical History Medical History Date Comments CAD (coronary artery disease) 11/23/2017 DX :CAD (coronary artery disease) History of cellulitis 06/22/2013 DX:History of cellulitis DDD (degenerative disc disease), lumbar 01/03/2013 DX:DDD (degenerative disc disease), lumbar Esophageal reflux 12/22/2016 DX:Esophageal reflux Hyperlipidemia 05/03/2018 DX:Hyperlipidemi a Hypertension 11/23/2017 DX:Hypertension Lumbar spondylosis 11/12/2012 DX:Lumbar spo ndylosis Lumbosacral neuritis 11/12/2012 DX:Lumbosac ral neuritis ED (erectile dysfunction) 02/22/2015 DX:ED (erectile dysfunction) Postlaminectomy syndrome, lumbar 10/21/2013 DX:Postlaminectomy syndrome, lumbar Vitamin B12 deficiency 02/28/2016 DX:Vitami n B12 deficiency Anxiety 05/03/2018 DX:Anxiety Lower back pain 11/23/2017 DX:Lower back pa in Social History Tobacco Use Types Packs/Day Years Used Date Smoking Tobacco: Former Smokeless Tobacco: Never Alcohol Use Standard Drinks/Week Comments Yes 0 (1 standard drink = 0.6 oz pur e alcohol) Sex and Gender Information Value Date Recorded Sex Assigned at Male 08/31/2024 11:04 AM EST Legal Sex Male 2:54 PM EST Gender Identity Male 08/31/2024 11:04 AM EST Sexual Orientation Straight 08/31/2024 11 :04 AM EST Obstetrics History Last Filed Vital Signs Vital Sign Reading Time Taken Comments Blood Pressure 132/82 08/30/2024 1:22 PM EST Pulse 89 08/30/2024 1:22 PM EST Temperature - - Respiratory Rate - - Oxygen Saturation 96% 08/30/2024 1:22 PM EST Inhaled Oxygen Concentration - - Weight 72.1 kg (159 lb) 08/30/2024 1:22 PM EST Height 175.3 cm (5' 9 ) 05/26/2024 1:08 PM EDT Body Mass Index 23.48 05/26/2024 1:08 PM EDT Plan of Treatment Upcoming Encounters Date Type Department Care Team (Late st Contact Info) Description 11/21/2024 2:00 PM EDT Office Visit Internal Medicine - [place] [address] [facility] [address] [place] [address] Jennifer Rodrigues MD [address] [facility] [address] [place] [address] Health Maintenance Due Date Last Done Comments Zoster Vaccines (1 of 2) 1964 RSV Immunization Patients 60+ Years Old (1 - 1-dose 75+ series) 2020 Hepatitis C Screening 07/12/2022 Medicare Annual Wellness Visit 07/12/2022 Social Influencers of Health Screening 07/12/2022 Depression Screening 09/03/2024 09/03/2023 Falls Risk Assessment 09/03/2024 09/03/2023 DTaP,Tdap,and Td Vaccines (3 - Td or Tdap) 09/19/2024 09/19/2014, 08/02/2012 Hypertension/CHF/CAD Annual BMP Blood Test 08/30/2025 08/30/2024, 04/13/2024, 04/13/2024 Cholesterol Screening (Lipid Panel) 04/23/2027 04/23/2022 Pneumococcal Vaccine: 50+ Years Completed 07/31/2016, 06/21/2015, 08/03/2012, Additional history exists COVID-19 Vaccine Completed 05/13/2024, , 07/18/2021, Additional history exists Influenza Vaccine Completed 05/13/2024, , 06/01/2022, Additional history exists HIB Vaccines Aged Out No longer eligi ble based on patient's age to complete this topic HPV Vaccines Aged Out No longer eligi ble based on patient's age to complete this topic Hepatitis A Vaccines Aged Out No long er eligible based on patient's age to complete this topic Hepatitis B Vaccines Aged Out No long er eligible based on patient's age to complete this topic IPV Vaccines Aged Out No longer eligi ble based on patient's age to complete this topic MMR Vaccines Aged Out No longer eligi ble based on patient's age to complete this topic Meningococcal ACWY Vaccine Aged Out N o longer eligible based on patient's age to complete this topic Meningococcal B Vacine Aged Out No lo nger eligible based on patient's age to complete this topic RSV Immunization Patients Under 20 months Aged Out No longer eligible based on patient's age to complete this topic Varicella Vaccines Aged Out No longer eligible based on patient's age to complete this topic Procedures Procedure Name Priority Date/Time Associated Diagnosis Comments CT ABDOMEN PELVIS W CONTRAST STAT 09/08/2024 4:30 PM EST LLQ abdominal pain FELIX URINE CULTURE TUBE Routine 08/30/2024 2:01 PM EST ED (erectile dysfunction) Lower back pain URINALYSIS WITH REFLEX MICROSCOPIC AND CULTURE Routine 08/30/2024 2:01 PM EST ED (erectile dysfunction) Lower back pain CBC WITH AUTO DIFFERENTIAL Routine 08/30/2024 2:01 PM EST LLQ abdominal pain URINALYSIS WITH REFLEX MICROSCOPIC AND CULTURE Routine 08/30/2024 2:01 PM EST ED (erectile dysfunction) Lower back pain COMPREHENSIVE METABOLIC PANEL Routine 08/30/2024 2:01 PM EST LLQ abdominal pain CBC AND DIFFERENTIAL Routine 08/30/2024 2:01 PM EST LLQ abdominal pain DEPRESSION SCREENING Routine 09/03/2023 FALLS RISK ASSESSMENT Routine 09/03/2023 LIPID PANEL Routine 04/23/2022 from Last 3 Months or Most Recently Relevant to Health Maintenance Results * CT Abdomen Pelvis w Contrast (09/08/2024 4:30 PM EST) Anatomical Region Laterality Modality Body Computed Tomogra phy 09/08/2024 5:00 PM EST Impressions 09/08/2024 5:07 PM EST Sigmoid diverticulosis without CT evidence for acute diverticulitis. Incidental findings as above. -------- FINAL REPORT -------- Dictated By: Vasquez Ríos Dictated Date: 09/08/2024 17:00 ET Assigned Physician: Vasquez Ríos Reviewed and Electronically Signed By: Vasquez Ríos Signed Date: 09/08/2024 17:07 ET Workstation ID: [id number] Transcribed By: Self Edit Transcribed Date: 09/08/2024 17:00 ET Narrative 09/08/2024 5:07 PM EST PROCEDURE: CT ABDOMEN/PELVIS WITH CONTRAST INDICATION: LLQ pain,3 days, rule out diverticulitis TECHNIQUE: CT of the abdomen and pelvis following the intravenous administration of 90cc Isovue 370. Multiplanar reformats. The examination was performed utilizing dose reduction techniques. Total DLP 990 COMPARISON: ??No priors available. FINDINGS: ?? LOWER THORAX: Atelectasis/scarring at the lung bases. ??There is mild bronchiectasis. ??There is mucous plugging in the right middle lobe. HEPATOBILIARY: Cholelithiasis. ??No biliary dilatation. ??No suspicious liver lesion. SPLEEN: No focal lesion. PANCREAS: No focal mass or ductal dilatation. ADRENALS: No nodules. KIDNEYS/URETERS: Punctate nonobstructing left renal stone. ??No hydronephrosis or mass evident. PELVIC ORGANS/BLADDER: Mild circumferential wall thickening which may be related to chronic obstruction. PERITONEUM / RETROPERITONEUM: No ascites or free air. No retroperitoneal lymphadenopathy. VESSELS: Scattered atherosclerotic calcifications throughout the aorta and its major branches. No aneurysm. GI TRACT: There is diverticulosis of the sigmoid colon without CT evidence for acute diverticulitis. ??Significant wall thickening in the sigmoid colon may be related to chronic diverticulitis. ??There is prominent stool burden throughout the colon. BONES AND SOFT TISSUES: Degenerative and postsurgical changes are noted throughout with extensive post surgical changes L4-S1. ??There is extensive streak artifact limiting evaluation. ??There is probable spinal stenosis just above the surgical levels at L3-4. ??Probable neural frontal narrowing at this level as well. ??Scoliosis. ??There is a epidural stimulator pack in the anterior soft tissues of the left lower quadrant. Procedure Note Vasquez Ríos MD - 09/08/2024 PROCEDURE: CT ABDOMEN/PELVIS WITH CONTRAST INDICATION: LLQ pain,3 days, rule out diverticulitis TECHNIQUE: CT of the abdomen and pelvis following the intravenousadministration of 90cc Isovue 370. Multiplanar reformats. The examinationwas performed utilizing dose reduction techniques. Total DLP 990 COMPARISON: No priors available. FINDINGS: LOWER THORAX: Atelectasis/scarring at the lung bases. There is mildbronchiectasis. There is mucous plugging in the right middle lobe. HEPATOBILIARY: Cholelithiasis. No biliary dilatation. No suspiciousliver lesion. SPLEEN: No focal lesion. PANCREAS: No focal mass or ductal dilatation. ADRENALS: No nodules. KIDNEYS/URETERS: Punctate nonobstructing left renal stone. Nohydronephrosis or mass evident. PELVIC ORGANS/BLADDER: Mild circumferential wall thickening which may berelated to chronic obstruction. PERITONEUM / RETROPERITONEUM: No ascites or free air. No retroperitoneallymphadenopathy. VESSELS: Scattered atherosclerotic calcifications throughout the aorta andits major branches. No aneurysm. GI TRACT: There is diverticulosis of the sigmoid colon without CT evidencefor acute diverticulitis. Significant wall thickening in the sigmoidcolon may be related to chronic diverticulitis. There is prominent stoolburden throughout the colon. BONES AND SOFT TISSUES: Degenerative and postsurgical changes are notedthroughout with extensive post surgical changes L4-S1. There is extensivestreak artifact limiting evaluation. There is probable spinal stenosisjust above the surgical levels at L3-4. Probable neural frontal narrowingat this level as well. Scoliosis. There is a epidural stimulator pack inthe anterior soft tissues of the left lower quadrant. IMPRESSION: Sigmoid diverticulosis without CT evidence for acute diverticulitis. Incidental findings as above. -------- FINAL REPORT -------- Dictated By: Vasquez Ríos Dictated Date: 09/08/2024 17:00 ET Assigned Physician: Vasquez Ríos Reviewed and Electronically Signed By: Vasquez Ríos Signed Date: 09/08/2024 17:07 ET Workstation ID: [id number] Transcribed By: Self Edit Transcribed Date: 09/08/2024 17:00 ET Jennifer Rodrigues MD IMG CT PROCEDURES Final Result * Urinalysis with reflex microscopic and culture (08/30/2024 2:01 PM EST) Specific [place] Urine 1.016 1.003 - 1.030 LAB URINALYSIS - AUTOMATED METHOD 08/30/2024 8:04 PM [facility] pH, Urine 6.5 5.0 - 8.0 pH LAB URINALYSIS - AUTOMATED METHOD 08/30/2024 8:04 PM [facility] Leukocytes, Urine Negative Negative LAB URINALYSIS - AUTOMATED METHOD 08/30/2024 8:04 PM [facility] Nitrite, Urine Negative Negative LAB URINALYSIS - AUTOMATED METHOD 08/30/2024 8:04 PM [facility] Protein, Urine Negative <=Trace mg/dL LAB URINALYSIS - AUTOMATED METHOD 08/30/2024 8:04 PM [facility] Glucose, Urine Negative Negative mg/dL LAB URINALYSIS - AUTOMATED METHOD 08/30/2024 8:04 PM [facility] Ketones, Urine Negative Negative mg/dL LAB URINALYSIS - AUTOMATED METHOD 08/30/2024 8:04 PM [facility] Urobilinogen, Urine 0.2 0.2 - 1.0 mg/dL LAB URINALYSIS - AUTOMATED METHOD 08/30/2024 8:04 PM [facility] Bilirubin, Urine Negative Negative LAB URINALYSIS - AUTOMATED METHOD 08/30/2024 8:04 PM [facility] Blood, Urine Negative Negative LAB URINALYSIS - AUTOMATED METHOD 08/30/2024 8:[address] [facility] Urine Urine specimen obtained by clean catch procedure / Unknown Non-blood Collection / Unknown 08/30/2024 2:01 PM EST 08/30/2024 2:01 PM EST us Jennifer Rodrigues MD LAB URINE ORDERABLES Final Res ult Performing Organization Address City/[facility]/ZIP Co de Phone Number [facility] [address] [place] [address], [place] [phone] * Felix urine culture tube (08/30/2024 2:01 PM EST) Pathologist [facility] Extra Tube Hold for add-ons. 08/30/2024 7:[address] [facility] Comment:Auto resulted. Urine Urine specimen obtained by clean catch procedure / Unknown Non-blood Collection / Unknown 08/30/2024 2:01 PM EST 08/30/2024 2:01 PM EST us Jennifer Rodrigues MD LAB URINE ORDERABLES Final Res ult Performing Organization Address City/[facility]/ZIP Co de Phone Number [facility] [address] [place] [address], [place] [phone] * (ABNORMAL) CBC auto differential (08/30/2024 2:01 PM EST) WBC 4.9 4.8 - 10.8 K/mcL LAB HEMETOLOGY METHOD 08/30/2024 6:31 PM [facility] RBC 4.00(L) 4.50 - 5.50 M/mcL LAB HEMETOLOGY METHOD 08/30/2024 6:31 PM [facility] Hemoglobin 11.8(L) 13.5 - 17.5 g/dL LAB HEMETOLOGY METHOD 08/30/2024 6:31 PM [facility] Hematocrit 37.2(L) 42.0 - 54.0 % LAB HEMETOLOGY METHOD 08/30/2024 6:31 PM [facility] MCV 93.0 79.0 - 98.0 FL LAB HEMETOLOGY METHOD 08/30/2024 6:31 PM [facility] MCH 29.5 27.0 - 32.0 pcg LAB HEMETOLOGY METHOD 08/30/2024 6:31 PM [facility] MCHC 31.7(L) 32.0 - 37.0 g/dL LAB HEMETOLOGY METHOD 08/30/2024 6:31 PM [facility] RDW 14.6 11.0 - 15.0 % LAB HEMETOLOGY METHOD 08/30/2024 6:31 PM [facility] Platelets 188 130 - 400 K/mcL LAB HEMETOLOGY METHOD 08/30/2024 6:31 PM [facility] MPV 12.2(H) 7.0 - 11.0 FL LAB HEMETOLOGY METHOD 08/30/2024 6:31 PM [facility] NRBC 0.0 <1.0 % LAB HEMETOLOGY METHOD 08/30/2024 6:31 PM [facility] NRBC Absolute 0.00 <0.10 K/mcL LAB HEMETOLOGY METHOD 08/30/2024 6:31 PM [facility] Neutrophils Relative 47.0 % LAB HEMETOLOGY METHOD 08/30/2024 6:31 PM [facility] Lymphocytes Relative 42.2 % LAB HEMETOLOGY METHOD 08/30/2024 6:31 PM [facility] Monocytes Relative 9.8 % LAB HEMETOLOGY METHOD 08/30/2024 6:31 PM [facility] Eosinophils Relative 0.0 % LAB HEMETOLOGY METHOD 08/30/2024 6:31 PM [facility] Basophils Relative 0.2 % LAB HEMETOLOGY METHOD 08/30/2024 6:[address] [facility] Immature Granulocytes Relative 0.8 % LAB HEMETOLOGY METHOD 08/30/2024 6:31 PM [facility] Neutrophils Absolute 2.30 1.50 - 7.00 K/mcL LAB HEMETOLOGY METHOD 08/30/2024 6:[address] [facility] Lymphocytes Absolute 2.07 1.00 - 5.00 K/mcL LAB HEMETOLOGY METHOD 08/30/2024 6:[address] [facility] Monocytes Absolute 0.48 0.20 - 1.00 K/mcL LAB HEMETOLOGY METHOD 08/30/2024 6:[address] [facility] Eosinophils Absolute 0.00 0.00 - 0.50 K/mcL LAB HEMETOLOGY METHOD 08/30/2024 6:[address] [facility] Basophils Absolute 0.01 0.00 - 0.20 K/mcL LAB HEMETOLOGY METHOD 08/30/2024 6:[address] [facility] Immature Granulocytes Absolute 0.04(H) 0.00 - 0.03 K/mcL LAB HEMETOLOGY METHOD 08/30/2024 6:[address] [facility] Blood Venous blood specimen / Unknown Venipuncture / Unknown 08/30/2024 2:01 PM EST 08/30/2024 2:01 PM EST us Jennifer Rodrigues MD LAB BLOOD ORDERABLES Final Res ult [facility] [address] [place] [address], * (ABNORMAL) Comprehensive metabolic panel (08/30/2024 2:01 PM EST) Sodium 141 133 - 145 mmol/L LAB CHEMISTRY METHOD 08/30/2024 6:48 PM [facility] Potassium 4.6 3.5 - 5.5 mmol/L LAB CHEMISTRY METHOD 08/30/2024 6:48 PM [facility] Chloride 108 96 - 110 mmol/L LAB CHEMISTRY METHOD 08/30/2024 6:48 PM [facility] CO2 29 21 - 32 mmol/L LAB CHEMISTRY METHOD 08/30/2024 6:48 PM [facility] Anion Gap 4 3 - 11 LAB CHEMISTRY METHOD 08/30/2024 6:48 PM [facility] Glucose 95 70 - 100 mg/dL LAB CHEMISTRY METHOD 08/30/2024 6:48 PM [facility] BUN 24 5 - 25 mg/dL LAB CHEMISTRY METHOD 08/30/2024 6:48 PM [facility] Creatinine 1.27 0.70 - 1.30 mg/dL LAB CHEMISTRY METHOD 08/30/2024 6:48 PM [facility] eGFR 57(L) >=60 mL/min/1. 73m2 LAB CHEMISTRY METHOD 08/30/2024 6:48 PM [facility] Comment:Calculation based on the??Chronic Kidney Disease Epidemiology Collaboration (CKD-EPI) equation refit??without adjustment for race. BUN/Creatinine Ratio 18.9 LAB CHEMISTRY METHOD 08/30/2024 6:48 PM [facility] Calcium 9.4 8.5 - 10.5 mg/dL LAB CHEMISTRY METHOD 08/30/2024 6:48 PM [facility] AST (SGOT) 25 10 - 42 unit/L LAB CHEMISTRY METHOD 08/30/2024 6:48 PM [facility] ALT (SGPT) 25 10 - 60 unit/L LAB CHEMISTRY METHOD 08/30/2024 6:48 PM [facility] Alkaline Phosphatase 91 42 - 121 unit/L LAB CHEMISTRY METHOD 08/30/2024 6:48 PM [facility] Total Protein 7.3 6.0 - 8.0 g/dL LAB CHEMISTRY METHOD 08/30/2024 6:[address] [facility] Albumin 4.1 3.2 - 5.0 g/dL LAB CHEMISTRY METHOD 08/30/2024 6:[address] [facility] Total Bilirubin 0.5 0.0 - 1.4 mg/dL LAB CHEMISTRY METHOD 08/30/2024 6:[address] [facility] Blood Venous blood specimen / Unknown Venipuncture / Unknown 08/30/2024 2:01 PM EST 08/30/2024 2:01 PM EST Jennifer Rodrigues MD LAB BLOOD ORDERABLES Final Res ult [facility] [address] [place] [address], * Falls Risk Assessment (09/03/2023) Falls Risk Assessment Abstracted Historical Provider HEALTH MAINTENANCE Final Result * Depression Screening (09/03/2023) Pathologist [facility] Depression Screening Abstracted Historical Provider HEALTH MAINTENANCE Final Result * (ABNORMAL) Lipid panel (04/23/2022) LDL/HDL Ratio 4 0 - 4 Triglycerides 137 0 - 150 mg/dL Cholesterol 115 0 - 200 mg/dL HDL 29(A) >=40 mg/dL LDL Cholesterol 59 0 - 100 mg/dL Blood Venous blood specimen / Unknown Historical Provider LAB BLOOD ORDERABLES Soraya l Result from Last 3 Months or Most Recently Relevant to Health Maintenance Insurance MEDICARE [facility] Care Teams Honing Job Setter Relationship Specialty Start Date End Date Jennifer Rodrigues MD [address] [place] [phone] PCP - General Internal Medicine 06/28/18
== END 2024-10-14 10:13 | disposition home or self-care (01) ==
LOC: HO.PMC 09:52
PROVIDERS: PCP Internal Medicine; Visit Provider Nurse Practitioner Family
DX: G89.29 Other chronic pain (principal); M96.1 Postlaminectomy syndrome, not elsewhere classified; M48.061 Spinal stenosis, lumbar region without neurogenic claudication; Z79.891 Long term (current) use of opiate analgesic; M51.369 Other intervertebral disc degeneration, lumbar region without mention of lumbar back pain or lower extremity pain; M47.816 Spondylosis without myelopathy or radiculopathy, lumbar region; M47.812 Spondylosis without myelopathy or radiculopathy, cervical region; M48.02 Spinal stenosis, cervical region; G99.2 Myelopathy in diseases classified elsewhere
CPT/HCPCS: 99214; G2211

== ENCOUNTER → 2024-10-14 09:51 | Outpatient (BNVA) | payer OTHER, SELFPAY | PROVIDERS: PCP Internal Medicine; Visit Provider Nurse Practitioner Family | DX: M96.1 Postlaminectomy syndrome, not elsewhere classified (principal); M48.061 Spinal stenosis, lumbar region without neurogenic claudication; M51.369 Other intervertebral disc degeneration, lumbar region without mention of lumbar back pain or lower extremity pain; M47.812 Spondylosis without myelopathy or radiculopathy, cervical region; M48.02 Spinal stenosis, cervical region; G89.29 Other chronic pain; G99.2 Myelopathy in diseases classified elsewhere; F11.90 Opioid use, unspecified, uncomplicated; Z51.81 Encounter for therapeutic drug level monitoring | CPT/HCPCS: 99212 ==

== ENCOUNTER 2024-12-09 09:52 | Outpatient (AMB) | payer OTHER, SELFPAY ==
--- NOTE | 2024-12-09 09:59 | A.OFFVIS_ITS ---
Vital Signs 12/09/24 10:05 Height 5 ft 9 in Weight 161 lb BMI 23.8 BP 140/108 H Blood Pressure Location Rt brachial Position Sitting Pulse 85 Pulse Source Pulse Oximeter Pulse Oximetry (%) 98 Oxygen Delivery Method Room Air Intake Visit Reasons: Pill count Intake Note: Jay comes in today for a film count to [facility], patient should have 32 films and presents with 35 films which he last took today 12/09/24 at 7:30am. 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 [facility] and presents with #35 films. Patient reports reasonable analgesia without any side effects due but continues to endorse persistent and worsening back pain with spinal-stenosis related pain and post operative neck pain s/p cervical decompression with plates by Dr. Kent on 10/27/24. Pain is rated at 7/10. He is starting physical therapy. Patient continues to utilize SCS device for chronic low back pain with partial relief. Patient has been taking Colace, Miralax, increasing fluids and taking prune juice for occasional constipation. Denies any bladder or bowel dysfunction or saddle anesthesia. [facility] Medical History Zenker diverticulum DVT (deep venous thrombosis) Hyperlipemia HTN (hypertension) GERD (gastroesophageal reflux disease) Myocardial infarction CAD (coronary artery disease) Lumbar degenerative disc disease Neuralgia Chronic, continuous use of opioids Bilateral lumbar radiculopathy Failed back syndrome Lumbar spondylosis Surgical History H/O excision of Zenker's diverticulum Hx of shoulder surgery History of esophagogastroduodenoscopy (EGD) History of coronary artery stent placement S/P dilatation of esophageal stricture S/P insertion of spinal cord stimulator History of lumbar spinal fusion Social History Patient Tobacco Use Status: Former Tobacco user Years Smoked: 6 Review of Systems Const All systems reviewed & are unremarkable except as noted in HPI and below Physical Exam General: Appears afebrile Alert and oriented. Mood and affect appropriate. Follows and participates in conversation appropriately. Hard of hearing. Respiratory effort is unlabored. No cough. Able to transition from sit to stand unassisted. Ambulates with bilaterally normal heel strike and toe off, reports unsteadiness on right side. Neck Neck: Yes normal visual inspection, Yes no lymphadenopathy, Yes supple, No anterior neck swelling, Yes no JVD, No prominent supraclavicular fat pad and No prominent dorsocervical fat pad General: Yes no CVA tenderness Back/Spine/Pelvis Other: Cervical posterior long midline incision well healing, no pathological discharge, no tenderness or erythema. Back: no CVA tenderness Cervical Spine: Lhermitte's sign positive, loss of normal cervical lordosis, cervical muscular tenderness, pain with cervical ROM, Cervical spine scars present, cervical spasm (right>left) and No Cervical spine tenderness Thoracic/Lumbar Spine: thoracic and lumbar spine normal to inspection, Thoracic/lumbar spine scar(s), Lasegue's sign positive (localized on right, diffuse on the left), pain with thoraco-lumbar ROM, paraspinal muscle tenderness, thoraco-lumbar ROM limited, No thoracic spinal tenderness, No lumbar spinal tenderness and straight leg raise positive right at 40 degrees Pelvis: no buttock tenderness and no sciatic notch tenderness Sacroiliac joints: bilaterally tender to palpation Extrem General: Yes capillary refill normal, Yes no clubbing, cyanosis or edema and Yes no calf tenderness Psych Appearance: grossly normal and well kempt Mental Status: mental status grossly normal Speech and movement: Normal speech and movement present and Clear speech present Affect: normal affect Attitude: cooperative Thought process: Normal thought process present Thought content: Normal thought content present, suicidality (none), no hallucinations and No Depressive thoughts present Insight: Good insight present (Psych) Judgement: Good judgement present (Psych) Assessment & Plan Assessment & Plan (1) Chronic, continuous use of opioids: Code(s): F11.90 - Opioid use, unspecified, uncomplicated Category: Medical (2) Failed back syndrome: Code(s): M96.1 - Postlaminectomy syndrome, not elsewhere classified Category: Medical (3) Chronic pain: Code(s): G89.29 - Other chronic pain Category: Medical (4) Lumbar spinal stenosis: Code(s): M48.061 - Spinal stenosis, lumbar region without neurogenic claudication Category: Medical (5) Lumbar degenerative disc disease: Code(s): M51.36 - Other intervertebral disc degeneration, lumbar region Category: Medical (6) Lumbar spondylosis: Code(s): M47.816 - Spondylosis without myelopathy or radiculopathy, lumbar region Category: Medical (7) Cervical spondylosis: Code(s): M47.812 - Spondylosis without myelopathy or radiculopathy, cervical region Category: Medical (8) History of cervical spinal surgery: Code(s): Z98.890 - Other specified postprocedural states Category: Surgical (9) Bilateral lumbar radiculopathy: Code(s): M54.16 - Radiculopathy, lumbar region Category: Medical Plan Patient has shown accountability for his medication regimen and the film count was accurate. The patient reported no noted side effects except occasional constipation. He has been taking Colace, Miralax with dietary modifications for occasional constipation. There is no evidence of misuse, abuse or diversion at this time. [employer] reviewed. Refill sent for for Belbuca to 600 mcg BID with advanced date of 12/23/24 with one refill provided. Side effects and precautions were reviewed with patient. Patient has Narcan at home. Patient advised to have regular dental check ups while taking Belbuca and take extra steps to help lessen the risk of serious dental problems. Follow up with Neurosurgery Dr. Kent s/p cervical spine surgery 6 weeks ago, as planned. Patient has pending Physical therapy. Patient was provided with Vicodin for post-op pain and reports has not needed to take it for the past 1.5 weeks. All questions were answered and patient is in agreement of plan. Follow up for film count in 8 weeks and sooner if needed. Medications: Refilled buprenorphine HCl Partial Fill upon patient request. 600 mcg buccal Q12H 30 days 60 ea 1RF pain M47.812 - Spondylosis without myelopathy or radiculopathy, cervical region, M48.061 - Spinal stenosis, lumbar region without neurogenic claudication, M54.16 - Radiculopathy, lumbar region, Z98.890 - Other specified postprocedural states Coding Level of Care Code Est Pt Level 4 (18306) Complex EM visit Add On G2211 Diagnoses Chronic, continuous use of opioids F11.90 Failed back syndrome M96.1 Chronic pain G89.29 Lumbar spinal stenosis M48.061 Lumbar degenerative disc disease M51.36 Lumbar spondylosis M47.816 Cervical spondylosis M47.812 History of cervical spinal surgery Z98.890 Bilateral lumbar radiculopathy M54.16
[2024-12-09 10:05] VITALS: BP 140/108; PULSE 85; O2SAT 98; BMI 23.8
--- OUTSIDE RECORDS SUMMARY | 2024-12-09 10:14 | XMS_ITS | Encounter Summary ---
Author Organization [facility] Address [address] [place] [address] Care Team Providers Care International Trade Compliance Manager Name Role Phone Jennifer Rodrigues MD Primary Care Provider [phone] Encounter Details Date Type Department Care Team (Late st Contact Info) Description 11/17/2024 Telephone Internal Medicine - [place] [address] [facility] [address] [facility] [address] [place] [phone] Jennifer Rodrigues MD [address] [phone] Social History Tobacco Use Types Packs/Day Years [...] Orientation Straight 08/31/2024 11 :04 AM EST documented as of this encounter Plan of Treatment Upcoming Encounters Date Type Department Care Team (Late st Contact Info) Description 12/16/2024 10:30 AM EDT Office Visit Internal Medicine [facility] [address] [place] [phone] Racquel Foley NP [address] [place] [address] [place] [address] documented as of this encounter Visit Diagnoses Not on filedocumented in this encounter Care Teams International Trade Compliance Manager Relationship Specialty Start Date End Date Jennifer Rodrigues MD [address] [place] [phone] PCP - General Internal Medicine 06/28/18 documented as of this encounter
--- OUTSIDE RECORDS SUMMARY | 2024-12-09 10:14 | XMS_ITS | Clinical Summary ---
Author Organization [facility] Address [address] [place] [address] Phone Care Team Providers Care Wellness Manager Name Role Phone Jennifer Rodrigues MD Primary Care Provider [phone] Allergies Active Allergy Reactions Criticality Noted Date [...] a day. 180 tablet 1 09/13/2024 Active pantoprazole (PROTONIX) 40 mg EC tabletIndicatio ns:GERD (gastroesophage al reflux disease) Take 1 tablet (40 mg total) by mouth 2 (two) times a day. 180 tablet 1 09/13/2024 Active lisinopriL (PRINIVIL,ZESTR IL) 5 mg tablet TAKE 1 TABLET BY MOUTH EVERY DAY 90 tablet 1 10/20/2024 Active Active Problems Problem Noted Date Diagnosed Date Esophageal perforation 05/01/2022 Hyperlipidemia 05/03/2018 Anxiety 05/03/2018 CAD (coronary artery disease) 11/23/2017 Hypertension 11/23/2017 Lower back pain 11/23/2017 Esophageal reflux 12/22/2016 Vitamin B12 deficiency 02/28/2016 ED (erectile dysfunction) 02/22/2015 Postlaminectomy syndrome, lumbar 10/21/2013 DDD (degenerative disc disease), lumbar 01/04/20 13 Lumbar spondylosis 11/12/2012 Lumbosacral neuritis 11/12/2012 Encounters Date Type Department Care Team Description 11/17/2024 Telephone Internal Medicine - [address] [phone] Jennifer Rodrigues MD from Last 3 Months Immunizations Name Administration [...] 10:30 AM EDT Office Visit Internal Medicine - [address] [place] [address] Racquel Foley, TRACEY [address] [facility] [address] [place] [address] Health Maintenance Due Date Last Done Comments Zoster Vaccines (1 of 2) 1964 RSV Immunization Adult Patients (1 - 1-dose 75+ series) 2020 Hepatitis C Screening 07/12/2022 Medicare Annual Wellness Visit 07/12/2022 Social Influencers of Health Screening 07/12/2022 Depression Screening 09/03/2024 09/03/2023 Falls Risk Assessment 09/03/2024 09/03/2023 DTaP,Tdap,and Td Vaccines (3 - Td or Tdap) 09/19/2024 09/19/2014, 08/02/2012 COVID-19 Vaccine (6 - Moderna risk season) 2024 05/13/2024, 06/01/2022, 07/18/2021, Additional history exists Hypertension/CHF/CAD Annual BMP Blood Test 08/30/2025 08/30/2024, 04/13/2024, 04/13/2024 Cholesterol Screening (Lipid Panel) 04/23/2027 04/23/2022 Pneumococcal Vaccine: 50+ Years Completed 07/31/2016, 06/21/2015, 08/03/2012, Additional history exists Influenza Vaccine Completed 05/13/2024, [...] age to complete this topic Meningococcal B Vaccine Aged Out No l onger eligible based on patient's age to complete this topic RSV Immunization Patients Under 20 months Aged Out No longer eligible based on patient's age to complete this topic Varicella Vaccines Aged Out No longer eligible based on patient's age to complete this topic Procedures Procedure Name Priority Date/Time Associated Diagnosis Comments COMPREHENSIVE METABOLIC PANEL Routine 08/30/2024 2:01 PM EST LLQ abdominal pain DEPRESSION SCREENING Routine 09/03/2023 FALLS RISK ASSESSMENT Routine 09/03/2023 LIPID PANEL Routine 04/23/2022 from Last 3 Months or Most Recently Relevant to Health Maintenance Results * (ABNORMAL) Comprehensive metabolic panel (08/30/2024 2:01 PM EST) Sodium 141 133 - 145 mmol/L LAB CHEMISTRY METHOD 08/30/2024 6:48 PM [facility] Potassium 4.6 3.5 - 5.5 mmol/L LAB CHEMISTRY METHOD 08/30/2024 6:48 PM [facility] Chloride 108 96 - 110 mmol/L LAB CHEMISTRY METHOD 08/30/2024 6:48 PM [facility] CO2 29 21 - 32 mmol/L LAB CHEMISTRY METHOD 08/30/2024 6:48 PM [facility] Anion Gap 4 3 - 11 LAB CHEMISTRY METHOD 08/30/2024 6:48 PM [facility] Glucose 95 70 - 100 mg/dL LAB CHEMISTRY METHOD 08/30/2024 6:48 PM [facility] BUN 24 5 - 25 mg/dL LAB CHEMISTRY METHOD 08/30/2024 6:48 PM [facility] Creatinine 1.27 0.70 - 1.30 mg/dL LAB CHEMISTRY METHOD 08/30/2024 6:48 PM [facility] eGFR 57(L) >=60 mL/min/1. 73m2 LAB CHEMISTRY METHOD 08/30/2024 6:48 PM [facility] Comment:Calculation based on the??Chronic Kidney Disease Epidemiology Collaboration (CKD-EPI) equation refit??without adjustment for race. BUN/Creatinine Ratio 18.9 LAB CHEMISTRY METHOD 08/30/2024 6:48 PM [facility] Calcium 9.4 8.5 - 10.5 mg/dL LAB CHEMISTRY METHOD 08/30/2024 6:48 PM [facility] AST (SGOT) 25 10 - 42 unit/L LAB CHEMISTRY METHOD 08/30/2024 6:48 PM [facility] ALT (SGPT) 25 10 - 60 unit/L LAB CHEMISTRY METHOD 08/30/2024 6:48 PM [facility] Alkaline Phosphatase 91 42 - 121 unit/L LAB CHEMISTRY METHOD 08/30/2024 6:48 PM [facility] Total Protein 7.3 6.0 - 8.0 g/dL LAB CHEMISTRY METHOD 08/30/2024 6:48 PM [facility] Albumin 4.1 3.2 - 5.0 g/dL LAB CHEMISTRY METHOD 08/30/2024 6:48 PM [facility] Total Bilirubin 0.5 0.0 - 1.4 mg/dL LAB CHEMISTRY METHOD 08/30/2024 6:48 PM [facility] Blood Venous blood specimen / Unknown Venipuncture / Unknown 08/30/2024 2:01 PM EST 08/30/2024 2:01 PM EST us Jennifer Rodrigues MD LAB BLOOD ORDERABLES Final Res ult [facility] [address] [place] [address], * Falls Risk Assessment (09/03/2023) Falls Risk Assessment Abstracted us Historical Provider HEALTH MAINTENANCE Final Result * Depression Screening (09/03/2023) Depression Screening Abstracted Historical Provider HEALTH MAINTENANCE Final Result * (ABNORMAL) Lipid panel (04/23/2022) Pathologist [facility] LDL/HDL Ratio 4 0 - 4 Triglycerides 137 0 - 150 mg/dL Cholesterol 115 0 - 200 mg/dL HDL 29(A) >=40 mg/dL LDL Cholesterol 59 0 - 100 mg/dL Blood Venous blood specimen / Unknown Historical Provider LAB BLOOD ORDERABLES Soraya l Result from Last 3 Months or Most Recently Relevant to Health Maintenance Insurance MEDICARE [facility] Care Teams Wellness Manager Relationship Specialty Start Date End Date Jennifer Rodrigues MD [address] [facility] [address] [place] [phone] PCP - General Internal Medicine 06/28/18
== END 2024-12-09 10:16 | disposition home or self-care (01) ==
LOC: HO.PMC 09:52
PROVIDERS: PCP Internal Medicine; Visit Provider Nurse Practitioner Family
DX: G89.29 Other chronic pain (principal); M96.1 Postlaminectomy syndrome, not elsewhere classified; M48.061 Spinal stenosis, lumbar region without neurogenic claudication; Z79.891 Long term (current) use of opiate analgesic; M51.369 Other intervertebral disc degeneration, lumbar region without mention of lumbar back pain or lower extremity pain; M47.816 Spondylosis without myelopathy or radiculopathy, lumbar region; M47.812 Spondylosis without myelopathy or radiculopathy, cervical region; Z98.890 Other specified postprocedural states; M54.16 Radiculopathy, lumbar region
CPT/HCPCS: 99214; G2211

== ENCOUNTER → 2024-12-09 09:52 | Outpatient (BNVA) | payer OTHER, SELFPAY | PROVIDERS: PCP Internal Medicine; Visit Provider Nurse Practitioner Family | DX: F11.90 Opioid use, unspecified, uncomplicated (principal); M96.1 Postlaminectomy syndrome, not elsewhere classified; G89.29 Other chronic pain; M48.061 Spinal stenosis, lumbar region without neurogenic claudication; M51.369 Other intervertebral disc degeneration, lumbar region without mention of lumbar back pain or lower extremity pain; M47.26 Other spondylosis with radiculopathy, lumbar region; M47.812 Spondylosis without myelopathy or radiculopathy, cervical region | CPT/HCPCS: 99212 ==

== ENCOUNTER 2025-02-17 09:52 | Outpatient (AMB) | payer OTHER, SELFPAY ==
--- NOTE | 2025-02-17 09:55 | A.OFFVIS_ITS ---
Vital Signs 02/17/25 10:01 Height 5 ft 9 in Weight 157 lb 6 oz BMI 23.2 BP 137/74 Blood Pressure Location Rt brachial Position Sitting Pulse 67 Pulse Source Pulse Oximeter Pulse Oximetry (%) 97 Oxygen Delivery Method Room Air Intake Visit Reasons: Pill Count Intake Note: Jay comes in today for a film count to belbuca, patient should have 14 films and presents with 15 films which he last took today 02/17/25 at 7:30am. Pain today 02/09 Telecommunications Administrator Required: No Accompanied by: Self / Same As Patient Allergies acetaminophen (From Percocet) Allergy (Verified 02/17/25 10:02) Nausea ibuprofen (From Motrin) Allergy (Verified 02/17/25 10:02) Nausea oxycodone Allergy (Verified 02/17/25 10:02) Nausea HPI Comments Details: The patient is a 79-year-old male presenting with a pill count for chronic opioid therapy management. He has a history of postlaminectomy syndrome, resulting in chronic low back and neck pain. The patient is on Belbuca 600 mcg films for pain management, with an accurate pill count during this visit. Patient is supposed to have #14 Belbuca films and presents with #15 films. The patient reported increased lower back pain due to forgetting to activate his spinal cord stimulator this morning. He expressed dissatisfaction with the outcome of his cervical decompression surgery, noting persistent neck pain affecting his lower back. Patient is seeing [employer] sales representative printing paper next week for [employer] device program adjustment. His lower back pain is centralized and unresponsive to current interventions, and he is unsure about his next follow-up appointment with his neurosurgeon. The patient has not seen his neurosurgeon recently and plans to contact them for further evaluation. Denies any recent cough, cold, infection, fever or any other significant changes in medical history since last office visit. - Onset: Chronic neck and back pain following postlaminectomy syndrome - Quality: Persistent, centralized lower back pain - Exacerbating factors: Forgetting to activate spinal cord stimulator - Relieving factors: Activation of spinal cord stimulator - Interference: Affects daily activities, mobility, and sleep due to persistent pain - Affect: Pain impacts daily activities and mood - Analgesia: Currently using Belbuca 600 mcg films, accurate pill count - Adverse Effects: None reported - Activities of Daily Living: Pain affects daily functioning, especially when spinal cord stimulator is not activated - Aberrant Drug Related Behaviors: None observed, pill count accurate PFSH Medical History Zenker diverticulum DVT (deep venous thrombosis) Hyperlipemia HTN (hypertension) GERD (gastroesophageal reflux disease) Myocardial infarction CAD (coronary artery disease) Lumbar degenerative disc disease Neuralgia Chronic, continuous use of opioids Bilateral lumbar radiculopathy Failed back syndrome Lumbar spondylosis Surgical History H/O excision of Zenker's diverticulum Hx of shoulder surgery History of esophagogastroduodenoscopy (EGD) History of coronary artery stent placement S/P dilatation of esophageal stricture S/P insertion of spinal cord stimulator History of lumbar spinal fusion Social History Patient Tobacco Use Status: Former Tobacco user Years Smoked: 6 Review of Systems Const Details: - Musculoskeletal: Reports chronic low back and neck pain - Neurological: Reports tingling sensations post-cervical decompression All systems reviewed & are unremarkable except as noted in HPI and below Physical Exam Vital Signs: Last Vital Signs Pulse 67 02/17/25 10:01 BP 137/74 02/17/25 10:01 Pulse Ox 97 02/17/25 10:01 Oxygen Delivery Method Room Air 02/17/25 10:01 BMI result Body Mass Index 23.2 General: Appears afebrile Alert and oriented. Mood and affect appropriate. Follows and participates in conversation appropriately. Hard of hearing. Respiratory effort is unlabored. No cough. Able to transition from sit to stand unassisted. Ambulates with bilaterally normal heel strike and toe off, reports unsteadiness on right side. Neck Neck: Yes normal visual inspection, Yes no lymphadenopathy, Yes supple, No anterior neck swelling, Yes no JVD, No prominent supraclavicular fat pad and No prominent dorsocervical fat pad Back/Spine/Pelvis Cervical Spine: Lhermitte's sign positive, loss of normal cervical lordosis, cervical muscular tenderness, pain with cervical ROM, Cervical spine scars present, cervical spasm (right>left) and No Cervical spine tenderness Thoracic/Lumbar Spine: thoracic and lumbar spine normal to inspection, Thoracic/lumbar spine scar(s), Lasegue's sign positive (localized on right, diffuse on the left), pain with thoraco-lumbar ROM, paraspinal muscle tenderness, thoraco-lumbar ROM limited, No thoracic spinal tenderness, No lumbar spinal tenderness and straight leg raise positive right at 40 degrees Sacroiliac joints: bilaterally tender to palpation Extrem General: Yes capillary refill normal, Yes no clubbing, cyanosis or edema and Yes no calf tenderness Psych Appearance: grossly normal and well kempt Mental Status: mental status grossly normal Speech and movement: Normal speech and movement present and Clear speech present Affect: normal affect Attitude: cooperative Thought process: Normal thought process present Thought content: Normal thought content present, suicidality (none), no hallucinations and No Depressive thoughts present Insight: Good insight present (Psych) Judgement: Good judgement present (Psych) Results Reviewed Results Reviewed: XR THORACIC SPINE 08/14/23 CLINICAL INFORMATION: Presence of other specified functional implants. FINDINGS: There is bony demineralization. There are mild T8 and T9 anterior wedge compression fractures. Vertebral body heights are otherwise normal. There is moderately severe disc space narrowing at T6-T7 through T9-T10 and at T11-T12. The remaining disc spaces are relatively well-maintained. No acute fracture or spondylolisthesis is seen. There is multi-level thoracic spondylosis. The posterior elements are intact. There is a spinal stimulator device, with tip situated at the T7-T8 level. The paravertebral soft tissues are unremarkable. IMPRESSION: 1. There is multi-level thoracic degenerative disc disease, spondylosis and facet arthropathy. 2. There are age-indeterminate mild T8 and T9 anterior wedge compression fractures. 3. A spinal stimulator device is seen, with tip situated at the T7-T8 level. XR LUMBOSACRAL SPINE 08/14/23 CLINICAL INFORMATION: Lumbar degenerative disc disease. COMPARISON: Radiographs dated 07/07/2022. TECHNIQUE: AP and lateral views of the lumbar spine and lateral view of the lumbosacral junction. FINDINGS: There is bony demineralization. There is a mild lumbar levoscoliosis. At L1-L2 and L2-L3, there is moderate disc space narrowing. At L3-L4, there is marked disc space narrowing, with vacuum disc phenomenon and accompanying marked anterior spondylosis. There has been a prior posterior fusion at L4-S1, with intact posterior fixator rods, pedicular screws and intervertebral cages. No hardware failure or loosening is seen. There is no acute fracture or spondylolisthesis. There is multi-level lumbar spondylosis. Spinal stimulator leads and an impulse generator are noted. There are aortoiliac atherosclerotic calcifications. IMPRESSION: 1. There is well-maintained alignment status-post L4-S1 posterior fusions and discectomies. No hardware failure or loosening is seen. 2. There is moderate degenerative disc disease at L1-L2 and L2-L3, and marked degenerative disc disease is seen at L3-L4. CT LUMBAR SPINE WITHOUT CONTRAST 10/01/23 CLINICAL INFORMATION: Post laminectomy syndrome. COMPARISON: Lumbar spine radiographs 08/14/2023. FINDINGS: There are chronic postoperative changes of a posterior spinal fusion with transpedicular hardware extending from L4 to S1. Bridging bone completely fuses the L4-S1 vertebra. There is grade 1 anterolisthesis of L3 on L4 that appears to be related to advanced facet degenerative changes at this level. Slight grade 1 retrolisthesis of L1 on L2 and L2 on L3. There is loss of intervertebral disc height with associated sclerotic degenerative endplate changes, hypertrophic disc osteophyte spurring, and intervertebral vacuum disc phenomenon at L1-L2, L2-L3, and L3-L4. There is also abutment with associated sclerotic changes of the adjoining spinous processes at L1-L2, L2-L3, and L3-L4 indicating likelihood of underlying Baastrup disease. Canal patency is not well assessed on this examination due to inherent limitations of CT without intrathecal contrast and due to the extent of streak artifact related to the fusion hardware. There is at least moderate canal stenosis at the level of L2-L3 and L3-L4. Limited visualization of the retroperitoneal anatomy reveals layering calculi within the gallbladder neck and scattered atheromatous calcification involving the abdominal aorta and iliac vessels. IMPRESSION: There are chronic postoperative changes of a posterior spinal fusion with transpedicular hardware extending from L4 to S1. No evidence of hardware loosening or failure. Bridging bone completely fuses the L4-S1 vertebra. There is junctional spondylosis above and below the fusion with grade 1 anterolisthesis of L3 on L4. Canal patency is not well assessed on this examination due to inherent limitations of CT without intrathecal contrast and due to the extent of streak artifact related to the fusion hardware. There is at least moderate canal stenosis at the level of L2-L3 and L3-L4. If there are clinical symptoms of compressive myelopathy then a dedicated lumbar spine MRI can be obtained for better anatomic characterization of canal patency. Assessment & Plan Assessment & Plan (1) Chronic, continuous use of opioids: Code(s): F11.90 - Opioid use, unspecified, uncomplicated Category: Medical (2) Failed back syndrome: Code(s): M96.1 - Postlaminectomy syndrome, not elsewhere classified Category: Medical (3) Chronic pain: Code(s): G89.29 - Other chronic pain Category: Medical (4) Lumbar spinal stenosis: Code(s): M48.061 - Spinal stenosis, lumbar region without neurogenic claudication Category: Medical (5) Lumbar degenerative disc disease: Code(s): M51.36 - Other intervertebral disc degeneration, lumbar region Category: Medical (6) Lumbar spondylosis: Code(s): M47.816 - Spondylosis without myelopathy or radiculopathy, lumbar region Category: Medical (7) Cervical spondylosis: Code(s): M47.812 - Spondylosis without myelopathy or radiculopathy, cervical region Category: Medical (8) History of cervical spinal surgery: Code(s): Z98.890 - Other specified postprocedural states Category: Surgical (9) Spinal cord stimulator status: Code(s): Z96.89 - Presence of other specified functional implants Category: Medical Plan Patient has shown accountability for his medication regimen and the film count was accurate. The patient reported no noted side effects except occasional constipation. He has been taking Colace, Miralax with dietary modifications for occasional constipation. There is no evidence of misuse, abuse or diversion at this time. [employer] reviewed. Refill sent for for Belbuca to 600 mcg BID with advanced date of 02/22/25 with one refill provided. Side effects and precautions were reviewed with patient. Patient has Narcan at home. Patient advised to have regular dental check ups while taking Belbuca and take extra steps to help lessen the risk of serious dental problems. Patient will follow up with [employer] rep next week for device program adjustment. All questions were answered and patient is in agreement of plan. Follow up for film count in 8 weeks and sooner if needed. Medications: Refilled buprenorphine HCl Partial Fill upon patient request. 600 mcg buccal Q12H 60 ea 1RF pain 30 days M47.812 - Spondylosis without myelopathy or radiculopathy, cervical region, M48.061 - Spinal stenosis, lumbar region without neurogenic claudication, M54.16 - Radiculopathy, lumbar region, Z98.890 - Other specified postprocedural states Coding Level of Care Code Est Pt Level 4 (33017) Complex EM visit Add On G2211 Diagnoses Chronic, continuous use of opioids F11.90 Failed back syndrome M96.1 Chronic pain G89.29 Lumbar spinal stenosis M48.061 Lumbar degenerative disc disease M51.36 Lumbar spondylosis M47.816 Cervical spondylosis M47.812 History of cervical spinal surgery Z98.890 Spinal cord stimulator status Z96.89
[2025-02-17 10:01] VITALS: BP 137/74; PULSE 67; O2SAT 97; BMI 23.2
--- OUTSIDE RECORDS SUMMARY | 2025-02-17 10:08 | XMS_ITS | Clinical Summary ---
Author Organization [facility] [place] Address [address] [address] Phone Care Team Providers Care Vascular Nurse Name Role Phone Jennifer Rodrigues MD Primary Care Provider [phone] Allergies Active Allergy Reactions Criticality Noted Date Comments Oxycodone 05/30/2009 Oxycodone-Acetaminophen 07/22/2010 Medications polyethylene glycol (MIRALAX) 17 gram packet DISSOLVE 17 GRAMS INTO WATER AND DRINK BY MOUTH EVERY DAY 3 Active buprenorphine HCL (Belbuca) 450 mcg film TKE 1 FLIM BY MOUTH EVERY 12 HOURS NEEDED FOR PAIN *DNF 11/30/2022 3 Active ferrous sulfate 325 mg (65 mg elemental iron) tablet Take 1 Tablet by mouth daily. 3 Active aspirin 81 mg EC tablet 81 mg. 0 Active ascorbic acid (VITAMIN C) 500 mg tablet Take 1,000 mg by mouth daily. 0 Active cholecalciferol (VITAMIN D-3) 25 mcg (1,000 unit) capsule Take 1,000 Units by mouth daily. 0 Active atorvastatin (LIPITOR) 80 mg tablet Take 1 tablet (80 mg total) by mouth 1 (one) time each day. 90 each 5 5 Active sucralfate (CARAFATE) 1 gram tablet Take 1 tablet (1 g total) by mouth every 6 (six) hours. 120 tablet 3 5 Active pantoprazole (PROTONIX) 40 mg EC tabletIndication s:GERD (gastroesophagea l reflux disease) Take 1 tablet (40 mg total) by mouth 2 (two) times a day. 180 tablet 1 5 Active lisinopriL (PRINIVIL,ZESTRI L) 5 mg tablet TAKE 1 TABLET BY MOUTH EVERY DAY 90 tablet 1 5 Active metoprolol succinate (TOPROL-XL) 50 mg 24 hr tablet TAKE 1 TABLET BY MOUTH TWICE DAILY 180 tablet 1 5 Active camphor-methyl salicyl-menthoL (Salonpas) 3.1 %-10 %-6 % (large) adhesive patch,medicatedI ndications:Chron ic back pain, unspecified back location, unspecified back pain laterality Apply 1 patch topically 1 (one) time each day if needed (pain). Remove at bedtime. 30 patch 5 5 Active sildenafiL (VIAGRA) 100 mg tablet TAKE 0.5 TABLETS BY MOUTH THREE TIMES A WEEK. 10 tablet 11 5 Active Active Problems Problem Noted Date Diagnosed Date Esophageal perforation 05/01/2022 Hyperlipidemia 05/03/2018 Anxiety 05/03/2018 CAD (coronary artery disease) 11/23/2017 Hypertension 11/23/2017 Lower back pain 11/23/2017 Esophageal reflux 12/22/2016 Vitamin B12 deficiency 02/28/2016 ED (erectile dysfunction) 02/22/2015 Postlaminectomy syndrome, lumbar 10/21/2013 DDD (degenerative disc disease), lumbar 01/04/20 13 Lumbar spondylosis 11/12/2012 Lumbosacral neuritis 11/12/2012 Encounters Date Type Department Care Team Description 01/26/2025 10:30 AM EDT Office Visit Gastroenterology - [address] [facility] [address] [facility] [address] [place] [phone] Yesenia Multani, TRACEY Atypical chest pain (Primary Dx) 01/25/2025 Telephone Internal Medicine - [place] [address] [facility] [address] [place] [address] Seth Argueta MA Lab Results 01/24/2025 1:15 PM EDT Office Visit Internal Medicine [facility] [address] [facility] [address] [place] [address] Jennifer Rodrigues MD Stage 3a chronic kidney disease ([facility] V24, [facility] V28) (Primary Dx); Primary hypertension; Mixed hyperlipidemia; Testosterone deficiency; Erectile dysfunction, unspecified erectile dysfunction type 01/23/2025 Telephone Internal Medicine [facility] [address] [facility] [address] [place] [phone] Seth Argueta MA Appointment 01/23/2025 Telephone Internal Medicine [facility] [address] [facility] [address] [place] [phone] Jennifer Rodrigues MD ER follow up 12/16/2024 10:30 AM EDT Office Visit Internal Medicine [facility] [address] [facility] [address] [place] [address] Racquel Foley NP Neck pain (Primary Dx); Oropharyngeal dysphagia; Primary hypertension; Mixed hyperlipidemia; Vitamin B12 deficiency; Congestive heart failure, unspecified HF chronicity, unspecified heart failure type ([facility] V24, [facility] V28); Chronic back pain, unspecified back location, unspecified back pain laterality; Skin lesion from Last 3 Months Immunizations Name Administration [...] Sign Reading Time Taken Comments Blood Pressure 126/76 01/24/2025 1:22 PM EDT Pulse 72 01/24/2025 1:22 PM EDT Temperature 36.9 C (98.4 F) 01/24/2025 1:22 PM EDT Respiratory Rate - - Oxygen Saturation 99% 01/24/2025 1:22 PM EDT Inhaled Oxygen Concentration - - Weight 71.2 kg (157 lb) 01/26/2025 10:32 AM EDT Height 175.3 cm (5' 9 ) 01/26/2025 10:32 AM EDT Body Mass Index 23.18 01/26/2025 10:32 AM EDT Plan of Treatment Upcoming Encounters Date Type Department Care Team (Late st Contact Info) Description 03/09/2025 9:00 AM EDT Appointment [facility] [address] [place] [phone] 06/23/2025 11:15 AM EST Office Visit Internal Medicine - [place] [address] [facility] [address] [place] [phone] Jennifer Rodrigues MD [address] [place] [address] [address] [place] [address] Health Maintenance Due Date Last [...] 08/02/2012 COVID-19 Vaccine (6 - Moderna risk ) 11/11/2024 05/13/2024, 06/01/2022, 07/18/2021, Additional history exists Influenza Vaccine (#1) 2025 , 04/29/2023, 06/01/2022, Additional history exists Hypertension/CHF/CAD Annual BMP Blood Test 01/24/2026 01/24/2025, 08/30/2024, 04/13/2024, Additional history exists Cholesterol Screening (Lipid Panel) 04/23/2027 04/23/2022 Pneumococcal Vaccine: 50+ Years Completed 07/31/2016, 06/21/2015, 08/03/2012, Additional history exists HIB Vaccines Aged Out [...] Procedure Name Priority Date/Time Associated Diagnosis Comments TESTOSTERONE FREE, BIOAVAILABLE AND TOTAL Routine 01/24/2025 2:12 PM EDT Essential hypertension, malignant Mixed hyperlipidemia MAGNESIUM Routine 01/24/2025 2:12 PM EDT Primary hypertension Mixed hyperlipidemia BASIC METABOLIC PANEL Routine 01/24/2025 2:12 PM EDT Primary hypertension Mixed hyperlipidemia DEPRESSION SCREENING Routine 09/03/2023 FALLS RISK ASSESSMENT Routine 09/03/2023 LIPID PANEL Routine 04/23/2022 from Last 3 Months or Most Recently Relevant to Health Maintenance Results * Testosterone free, bioavailable and total (01/24/2025 2:12 PM EDT) [facility] Testosterone 311 229 - 902 ng/dL LAB CHEMISTRY METHOD 01/24/2025 7:29 PM [facility] Testosterone, Free 4.3 0.6 - 7.3 ng/dL LAB CHEMISTRY METHOD 01/24/2025 7:29 PM [facility] Testosterone, Bioavailable 92 15 - 150 ng/dL LAB CHEMISTRY METHOD 01/24/2025 7:29 PM [facility] Sex Hormone Binding 59.1 See Comment nmol/L LAB CHEMISTRY METHOD 01/24/2025 7:29 PM [facility] Comment: FEMALES: pre-menopausal 10.8 - >180 post-menopausal 23.2 - 159.1 MALES: 21-49 years 14.6 - 94.6 50-89 years 21.6 - 113.1 CHILDREN: No established reference range Over the counter supplements containing high doses of biotin may interfere with this assay. If interference is suspected, patients should be retested after refraining from biotin supplements for 72 hours. Albumin 3.9 3.2 - 5.0 g/dL LAB CHEMISTRY METHOD 01/24/2025 7:29 PM EDT [facility] Blood Venous blood specimen / Unknown Venipuncture / Unknown 01/24/2025 2:12 PM EDT 01/24/2025 2:12 PM EDT Jennifer Rodrigues MD LAB BLOOD ORDERABLES Final Res ult [facility] [address] [place] [address], [place] [phone] * Magnesium (01/24/2025 2:12 PM EDT) [facility] Magnesium 2.1 1.9 - 2.6 mg/dL LAB CHEMISTRY METHOD 01/24/2025 6:53 PM EDT [facility] Blood Venous blood specimen / Unknown Venipuncture / Unknown 01/24/2025 2:12 PM EDT 01/24/2025 2:12 PM EDT Jennifer Rodrigues MD LAB BLOOD ORDERABLES Final Res ult Performing Organization Address City/[facility]/ZIP Co de Phone Number [facility] [address] [place] [address], [place] [phone] * (ABNORMAL) Basic metabolic panel (01/24/2025 2:12 PM EDT) [facility] Sodium 143 133 - 145 mmol/L LAB CHEMISTRY METHOD 01/24/2025 6:53 PM EDT [facility] Potassium 4.6 3.5 - 5.5 mmol/L LAB CHEMISTRY METHOD 01/24/2025 6:53 PM EDT [facility] Chloride 109 96 - 110 mmol/L LAB CHEMISTRY METHOD 01/24/2025 6:53 PM EDT [facility] CO2 28 21 - 32 mmol/L LAB CHEMISTRY METHOD 01/24/2025 6:53 PM EDT [facility] Anion Gap 6 3 - 11 LAB CHEMISTRY METHOD 01/24/2025 6:53 PM [facility] Glucose 83 70 - 100 mg/dL LAB CHEMISTRY METHOD 01/24/2025 6:53 PM [facility] BUN 23 5 - 25 mg/dL LAB CHEMISTRY METHOD 01/24/2025 6:53 PM [facility] Creatinine 1.29 0.70 - 1.30 mg/dL LAB CHEMISTRY METHOD 01/24/2025 6:53 PM [facility] eGFR 56(L) >=60 mL/min/1. 73m2 LAB CHEMISTRY METHOD 01/24/2025 6:53 PM [facility] Comment:Calculation based on the Chronic Kidney Disease Epidemiology Collaboration (CKD-EPI) equation refit without adjustment for race. BUN/Creatinine Ratio 17.8 LAB CHEMISTRY METHOD 01/24/2025 6:53 PM [facility] Calcium 9.4 8.5 - 10.5 mg/dL LAB CHEMISTRY METHOD 01/24/2025 6:53 PM [facility] Blood Venous blood specimen / Unknown Venipuncture / Unknown 01/24/2025 2:12 PM EDT 01/24/2025 2:12 PM EDT Jennifer Rodrigues MD LAB BLOOD ORDERABLES Final Res ult [facility] [address] [place] [address], * Falls Risk Assessment (09/03/2023) Falls Risk [...] mg/dL Blood Venous blood specimen / Unknown us Historical Provider LAB BLOOD ORDERABLES Soraya l Result from Last 3 Months or Most Recently Relevant to Health Maintenance Insurance MEDICARE [facility] Care Teams Vascular Nurse Relationship Specialty Start Date End Date Jennifer Rodrigues MD [address] [address] PCP - General Internal Medicine 06/28/18
--- OUTSIDE RECORDS SUMMARY | 2025-02-17 10:08 | XMS_ITS | Clinical Summary ---
Author Organization [facility] Address [address] [address] Phone Care Team Providers Care Ammonia Operator Name Role Phone Jennifer Rodrigues MD Primary Care Provider Jacky Barrett MD Unavailable [phone] Mor Asher DO Unavailable [phone] Allergies Active Allergy Reactions Criticality Noted Date Comments Ibuprofen Nausea and/or Vomiting 12/08/2022 Oxycodone Nausea and/or Vomiting 12/08/2022 Oxycodone-Acetaminophen Nausea and/or Vomiting 12/08/2022 Medications atorvastatin (LIPITOR) 80 MG tablet Take 1 tablet by mouth nightly at bedtime. 3 Active lisinopril (PRINIVIL,ZESTR IL) 5 MG tablet Take 1 tablet by mouth every morning. 3 Active metroNIDAZOLE (METROCREAM) 0.75 % cream APPLY TOPICALLY TO FACE EVERY MORNING AND EVENING FOR ROSACEA 3 Active sucralfate (CARAFATE) 1 gram tablet Take 1 g by mouth 4 (four) times a day. 3 Active sildenafiL (VIAGRA) 100 mg tablet daily as needed. 3 Active BELBUCA 450 mcg Film Take 450 mcg by mouth every 12 (twelve) hours. 3 Active aspirin 81 mg chewable tablet Take 1 tablet (81 mg total) by mouth daily. 30 tablet 3 Active metoprolol tartrate (LOPRESSOR) 50 MG tablet Take 1 tablet (50 mg total) by mouth 2 (two) times a day. 60 tablet 3 Active acetaminophen (TYLENOL) 160 mg/5 mL solution Take 15.6 mL (500 mg total) by mouth every 4 (four) hours as needed for pain (specific location in comments). 1800 mL 3 Active amoxicillin-cla vulanate (AUGMENTIN) 875-125 mg per tablet Take 1 tablet (875 mg of amoxicillin total) by mouth 2 (two) times a day. 7 tablet 3 Active Additional Information Patient not taking.Reported on 09/28/2023 pantoprazole (PROTONIX) 40 MG tablet Take 1 tablet (40 mg total) by mouth 2 (two) times a day. 4 Active Active Problems Problem Noted Date Diagnosed Date Zenker's diverticulum 04/08/2023 Overview (04/08/2023): s/p endoscopic Zenker's repair c/b perforation now with recurrent diverticulum and narrow cricopharyngeus s/p dilation x 2 without improvement Assessment & Plan (04/15/2023 6:30 PM EDT): #Dysphagia S/p endoscopic Zenker's repair in 03/2022 c/b perforation, now with recurrent diverticulum. Also with narrow cricopharyngeus s/p dilation x2 without improvement. Admitted for endoscopic Zenker's repair including Z-POEM and 5cm myotomy, performed 04/15 without complication. - NPO, including medications tonight. All meds should be given IV. - NO feeding tubes (NO NGT, No OGT, No Dobhoff). - NO BiPAP or CPAP. - LR 100mL/hr - Pantoprazole 40 mg IV twice daily until patient is able to tolerate oral medication - Ciprofloxacin 500 mg IV BID while hospitalized. - Esophagram tomorrow morning - If no evidence of perforation, the patient can be started on a clear liquid diet and subsequently discharged home if tolerating. - All meds in crushed or liquid form for 4 weeks after - Discharge recs: -Clear liquid diet for total of 2 days. -Full liquid diet for 4 weeks -Omeprazole 40 mg by mouth twice a day should be continued for 6 weeks. -Augmentin 875 mg PO BID to complete a total of 5 days of antibiotics -Follow up with Dr. Taylor in 2-4 weeks. We will arrange clinic follow-up. S/P insertion of spinal cord stimulator 04/08/20 Overview (04/08/2023): lower abd, no issues and has control device - does not used while sleeping HLD (hyperlipidemia) 04/08/2023 Overview (04/08/2023): on statin Assessment & Plan (04/15/2023 6:26 PM EDT): - Continue home atorvastatin 80mg daily (once tolerating meds) GERD (gastroesophageal reflux disease) Assessment & Plan (04/15/2023 6:26 PM EDT): - Continue home PPI BID and sucralfate 4x daily (once tolerating meds) Essential (primary) hypertension 04/08/2023 Overview (04/08/2023): med managed Assessment & Plan (04/15/2023 6:26 PM EDT): - Continue home lisinopril 5mg daily and metop 50mg BID (once tolerating meds) Chronic pain 04/08/2023 Overview (04/08/2023): s/p mult surgeries and has Spinal stimulator - left abd, has control device and will bring device day of surgery. Also on Belbuca - prescribed Dr Lisa Farley [facility]/ Pain Management [phone]. Assessment & Plan (04/15/2023 4:39 PM EDT): S/p multiple surgeries and has spinal stimulator. - Cont home belbuca 450mcg BID CAD (coronary artery disease) 04/08/2023 Overview (04/08/2023): s/p mult stents since 2004, last stent 09/2020, now off Brilinta since mid Mar 2023, Dr Jacky Barrett [phone] Cardiology [facility] Assessment & Plan (04/15/2023 6:27 PM EDT): S/p multiple stents since 2004, last stent 09/2020. 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 - Cont ASA 81mg daily (once tolerating meds) Fusion of spine, cervical region 04/08/2023 Overview (04/08/2023): Autofusion of cervical spine, limited neck ROM Resolved Problems Problem Noted Date Diagnosed Date Resolved Date DVT (deep venous thrombosis) 04/08/2023 04/08/2023 Overview (04/08/2023): LE Immunizations Immunization Administration Dates Next Due Influenza High-Dose Quadriva lent Preservative Free IM 04/16/2023(Deferred: Patient Refused) Social History Tobacco Use Types Packs/Day Years Used Date Smoking Tobacco: Never Passive Smoke Exposure: Past Smokeless Tobacco: Never Tobacco Cessation:Counseling Given: Not Answered Alcohol Use Standard Drinks/Week Comments Not Currently 0 (1 standard drink = 0.6 oz pur e alcohol) Education Answer Date Recorded Are you interested in more education? Not on obie e 11/28/2022 Are you concerned about learning? Not on file 11/28/2022 No 11/28/2022 No 11/28/2022 Digital Access Answer Date Recorded No 12/28/2022 No 12/28/2022 Reliable internet access at home? Not on file 12/28/2022 Device with a working camera? Not on file Intimate Partner Violence Answer Date R ecorded Are you denied basic needs s uch as food, clothing, or medical care? No 04/15/2023 In the past 12 months have y ou been in a relationship with a person who hurts, threatens, or tries to control you? No 04/15/2023 Are you denied basic needs s uch as food, clothing, or medical care? No 04/15/2023 In the past 12 months have y ou been in a relationship with a person who hurts, threatens, or tries to control you? No 04/15/2023 Sex and Gender Information Value Date Recorded Sex Assigned at Not on file Legal Sex Male 5:30 PM EST Gender Identity Not on file Sexual Orientation Not on file Last Filed Vital Signs Vital Sign Reading Time Taken Comments Blood Pressure 143/83 09/28/2023 12:16 PM EST Pulse 67 09/28/2023 12:16 PM EST Temperature 36.4 C (97.6 F) 04/16/2023 4:39 AM EDT Respiratory Rate 14 09/28/2023 12:16 PM EST Oxygen Saturation 96% 09/28/2023 12:16 PM EST Inhaled Oxygen Concentration - - Weight 68.5 kg (151 lb) 09/29/2023 10:49 AM EST Height 166 cm (5' 5.35 ) 09/29/2023 10:49 AM EST Body Mass Index 24.86 09/29/2023 10:49 AM EST Plan of Treatment Health Maintenance Due Date Last Done Comments CREATININE LEVEL 1945 POTASSIUM LEVEL 1945 DEPRESSION SCREENING 1957 HEPATITIS C SCREENING 1963 ZOSTER VACCINES (1 of 2) 1995 PNEUMOCOCCAL VACCINES (50+ years) (2 of 2 - PCV) 08/03/2013 08/03/2012, 10/17/2006 RSV VACCINE (1 - 1-dose 75+ series) 2020 Adult Td,Tdap Booster 08/02/2022 08/02/2012 BLOOD PRESSURE 03/28/2024 09/28/2023 COVID-19 VACCINE ( season) 2024 06/01/2022, 07/18/2021, 09/28/2020, Additional history exists SMOKING STATUS SCREENING (Once After 26 Yrs) Completed 09/28/2023 HEPATITIS A VACCINES Aged Out No long er eligible based on patient's age to complete this topic HIB VACCINES Aged Out No longer eligi ble based on patient's age to complete this topic MENINGOCOCCAL VACCINES (ACWY) Aged Out No longer eligible based on patient's age to complete this topic MENINGOCOCCAL VACCINES (B) Aged Out N o longer eligible based on patient's age to complete this topic Medical Devices Not on file Insurance MEDICARE PART A & B [employer] [facility] MEDICARE SUPPLEMENT MEDICARE PART A & B Member Subscriber Plan / Payer ( fective 2010-Present) Name:Jay Manuel Member ID:[id number] Relation to Subscriber:Self Name:Jay Manuel Subscriber ID:[id number] Payer ID:[id number] Group ID:Not on file Type:Medicare Address: [employer] [address] [place], [address] [employer] MEDICARE SUPPLEMENT MEDICARE PART A & B MEDICARE PART A & B MEDICARE PART A & B [employer] MEDICARE SUPPLEMENT MEDICARE PART A & B [employer] MEDICARE SUPPLEMENT Member Subscriber Plan / Payer ([facility] 04/03/2010-Present) Name:Jay Manuel Relation to Subscriber:Self Name:Jay Manuel Payer ID:[id number] (NAIC) Type:Indemnity Address: [address] [place] [phone] MEDICARE PART A & B Member Subscriber Plan / Payer ([facility] 04/03/2010-) Name:LokiamishaJay chan [place] Member ID:[id number] Relation to Subscriber:Self Name:Jay Manuel Subscriber ID:[id number] Payer ID:[id number] Group ID:Not on file Type:Medicare Address: [facility] [address] [place] [phone] [facility] MEDICARE SUPPLEMENT Member Subscriber Plan / Payer ([facility] 04/03/2010-) Name:LokiamishaJay chan [place] Relation to Subscriber:Self Name:LokiamishaJay chan Payer ID:[id number] (NAIC) Type:Indemnity Address: [address] [place] [phone] MEDICARE PART A & B Member Subscriber Plan / Payer ([facility] 04/03/2010-) Name:Jay Manuel Member ID:[id number] Relation to Subscriber:Self Name:Jay Manuel Subscriber ID:[id number] Payer ID:[id number] Group ID:Not on file Type:Medicare Address: [employer] [address] MEDICARE PART A & B Member Subscriber Plan / Payer ( fective 2010-Present) Name:Jay Manuel Member ID:[id number] Relation to Subscriber:Self Name:Jay Manuel Subscriber ID:[id number] Payer ID:[id number] Group ID:Not on file Type:Medicare Address: [employer] [address] [employer] MEDICARE SUPPLEMENT Advance Directives For more information, please contact: [phone] (9AM - 5PM [facility], Thursday-Thursday) * Full Code (Latest Code Status on File) Date Activated Date Inactivated Comments 04/15/2023 5:48 PM Question Answer Comments Code Status Confirmed With: Patient Care Teams Ammonia Operator Relationship Specialty Start Date End Date Jennifer Rodrigues MD [address] [place] [phone] PCP - General Internal Medicine 12/08/22 Jacky Barrett MD [address] [place] [address] [address] [place] [phone] Cardiology 12/08/22 Mor Asher DO [address] [place] [address] Dr [address] [address] General Surgery 12/08/22 Additional Source Comments The information contained in this document represents components of the legal health record. It is not the complete legal health record.[facility]
== END 2025-02-17 10:18 | disposition home or self-care (01) ==
LOC: HO.PMC 09:53
PROVIDERS: PCP Internal Medicine; Visit Provider Nurse Practitioner Family
DX: G89.29 Other chronic pain (principal); M96.1 Postlaminectomy syndrome, not elsewhere classified; M48.061 Spinal stenosis, lumbar region without neurogenic claudication; Z79.891 Long term (current) use of opiate analgesic; M51.369 Other intervertebral disc degeneration, lumbar region without mention of lumbar back pain or lower extremity pain; M47.816 Spondylosis without myelopathy or radiculopathy, lumbar region; M47.812 Spondylosis without myelopathy or radiculopathy, cervical region; Z98.890 Other specified postprocedural states; Z96.89 Presence of other specified functional implants
CPT/HCPCS: 99214; G2211

== ENCOUNTER → 2025-02-17 09:52 | Outpatient (BNVA) | payer OTHER, SELFPAY | PROVIDERS: PCP Internal Medicine; Visit Provider Nurse Practitioner Family | DX: M96.1 Postlaminectomy syndrome, not elsewhere classified (principal); M54.50 Low back pain, unspecified; G89.29 Other chronic pain; M48.061 Spinal stenosis, lumbar region without neurogenic claudication; M51.369 Other intervertebral disc degeneration, lumbar region without mention of lumbar back pain or lower extremity pain; M47.812 Spondylosis without myelopathy or radiculopathy, cervical region; M47.816 Spondylosis without myelopathy or radiculopathy, lumbar region; Z96.89 Presence of other specified functional implants; Z98.890 Other specified postprocedural states; Z79.891 Long term (current) use of opiate analgesic; Z51.81 Encounter for therapeutic drug level monitoring | CPT/HCPCS: 99212 ==

== ENCOUNTER 2025-04-21 09:54 | Outpatient (AMB) | payer OTHER, SELFPAY ==
--- NOTE | 2025-04-21 09:56 | MHC.OFFVIS ---
Vital Signs 04/21/25 10:04 Height 5 ft 9 in Weight 157 lb BMI 23.2 BP 175/77 H Blood Pressure Location Lt brachial Position Sitting Pulse 105 H Pulse Source Pulse Oximeter Pulse Oximetry (%) 96 Oxygen Delivery Method Room Air Intake Visit Reasons: Pill Count Intake Note: Jay comes in today for a pill count to [facility], patient should have 10 films and presents with 10 films which he last took today 04/21/25 at 7am. 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 He has a history of postlaminectomy syndrome and lumbar spinal stenosis, resulting in chronic low back and neck pain. The patient is on Belbuca 600 mcg films for pain management, with an accurate pill count during this visit. Patient is supposed to have #10 Belbuca films and presents with #10 films. The patient reports worsening back pain that radiates down his legs laterally and anteriorly, with worsening left leg pain and weakness, causing him to walk with a limp. He recalls an initial injury approximately twenty years ago, which led to a disc repair and fusion surgery. The patient has been diagnosed with degenerative disc disease, which has progressed over time. He also underwent cervical spine surgery 5 months ago and continuous with chronic neck pain with limited movements. Recently, the patient experienced an exacerbation of symptoms after physical activity, specifically using a sledgehammer, which he believes aggravated his condition. He reports that resting and avoiding strenuous activities provide some relief, although symptoms persist upon waking and after prolonged sitting. Patient is concerned about not able to raise his left leg to full degree like he does on the right side and has been limping and shuffling his left leg at times due to pain and weakness. Denies bladder or bowel dysfunction but frequently experiences saddle anesthesia on the left. He denies and will not be seeking evaluation at ER for worsening of symptoms. The patient has consulted his Neurosurgeon Dr. Kent who deemed surgical intervention too risky due to the current state of his spine. He reports seeing Dr. Kent last week and forgot to mention to him that his left leg symptoms have been worsening. He has undergone a CT scan within the last year, this report is not available for review today. His SCS device is not MRI compatible. The patient uses a spinal cord stimulator and takes Belbuca for pain management, although he reports limited relief. Denies any recent cough, cold, infection, fever or any other significant changes in medical history since last office visit. - Onset: Chronic, with recent exacerbation after physical activity - Quality: Radiating pain down the legs, causing a limp - Location: Lower back, buttocks, and legs - Radiation: Down the legs, primarily affecting the left side - Exacerbating factors: Physical activity, prolonged sitting - Relieving factors: Rest, avoiding strenuous activities - Interference: Affects walking, causes limp, difficulty with daily activities - Affect: Pain impacts mobility and daily activities, causing psychological distress - Analgesia: Currently using Belbuca and spinal cord stimulator, considering gabapentin - Adverse Effects: No specific adverse effects reported from current medications - Activities of Daily Living: Pain limits mobility, causes difficulty in walking and performing daily tasks - Aberrant Drug Related Behaviors: No aberrant behaviors reported [facility] Medical History Zenker diverticulum DVT (deep venous thrombosis) Hyperlipemia HTN (hypertension) GERD (gastroesophageal reflux disease) Myocardial infarction CAD (coronary artery disease) Lumbar degenerative disc disease Neuralgia Chronic, continuous use of opioids Bilateral lumbar radiculopathy Failed back syndrome Lumbar spondylosis Surgical History H/O excision of Zenker's diverticulum Hx of shoulder surgery History of esophagogastroduodenoscopy (EGD) History of coronary artery stent placement S/P dilatation of esophageal stricture S/P insertion of spinal cord stimulator History of lumbar spinal fusion Social History Patient Tobacco Use Status: Former Tobacco user Years Smoked: 6 Review of Systems Const Details: - Musculoskeletal: Reports chronic back pain, weakness in left leg, and limping - Neurological: Reports diminished sensation in left leg, occasional numbness in buttock on the left - Gastrointestinal: Denies bowel incontinence All systems reviewed & are unremarkable except as noted in HPI and below Physical Exam General: Appears afebrile Alert and oriented. Mood and affect appropriate. Follows and participates in conversation appropriately. Hard of hearing. Respiratory effort is unlabored. No cough. Able to transition from sit to stand unassisted. Ambulates with bilaterally normal heel strike and toe off, reports unsteadiness on right side. Neck Neck: Yes normal visual inspection, Yes no lymphadenopathy, Yes supple, No anterior neck swelling, Yes no JVD, No prominent supraclavicular fat pad and No prominent dorsocervical fat pad General: Yes no CVA tenderness Back/Spine/Pelvis Back: no CVA tenderness Cervical Spine: Lhermitte's sign positive, loss of normal cervical lordosis, cervical muscular tenderness, pain with cervical ROM, Cervical spine scars present, cervical spasm (right>left) and No Cervical spine tenderness Thoracic/Lumbar Spine: thoracic and lumbar spine normal to inspection, Thoracic/lumbar spine scar(s), Lasegue's sign positive (Severe pain with SLR testing on the left ) bilateral and localized, pain with thoraco-lumbar ROM, paraspinal muscle tenderness, thoraco-lumbar ROM limited, thoraco-lumbar spasm on the left greater than right, No thoracic spinal tenderness, lumbar spinal tenderness at L4 and at L5 and straight leg raise positive right at 40 degrees Sacroiliac joints: bilaterally tender to palpation Extrem General: Yes capillary refill normal, Yes no clubbing, cyanosis or edema and Yes no calf tenderness Psych Appearance: grossly normal and well kempt Mental Status: mental status grossly normal Speech and movement: Normal speech and movement present and Clear speech present Affect: normal affect Attitude: cooperative Thought process: Normal thought process present Thought content: Normal thought content present, suicidality (none), no hallucinations and No Depressive thoughts present Insight: Good insight present (Psych) Judgement: Good judgement present (Psych) Results Reviewed Results Reviewed: XR THORACIC SPINE 08/14/23 CLINICAL INFORMATION: Presence of other specified functional implants. FINDINGS: There is bony demineralization. There are mild T8 and T9 anterior wedge compression fractures. Vertebral body heights are otherwise normal. There is moderately severe disc space narrowing at T6-T7 through T9-T10 and at T11-T12. The remaining disc spaces are relatively well-maintained. No acute fracture or spondylolisthesis is seen. There is multi-level thoracic spondylosis. The posterior elements are intact. There is a spinal stimulator device, with tip situated at the T7-T8 level. The paravertebral soft tissues are unremarkable. IMPRESSION: 1. There is multi-level thoracic degenerative disc disease, spondylosis and facet arthropathy. 2. There are age-indeterminate mild T8 and T9 anterior wedge compression fractures. 3. A spinal stimulator device is seen, with tip situated at the T7-T8 level. XR LUMBOSACRAL SPINE 08/14/23 CLINICAL INFORMATION: Lumbar degenerative disc disease. COMPARISON: Radiographs dated 07/07/2022. TECHNIQUE: AP and lateral views of the lumbar spine and lateral view of the lumbosacral junction. FINDINGS: There is bony demineralization. There is a mild lumbar levoscoliosis. At L1-L2 and L2-L3, there is moderate disc space narrowing. At L3-L4, there is marked disc space narrowing, with vacuum disc phenomenon and accompanying marked anterior spondylosis. There has been a prior posterior fusion at L4-S1, with intact posterior fixator rods, pedicular screws and intervertebral cages. No hardware failure or loosening is seen. There is no acute fracture or spondylolisthesis. There is multi-level lumbar spondylosis. Spinal stimulator leads and an impulse generator are noted. There are aortoiliac atherosclerotic calcifications. IMPRESSION: 1. There is well-maintained alignment status-post L4-S1 posterior fusions and discectomies. No hardware failure or loosening is seen. 2. There is moderate degenerative disc disease at L1-L2 and L2-L3, and marked degenerative disc disease is seen at L3-L4. CT LUMBAR SPINE WITHOUT CONTRAST 10/01/23 CLINICAL INFORMATION: Post laminectomy syndrome. COMPARISON: Lumbar spine radiographs 08/14/2023. FINDINGS: There are chronic postoperative changes of a posterior spinal fusion with transpedicular hardware extending from L4 to S1. Bridging bone completely fuses the L4-S1 vertebra. There is grade 1 anterolisthesis of L3 on L4 that appears to be related to advanced facet degenerative changes at this level. Slight grade 1 retrolisthesis of L1 on L2 and L2 on L3. There is loss of intervertebral disc height with associated sclerotic degenerative endplate changes, hypertrophic disc osteophyte spurring, and intervertebral vacuum disc phenomenon at L1-L2, L2-L3, and L3-L4. There is also abutment with associated sclerotic changes of the adjoining spinous processes at L1-L2, L2-L3, and L3-L4 indicating likelihood of underlying Baastrup disease. Canal patency is not well assessed on this examination due to inherent limitations of CT without intrathecal contrast and due to the extent of streak artifact related to the fusion hardware. There is at least moderate canal stenosis at the level of L2-L3 and L3-L4. Limited visualization of the retroperitoneal anatomy reveals layering calculi within the gallbladder neck and scattered atheromatous calcification involving the abdominal aorta and iliac vessels. IMPRESSION: There are chronic postoperative changes of a posterior spinal fusion with transpedicular hardware extending from L4 to S1. No evidence of hardware loosening or failure. Bridging bone completely fuses the L4-S1 vertebra. There is junctional spondylosis above and below the fusion with grade 1 anterolisthesis of L3 on L4. Canal patency is not well assessed on this examination due to inherent limitations of CT without intrathecal contrast and due to the extent of streak artifact related to the fusion hardware. There is at least moderate canal stenosis at the level of L2-L3 and L3-L4. If there are clinical symptoms of compressive myelopathy then a dedicated lumbar spine MRI can be obtained for better anatomic characterization of canal patency. Assessment & Plan Assessment & Plan (1) Bilateral lumbar radiculopathy: Code(s): M54.16 - Radiculopathy, lumbar region Category: Medical (2) Lumbar spinal stenosis: Code(s): M48.061 - Spinal stenosis, lumbar region without neurogenic claudication Category: Medical (3) Spinal cord stimulator status: Code(s): Z96.89 - Presence of other specified functional implants Category: Medical (4) Chronic, continuous use of opioids: Code(s): F11.90 - Opioid use, unspecified, uncomplicated Category: Medical (5) Failed back syndrome: Code(s): M96.1 - Postlaminectomy syndrome, not elsewhere classified Category: Medical (6) Chronic pain: Code(s): G89.29 - Other chronic pain Category: Medical (7) Lumbar degenerative disc disease: Code(s): M51.36 - Other intervertebral disc degeneration, lumbar region Category: Medical (8) Lumbar spondylosis: Code(s): M47.816 - Spondylosis without myelopathy or radiculopathy, lumbar region Category: Medical (9) Cervical spondylosis: Code(s): M47.812 - Spondylosis without myelopathy or radiculopathy, cervical region Category: Medical (10) History of cervical spinal surgery: Code(s): Z98.890 - Other specified postprocedural states Category: Surgical Plan Patient has shown accountability for his medication regimen and the film count was accurate. The patient reported no noted side effects except occasional constipation. He has been taking Colace, Miralax with dietary modifications for occasional constipation. There is no evidence of misuse, abuse or diversion at this time. [employer] reviewed. Refill sent for for Belbuca to 600 mcg BID with advanced date of 04/25/25 with one refill provided. Patient has Narcan at home. Patient advised to have regular dental check ups while taking Belbuca and take extra steps to help lessen the risk of serious dental problems. The patient is advised to contact the Dr. Kent, Neurosurgeon to discuss the progression of symptoms, particularly the inability to lift the left leg and the associated weakness. A Medrol pack has been prescribed for symptomatic relief, and the patient is encouraged to seek ER evaluation for worsening of symptoms. Gabapentin has been introduced at a low dose to manage neuropathic leg pain, with instructions to monitor for any adverse effects. The patient is urged to avoid strenuous activities, heavy lifting, sudden movements or twisting and to rest as needed to manage symptoms. All questions were answered and patient is in agreement of plan. Follow up for film count in 8 weeks and sooner if needed. Patient was informed and verbally consented to the use of an ambient scribe for clinic note documentation during this visit. Medications: New gabapentin 100 mg PO TID 90 caps 0RF pain 30 days M54.16 - Radiculopathy, lumbar region Refilled buprenorphine HCl Partial Fill upon patient request. 600 mcg buccal Q12H 60 ea 1RF pain 30 days M47.812 - Spondylosis without myelopathy or radiculopathy, cervical region, M48.061 - Spinal stenosis, lumbar region without neurogenic claudication, M54.16 - Radiculopathy, lumbar region, Z98.890 - Other specified postprocedural states methylprednisolone (Medrol (Kamaljit)) PO PER PKG DIR 21 ea 0RF M48.061 - Spinal stenosis, lumbar region without neurogenic claudication, M54.16 - Radiculopathy, lumbar region, M96.1 - Postlaminectomy syndrome, not elsewhere classified Coding Level of Care Code Est Pt Level 4 (93536) Complex EM visit Add On G2211 Diagnoses Bilateral lumbar radiculopathy M54.16 Lumbar spinal stenosis M48.061 Spinal cord stimulator status Z96.89 Chronic, continuous use of opioids F11.90 Failed back syndrome M96.1 Chronic pain G89.29 Lumbar degenerative disc disease M51.36 Lumbar spondylosis M47.816 Cervical spondylosis M47.812 History of cervical spinal surgery Z98.890
[2025-04-21 10:04] VITALS: BP 175/77; PULSE 105; O2SAT 96; BMI 23.2
--- OUTSIDE RECORDS SUMMARY | 2025-04-21 10:26 | XMS_ITS | Encounter Summary ---
Author Organization [facility] Address [address] [place] [address] Phone Care Team Providers Care Certified Ophthalmic Technician Name Role Phone Howard Sigala MD Primary Care Provider Unava Jennifer Johnson MD Primary Care Provider Jacky Barrett MD Unavailable [phone] Mor Asher DO Unavailable [phone] Encounter Details Date Type Department Care Team (Late st Contact Info) Description 11/25/2022 Telephone [facility] [address] [facility] [place] [address] Jocelyn Escalona [address] [facility] [place] [address] [email or web address] Social History Tobacco Use Types Packs/Day Years Used Date Smoking Tobacco: Never Assessed Education Answer Date Recorded Are you interested in more education? Not on obie e 11/28/2022 Are you concerned about learning? Not on file 11/28/2022 No 11/28/2022 No 11/28/2022 Sex and Gender Information Value Date Recorded Sex Assigned at Not on file Legal Sex Male 5:30 PM EST Gender Identity Not on file Sexual Orientation Not on file documented as of this encounter Plan of Treatment Upcoming Encounters Date Type Department Care Team (Late st Contact Info) Description 05/01/2025 8:00 AM EDT Telemedicine [facility] Weight Management Program [address] [facility] [place] [address] Keisha Romano PA-C [address] [place] [address], [facility] [place] [address] [email or web address] documented as of this encounter Visit Diagnoses Not on filedocumented in this encounter Care Teams Certified Ophthalmic Technician Relationship Specialty Start Date End Date Howrad Sigala MD [address] [place] [address] PCP - General 01/31/14 12/07/22 Jennifer Rodrigues MD [address] [phone] PCP - General Internal Medicine 12/08/22 Jacky Barrett MD [address] [phone] Cardiology 12/08/22 Mor Asher DO [address] [place] [address] Dr Swift [address] [address] General Surgery 12/08/22 documented as of this encounter Additional Source Comments The information contained in this document represents components of the legal health record. It is not the complete legal health record.[facility]
--- OUTSIDE RECORDS SUMMARY | 2025-04-21 10:26 | XMS_ITS | Encounter Summary ---
Author Organization [facility] Address [address] [place] [address] Care Team Providers Care Kettle Coordinator Name Role Phone Jennifer Rodrigues MD Primary Care Provider [phone] Reason for Visit * Reason Onset Date Comments Call back 03/20/2025 Encounter Details Date Type Department Care Team ([facility] st Contact Info) Description 03/20/2025 Telephone Internal Medicine - [place] [address] [place] [phone] Jennifer Rodrigues MD [address] [place] [phone] Social History Tobacco Use Types Packs/Day Years [...] AM EST documented as of this encounter Progress Notes * Etta Posada MA - 03/21/2025 1:31 PM EDT 03/21 Left patient vmail to return call regarding msg below. Theres is no evidence of AVS being sent anywhere . If patient would like a copy we can always mail or patient can shredder picker. * Jeanie Emerson - 03/20/2025 12:15 PM EDT Pt called and requested a call back because he would like more information about his after visit summary because he would like to know who it was sent to. Please advise Cb# [phone] documented in this encounter Plan of Treatment Upcoming Encounters Date Type Department Care Team (Late st Contact Info) Description 06/23/2025 11:15 AM EST Office Visit Internal Medicine - [place] [address] [facility] [address] [place] [address] Jennifer Rodrigues MD [address] [facility] [address] [place] [phone] documented as of this encounter Visit Diagnoses Not on filedocumented in this encounter Care Teams Kettle Coordinator Relationship Specialty Start Date End Date Jennifer Rodrigues MD [address] [facility] [address] [place] [phone] PCP - General Internal Medicine 06/28/18 documented as of this encounter
--- OUTSIDE RECORDS SUMMARY | 2025-04-21 10:26 | XMS_ITS | Encounter Summary ---
Author Organization [facility] Address [address] [facility] [address] [place] [phone] Phone Care Team Providers Care Non Profit Financial Controller Name Role Phone Jennifer Rodrigues MD Primary Care Provider Jacky Barrett MD Unavailable Mor Asher DO Unavailable [phone] Encounter Details Date Type Department Care Team (Late st Contact Info) Description 02/25/2023 Procedure Pass [address] [address] Social History Tobacco Use Types Packs/Day Years [...] with a working camera? Not on file Sex and Gender Information Value Date Recorded Sex Assigned at Not on file Legal Sex Male 5:30 PM EST Gender Identity Not on file Sexual Orientation Not on file documented as of this encounter Plan of Treatment Upcoming Encounters Date Type Department Care Team (Late Contact Info) Description 05/01/2025 8:[address] [facility] Weight Management Program [address] [place], [place] [phone] [place] [address] Keisha Romano PA-C [address] [facility], [facility] [place] [address] [email or web address] documented as of this encounter Visit Diagnoses Not on filedocumented in this encounter Care Teams Non Profit Financial Controller Relationship Specialty Start Date End Date Jennifer Rodrigues MD [address] [phone] PCP - General Internal Medicine 12/08/22 Jacky Barrett MD [address] [phone] Cardiology 12/08/22 Mor Asher DO [address] [place] [address] Dr Swift [address]acic [place] [address] General Surgery 12/08/22 documented as of this encounter Additional Source Comments The information contained in this document represents components of the legal health record. It is not the complete legal health record.[facility]
--- OUTSIDE RECORDS SUMMARY | 2025-04-21 10:26 | XMS_ITS | Clinical Summary ---
Author Organization [facility] [employer] [facility] Address [address] [facility] [place] [address] Phone Care Team Providers Care Process Stripper Name Role Phone Jennifer Rodrigues MD Primary Care Provider [phone] Allergies Active Allergy Reactions Criticality Noted Date Comments Oxycodone 05/30/2009 Oxycodone-Acetaminophen 07/22/2010 Medications polyethylene glycol (MIRALAX) 17 gram packet DISSOLVE 17 GRAMS INTO WATER AND DRINK BY MOUTH EVERY DAY 06/01/20 23 Active buprenorphine HCL (Belbuca) 450 mcg film TKE 1 FLIM BY MOUTH EVERY 12 HOURS NEEDED FOR PAIN *DNF 11/30/2022 11/30/19 23 Active ferrous sulfate 325 mg (65 mg elemental iron) tablet Take 1 Tablet by mouth daily. 09/05/19 23 Active aspirin 81 mg EC tablet 81 mg. 07/22/20 10 Active ascorbic acid (VITAMIN C) 500 mg tablet Take 1,000 mg by mouth daily. 07/22/20 10 Active cholecalciferol (VITAMIN D-3) 25 mcg (1,000 unit) capsule Take 1,000 Units by mouth daily. 07/22/20 10 Active atorvastatin (LIPITOR) 80 mg tablet Take 1 tablet (80 mg total) by mouth 1 (one) time each day. 90 each 5 09/13/19 25 Active pantoprazole (PROTONIX) 40 mg EC tabletIndicatio ns:GERD (gastroesophage al reflux disease) Take 1 tablet (40 mg total) by mouth 2 (two) times a day. 180 tablet 1 09/13/19 25 Active metoprolol succinate (TOPROL-XL) 50 mg 24 hr tablet TAKE 1 TABLET BY MOUTH TWICE DAILY 180 tablet 1 12/17/19 25 Active camphor-methyl salicyl-menthoL (Salonpas) 3.1 %-10 %-6 % (large) adhesive patch,medicated Indications:Chr onic back pain, unspecified back location, unspecified back pain laterality Apply 1 patch topically 1 (one) time each day if needed (pain). Remove at bedtime. 30 patch 5 12/17/19 25 Active sildenafiL (VIAGRA) 100 mg tablet TAKE 0.5 TABLETS BY MOUTH THREE TIMES A WEEK. 10 tablet 11 12/17/19 25 Active sucralfate (CARAFATE) 1 gram tablet TAKE 1 TABLET(1 GRAM) BY MOUTH EVERY 6 HOURS 360 tablet 1 02/18/20 25 Active lisinopriL (PRINIVIL,ZESTR IL) 5 mg tablet TAKE 1 TABLET BY MOUTH EVERY DAY 90 tablet 1 04/21/20 25 Active lisinopriL (PRINIVIL,ZESTR IL) 5 mg tablet TAKE 1 TABLET BY MOUTH EVERY DAY 90 tablet 1 10/21/19 25 025 Discontinued Active Problems Problem Noted Date Diagnosed Date Esophageal perforation 05/01/2022 Hyperlipidemia 05/03/2018 Anxiety 05/03/2018 CAD (coronary artery disease) 11/23/2017 Hypertension 11/23/2017 Lower back pain 11/23/2017 Esophageal reflux 12/22/2016 Vitamin B12 deficiency 02/28/2016 ED (erectile dysfunction) 02/22/2015 Postlaminectomy syndrome, lumbar 10/21/2013 DDD (degenerative disc disease), lumbar 01/04/20 13 Lumbar spondylosis 11/12/2012 Lumbosacral neuritis 11/12/2012 Encounters Date Type Department Care Team Description 03/20/2025 Telephone Internal Medicine - [address] [address] Jennifer Rodrigues MD 03/16/2025 3:00 PM EDT Office Visit Internal Medicine [address] [place] [address] Racquel Foley NP Zenker diverticulum (Primary Dx); Oropharyngeal dysphagia; Gastroesophageal reflux disease with esophagitis, unspecified whether hemorrhage; Primary hypertension; Neck pain; Mixed hyperlipidemia; Vitamin B12 deficiency; Coronary artery disease, unspecified vessel or lesion type, unspecified whether angina present, unspecified whether douglas or transplanted heart; Chronic bilateral low back pain, unspecified whether sciatica present; Pigmented skin lesion suspicious for malignant neoplasm 03/10/2025 Telephone Gastroenterology - [address] [address] Kwame Norris MD 03/10/2025 Telephone Gastroenterology - [address] [address] Kwame Norris MD 03/09/2025 8:29 AM EDT - 03/09/2025 11:59 PM EDT Hospital Encounter [facility] Xray [address] [place] [address] Atypical chest pain Discharge Disposition: Home or Self Care 03/09/2025 Telephone Gastroenterology - [address] [address] Kwame Norris MD 01/26/2025 10:30 AM EDT Office Visit Gastroenterology - [address] [address] Yesenia Multani, TRACEY Atypical chest pain (Primary Dx) 01/25/2025 Telephone Internal Medicine [address] [address] Seth Argueta MA 01/24/2025 1:15 PM EDT Office Visit Internal Medicine [facility] [address] [address] Jennifer Rodrigues MD Stage 3a chronic kidney disease (CMS/HCC V24, CMS/HCC V28) (Primary Dx); Primary hypertension; Mixed hyperlipidemia; Testosterone deficiency; Erectile dysfunction, unspecified erectile dysfunction type 01/23/2025 Telephone Internal Medicine [facility] [address] [address] Seth Argueta MA 01/23/2025 Telephone Internal Medicine [facility] [address] [address] Jennifer Rodrigues MD from Last [...] Sign Reading Time Taken Comments Blood Pressure 131/82 03/16/2025 3:13 PM EDT Pulse 77 03/16/2025 3:13 PM EDT Temperature 36.4 C (97.5 F) 03/16/2025 3:13 PM EDT Respiratory Rate - - Oxygen Saturation 95% 03/16/2025 3:13 PM EDT Inhaled Oxygen Concentration - - Weight 69.2 kg (152 lb 9.6 oz) 03/16/2025 3:13 P M EDT Height 175.3 cm (5' 9 ) 03/16/2025 3:13 PM EDT Body Mass Index 22.54 03/16/2025 3:13 PM EDT Plan of Treatment Upcoming Encounters Date Type Department Care Team (Late st Contact Info) Description 06/23/2025 11:15 AM EST Office Visit Internal Medicine - [place] [address] [facility] [address] [place] [address] Jennifer Rodrigues MD 175 [facility] [address] [place] [address] Health Maintenance Due Date Last Done Comments Zoster Vaccines (1 of 2) 1964 RSV Immunization Adult Patients (1 - 1-dose 75+ series) 2020 Hepatitis C Screening 07/12/2022 Medicare Annual Wellness Visit 07/12/2022 Social Influencers of Health Screening 07/12/2022 Depression Screening 08/03/2024 09/03/2023 Falls Risk Assessment 09/03/2024 09/03/2023 DTaP,Tdap,and Td Vaccines (3 - Td or Tdap) 09/19/2024 09/19/2014, 08/02/2012 COVID-19 Vaccine (6 - Moderna risk season) 2025 05/13/2024, 06/01/2022, 07/18/2021, Additional history exists Influenza [...] Procedure Name Priority Date/Time Associated Diagnosis Comments COLONOSCOPY Routine 03/14/2025 3:51 PM EDT XR ESOPHAGRAM Routine 03/09/2025 9:31 AM EDT Atypical chest pain TESTOSTERONE FREE, BIOAVAILABLE AND TOTAL Routine 01/24/2025 2:12 PM EDT Essential hypertension, malignant Mixed hyperlipidemia MAGNESIUM Routine 01/24/2025 2:12 PM EDT Primary hypertension Mixed hyperlipidemia BASIC METABOLIC PANEL Routine 01/24/2025 2:12 PM EDT Primary hypertension Mixed hyperlipidemia HM DEPRESSION SCREENING Routine 09/03/2023 FALLS RISK ASSESSMENT Routine 09/03/2023 LIPID PANEL Routine 04/23/2022 from Last 3 Months or Most Recently Relevant to Health Maintenance Results * COLONOSCOPY (03/14/2025 3:51 PM EDT) Anatomical Region Laterality Modality Endoscopy us Historical Provider GI~PROCEDURE ORDERABLES F inal Result * XR Esophagram (03/09/2025 9:31 AM EDT) Anatomical Region Laterality Modality Head and Neck Radiographic Nishi ging 03/09/2025 11:5 4 AM EDT Impressions 03/09/2025 12:09 PM EDT 1. Deep laryngeal penetration without eva aspiration on rapid sequence swallowing of thin barium with moderate amounts of residual contrast within the vallecula and piriform sinuses. 2. Large Zenker's diverticulum. 3. Severe esophageal dysmotility. 4. Smooth, circumferential narrowing of the distal esophagus at the area of the GE junction with lodging of 13 mm barium tablet within this area for duration of exam, concerning for stricture. Recommend direct visualization with endoscopy. -------- FINAL REPORT -------- Dictated By: Anna Ocampo Dictated Date: 03/09/2025 11:54 ET Assigned Physician: Paul Dickerson Reviewed and Electronically Signed By: Paul Dickerson Signed Date: 03/09/2025 12:09 ET Workstation ID: [id number] Transcribed By: Self Edit Transcribed Date: 03/09/2025 12:02 ET Resident/PA/GRAIN PROCESSOR: Anna Ocampo Narrative 03/09/2025 12:09 PM EDT FINDINGS: Double contrast esophagram performed. COMPARISON: No prior esophagram imaging HISTORY: Patient is a 79-year-old male with history of atypical chest pain. 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 There are severe diffuse bony degenerative changes. Visualized lung bases appear clear. There is a spinal cord stimulator within the left lower quadrant with leads traveling superiorly toward midline. There is surgical hardware noted to the lower lumbar spine. Effervescent crystals were administered orally. Thick and thin barium were administered orally under fluoroscopic control. Pharyngoesophagram: Rapid sequence imaging of the hypopharynx during swallowing demonstrates prompt initiation of swallowing. There is normal soft palate elevation. There is deep laryngeal penetration without eva aspiration. There is moderate residual contrast seen in the vallecula and piriform sinuses. There is a large, contrast retaining Zenker's diverticulum. Thoracic esophagus: There is severe esophageal dysmotility as demonstrated by slow transit of contrast down the esophagus, break in the primary peristaltic stripping wave and visualized tertiary contractions. Normal mucosal pattern without evidence of ulceration or mass formation. There is some degree of smooth, circumferential narrowing at the distal esophagus at the area of the GE junction with lodging of 13 mm barium tablet within this area for duration of exam, concerning for stricture. Hiatal hernia: None Reflux: Unable to elicit Air Kerma: 34.77 mGy Procedure Note Paul Dickerson MD - 03/09/2025 FINDINGS: Double contrast esophagram performed. COMPARISON: No prior esophagram imaging HISTORY: Patient is a 79-year-old male with history of atypical chestpain. 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 There are severe diffuse bony degenerative changes.Visualized lung bases appear clear. There is a spinal cord stimulatorwithin the left lower quadrant with leads traveling superiorly towardmidline. There is surgical hardware noted to the lower lumbar spine. Effervescent crystals were administered orally. Thick and thin barium wereadministered orally under fluoroscopic control. Pharyngoesophagram: Rapid sequence imaging of the hypopharynx duringswallowing demonstrates prompt initiation of swallowing. There is normalsoft palate elevation. There is deep laryngeal penetration without frankaspiration. There is moderate residual contrast seen in the vallecula andpiriform sinuses. There is a large, contrast retaining Zenker'sdiverticulum. Thoracic esophagus: There is severe esophageal dysmotility as demonstratedby slow transit of contrast down the esophagus, break in the primaryperistaltic stripping wave and visualized tertiary contractions. Normalmucosal pattern without evidence of ulceration or mass formation. There issome degree of smooth, circumferential narrowing at the distal esophagusat the area of the GE junction with lodging of 13 mm barium tablet withinthis area for duration of exam, concerning for stricture. Hiatal hernia: None Reflux: Unable to elicit Air Kerma: 34.77 mGy IMPRESSION: 1. Deep laryngeal penetration without eva aspiration on rapid sequenceswallowing of thin barium with moderate amounts of residual contrastwithin the vallecula and piriform sinuses. 2. Large Zenker's diverticulum. 3. Severe esophageal dysmotility. 4. Smooth, circumferential narrowing of the distal esophagus at the areaof the GE junction with lodging of 13 mm barium tablet within this areafor duration of exam, concerning for stricture. Recommend directvisualization with endoscopy. -------- FINAL REPORT -------- Dictated By: Anna Ocampo Dictated Date: 03/09/2025 11:54 ET Assigned Physician: Paul Dickerson Reviewed and Electronically Signed By: Paul Dickerson Signed Date: 03/09/2025 12:09 ET Workstation ID: [id number] Transcribed By: Self Edit Transcribed Date: 03/09/2025 12:02 ET Resident/PA/GRAIN PROCESSOR: Anna Ocampo Yesenia Multani NP IMG FLUOROSCOPY PROCEDURES Fi nal Result * Testosterone free, bioavailable and total (01/24/2025 2:12 PM EDT) Testosterone 311 229 - 902 ng/dL LAB CHEMISTRY METHOD 01/24/2025 7:29 PM EDT [facility] Testosterone, Free 4.3 0.6 - 7.3 ng/dL LAB CHEMISTRY METHOD 01/24/2025 7:29 PM T [facility] Testosterone, Bioavailable 92 15 - 150 ng/dL LAB CHEMISTRY METHOD 01/24/2025 7:29 PM T [facility] Sex Hormone Binding 59.1 See Comment nmol/L LAB CHEMISTRY METHOD 01/24/2025 7:29 PM T [facility] Comment: FEMALES: pre-menopausal 10.8 [...] LAB CHEMISTRY METHOD 01/24/2025 7:29 PM EDT [facility] Blood Venous blood specimen / Unknown Venipuncture / Unknown 01/24/2025 2:12 PM EDT 01/24/2025 2:12 PM EDT Jennifer Rodrigues MD LAB BLOOD ORDERABLES Final Res ult [facility] [address] [place] [address], [place] [phone] * Magnesium (01/24/2025 2:12 PM EDT) [facility] Magnesium 2.1 1.9 - 2.6 mg/dL LAB CHEMISTRY METHOD 01/24/2025 6:53 PM EDT [facility] Blood Venous blood specimen / Unknown Venipuncture / Unknown 01/24/2025 2:12 PM EDT 01/24/2025 2:12 PM EDT us Jennifer Rodrigues MD LAB BLOOD ORDERABLES Final Res ult Performing Organization Address City/[facility]/ZIP Co de Phone Number [facility] [address] [place] [address], [place] [phone] * (ABNORMAL) Basic metabolic panel (01/24/2025 2:12 PM EDT) [facility] Sodium 143 133 - 145 mmol/L LAB CHEMISTRY METHOD 01/24/2025 6:53 PM EDT [facility] Potassium 4.6 3.5 - 5.5 mmol/L LAB CHEMISTRY METHOD 01/24/2025 6:53 PM EDT [facility] Chloride 109 96 - 110 mmol/L LAB CHEMISTRY METHOD 01/24/2025 6:53 PM EDT [facility] CO2 28 21 - 32 mmol/L LAB CHEMISTRY METHOD 01/24/2025 6:53 PM EDT [facility] Anion Gap 6 3 - 11 LAB CHEMISTRY METHOD 01/24/2025 6:53 PM EDT [facility] Glucose 83 70 - 100 mg/dL LAB CHEMISTRY METHOD 01/24/2025 6:53 PM [facility] BUN 23 5 - 25 mg/dL LAB CHEMISTRY METHOD 01/24/2025 6:53 PM EDT [facility] Creatinine 1.29 0.70 - 1.30 mg/dL LAB CHEMISTRY METHOD 01/24/2025 6:53 PM EDT [facility] eGFR 56(L) >=60 mL/min/1. 73m2 LAB CHEMISTRY METHOD 01/24/2025 6:53 PM [facility] Comment:Calculation based on the Chronic Kidney Disease Epidemiology Collaboration (CKD-EPI) equation refit without adjustment for race. BUN/Creatinine Ratio 17.8 LAB CHEMISTRY METHOD 01/24/2025 6:53 PM [facility] Calcium 9.4 8.5 - 10.5 mg/dL LAB CHEMISTRY METHOD 01/24/2025 6:53 PM [facility] Blood Venous blood specimen / Unknown Venipuncture / Unknown 01/24/2025 2:12 PM EDT 01/24/2025 2:12 PM EDT us Jennifer Rodrigues MD LAB BLOOD ORDERABLES Final Res ult [facility] [address] [place] [address], * Falls Risk Assessment (09/03/2023) Falls Risk [...] Recently Relevant to Health Maintenance Insurance MEDICARE [facility] Care Teams Process Stripper Relationship Specialty Start Date End Date Jennifer Rodrigues MD [address] [address] PCP - General Internal Medicine 06/28/18
--- OUTSIDE RECORDS SUMMARY | 2025-04-21 10:26 | XMS_ITS | Encounter Summary ---
Author Organization [facility] Address [address] [place] [address] Phone Care Team Providers Care Glass Lined Tank Repairer Name Role Phone Jennifer Rodrigues MD Primary Care Provider Jacky Barrett MD Unavailable [phone] Mor Asher DO Unavailable Encounter Details Date Type Department Care Team (Late st Contact Info) Description 02/19/2023 Transcribe Orders [facility] [address] [place] [address] Unknown, Unknown, Social History Tobacco Use Types Packs/Day Years [...] Info) Description 05/01/2025 8:00 AM EDT Telemedicine [facility] Weight Management Program [address] [facility] [place] [address] Keisha Romano PA-C [address] [facility], [facility] [place] [address] [email or web address] documented as of this encounter Visit Diagnoses Not on filedocumented in this encounter Care Teams Glass Lined Tank Repairer Relationship Specialty Start Date End Date Jennifer Rodrigues MD [address] [address] PCP - General Internal Medicine 12/08/22 Jacky Barrett MD [address] [address] Cardiology 12/08/22 Mor Asher DO [address] [place] [address] Dr Swift [address] [address] General Surgery 12/08/22 documented as of this encounter Additional Source Comments The information contained in this document represents components of the legal health record. It is not the complete legal health record.[facility]
--- OUTSIDE RECORDS SUMMARY | 2025-04-21 10:26 | XMS_ITS | Encounter Summary ---
Author Organization [facility] Address [address] [place] [address] Phone Care Team Providers Care Python Engineer Name Role Phone Jennifer Rodrigues MD Primary Care Provider [phone] Jacky Barrett MD Unavailable [phone] Mor Asher DO Unavailable [phone] Encounter Details Date Type Department Care Team (Late st Contact Info) Description 04/15/2023 Procedure Pass [facility] Endoscopy Department [address] [place] [address] [id number] Social History Tobacco Use Types Packs/Day Years Used Date Smoking Tobacco: Never Smokeless Tobacco: Never Alcohol Use Standard Drinks/Week Comments Not Currently [...] on file documented as of this encounter Functional Status * Calculated C-SSRS Risk Score (Lifetime/Recent) Answer Date of Assessment Author No Risk Indicated 04/15/2023 5:46 PM EDT Kimberlee Breuax RN * [place] Suicide Severity Rating Scale (Screener/Recent Self-Report) Question Answer Date of Assessment Author 1. Wish to be (Past 1 Month) No 04/15/2023 5:46 PM EDT Kimberlee Breaux RN 2. Non-Specific Active Suici dejah Thoughts (Past 1 Month) No 04/15/2023 5:46 PM EDT Vinh Breaux RN 6. Suicidal Behavior (Lifetime) No 5:46 PM EDT Kimberlee Breaux RN documented as of this encounter Plan of Treatment Upcoming Encounters Date Type Department Care Team (Late st Contact Info) Description 05/01/2025 8:00 AM EDT Telemedicine [facility] Weight Management Program 45 [facility] [place] [address] Keisha Romano PA-C [address] [place] [address], [facility] [place] [address] [email or web address] documented as of this encounter Visit Diagnoses Not on filedocumented in this encounter Care Teams Python Engineer Relationship Specialty Start Date End Date Jennifer Rodrigues MD [address] [address] PCP - General Internal Medicine 12/08/22 Jacky Barrett MD 175 [facility] [address] [place] [address] Cardiology 12/08/22 Mor Asher DO [address] [place] [address] Dr Swift [address]_[place]acic [place] [address] General Surgery 12/08/22 documented as of this encounter Additional Source Comments The information contained in this document represents components of the legal health record. It is not the complete legal health record.[facility]
--- OUTSIDE RECORDS SUMMARY | 2025-04-21 10:26 | XMS_ITS | Clinical Summary ---
Author Organization [facility] Address [address] [address] Phone Care Team Providers Care Veterinary Medicine Teacher Name Role Phone Jennifer Rodrigues MD Primary Care Provider Jacky Barrett MD Unavailable [phone] Mor Asher DO Unavailable Allergies Active Allergy Reactions Criticality Noted Date [...] on Belbuca - prescribed Dr Lisa Farley [facility]/ Pain Management [phone]. Assessment & Plan (04/15/2023 4:39 PM EDT): S/p multiple surgeries and has spinal stimulator. - Cont home belbuca 450mcg BID CAD (coronary artery disease) 04/08/2023 Overview (04/08/2023): s/p mult stents since 2004, last stent 09/2020, now off Brilinta since mid Mar 2023, Dr Jacky Barrett [phone] Cardiology [facility] Assessment & Plan (04/15/2023 6:27 PM EDT): S/p multiple stents since 2004, last stent 09/2020. Notes he stopped Brilinta indefinitely per stock mover recommendations last month. - Cont ASA 81mg [...] 09/29/2023 10:49 AM EST Plan of Treatment Upcoming Encounters Date Type Department Care Team (Late st Contact Info) Description 05/01/2025 8:00 AM EDT Telemedicine [facility] Weight Management Program [address] [place] [address] Keisha Romano PA-C [address] [place] [address] [email or web address] Health Maintenance Due Date Last Done Comments CREATININE LEVEL 1945 POTASSIUM LEVEL 1945 DEPRESSION SCREENING 1957 HEPATITIS C SCREENING 1963 ZOSTER VACCINES (1 of 2) 1995 PNEUMOCOCCAL VACCINES (50+ years) (2 of 2 - PCV) 08/03/2013 08/03/2012, 10/17/2006 RSV VACCINE (1 - 1-dose 75+ series) 2020 Adult Td,Tdap Booster 08/02/2022 08/02/2012 BLOOD PRESSURE 03/28/2024 09/28/2023 INFLUENZA VACCINE (#1) 2025 2, 05/09/2021, 05/19/2019, Additional history exists COVID-19 VACCINE (2024- season) 2025 06/01/2022, 07/18/2021, 09/28/2020, Additional history exists SMOKING [...] file Insurance MEDICARE PART A & B [facility] MEDICARE SUPPLEMENT MEDICARE PART A & B Member Subscriber Plan / Payer ( fective 2010-Present) Name:Jay Manuel Member ID:[id number] Relation to Subscriber:Self Name:Jay Manuel Subscriber ID:[id number] Payer ID:[id number] Group ID:Not on file Type:Medicare Address: [employer] [address] [place] [id number] [place] [address] [employer]ION MEDICARE SUPPLEMENT MEDICARE PART A & B MEDICARE PART A & B MEDICARE PART A & B [facility] [employer] MEDICARE SUPPLEMENT MEDICARE PART A & B [id number] [place] [address] [employer] EXTENSION MEDICARE SUPPLEMENT MEDICARE PART A & B [facility] [employer] MEDICARE SUPPLEMENT MEDICARE PART A & B MEDICARE PART A & B MEDICARE SUPPLEMENT BENJA RODRIGUEZ [id number] Advance Directives For more information, please contact: [phone] (9AM - 5PM [place]/[facility], Thursday-Thursday) * Full Code (Latest Code Status on File) Date Activated Date Inactivated Comments 04/15/2023 5:48 PM Question Answer Comments Code Status Confirmed With: Patient Care Teams Veterinary Medicine Teacher Relationship Specialty Start Date End Date Jennifer Rodrigues MD [address] [phone] PCP - General Internal Medicine 12/08/22 Jacky Barrett MD [address] [phone] Cardiology 12/08/22 Mor Asher DO [address] [place] [address] Dr Swift [address]_[place] [address] General Surgery 12/08/22 Additional Source Comments The information contained in this document represents components of the legal health record. It is not the complete legal health record.[facility]
== END 2025-04-21 10:23 | disposition home or self-care (01) ==
LOC: HO.PMC 09:55
PROVIDERS: PCP Internal Medicine; Visit Provider Nurse Practitioner Family
DX: G89.29 Other chronic pain (principal); M54.16 Radiculopathy, lumbar region; M48.061 Spinal stenosis, lumbar region without neurogenic claudication; Z79.891 Long term (current) use of opiate analgesic; Z96.89 Presence of other specified functional implants; M96.1 Postlaminectomy syndrome, not elsewhere classified; M51.369 Other intervertebral disc degeneration, lumbar region without mention of lumbar back pain or lower extremity pain; M47.816 Spondylosis without myelopathy or radiculopathy, lumbar region; M47.812 Spondylosis without myelopathy or radiculopathy, cervical region; Z98.890 Other specified postprocedural states
CPT/HCPCS: 99214; G2211

== ENCOUNTER → 2025-04-21 09:54 | Outpatient (BNVA) | payer OTHER, SELFPAY | PROVIDERS: PCP Internal Medicine; Visit Provider Nurse Practitioner Family | DX: M96.1 Postlaminectomy syndrome, not elsewhere classified (principal); M48.061 Spinal stenosis, lumbar region without neurogenic claudication; G89.29 Other chronic pain; M54.16 Radiculopathy, lumbar region; M51.369 Other intervertebral disc degeneration, lumbar region without mention of lumbar back pain or lower extremity pain; M47.816 Spondylosis without myelopathy or radiculopathy, lumbar region; M47.812 Spondylosis without myelopathy or radiculopathy, cervical region; Z96.82 Presence of neurostimulator; Z51.81 Encounter for therapeutic drug level monitoring; Z79.891 Long term (current) use of opiate analgesic; Z98.890 Other specified postprocedural states | CPT/HCPCS: 99212 ==

== ENCOUNTER 2025-06-22 10:16 | Outpatient (AMB) | payer OTHER, SELFPAY ==
--- NOTE | 2025-06-22 10:21 | A.OFFVIS_ITS ---
Vital Signs 06/22/25 10:27 Height 5 ft 9 in Weight 162 lb 6 oz BMI 24.0 BP 127/84 Blood Pressure Location Rt brachial Position Sitting Pulse 83 Pulse Source Pulse Oximeter Pulse Oximetry (%) 97 Oxygen Delivery Method Room Air Intake Visit Reasons: Pill Count Intake Note: Jay comes in today for a film count to belbuca, patient should have 2 films and presents with 9 films which he last took today 06/22/25 at 7:30am. Pain today 8/10 Ops Manager Required: No Accompanied by: Self / Same As Patient Allergies acetaminophen (From Percocet) Allergy (Verified 06/22/25 10:28) Nausea ibuprofen (From Motrin) Allergy (Verified 06/22/25 10:28) Nausea oxycodone Allergy (Verified 06/22/25 10:28) Nausea HPI Comments Details: The patient is an 80 year old individual presenting with chronic pain management. The patient has a history of chronic neck and back pain, with previous cervical and lumbar surgeries, persistent lumbar spinal stenosis causing chronic pain, which has been getting worse and is causing falls. He was seen by Neurosurgery and was told no further surgery. The pain is constant, rated 8/10 today, and is present upon waking, which is a change from previously waking refreshed. Oral steroids provide him temporary relief. Patient takes Belbuca 600 mcg BID, with #2 films were expected and #9 films were presented today. He reports inadequate analgesia on current regime withtout noted side effects, including gabapentin and previously tried short term addition of hydrocodone. The pain is severe enough to interfere with activities of daily living, such as putting on pants, walking capacity, house chores, social activities and sleep. The patient manages the pain with Belbuca and a spinal cord stimulator, for which the intensity has recently been increased. The patient's activity level is limited due to the pain. He is considering up titration of Belbuca which has been previously offered for better medical pain management. Denies any constipation, nausea, sedation, dizziness, or urinary retention. Past medical history is significant for Zenker's diverticulum, which is not currently bothersome. An esophagogastroduodenoscopy is scheduled for next week in [place] per patient. An EKG performed last year showed a normal QTc, and the patient believes another EKG was performed this year with normal results at [facility] [place], we will send request for report. Denies any recent cough, cold, infection, fever or any significant changes in medical history since last office visit. - Location: The patient reports pain in the lumbar back and legs, which is described as the most severe. - Radiation: The patient also experiences neck pain, although it is less severe. - Severity: The patient rates the pain as an 8/10 today. - Timing and Character: The pain is chronic, constant, and is present upon waking in the morning. - Exacerbating/Relieving Factors: The pain is managed with Belbuca and a spinal cord stimulator, which recently required an increase in intensity. - Interference with Function: The pain has caused falls, interferes with dressing, and limits the patient's ability to stay active. - Analgesia: The patient takes Belbuca for chronic pain and reports a current pain level of 8/10. - Activities of Daily Living: Pain interferes with dressing, has caused falls, and limits the patient's ability to remain active. - Affect: The patient reports waking up in pain, whereas the patient used to wake up refreshed, and feels like the patient is falling apart. - Adverse Effects: No adverse effects from medication were discussed. - Aberrant Drug-Related Behaviors: No aberrant behaviors were noted; the patient expressed reluctance about increasing the dose of pain medication but given severe daily back and leg pain he is considering 1 week trial of Belbuca of 750 mcg BID. [facility] Medical History Zenker diverticulum DVT (deep venous thrombosis) Hyperlipemia HTN (hypertension) GERD (gastroesophageal reflux disease) Myocardial infarction CAD (coronary artery disease) Lumbar degenerative disc disease Neuralgia Chronic, continuous use of opioids Bilateral lumbar radiculopathy Failed back syndrome Lumbar spondylosis Surgical History H/O excision of Zenker's diverticulum Hx of shoulder surgery History of esophagogastroduodenoscopy (EGD) History of coronary artery stent placement S/P dilatation of esophageal stricture S/P insertion of spinal cord stimulator History of lumbar spinal fusion Social History Patient Tobacco Use Status: Former Tobacco user Years Smoked: 6 Review of Systems Const Details: - Musculoskeletal: Reports chronic, worsening back pain, leg pain, and neck pain. - Neurological: Reports h/o falls. Reports numbness and tingling left lower extremity due to spinal stenosis. Denies bladder or bowel dysfunction or saddle anesthesia. - Gastrointestinal: Reports a history of Zenker's diverticulum, which is not currently bothersome. - Constitutional: Reports waking up in pain and not feeling refreshed. All systems reviewed & are unremarkable except as noted in HPI and below Physical Exam General: Appears afebrile Alert and oriented. Mood and affect appropriate. Follows and participates in conversation appropriately. Hard of hearing. Respiratory effort is unlabored. No cough. Able to transition from sit to stand unassisted. Ambulates with bilaterally normal heel strike and toe off, reports unsteadiness on right side. Neck Neck: Yes normal visual inspection, Yes no lymphadenopathy, Yes supple, No anterior neck swelling, Yes no JVD, No prominent supraclavicular fat pad and No prominent dorsocervical fat pad General: Yes no CVA tenderness Back/Spine/Pelvis Back: no CVA tenderness Cervical Spine: Lhermitte's sign positive, cervical muscular tenderness, pain with cervical ROM, Cervical spine scars present and No Cervical spine tenderness Thoracic/Lumbar Spine: thoracic and lumbar spine normal to inspection, Thora cic/lumbar spine scar(s), Lasegue's sign positive (Increased back and leg pain with SLR testing on the left ) on the left and localized, pain with thoraco- lumbar ROM, paraspinal muscle tenderness, thoraco-lumbar ROM limited, thoraco- lumbar spasm on the left greater than right, No thoracic spinal tenderness and lumbar spinal tenderness at L4 and at L5 Sacroiliac joints: bilaterally tender to palpation Extrem General: Yes capillary refill normal, Yes no clubbing, cyanosis or edema and Yes no calf tenderness Psych Appearance: grossly normal and well kempt Mental Status: mental status grossly normal Speech and movement: Normal speech and movement present and Clear speech present Affect: normal affect and Sad affect present Attitude: cooperative Thought process: Normal thought process present Thought content: Normal thought content present, suicidality (none), no hallucinations and Depressive thoughts present Insight: Good insight present (Psych) Judgement: Good judgement present (Psych) Results Reviewed Results Reviewed: XR THORACIC SPINE 08/14/23 CLINICAL INFORMATION: Presence of other specified functional implants. FINDINGS: There is bony demineralization. There are mild T8 and T9 anterior wedge compression fractures. Vertebral body heights are otherwise normal. There is moderately severe disc space narrowing at T6-T7 through T9-T10 and at T11-T12. The remaining disc spaces are relatively well-maintained. No acute fracture or spondylolisthesis is seen. There is multi-level thoracic spondylosis. The posterior elements are intact. There is a spinal stimulator device, with tip situated at the T7-T8 level. The paravertebral soft tissues are unremarkable. IMPRESSION: 1. There is multi-level thoracic degenerative disc disease, spondylosis and facet arthropathy. 2. There are age-indeterminate mild T8 and T9 anterior wedge compression fractures. 3. A spinal stimulator device is seen, with tip situated at the T7-T8 level. XR LUMBOSACRAL SPINE 08/14/23 CLINICAL INFORMATION: Lumbar degenerative disc disease. COMPARISON: Radiographs dated 07/07/2022. TECHNIQUE: AP and lateral views of the lumbar spine and lateral view of the lumbosacral junction. FINDINGS: There is bony demineralization. There is a mild lumbar levoscoliosis. At L1-L2 and L2-L3, there is moderate disc space narrowing. At L3-L4, there is marked disc space narrowing, with vacuum disc phenomenon and accompanying marked anterior spondylosis. There has been a prior posterior fusion at L4-S1, with intact posterior fixator rods, pedicular screws and intervertebral cages. No hardware failure or loosening is seen. There is no acute fracture or spondylolisthesis. There is multi-level lumbar spondylosis. Spinal stimulator leads and an impulse generator are noted. There are aortoiliac atherosclerotic calcifications. IMPRESSION: 1. There is well-maintained alignment status-post L4-S1 posterior fusions and discectomies. No hardware failure or loosening is seen. 2. There is moderate degenerative disc disease at L1-L2 and L2-L3, and marked degenerative disc disease is seen at L3-L4. CT LUMBAR SPINE WITHOUT CONTRAST 10/01/23 CLINICAL INFORMATION: Post laminectomy syndrome. COMPARISON: Lumbar spine radiographs 08/14/2023. FINDINGS: There are chronic postoperative changes of a posterior spinal fusion with transpedicular hardware extending from L4 to S1. Bridging bone completely fuses the L4-S1 vertebra. There is grade 1 anterolisthesis of L3 on L4 that appears to be related to advanced facet degenerative changes at this level. Slight grade 1 retrolisthesis of L1 on L2 and L2 on L3. There is loss of intervertebral disc height with associated sclerotic degenerative endplate changes, hypertrophic disc osteophyte spurring, and intervertebral vacuum disc phenomenon at L1-L2, L2-L3, and L3-L4. There is also abutment with associated sclerotic changes of the adjoining spinous processes at L1-L2, L2-L3, and L3-L4 indicating likelihood of underlying [place] disease. Canal patency is not well assessed on this examination due to inherent limitations of CT without intrathecal contrast and due to the extent of streak artifact related to the fusion hardware. There is at least moderate canal stenosis at the level of L2-L3 and L3-L4. Limited visualization of the retroperitoneal anatomy reveals layering calculi within the gallbladder neck and scattered atheromatous calcification involving the abdominal aorta and iliac vessels. IMPRESSION: There are chronic postoperative changes of a posterior spinal fusion with transpedicular hardware extending from L4 to S1. No evidence of hardware loosening or failure. Bridging bone completely fuses the L4-S1 vertebra. There is junctional spondylosis above and below the fusion with grade 1 anterolisthesis of L3 on L4. Canal patency is not well assessed on this examination due to inherent limitations of CT without intrathecal contrast and due to the extent of streak artifact related to the fusion hardware. There is at least moderate canal stenosis at the level of L2-L3 and L3-L4. If there are clinical symptoms of compressive myelopathy then a dedicated lumbar spine MRI can be obtained for better anatomic characterization of canal patency. Assessment & Plan Assessment & Plan (1) Lumbar spondylosis: Code(s): M47.816 - Spondylosis without myelopathy or radiculopathy, lumbar region Category: Medical (2) History of lumbar spinal fusion: Code(s): Z98.1 - Arthrodesis status Category: Surgical (3) Failed back syndrome: Code(s): M96.1 - Postlaminectomy syndrome, not elsewhere classified Category: Medical (4) Lumbar degenerative disc disease: Code(s): M51.36 - Other intervertebral disc degeneration, lumbar region Category: Medical (5) Bilateral lumbar radiculopathy: Code(s): M54.16 - Radiculopathy, lumbar region Category: Medical (6) Lumbar spinal stenosis: Code(s): M48.061 - Spinal stenosis, lumbar region without neurogenic claudication Category: Medical (7) Spinal cord stimulator status: Code(s): Z96.89 - Presence of other specified functional implants Category: Medical (8) Chronic, continuous use of opioids: Code(s): F11.90 - Opioid use, unspecified, uncomplicated Category: Medical (9) Chronic pain: Code(s): G89.29 - Other chronic pain Category: Medical (10) Cervical spondylosis: Code(s): M47.812 - Spondylosis without myelopathy or radiculopathy, cervical region Category: Medical (11) History of cervical spinal surgery: Code(s): Z98.890 - Other specified postprocedural states Category: Surgical Plan Patient has shown accountability for his medication regimen and the film count was accurate. The patient reported no noted side effects except occasional constipation. He has been taking Colace, Miralax with dietary modifications for occasional constipation. There is no evidence of misuse, abuse or diversion at this time. [employer] reviewed. Given the reported and persistent daily 8/10 pain level, the dose of Belbuca will be increased to 750 mcg daily. A one-week trial supply of the new dosage will be prescribed, and the patient is instructed to finish the current medication before starting the new one. Patient has Narcan at home. Patient advised to have regular dental check ups while taking Belbuca and take extra steps to help lessen the risk of serious dental problems. To ensure cardiac safety with the buprenorphine dose escalation, a request will be made to obtain the cardiology report and EKG results from [facility] to check for QTc prolongation. All questions were answered and patient is in agreement of plan. Follow up for film count in 8 weeks and sooner if needed. Patient was informed and verbally consented to the use of an ambient scribe for clinic note documentation during this visit. Medications: Changed From buprenorphine HCl Partial Fill upon patient request. 600 mcg buccal Q12H 30 days 60 ea 1RF pain M47.816 - Spondylosis without myelopathy or radiculopathy, lumbar region, M51.36 - Other intervertebral disc degeneration, lumbar region, M96.1 - Postlaminectomy syndrome, not elsewhere classified, Z98.1 - Arthrodesis status To buprenorphine HCl 750 mcg buccal Q12H 30 days 60 ea 1RF pain M47.816 - Sp ondylosis without myelopathy or radiculopathy, lumbar region, M51.36 - Other intervertebral disc degeneration, lumbar region, M96.1 - Postlaminectomy syndrome, not elsewhere classified, Z98.1 - Arthrodesis status From buprenorphine HCl 750 mcg buccal Q12H 30 days 60 ea 1RF pain M47.816 - Spondylosis without myelopathy or radiculopathy, lumbar region, M51.36 - Other intervertebral disc degeneration, lumbar region, M96.1 - Postlaminectomy syndrome, not elsewhere classified, Z98.1 - Arthrodesis status To buprenorphine HCl 750 mcg buccal Q12H 14 ea 0RF pain 1 week M47.816 - Spondylosis without myelopathy or radiculopathy, lumbar region, M51.36 - Other intervertebral disc degeneration, lumbar region, M96.1 - Postlaminectomy syndrome, not elsewhere classified, Z98.1 - Arthrodesis status Coding Level of Care Code Est Pt Level 4 (85808) Complex EM visit Add On G2211 Diagnoses Lumbar spondylosis M47.816 History of lumbar spinal fusion Z98.1 Failed back syndrome M96.1 Lumbar degenerative disc disease M51.36 Bilateral lumbar radiculopathy M54.16 Lumbar spinal stenosis M48.061 Spinal cord stimulator status Z96.89 Chronic, continuous use of opioids F11.90 Chronic pain G89.29 Cervical spondylosis M47.812 History of cervical spinal surgery Z98.890
[2025-06-22 10:27] VITALS: BP 127/84; PULSE 83; O2SAT 97; BMI 24.0
== END 2025-06-22 10:37 | disposition home or self-care (01) ==
LOC: HO.PMC 10:17
PROVIDERS: PCP Internal Medicine; Visit Provider Nurse Practitioner Family
DX: M47.816 Spondylosis without myelopathy or radiculopathy, lumbar region (principal); Z98.1 Arthrodesis status; M96.1 Postlaminectomy syndrome, not elsewhere classified; M51.369 Other intervertebral disc degeneration, lumbar region without mention of lumbar back pain or lower extremity pain; M54.16 Radiculopathy, lumbar region; M48.061 Spinal stenosis, lumbar region without neurogenic claudication; Z96.89 Presence of other specified functional implants; Z79.899 Other long term (current) drug therapy; G89.29 Other chronic pain; M47.812 Spondylosis without myelopathy or radiculopathy, cervical region; Z98.890 Other specified postprocedural states
CPT/HCPCS: 99214; G2211

== ENCOUNTER → 2025-06-22 10:16 | Outpatient (BNVA) | payer OTHER, SELFPAY | PROVIDERS: PCP Internal Medicine; Visit Provider Nurse Practitioner Family | DX: M47.816 Spondylosis without myelopathy or radiculopathy, lumbar region (principal); M96.1 Postlaminectomy syndrome, not elsewhere classified; M51.360 Other intervertebral disc degeneration, lumbar region with discogenic back pain only; M48.061 Spinal stenosis, lumbar region without neurogenic claudication; Z96.89 Presence of other specified functional implants; F11.90 Opioid use, unspecified, uncomplicated; G89.29 Other chronic pain; M47.812 Spondylosis without myelopathy or radiculopathy, cervical region; Z98.1 Arthrodesis status | CPT/HCPCS: 99212 ==